=== PATIENT | female | born 1970 | race Caucasian/White ===

== ENCOUNTER 2022-05-21 16:52 | Outpatient (REF) | payer BC, SELFPAY ==
[2022-05-21 21:40] LABS: Abs Immature Grans 0.03 10^3/uL (0.0-0.06); Absolute Basophil Count 0.04 10^3/uL (0.0-0.2); Absolute Eosinophil Count 0.13 10^3/uL (0.0-0.7); Absolute Lymphocyte Count 1.88 10^3/uL (1.2-3.4); Absolute Monocyte Count 0.41 10^3/uL (0.1-0.8); Absolute Neutrophil Count 5.85 10^3/uL (1.2-6.7); Basophils % 0.5; Eosinophils % 1.6; HCT 38.3 % (36.0-46.0); HGB 12.6 g/dL (11.2-15.7); Immature Grans % 0.4; Lymphocytes % 22.5; MCH 27.5 pg (27.0-33.0); MCHC 32.9 % (32.0-36.0); MCV 83 fL (80-95); MPV 10.6 fL (8.0-11.0); Monocytes % 4.9; Neutrophils % 70.1; Platelet Count 376 10^3/uL (130-400); RBC 4.59 10^6/uL (3.93-5.22); RDW 14.2 % (11.7-14.6); WBC 8.34 10^3/uL (4.4-10.8)
[2022-05-21 21:53] LABS: Hemoglobin A1C 6.5 % (<5.7)
[2022-05-21 21:59] LABS: Iron 29 ug/dL (50-170); Total Iron Binding Capacity 379 ug/dL (250-450); Transferrin Sat 8 % (15-50)
[2022-05-21 22:06] LABS: ALT 25 U/L (14-59); AST 16 U/L (15-37); Albumin 3.6 g/dL (3.4-5.0); Alkaline Phosphatase 116 U/L (46-116); BUN 14 mg/dL (7-18); Bilirubin, Total 0.1 mg/dL (0.2-1.0); CREATININE 0.8 mg/dL (0.55-1.02); Calcium 9.3 mg/dL (8.5-10.1); Chloride 104 mmol/L (98-107); Estimated GFR 89.15 (mL/min/1.73m2); Ferritin 19 ng/mL (8-252); Glucose 116 mg/dL (74-106); Sodium 144 mmol/L (136-145); Total Protein 7.5 g/dL (6.4-8.2)
== END 2022-05-21 16:53 | disposition home or self-care (01) ==
LOC: NCHCN 16:52
PROVIDERS: PCP Family Medicine; Visit Provider Family Medicine
DX: R53.83 Other fatigue (principal); I10 Essential (primary) hypertension; F51.8 Other sleep disorders not due to a substance or known physiological condition; F32.89 Other specified depressive episodes; E66.9 Obesity, unspecified
CPT/HCPCS: 80053; 82728; 83036; 83540; 83550; 85025

== ENCOUNTER 2022-07-26 13:32 | Outpatient (REF) | payer BC, SELFPAY ==
[2022-07-26 16:14] LABS: COMMENT (LAB VIEW ONLY) 78.68 mg/dL; Microalb ug/mg Crea 8.1 ug/mg Cr
== END 2022-07-26 13:33 | disposition home or self-care (01) ==
LOC: NCHCN 13:32
PROVIDERS: PCP Family Medicine; Visit Provider Family Medicine
DX: E11.9 Type 2 diabetes mellitus without complications (principal)
CPT/HCPCS: 82043; 82570

== ENCOUNTER 2022-09-06 15:13 | Outpatient (REF) | payer BC, SELFPAY ==
[2022-09-06 14:48] LABS: Anion Gap 6.4 mmol/L (3-11); BUN 9 mg/dL (7-18); CO2 30.6 mmol/L (21.0-32.0); CREATININE 0.8 mg/dL (0.55-1.02); Calcium 9.5 mg/dL (8.5-10.1); Chloride 105 mmol/L (98-107); Estimated GFR 89.15 (mL/min/1.73m2); Glucose 95 mg/dL (74-106); Potassium 3.6 mmol/L (3.5-5.1); Sodium 142 mmol/L (136-145)
== END 2022-09-06 15:14 | disposition home or self-care (01) ==
LOC: NCHCN 15:13
PROVIDERS: PCP Family Medicine; Visit Provider Family Medicine
DX: I10 Essential (primary) hypertension (principal)
CPT/HCPCS: 80048

== ENCOUNTER 2023-05-30 13:13 | Outpatient (REF) | payer BC, SELFPAY ==
[2023-05-30 15:10] LABS: Anion Gap 8.4 mmol/L (3-11); BUN 15 mg/dL (7-18); CO2 28.6 mmol/L (21.0-32.0); CREATININE 0.8 mg/dL (0.55-1.02); Calcium 9.2 mg/dL (8.5-10.1); Chloride 105 mmol/L (98-107); Glucose 106 mg/dL (74-106); Potassium 4.3 mmol/L (3.5-5.1); Sodium 142 mmol/L (136-145)
== END 2023-05-30 13:14 | disposition home or self-care (01) ==
LOC: NCHCN 13:13
PROVIDERS: PCP Family Medicine; Visit Provider Family Medicine
DX: I10 Essential (primary) hypertension (principal)
CPT/HCPCS: 80048

== ENCOUNTER 2023-09-18 18:17 | Outpatient (REF) | payer BC, SELFPAY ==
--- OUTSIDE RECORDS SUMMARY | 2023-09-18 18:19 | XMS_ITS ---
Author Organization Unknown Address [address] [place] [phone] Phone Care Team Providers Care Heavy Equipment Technician Name Role Phone BETTIE Jimenez Attending Unavailable FLORINA ARCOS Primary Unavailable Social History Type Status Start Date End Date Code Code Syst em Smoking History Never smoker (Never Smoked) 592911856 SNOMED CT Sex Female Medications Medication Start Date End Date Route Frequency Dose Code Code System Medication Instructions Home Meds FLUCONAZOLE 01/08/2018 11/06/2021 ORAL DAILY 1 RxNo rm TAKE 1 ORAL DAILY Lisinopril 10MG Oral Tablet 01/08/2018 11/06/2021 ORAL DAILY 10 MILLIGR AMS 239161 RxNorm TAKE 10 MILLIGRAMS ORAL DAILY PAROXETINE 01/08/2018 11/06/2021 ROUTE NOT APPLICABLE DAILY 1 RxNorm 1 ROUTE NOT APPLICABLE DAILY Aspirin 81MG Oral Tablet, Chewable 01/12/2018 11/06/2021 ORAL DAILY 81 MILLIGR AMS [id number] RxNorm TAKE 81 MILLIGRAMS ORAL DAILY Atorvastatin Calcium 40MG Oral Tablet 01/12/2018 Unknown ORAL EVERY EVENING 40 MILLIGR AMS 252324 RxNorm TAKE 40 MILLIGRAMS ORAL EVERY EVENING LORAZEPAM 01/12/2018 11/06/2021 ORAL NEEDED, EVERY 6 HOURS 1 RxNorm TAKE 1 ORAL NEEDED, EVERY 6 HOURS Omeprazole 40MG Oral Capsule, Delayed Release 01/12/2018 Unknown ORAL DAILY 40 MILLIGR AMS [id number] RxNorm TAKE 40 MILLIGRAMS ORAL DAILY PAROXETINE 01/12/2018 11/06/2021 ORAL DAILY 20 RxNor m TAKE 20 ORAL DAILY ASPIRIN 81 MG TABLET 10/06/2018 Unknown ORAL DAILY 81 MILLIGR AMS RxNorm TAKE 81 MILLIGRAMS ORAL DAILY ELIQUIS TABLET 10/06/2018 11/06/2021 ORAL DAILY 1 TABLET RxNorm TAKE 1 TABLET ORAL DAILY Lisinopril 40MG Oral Tablet 10/06/2018 Unknown ORAL DAILY 40 MILLIGR AMS 492318 RxNorm TAKE 40 MILLIGRAMS ORAL DAILY Omeprazole 40MG Oral Capsule, Delayed Release 10/06/2018 11/06/2021 ORAL DAILY 40 MILLIGR AMS 702110 RxNorm TAKE 40 MILLIGRAMS ORAL DAILY PARoxetine HCl 20MG Oral Tablet 10/06/2018 11/06/2021 ORAL DAILY 20 MILLIGR AMS [id number] 5 RxNorm TAKE 20 MILLIGRAMS ORAL DAILY PAXIL 40MG ORAL TABLET 10/06/2018 11/06/2021 ORAL DAILY 40 MILLIGR AMS RxNorm TAKE 40 MILLIGRAMS ORAL DAILY PLAVIX 75MG ORAL TABLET 10/06/2018 11/06/2021 ORAL DAILY 75 MILLIGR AMS RxNorm TAKE 75 MILLIGRAMS ORAL DAILY Propranolol HCl 20MG Oral Tablet 10/06/2018 11/06/2021 ORAL TWICE A DAY 20 MILLIGR AMS [id number] RxNorm TAKE 20 MILLIGRAMS ORAL TWICE A DAY ROSUVASTATIN TAB 10/06/2018 11/06/2021 ORAL DAILY 1 TABLET RxNorm TAKE 1 TABLET ORAL DAILY Tolterodine Tartrate 4MG Oral Capsule, Extended Release 10/06/2018 11/06/2021 ORAL DAILY 4 MILLIGR AMS 813569 RxNorm TAKE 4 MILLIGRAMS ORAL DAILY Robaxin 500MG Oral Tablet 11/10/2021 Unknown ORAL THREE TIMES A DAY 2 TABLET RxNorm TAKE 2 TABLET ORAL THREE TIMES A DAY Assessment You had the following problems:HTNNEUROPATHYCVAENDOMETRIOSIS Hospital Discharge Instructions Should you have any questions prior to discharge, please contact a member of your healthcare team. If you have left the hospital and have any questions, please contact your primary care physician. Reason For Referral No Data Found Problems Problem Start Date Resolved Date Status Code Code System HTN active 97124896 SNOMED-CT NEUROPATHY active 579714341 SNOMED-CT CVA active 481765454 SNOMED-CT ENDOMETRIOSIS active 118349181 SNOMED -CT Allergies and Adverse Reactions Allergy Substance Reaction Severity Start Date Concern Status Co de Code System CODEINE Vomiting (SNOMED-CT: 356608521), NAUSEA (SNOMED-CT: 499250920), Nausea (SNOMED-CT: 907222678) Moderate Active 2670 RxNorm MORPHINE Moderate Active 1889 RxNorm Plan of Treatment Exposure 01/24/2020 MM SCREEN BILAT 11/15/2022 BONE DENSITY DEXA SPINE & HIP CT CHEST W/O CONTRAST 06/28/2022 MM DIAG RT UNILAT 04/12/2022 US BREAST UNI RT 04/12/2022 MM DIAG RT UNILAT 04/12/2022 US BREAST UNI RT 04/12/2022 MM DIAG RT UNILAT 10/10/2021 US BREAST UNI RT 10/10/2021 MM DIAG RT UNILAT 10/10/2021 US BREAST UNI RT 10/10/2021 LAB DRAW 15MIN 09/21/2021 MM SCREEN BILAT 09/21/2021 Encounters Encounter Diagnosis Start Date Code Code Sys tem Verruca plantaris 12/22/2020 04641715 SNOMED-CT Personal Care Team Section Performer Name Performer Role Active Date Inactive Da mare
--- OUTSIDE RECORDS SUMMARY | 2023-09-18 18:19 | XMS_ITS | Continuity of Care Document ---
Author Organization [facility] Address [address] [place] [address] Care Team Providers Care Wildland Fire Fighter Name Role Phone Radha Stewart Primary Care Physician [phone] Encounter NCTY_MS Date(s): 06/21/22 - 06/21/22 [facility] [address] [place] [address] Encounter Diagnosis Obstructive sleep apnea, adult(Discharge Diagnosis) - 06/19/22 Insomnia(Discharge Diagnosis) - 06/19/22 Restless leg syndrome(Discharge Diagnosis) - 06/19/22 Discharge Disposition: Home or Self Care Attending Physician: Ariana Lowery RESTAURANT GREETER Allergies, Adverse Reactions, Alerts Substance Reaction Severity Status codeine Moderate Active morphine Mild Active Ambien CR Moderate Active Assessment and Plan Future Appointments Functional Status 06/21/22 Other exposure to Infectious Disease Non e Medications atorvastatin 40 mg oral tablet 40 mg = 1 tab, Oral, Daily, # 30 tab, 0 Refill(s) Start Date: 03/05/22 Status: Ordered Portia Low Dose 81 mg oral delayed release tablet 162 mg = 2 tab, Oral, Daily, # 30 tab, 0 Refill(s) Start Date: 03/05/22 Status: Ordered hydroCHLOROthiazide 25 mg oral tablet 25 mg = 1 tab, Oral, Daily, 0 Refill(s) Start Date: 03/05/22 Status: Ordered lisinopril 40 mg oral tablet 40 mg = 1 tab, Oral, Daily, # 30 tab, 0 Refill(s) Start Date: 03/05/22 Status: Ordered omeprazole 40 mg oral delayed release capsule 40 mg = 1 cap, Oral, Daily, # 30 cap, 0 Refill(s) Start Date: 03/05/22 Status: Ordered Ozempic (1 mg dose) 4 mg/3 mL subcutaneous solution 0.5 mg =, Subcutaneous, every week, # 3 mL, 0 Refill(s) Start Date: 06/21/22 Status: Ordered PARoxetine 40 mg oral tablet 40 mg = 1 tab, Oral, Daily, # 30 tab, 0 Refill(s) Start Date: 03/05/22 Status: Ordered rOPINIRole 1 mg oral tablet See Instructions, take 1 PO 2 hours before bedtime, # 90 tab, 1 Refill(s), Pharmacy: [id number] Start Date: 03/15/22 Status: Ordered Problem List Condition Confirmation Course Effective Dates Status Health St atus Informant Acute low back pain Confirmed Active Acute inferior myocardial infarction Confirmed Active Anxiety Confirmed Active CVA (cerebrovascular accident) Confirmed Active CPAP (continuous positive airway pressure) dependence Confirmed Active Depression Confirmed Active Shortness of breath Confirmed Active Former smoker Confirmed Active Chronic fatigue Confirmed Active Heartburn Confirmed Active History of DVT in adulthood Confirmed Active Hypertension Confirmed Active Insomnia Confirmed Active Obstructive sleep apnea, adult 1 Confirmed Active Restless leg syndrome Confirmed Active Snoring Confirmed Active Transient neurological symptoms Confirmed Active 1CPAP 8-16 cm Vital Signs Most recent to oldest [Reference Range]: 1 Weight 110.22 kg (06/21/22 8:26 AM) Weight Measured (lbs) 242.993 lb (06/21/22 8:26 AM) Height 158 cm (06/21/22 8:26 AM) Height/Length Measured (inches) 62.2 inc h (06/21/22 8:26 AM) BSA Measured 2.2 m2 (06/21/22 8:26 AM) Body Mass Index 44.15 kg/m2 (06/21/22 8:26 AM) Social History Social History Type Response Tobacco Former tobacco user Tobacco Use:. Sex Female Physician Outpatient Note * Ariana Lowery RESTAURANT GREETER: PERFORM Event Display: Office Clinic Note Physician Authored Date: [id number] HAKANLARS BASHIR :1970 Age:51 years Sex:Female Visit Date:06/21/2022 Primary Care Physician: Radha Stewart MD History of Present Illness Lars Jimenez has a Zoom??visit for ALAINA follow-up. She has given consent to have a telehealth visit. Patient is at home, provider is in the office. ?? Lars was last seen by me on 03/15/2022. She has a medical history to include obesity, HTN, GERD, migraine, anxiety, insomnia and ALAINA. ?? PSG 09/24/2007 (BMI 38.8), AHI 20.6/hr, sp02 hunter 85%, PLMi 7/hr, PLMai 0.8/hr. ?? At her last visit she was using CPAP 8-16 cm with excellent compliance and reduction in AHI. I recommended a mask liner for guajardo/reaction, explained how to prevent condensation and prescribed ropinirole for suspected PLMS causing sleep maintenance insomnia. ?? Lars tells me she is using her CPAP every night. She is tolerating it well except some nights she is still having leaking because she gets an angry face in the morning. She is not aware of the leaking at night. She is now taking Ozempic because she was diagnosed with DM and she is down about 30 lbs. She feels she is sleeping significantly more soundly since her weight has come down and she started sleeping more soundly with ropinirole. She tales ropinirole around 7 pm and she gets to bed between 9-10 pm, she still has restless legs every night where they move constantly and feels like shehas spiders or something crawling on her legs and they feel uncomfortable. Her last caffeine is now around 1 pm. She tolerates the ropinirole well and feels the best she has in many years. She feels much alert and has better energy. She got the mask liner and this made a significant improvement in the guajardo on her face and the leaks are better. She no longer has any insomnia, she either sleeps straight through or wakes once to use the bathroom and is able to get right back to sleep. ?? ESS today 05/10 COMPLIANCE DATA: N/A Physical Exam Vitals & Measurements HT:??158??cm?? WT:??110.22??kg?? BMI:??44.15?? BSA:??2.2?? N/A Clinic Assessment/Plan 1.??Obstructive sleep apnea, adult??G47.33 ALAINA diagnosed in 2007 with an AHI of 20.6/hr. She has been using CPAP 8-16 cm, she??reports excellent compliance and??but there was no compliance data available for review today. At her last visit??the AHI was at goal. She got the mask liner and the leaks are better and she had elimination of the skin irritation with this. ??She has elimination of snoring and witnessed apneas with CPAP and continued use is recommended. She is advised to keep up with the routine maintenance of the machine and toclean/replace parts as needed. I will see her back in one year. She is asked to call our office forany sleep related questions or concerns. I provided greater than 30 minutes in the care of this patient, more than half the time was spent in [id number] counseling. 2.??Insomnia??G47.00 Last visit she reported some difficulty falling asleep and often getting back to sleep. Many nightsshe was up by 2:30-4 am because she couldn't fall back to sleep.?She tried Ambien in the past and diphenhydramine and they were ineffective (Ambien) or she had intolerable side effects. She tired another sleep Rx and it also worsened her sleep. Last visit I added ropinirole and her insomnia has completely resolved. 3.??Restless leg syndrome??G25.81 Last visit she reported classic symptoms most nights and this did interfere with falling asleep. She had??her last caffeine at 3pm (soda) and was advised to cut this out and not have caffeine after noon. She also takes paroxetine which may cause or worsen RLS (but may be weaning off this). Last visit??I prescribed??ropinirole 1 mg to take two hours before bedtime. She has been taking this 2-3 hours before bed and her sleep is significantly improved and she is feeling much better rested and has more energy now. Unfortunately she still experiences RLS symptoms QHS when in bed. She did cut her caffeine back to latest at 1 pm. At this time I am having her increase the ropinirole to 2 mg and if this helps she will call our office so I can send in a??new Rx for 2 mg tablets. She has tolerated it without any side effects.?? Problem List/Past Medical History Ongoing Acute inferior myocardial infarction Acute low back pain Anxiety Chronic fatigue CPAP (continuous positive airway pressure) dependence CVA (cerebrovascular accident) Depression Former smoker Heartburn History of DVT in adulthood Hypertension Insomnia Morbid obesity Obstructive sleep apnea, adult Restless leg syndrome Shortness of breath Snoring Transient neurological symptoms Historical No qualifying data Medications What How Much When Why Instructions Unchanged aspirin (Portia Low Dose 81 mg oral delayed release tablet) 2 tab Oral (given by mouth) Every day Unchanged atorvastatin (atorvastatin 40 mg oral tablet) 1 tab Oral (given by mouth) Every day Unchanged hydroCHLOROthiazide (hydroCHLOROthiazide 25 mg oral tablet) 1 tab Oral (given by mouth) Every day Unchanged lisinopril (lisinopril 40 mg oral tablet) 1 tab Oral (given by mouth) Every day Unchanged omeprazole (omeprazole 40 mg oral delayed release capsule) 1 Capsules Oral (given by mouth) Every day Unchanged PARoxetine (PARoxetine 40 mg oral tablet) 1 tab Oral (given by mouth) Every day Unchanged rOPINIRole (rOPINIRole 1 mg oral tablet) See instructions Obstructive sleep apnea, adult Insomnia Restless leg syndrome take 1 PO 2 hours before bedtime ?? Unchanged semaglutide (Ozempic (1 mg dose) 4 mg/ 3 mL subcutaneous solution) 0.5 Milligrams Subcutaneous (under the skin) Every week Allergies Ambien CR codeine morphine Social History Electronic Cigarette/Vaping Electronic Cigarette Use: Never. Tobacco Former tobacco user Tobacco Use:. Electronically Signed on 06/21/22 08:38 AM Ariana Lowery NP Patient Care team information Care Team Personnel Name: Radha Stewart MD Position: No Access Member Role: Primary Care Physician
--- OUTSIDE RECORDS SUMMARY | 2023-09-18 18:19 | XMS_ITS | Continuity of Care Document ---
Author Organization [facility] Address [address] [place] [address] Care Team Providers Care Communications Equipment Installer Name Role Phone Radha Stewart Primary Care Physician Encounter [facility] Date(s): 03/15/22 - 03/15/22 [facility] [address] [place] [address] Encounter Diagnosis Obstructive sleep apnea, adult(Discharge Diagnosis) - 03/13/22 Insomnia(Discharge Diagnosis) - 03/15/22 Restless leg syndrome(Discharge Diagnosis) - 03/15/22 Discharge Disposition: Home or Self Care Attending Physician: Ariana Lowery COMMUNICATIONS EQUIPMENT INSTALLER Allergies, Adverse Reactions, Alerts Substance Reaction Severity Status codeine Moderate Active morphine Mild Active Ambien CR Moderate Active Assessment and Plan Future Appointments Functional Status 03/15/22 Other exposure to Infectious Disease Non e [...] 0 Refill(s) Start Date: 03/05/22 Status: Ordered PARoxetine 40 mg oral tablet 40 mg = 1 tab, Oral, Daily, # 30 tab, 0 Refill(s) Start Date: 03/05/22 Status: Ordered rOPINIRole 1 mg oral tablet See Instructions, take 1 PO 2 hours before bedtime, # 90 tab, 1 Refill(s), Pharmacy: [facility] #[id number] Start Date: 03/15/22 Status: [...] Most recent to oldest [Reference Range]: 1 Peripheral Pulse Rate [60-100 bpm] 99 bp m (03/15/22 10:35 AM) Blood Pressure [90-140/60-90 mmHg] 141/8 5mmHg *HI* (03/15/22 10:35 AM) Weight 120.20 kg (03/15/22 10:35 AM) Weight Measured (lbs) 264.995 lb (03/15/22 10:35 AM) Height 154 cm (03/15/22 10:35 AM) Height/Length Measured (inches) 60.63 in ch (03/15/22 10:35 AM) BSA Measured 2.27 m2 (03/15/22 10:35 AM) Body Mass Index 50.68 kg/m2 (03/15/22 10:35 AM) Social History Social History Type Response Tobacco Never tobacco user T obacco Use:. Sex Female Polysomnography (sleep) study * Nathan Alicea: PERFORM Event Display: Sleep Study Authored Date: [id number] Progress note * Nathan Alicea: PERFORM Event Display: Progress Note - Physician Authored Date: [id number] Physician Outpatient Note * Ariana Lowery COMMUNICATIONS EQUIPMENT INSTALLER: PERFORM Event Display: Office Clinic Note Physician Authored Date: [id number] LARS JIMENEZ:1970 Age:51 years Sex:Female Visit Date:03/15/2022 Primary Care Physician: Radha Stewart MD History of Present Illness Lars Jimenez has a visit for ALAINA follow-up. ?? Lars was last seen in the sleep clinic by Isela Medina NP in 2016. She has a medical history to include obesity, HTN, GERD, migraine, anxiety, insomnia and ALAINA. ?? PSG 09/24/2007 (BMI 38.8), AHI 20.6/hr, sp02 hunter 85%, PLMi 7/hr, PLMai 0.8/hr. ?? At her last visit with Isela she was using BiPAP 18/8/4 cm and taking modafinil 100 mg BID. ?? Lars tells me she is using her CPAP every night. She has tried several different asks and the FFM leave imprints on her face and red guajardo. She has a nasal pillows now but is struggling with an air leak. This is waking her up at night. She has not tried a chin strap. She liked the Dreamwear but it left a red ring around her face. She has been paying out of pocket for her supplies because she has a high deductible. She is not snoring with CPAP on and she wakes feeling out of breath. She did try an oral appliance and hated it. ?? She??typically goes to bed at??9 pm and it takes??60 minutes to fall asleep.??She wakes up??a??3-4??times a night from unknown reason. It takes?? minutes to get back to sleep.??She gets up at??5:30 am to start the day. Sometimes she wakes early and can't get back to sleep at all (particularly this happens if she wakes anytime after 0230).??She does not take naps.??She sleeps with someone. She has no??disturbances to sleep. ?? Quality of sleep most nights is perceived as okay to poor. ?? Level of daytime alertness is low energy to sleepy. ?? NEUROCOGNITIVE??SYMPTOMS: Has noted poor or worsening memory. Does have short concentration. Does have irritability. Does have anxiety. Does have depression. ?? INSOMNIA SYMPTOMS: Does have an active mind when trying to sleep. Does have stressful or upsetting thoughts that keep them from falling asleep. Does watch the clock often during the night. Does not worry about getting a good night of sleep. ?? BREATHING SYMPTOMS: Does not snore. Does not stop breathing during sleep. Does not struggle to breathe/gasp while sleeping. Does not feel like they are choking or throat is closing during sleep. Does breathe through mouth in sleep. Does have nasal congestion during the night. ?? MOVEMENT SYMPTOMS: Does toss and turn at night. Does have messy sheets after sleep. Does not have leg or arm jerks in sleep or prior to sleep. Does not have aching, restless or crawling feelings in legs at night. Does have a hard time keeping legs still when trying to rest or sleep. Does get muscle cramps in legs at night. Does not have sleep walking or talking. ?? DREAM SYMPTOMS: Does not often have nightmares that interfere with sleep. Does not dream of drowning or suffocating. Does not start to dream shortly after falling asleep. Does not see dreams in the room even when awake. Does not see or hear things that aren't really there when falling asleep or waking up. Does not see things in the road when driving that aren't really there. Has not had someone see them act out dreams while sleeping. Has not accidentally injured self in sleep when dreaming. ?? WEAKNESS SYMPTOMS: Does not feel limp, lose strength or fall asleep when angry, surprised or laughing. Does not have leg, arm or face weakness when upset. Does not have episodes of being unable to move when waking up. ?? DRIVING SYMPTOMS: Has not nearly fallen asleep when driving. Has not had an accident related to drowsy driving or not paying attention. Does forget the last few minutes or miles driven. Does not drive out of mary and cross center line or go onto shoulder when driving. Has not had a passenger tell them they look sleepy when driving. ?? ESS today 05/10 COMPLIANCE DATA REVIEWED WITH PATIENT: Dates 02/13/22-03/14/22,??Days used??30/30??, average use??6 hours, 46 minutes,??median pressure 11.2??cm,??95 th percentile pressure??14.2 cm,??95 th percentileair leak 46.9??lpm, AHI 2/hr Review of Systems wakes with dry mouth, heartburn (wakes with this), nocturia 0-2/night, and claustrophobia. Physical Exam Vitals & Measurements HR:??99??(Peripheral)?? BP:??141/85?? SpO2:??99%?? HT:??154??cm?? WT:??120.20??kg?? BMI:??50.68?? BSA:??2.27?? GENERAL: answers questions appropriately, well groomed, obese. HEAD: normocephalic and atraumatic. EYES: non icteric LUNGS: CTA all guadalupe. Good air movement throughout. CARDIO: RRR without murmur, gallop or thrill. NEURO: alert and oriented, normal gait. PYSCH: normal mood and affect. CUTANEOUS: no overt lesions or rashes.?? Assessment/Plan 1.??Obstructive sleep apnea, adult??G47.33 ALAINA diagnosed in 2007 with an AHI of 20.6/hr. She has been using CPAP 8-16 cm, she has excellent compliance and reduction in AHI. She has elimination of snoring and witnessed apneas with CPAP and continued use is recommended.??She tolerates the pressures well but she has struggled to find a mask that is comfortable and does not leave guajardo on her face. Her favorite mask was the Dreamwear FFM but it caused her to have a reaction. Today I showed her the [facility] and recommended a mask liner. She tried nasal pillows but has an oral air leak with these. I recommended a chin strap if needed but she will likely go back to the FFM. She gets occasional condensation and does not have a heated hose so I explained how to prevent this (get a heated hose, insulate with CPAP sleeve, pull tubing under blankets). She is advised to keep up with the routine maintenance of the machine and to clean/replace parts as needed. I will see her back in three months. She is asked to call our office for anysleep related questions or concerns. I provided greater than??45 minutes in the care of this patient, more than half the time was spent in [id number] counseling. Ordered: RocioINIRole 1 mg oral tablet, See Instructions, take 1 PO 2 hours before bedtime, # 90 tab, 1 Refill(s), Pharmacy: [facility] #[id number] Follow-Up Appointment Request ILDA, *Est. 06/13/22 +/- 21 days, Future Order, In [facility] ?? 2.??Insomnia??G47.00 She has some difficulty falling asleep and often getting back to sleep. Many nights she is up by 2:30-4 am because she can't fall back to sleep. ?? She tried Ambien in the past and diphenhydramine and they were ineffective (Ambien) or she had intolerable side effects. She tired another sleep Rx andit also worsened her sleep. I wonder if she has PLMS as below so will treat her RLS and continue to monitor. She is no longer on bupropion (which can worsen insomnia).?? She is hoping to wean off paroxetine. I wondered about manager lighting waking being caused by depression? She feels the insomnia became a problem after her stroke a??few years ago and she feels like her mood is well controlled at this time. Ordered: rOPINIRole 1 mg oral tablet, See Instructions, take 1 PO 2 hours before bedtime, # 90 tab, 1 Refill(s), Pharmacy: [facility] #[id number] Follow-Up Appointment Request NCTY, *Est. 06/13/22 +/- 21 days, Future Order, In [facility] ?? 3.??Restless leg syndrome??G25.81 Classic symptoms most nights and this does interfere with falling asleep. She has last caffeine at 3pm (soda) and is advised to cut this out and not have caffeine after noon. She also takes paroxetine which may cause or worsen RLS (but may be weaning off this). She may have PLMS associated with this and contributing to poor sleep and residual sleepiness. I prescribed??ropinirole 1 mg to take two hours before bedtime. ADR's including risk of impulse control disorder were covered. Ordered: rOPINIRole 1 mg oral tablet, See Instructions, take 1 PO 2 hours before bedtime, # 90 tab, 1 Refill(s), Pharmacy: [facility] #[id number] Follow-Up Appointment Request MARILEEY, *Est. 06/13/22 +/- 21 days, Future Order, In [facility] ?? Problem List/Past Medical History Ongoing Acute inferior myocardial infarction Acute low back pain Anxiety Chronic fatigue CPAP (continuous positive airway pressure) dependence CVA (cerebrovascular accident) Depression Former smoker Heartburn History of DVT in adulthood Hypertension Insomnia Morbid obesity Obstructive sleep apnea, adult Restless leg syndrome Shortness of breath Snoring Transient neurological symptoms Historical No qualifying data Medications atorvastatin 40 mg oral tablet, 40 mg= 1 tab, Oral, Daily Portia Low Dose 81 mg oral delayed release tablet, 162 mg= 2 tab, Oral, Daily hydroCHLOROthiazide 25 mg oral tablet, 25 mg= 1 tab, Oral, Daily lisinopril 40 mg oral tablet, 40 mg= 1 tab, Oral, Daily omeprazole 40 mg oral delayed release capsule, 40 mg= 1 cap, Oral, Daily PARoxetine 40 mg oral tablet, 40 mg= 1 tab, Oral, Daily rOPINIRole 1 mg oral tablet, See Instructions, 1 refills Allergies Ambien CR codeine morphine Social History Electronic Cigarette/Vaping Electronic Cigarette Use: Never. Tobacco Never tobacco user Tobacco Use:. Electronically Signed on 03/15/22 11:18 AM Ariana Lowery NP * Nathan Alicea: PERFORM Event Display: Office Clinic Note Physician Authored Date: [id number] * Nathan Alicea: PERFORM Event Display: Office Clinic Note Physician Authored Date: [id number] Patient Care team information Personnel Name: Radha Stewart MD
--- OUTSIDE RECORDS SUMMARY | 2023-09-18 18:19 | XMS_ITS | Continuity of Care Document ---
Author Organization [facility] Address [address] [place] [address] Care Team Providers Care Breakfast And Room Attendant Name Role Phone Radha Stewart Primary Care Physician [phone] [facility] Date(s): 06/27/23 - 06/27/23 [facility] [address] [place] [address] Encounter Diagnosis Obstructive sleep apnea, adult(Discharge Diagnosis) - 06/19/23 Restless leg syndrome(Discharge Diagnosis) - 06/19/23 Discharge Disposition: Home or Self Care Attending Physician: Ariana Lowery NP Allergies, Adverse Reactions, Alerts Substance Reaction Severity Status codeine Moderate Active morphine Mild Active Ambien CR Moderate Active Assessment and Plan Extracted from: Title:Clinic - Office Visit Note Author:Americo Lowery NP Date:06/27/23 1.??Obstructive sleep apnea, adult??G47.33 ??ALAINA diagnosed in 2007 with an AHI of 20.6/hr. She has been using CPAP 8-16 cm, she has excellent compliance and reduction in AHI. She has lost a significant amount of weight and feels the pressure is too strong and she is having a lot of air leaking. I had her set the CPAP to 6-12 cm today and I asked for a one month compliance (she will need to mail her SD card as she [place] and we can't access her machine). Also she has not been changing her cushion regularly (only every several months) so she is advised to do this monthly and clean daily to get best fit. She already uses a mask liner. An order was sent to [facility] for supplies because she has been paying for them out of pocket.?? I will see her back in one year.?? I provided greater than 30 minutes in the care of this patient, more than half the time was spent in [id number] counseling. 2.??Restless leg syndrome??G25.81 ?She initially reported having classic symptoms most nights that did interfere with falling asleep. She now takes ropinirole 1 mg a couple of hours before bedtime and her symptoms are currently very well controlled. She tolerate sthis well and a new Rx was sent in. Future Appointments Medications atorvastatin 40 mg oral tablet 40 mg = 1 tab, Oral, Daily, # 30 tab, 0 Refill(s) Start Date: 03/05/22 Status: Ordered Portia Low Dose 81 mg oral delayed release tablet 162 mg = 2 tab, Oral, Daily, # 30 tab, 0 Refill(s) Start Date: 03/05/22 Status: Ordered Fosamax 70 mg oral tablet 70 mg = 1 tab, Oral, every week, # 4 tab, 0 Refill(s) Start Date: 06/27/23 Status: Ordered hydroCHLOROthiazide 12.5 mg oral capsule 12.5 mg = 1 cap, Oral, Daily, # 30 cap, 0 Refill(s) Start Date: 06/27/23 Status: Ordered lisinopril 40 mg oral tablet 40 mg = 1 tab, Oral, Daily, # 30 tab, 0 Refill(s) Start Date: 03/05/22 Status: Ordered omeprazole 40 mg oral delayed release capsule 40 mg = 1 cap, Oral, Daily, # 30 cap, 0 Refill(s) Start Date: 03/05/22 Status: Ordered oxybutynin 15 mg/24 hr oral tablet, extended release 15 mg = 1 tab, Oral, Daily, # 30 tab, 0 Refill(s) Start Date: 06/27/23 Status: Ordered PARoxetine 10 mg oral tablet 10 mg = 1 tab, Oral, Daily, # 30 tab, 0 Refill(s) Start Date: 06/27/23 Status: Ordered rOPINIRole 1 mg oral tablet See Instructions, take 1 PO 2 hours before bedtime, # 90 tab, 3 Refill(s), Pharmacy: [facility] #[id number], 158, cm, 06/27/23 10:56:00 EDT, Height, 99.79, kg, 06/27/23 11:01:00 EDT, Weight Dosing Start Date: 06/27/23 Status: Ordered Victoza 0 Refill(s) Start Date: 06/27/23 Status: Ordered Problem List Condition Confirmation Course [...] Range]: 1 Peripheral Pulse Rate [60-100 bpm] 71 bp m (06/27/23 10:56 AM) Blood Pressure [90-140/60-90 mmHg] 129/9 6mmHg (06/27/23 10:56 AM) Mean Arterial Pressure, Cuff [65-140 mmH g] 107 mmHg (06/27/23 10:56 AM) Weight 99.79 kg (06/27/23 10:56 AM) Weight Measured (lbs) 219.999 lb (06/27/23 10:56 AM) Weight Dosing 99.790 kg (06/27/23 10:56 AM) Height 158 cm (06/27/23 10:56 AM) Height/Length Measured (inches) 62.2 inc h (06/27/23 10:56 AM) BSA Measured 2.09 m2 (06/27/23 10:56 AM) Body Mass Index 39.97 kg/m2 (06/27/23 10:56 AM) Social History Social History Type Response Tobacco Former tobacco user Tobacco Use:. Sex Female Progress note * Nathan Alicea M: PERFORM Event Display: Progress Note - Physician Authored Date: [id number] Physician Outpatient Note * Ariana Lowery DIRECTOR OF EDUCATION: PERFORM Event Display: Office Clinic Note Physician Authored Date: [id number] LARS JIMENEZ :1970 Age:52 years Sex:Female Visit Date:06/27/2023 Primary Care Physician: Radha Stewart MD History of Present Illness Lars Jimenez has a telehealth visit for ALAINA and RLS follow-up. She has given consent to have a telehealth visit. Patient is at the office, provider is at home. ?? Lars was last seen by me on 06/21/2022. She has a medical history to include obesity, HTN, GERD, migraine, anxiety, insomnia and ALAINA. ?? PSG 09/24/2007 (BMI 38.8), AHI 20.6/hr, sp02 hunter 85%, PLMi 7/hr, PLMai 0.8/hr. ?? At her last visit she was using CPAP 8-16 cm with reported excellent compliance a (no date for review). She was taking ropinirole with significant improvement in RLS and sleep quality, but still someRLS many nights. She was to try 2 mg. ?? Lars tells me she is using her CPAP every night. She thinks that her mask ahs been leaking a lot and it is blowing off her face and she is having to keep her hand on the mask to hold it in place and she hasn't been sleeping well because of this. She got a mask iner and this has helped but it stll leaks a lot. She uses a 3D [employer]ear FFM size medium. She changes the cushion about every 3-4 months. She tried a classic FFM and nasal pillows in the past and this has worked the best. She changes the cushion only every several months and has been paying out of pocket from [employer]. The air pressure feels too strong at times like she can't catch her breath. She still feels she benefits from CPAP b ecause she feels much better the next day.? She is taking semaglutide and her weight is down 20 lbs since I saw her last year and 70 lbs total ?? She take ropinirole between 7-8 pm. Her legs have been well controlled with this and she tolerates this medication well.? ESS 08/10 COMPLIANCE DATA REVIEWED WITH PATIENT: Dates 05/28/23-06/26/23,??Days used?? 30, average use 8 hours, 32 minutes,??median pressure 9.8 cm,??95 th percentile pressure 12.2 cm,??95 th percentile air leak 45 lpm, AHI 0.5/hr Physical Exam Vitals & Measurements HR:??71??(Peripheral)?? BP:??129/96?? SpO2:??98%?? HT:??158??cm?? WT:??99.79??kg?? BMI:??39.97?? BSA:??2.09?? Clinic Assessment/Plan 1.??Obstructive sleep apnea, adult??G47.33 ??ALAINA diagnosed in 2007 with an AHI of 20.6/hr. She has been using CPAP 8-16 cm, she has excellent compliance and reduction in AHI. She has lost a significant amount of weight and feels the pressure is too strong and she is having a lot of air leaking. I had her set the CPAP to 6-12 cm today and I asked for a one month compliance (she will need to mail her SD card as she lives an hour away and we can't access her machine). Also she has not been changing her cushion regularly (only every severalmonths) so she is advised to do this monthly and clean daily to get best fit. She already uses a mask liner. An order was sent to [facility] for supplies because she has been paying for them out of pocket.?? I will see her back in one year.?? I provided greater than 30 minutes in the care of this patient, more than half the time was spent in [id number] counseling. 2.??Restless leg syndrome??G25.81 ?She initially reported having classic symptoms most nights that did interfere with falling asleep. She now takes ropinirole 1 mg a couple of hours before bedtime and her symptoms are currently very well controlled. She tolerate sthis well and a new Rx was sent in. Problem List/Past Medical History Ongoing Acute inferior [...] What How Much When Why Instructions Unchanged alendronate (Fosamax 70 mg oral tablet) 1 tab Oral (given by mouth) Every week Unchanged aspirin (Portia Low Dose 81 mg oral delayed release tablet) 2 tab Oral (given by mouth) Every day Unchanged atorvastatin (atorvastatin 40 mg oral tablet) 1 tab Oral (given by mouth) Every day Unchanged hydroCHLOROthiazide (hydroCHLOROthiazide 12.5 mg oral capsule) 1 Capsules Oral (given by mouth) Every day Unchanged liraglutide (Victoza) Unchanged lisinopril (lisinopril 40 mg oral tablet) 1 tab Oral (given by mouth) Every day Unchanged omeprazole (omeprazole 40 mg oral delayed release capsule) 1 Capsules Oral (given by mouth) Every day Unchanged oxybutynin (oxybutynin 15 mg/ 24 hr oral tablet, extended release) 1 tab Oral (given by mouth) Every day Unchanged PARoxetine (PARoxetine 10 mg oral tablet) 1 tab Oral (given by mouth) Every day Unchanged rOPINIRole (rOPINIRole 1 mg oral tablet) See instructions Obstructive sleep apnea, adult Insomnia Restless leg syndrome take 1 PO 2 hours before bedtime ?? Pickup at [facility][id number] Pharmacy Information [facility] #[id number]: [address] [place], [place] [id number] [phone] Allergies Ambien CR codeine morphine Social History Electronic Cigarette/Vaping Electronic Cigarette Use: Never. Tobacco Former tobacco user Tobacco Use:. Electronically Signed on 06/27/23 11:31 AM Ariana Lowery NP Patient Care team information Care Team Personnel Name: Radha Stewart MD Position: No Access Member Role: Primary Care Physician
--- OUTSIDE RECORDS SUMMARY | 2023-09-18 18:20 | XMS_ITS ---
Author Organization Unknown Address [address] [place] [address] [phone] Phone Care Team Providers Care Hand Tufter Name Role Phone BETTIE Jimenez Attending Unavailable FLORINA ARCOS Primary Unavailable Social History Type Status Start Date End Date Code Code Syst em Smoking History Never smoker (Never Smoked) 430815213 SNOMED CT Sex Female Medications Medication Start Date End Date Route Frequency Dose Code Code System Medication Instructions Home Meds FLUCONAZOLE 01/08/2018 11/06/2021 ORAL DAILY 1 RxNo rm TAKE 1 ORAL DAILY Lisinopril 10MG Oral Tablet 01/08/2018 11/06/2021 ORAL DAILY 10 MILLIGR AMS [id number] RxNorm TAKE 10 MILLIGRAMS ORAL DAILY PAROXETINE 01/08/2018 11/06/2021 ROUTE NOT APPLICABLE DAILY 1 RxNorm 1 ROUTE NOT APPLICABLE DAILY Aspirin 81MG Oral Tablet, Chewable 01/12/2018 11/06/2021 ORAL DAILY 81 MILLIGR AMS 009625 RxNorm TAKE 81 MILLIGRAMS ORAL DAILY Atorvastatin Calcium 40MG Oral Tablet 01/12/2018 Unknown ORAL EVERY EVENING 40 MILLIGR AMS 011591 RxNorm TAKE 40 MILLIGRAMS ORAL EVERY EVENING LORAZEPAM 01/12/2018 11/06/2021 ORAL NEEDED, EVERY 6 HOURS 1 RxNorm TAKE 1 ORAL NEEDED, EVERY 6 HOURS Omeprazole 40MG Oral Capsule, Delayed Release 01/12/2018 Unknown ORAL DAILY 40 MILLIGR AMS [id number] RxNorm TAKE 40 MILLIGRAMS ORAL DAILY PAROXETINE 01/12/2018 11/06/2021 ORAL DAILY 20 RxNor m TAKE 20 ORAL DAILY ASPIRIN 81 MG TABLET 10/06/2018 Unknown ORAL DAILY 81 MILLIGR AMS RxNorm TAKE 81 MILLIGRAMS ORAL DAILY ELIQUIS TABLET 10/06/2018 11/06/2021 ORAL DAILY 1 TABLET RxNorm TAKE 1 TABLET ORAL DAILY Lisinopril 40MG Oral Tablet 10/06/2018 Unknown ORAL DAILY 40 MILLIGR AMS [id number] RxNorm TAKE 40 MILLIGRAMS ORAL DAILY Omeprazole 40MG Oral Capsule, Delayed Release 10/06/2018 11/06/2021 ORAL DAILY 40 MILLIGR AMS 404926 RxNorm TAKE 40 MILLIGRAMS ORAL DAILY PARoxetine HCl 20MG Oral Tablet 10/06/2018 11/06/2021 ORAL DAILY 20 MILLIGR AMS 229339 5 RxNorm TAKE 20 MILLIGRAMS ORAL DAILY PAXIL 40MG ORAL TABLET 10/06/2018 11/06/2021 ORAL DAILY 40 MILLIGR AMS RxNorm TAKE 40 MILLIGRAMS ORAL DAILY PLAVIX 75MG ORAL TABLET 10/06/2018 11/06/2021 ORAL DAILY 75 MILLIGR AMS RxNorm TAKE 75 MILLIGRAMS ORAL DAILY Propranolol HCl 20MG Oral Tablet 10/06/2018 11/06/2021 ORAL TWICE A DAY 20 MILLIGR AMS [id number] RxNorm TAKE 20 MILLIGRAMS ORAL TWICE A DAY ROSUVASTATIN TAB 10/06/2018 11/06/2021 ORAL DAILY 1 TABLET RxNorm TAKE 1 TABLET ORAL DAILY Tolterodine Tartrate 4MG Oral Capsule, Extended Release 10/06/2018 11/06/2021 ORAL DAILY 4 MILLIGR AMS 620392 RxNorm TAKE 4 MILLIGRAMS ORAL DAILY Robaxin [...] Date Status Code Code System HTN active 43456631 SNOMED-CT NEUROPATHY active 641575329 SNOMED-CT CVA active 925711971 SNOMED-CT ENDOMETRIOSIS active 950000488 SNOMED -CT Allergies and Adverse Reactions Allergy Substance Reaction Severity Start Date Concern Status Co de Code System CODEINE Vomiting (SNOMED-CT: 419536904), NAUSEA (SNOMED-CT: 921687241), Nausea (SNOMED-CT: 577794920) Moderate Active 2670 RxNorm MORPHINE Moderate Active 0419 RxNorm Plan of Treatment Exposure 01/24/2020 MM [...] Date Code Code Sys tem Verruca plantaris 03/30/2021 84858124 SNOMED-CT Personal Care Team Section Performer Name Performer Role Active Date Inactive Da mare
--- OUTSIDE RECORDS SUMMARY | 2023-09-18 18:20 | XMS_ITS ---
Author Organization Unknown Address [address] [place] [address] [phone] Phone Care Team Providers Care Kraft Mill Operator Name Role Phone BETTIE Jimenez Attending Unavailable FLORINA ARCOS Primary Unavailable Social History Type Status Start Date End Date Code Code Syst em Smoking History Never smoker (Never Smoked) 228705158 SNOMED CT Sex Female Medications Medication Start Date End Date Route Frequency Dose Code Code System Medication Instructions Home Meds FLUCONAZOLE 01/08/2018 11/06/2021 ORAL DAILY 1 RxNo rm TAKE 1 ORAL DAILY Lisinopril 10MG Oral Tablet 01/08/2018 11/06/2021 ORAL DAILY 10 MILLIGR AMS [id number] RxNorm TAKE 10 MILLIGRAMS ORAL DAILY PAROXETINE 01/08/2018 11/06/2021 ROUTE NOT APPLICABLE DAILY 1 RxNorm 1 ROUTE NOT APPLICABLE DAILY Aspirin 81MG Oral Tablet, Chewable 01/12/2018 11/06/2021 ORAL DAILY 81 MILLIGR AMS 701042 RxNorm TAKE 81 MILLIGRAMS ORAL DAILY Atorvastatin Calcium 40MG Oral Tablet 01/12/2018 Unknown ORAL EVERY EVENING 40 MILLIGR AMS 540653 RxNorm TAKE 40 MILLIGRAMS ORAL EVERY EVENING LORAZEPAM 01/12/2018 11/06/2021 ORAL NEEDED, EVERY 6 HOURS 1 RxNorm TAKE 1 ORAL NEEDED, EVERY 6 HOURS Omeprazole 40MG Oral Capsule, Delayed Release 01/12/2018 Unknown ORAL DAILY 40 MILLIGR AMS 279593 RxNorm TAKE 40 MILLIGRAMS ORAL DAILY PAROXETINE 01/12/2018 11/06/2021 ORAL DAILY 20 RxNor m TAKE 20 ORAL DAILY ASPIRIN 81 MG TABLET 10/06/2018 Unknown ORAL DAILY 81 MILLIGR AMS RxNorm TAKE 81 MILLIGRAMS ORAL DAILY ELIQUIS TABLET 10/06/2018 11/06/2021 ORAL DAILY 1 TABLET RxNorm TAKE 1 TABLET ORAL DAILY Lisinopril 40MG Oral Tablet 10/06/2018 Unknown ORAL DAILY 40 MILLIGR AMS 581245 RxNorm TAKE 40 MILLIGRAMS ORAL DAILY Omeprazole 40MG Oral Capsule, Delayed Release 10/06/2018 11/06/2021 ORAL DAILY 40 MILLIGR AMS 775670 RxNorm TAKE 40 MILLIGRAMS ORAL DAILY PARoxetine HCl 20MG Oral Tablet 10/06/2018 11/06/2021 ORAL DAILY 20 MILLIGR AMS 609988 5 RxNorm TAKE 20 MILLIGRAMS ORAL DAILY PAXIL 40MG ORAL TABLET 10/06/2018 11/06/2021 ORAL DAILY 40 MILLIGR AMS RxNorm TAKE 40 MILLIGRAMS ORAL DAILY PLAVIX 75MG ORAL TABLET 10/06/2018 11/06/2021 ORAL DAILY 75 MILLIGR AMS RxNorm TAKE 75 MILLIGRAMS ORAL DAILY Propranolol HCl 20MG Oral Tablet 10/06/2018 11/06/2021 ORAL TWICE A DAY 20 MILLIGR AMS 237488 RxNorm TAKE 20 MILLIGRAMS ORAL TWICE A DAY ROSUVASTATIN TAB 10/06/2018 11/06/2021 ORAL DAILY 1 TABLET RxNorm TAKE 1 TABLET ORAL DAILY Tolterodine Tartrate 4MG Oral Capsule, Extended Release 10/06/2018 11/06/2021 ORAL DAILY 4 MILLIGR AMS 236802 RxNorm TAKE 4 MILLIGRAMS ORAL DAILY Robaxin [...] Date Status Code Code System HTN active 74757490 SNOMED-CT NEUROPATHY active 185379119 SNOMED-CT CVA active 155516979 SNOMED-CT ENDOMETRIOSIS active 552567919 SNOMED -CT Allergies and Adverse Reactions Allergy Substance Reaction Severity Start Date Concern Status Co de Code System CODEINE Vomiting (SNOMED-CT: 689607309), NAUSEA (SNOMED-CT: 910607380), Nausea (SNOMED-CT: 193507450) Moderate Active 2670 RxNorm MORPHINE Moderate Active 7500 RxNorm Plan of Treatment Exposure 01/24/2020 MM [...] Date Code Code Sys tem Verruca plantaris 01/26/2021 81138588 SNOMED-CT Personal Care Team Section Performer Name Performer Role Active Date Inactive Da mare
--- OUTSIDE RECORDS SUMMARY | 2023-09-18 18:20 | XMS_ITS ---
Author Organization Unknown Address [address] [place] [address] [phone] Phone Care Team Providers Care Developmental Mathematics Instructor Name Role Phone BETTIE Jimenez Attending Unavailable FLORINA ARCOS Primary Unavailable Social History Type Status Start Date End Date Code Code Syst em Smoking History Never smoker (Never Smoked) 056927507 SNOMED CT Sex Female Medications Medication Start Date End Date Route Frequency Dose Code Code System Medication Instructions Home Meds FLUCONAZOLE 01/08/2018 11/06/2021 ORAL DAILY 1 RxNo rm TAKE 1 ORAL DAILY Lisinopril 10MG Oral Tablet 01/08/2018 11/06/2021 ORAL DAILY 10 MILLIGR AMS 911469 RxNorm TAKE 10 MILLIGRAMS ORAL DAILY PAROXETINE 01/08/2018 11/06/2021 ROUTE NOT APPLICABLE DAILY 1 RxNorm 1 ROUTE NOT APPLICABLE DAILY Aspirin 81MG Oral Tablet, Chewable 01/12/2018 11/06/2021 ORAL DAILY 81 MILLIGR AMS 330566 RxNorm TAKE 81 MILLIGRAMS ORAL DAILY Atorvastatin Calcium 40MG Oral Tablet 01/12/2018 Unknown ORAL EVERY EVENING 40 MILLIGR AMS 515809 RxNorm TAKE 40 MILLIGRAMS ORAL EVERY EVENING LORAZEPAM 01/12/2018 11/06/2021 ORAL NEEDED, EVERY 6 HOURS 1 RxNorm TAKE 1 ORAL NEEDED, EVERY 6 HOURS Omeprazole 40MG Oral Capsule, Delayed Release 01/12/2018 Unknown ORAL DAILY 40 MILLIGR AMS 207420 RxNorm TAKE 40 MILLIGRAMS ORAL DAILY PAROXETINE 01/12/2018 11/06/2021 ORAL DAILY 20 RxNor m TAKE 20 ORAL DAILY ASPIRIN 81 MG TABLET 10/06/2018 Unknown ORAL DAILY 81 MILLIGR AMS RxNorm TAKE 81 MILLIGRAMS ORAL DAILY ELIQUIS TABLET 10/06/2018 11/06/2021 ORAL DAILY 1 TABLET RxNorm TAKE 1 TABLET ORAL DAILY Lisinopril 40MG Oral Tablet 10/06/2018 Unknown ORAL DAILY 40 MILLIGR AMS 333622 RxNorm TAKE 40 MILLIGRAMS ORAL DAILY Omeprazole 40MG Oral Capsule, Delayed Release 10/06/2018 11/06/2021 ORAL DAILY 40 MILLIGR AMS 445584 RxNorm TAKE 40 MILLIGRAMS ORAL DAILY PARoxetine HCl 20MG Oral Tablet 10/06/2018 11/06/2021 ORAL DAILY 20 MILLIGR AMS 885027 5 RxNorm TAKE 20 MILLIGRAMS ORAL DAILY PAXIL 40MG ORAL TABLET 10/06/2018 11/06/2021 ORAL DAILY 40 MILLIGR AMS RxNorm TAKE 40 MILLIGRAMS ORAL DAILY PLAVIX 75MG ORAL TABLET 10/06/2018 11/06/2021 ORAL DAILY 75 MILLIGR AMS RxNorm TAKE 75 MILLIGRAMS ORAL DAILY Propranolol HCl 20MG Oral Tablet 10/06/2018 11/06/2021 ORAL TWICE A DAY 20 MILLIGR AMS 324228 RxNorm TAKE 20 MILLIGRAMS ORAL TWICE A DAY ROSUVASTATIN TAB 10/06/2018 11/06/2021 ORAL DAILY 1 TABLET RxNorm TAKE 1 TABLET ORAL DAILY Tolterodine Tartrate 4MG Oral Capsule, Extended Release 10/06/2018 11/06/2021 ORAL DAILY 4 MILLIGR AMS 571671 RxNorm TAKE 4 MILLIGRAMS ORAL DAILY Robaxin [...] Date Status Code Code System HTN active 12615477 SNOMED-CT NEUROPATHY active 051136260 SNOMED-CT CVA active 907637306 SNOMED-CT ENDOMETRIOSIS active 198793239 SNOMED -CT Allergies and Adverse Reactions Allergy Substance Reaction Severity Start Date Concern Status Co de Code System CODEINE Vomiting (SNOMED-CT: 000211242), NAUSEA (SNOMED-CT: 556724866), Nausea (SNOMED-CT: 013737744) Moderate Active 2670 RxNorm MORPHINE Moderate Active 2760 RxNorm Plan of Treatment Exposure 01/24/2020 MM [...] Date Code Code Sys tem Verruca plantaris 05/25/2021 73721910 SNOMED-CT Personal Care Team Section Performer Name Performer Role Active Date Inactive Da mare
--- OUTSIDE RECORDS SUMMARY | 2023-09-18 18:20 | XMS_ITS ---
Author Organization Unknown Address [address] [place] [address] [phone] Phone Care Team Providers Care Summer Internship Name Role Phone BETTIE Jimenez Attending Unavailable FLORINA ARCOS Primary Unavailable Social History Type Status Start Date End Date Code Code Syst em Smoking History Never smoker (Never Smoked) 871756722 SNOMED CT Sex Female Medications Medication Start Date End Date Route Frequency Dose Code Code System Medication Instructions Home Meds FLUCONAZOLE 01/08/2018 11/06/2021 ORAL DAILY 1 RxNo rm TAKE 1 ORAL DAILY Lisinopril 10MG Oral Tablet 01/08/2018 11/06/2021 ORAL DAILY 10 MILLIGR AMS 316498 RxNorm TAKE 10 MILLIGRAMS ORAL DAILY PAROXETINE 01/08/2018 11/06/2021 ROUTE NOT APPLICABLE DAILY 1 RxNorm 1 ROUTE NOT APPLICABLE DAILY Aspirin 81MG Oral Tablet, Chewable 01/12/2018 11/06/2021 ORAL DAILY 81 MILLIGR AMS 868827 RxNorm TAKE 81 MILLIGRAMS ORAL DAILY Atorvastatin Calcium 40MG Oral Tablet 01/12/2018 Unknown ORAL EVERY EVENING 40 MILLIGR AMS 163782 RxNorm TAKE 40 MILLIGRAMS ORAL EVERY EVENING LORAZEPAM 01/12/2018 11/06/2021 ORAL NEEDED, EVERY 6 HOURS 1 RxNorm TAKE 1 ORAL NEEDED, EVERY 6 HOURS Omeprazole 40MG Oral Capsule, Delayed Release 01/12/2018 Unknown ORAL DAILY 40 MILLIGR AMS 910720 RxNorm TAKE 40 MILLIGRAMS ORAL DAILY PAROXETINE 01/12/2018 11/06/2021 ORAL DAILY 20 RxNor m TAKE 20 ORAL DAILY ASPIRIN 81 MG TABLET 10/06/2018 Unknown ORAL DAILY 81 MILLIGR AMS RxNorm TAKE 81 MILLIGRAMS ORAL DAILY ELIQUIS TABLET 10/06/2018 11/06/2021 ORAL DAILY 1 TABLET RxNorm TAKE 1 TABLET ORAL DAILY Lisinopril 40MG Oral Tablet 10/06/2018 Unknown ORAL DAILY 40 MILLIGR AMS 117483 RxNorm TAKE 40 MILLIGRAMS ORAL DAILY Omeprazole 40MG Oral Capsule, Delayed Release 10/06/2018 11/06/2021 ORAL DAILY 40 MILLIGR AMS 709057 RxNorm TAKE 40 MILLIGRAMS ORAL DAILY PARoxetine HCl 20MG Oral Tablet 10/06/2018 11/06/2021 ORAL DAILY 20 MILLIGR AMS 249180 5 RxNorm TAKE 20 MILLIGRAMS ORAL DAILY PAXIL 40MG ORAL TABLET 10/06/2018 11/06/2021 ORAL DAILY 40 MILLIGR AMS RxNorm TAKE 40 MILLIGRAMS ORAL DAILY PLAVIX 75MG ORAL TABLET 10/06/2018 11/06/2021 ORAL DAILY 75 MILLIGR AMS RxNorm TAKE 75 MILLIGRAMS ORAL DAILY Propranolol HCl 20MG Oral Tablet 10/06/2018 11/06/2021 ORAL TWICE A DAY 20 MILLIGR AMS 017537 RxNorm TAKE 20 MILLIGRAMS ORAL TWICE A DAY ROSUVASTATIN TAB 10/06/2018 11/06/2021 ORAL DAILY 1 TABLET RxNorm TAKE 1 TABLET ORAL DAILY Tolterodine Tartrate 4MG Oral Capsule, Extended Release 10/06/2018 11/06/2021 ORAL DAILY 4 MILLIGR AMS 244135 RxNorm TAKE 4 MILLIGRAMS ORAL DAILY Robaxin [...] Date Status Code Code System HTN active 75224062 SNOMED-CT NEUROPATHY active 648323951 SNOMED-CT CVA active 763971923 SNOMED-CT ENDOMETRIOSIS active 911262168 SNOMED -CT Allergies and Adverse Reactions Allergy Substance Reaction Severity Start Date Concern Status Co de Code System CODEINE Vomiting (SNOMED-CT: 323760266), NAUSEA (SNOMED-CT: 475312546), Nausea (SNOMED-CT: 118010489) Moderate Active 2670 RxNorm MORPHINE Moderate Active 7666 RxNorm Plan of Treatment Exposure 01/24/2020 MM [...] Date Code Code Sys tem Verruca plantaris 03/02/2021 27426607 SNOMED-CT Personal Care Team Section Performer Name Performer Role Active Date Inactive Da mare
--- OUTSIDE RECORDS SUMMARY | 2023-09-18 18:20 | XMS_ITS ---
Author Organization Unknown Address [address] [place] [address] [phone] Phone Care Team Providers Care Icu Nurse Name Role Phone BETTIE Jimenez Attending Unavailable FLORINA ARCOS Primary Unavailable Social History Type Status Start Date End Date Code Code Syst em Smoking History Never smoker (Never Smoked) 894791809 SNOMED CT Sex Female Medications Medication Start Date End Date Route Frequency Dose Code Code System Medication Instructions Home Meds FLUCONAZOLE 01/08/2018 11/06/2021 ORAL DAILY 1 RxNo rm TAKE 1 ORAL DAILY Lisinopril 10MG Oral Tablet 01/08/2018 11/06/2021 ORAL DAILY 10 MILLIGR AMS 287815 RxNorm TAKE 10 MILLIGRAMS ORAL DAILY PAROXETINE 01/08/2018 11/06/2021 ROUTE NOT APPLICABLE DAILY 1 RxNorm 1 ROUTE NOT APPLICABLE DAILY Aspirin 81MG Oral Tablet, Chewable 01/12/2018 11/06/2021 ORAL DAILY 81 MILLIGR AMS 830313 RxNorm TAKE 81 MILLIGRAMS ORAL DAILY Atorvastatin Calcium 40MG Oral Tablet 01/12/2018 Unknown ORAL EVERY EVENING 40 MILLIGR AMS 864558 RxNorm TAKE 40 MILLIGRAMS ORAL EVERY EVENING LORAZEPAM 01/12/2018 11/06/2021 ORAL NEEDED, EVERY 6 HOURS 1 RxNorm TAKE 1 ORAL NEEDED, EVERY 6 HOURS Omeprazole 40MG Oral Capsule, Delayed Release 01/12/2018 Unknown ORAL DAILY 40 MILLIGR AMS 485710 RxNorm TAKE 40 MILLIGRAMS ORAL DAILY PAROXETINE 01/12/2018 11/06/2021 ORAL DAILY 20 RxNor m TAKE 20 ORAL DAILY ASPIRIN 81 MG TABLET 10/06/2018 Unknown ORAL DAILY 81 MILLIGR AMS RxNorm TAKE 81 MILLIGRAMS ORAL DAILY ELIQUIS TABLET 10/06/2018 11/06/2021 ORAL DAILY 1 TABLET RxNorm TAKE 1 TABLET ORAL DAILY Lisinopril 40MG Oral Tablet 10/06/2018 Unknown ORAL DAILY 40 MILLIGR AMS 748221 RxNorm TAKE 40 MILLIGRAMS ORAL DAILY Omeprazole 40MG Oral Capsule, Delayed Release 10/06/2018 11/06/2021 ORAL DAILY 40 MILLIGR AMS 088583 RxNorm TAKE 40 MILLIGRAMS ORAL DAILY PARoxetine HCl 20MG Oral Tablet 10/06/2018 11/06/2021 ORAL DAILY 20 MILLIGR AMS 764411 5 RxNorm TAKE 20 MILLIGRAMS ORAL DAILY PAXIL 40MG ORAL TABLET 10/06/2018 11/06/2021 ORAL DAILY 40 MILLIGR AMS RxNorm TAKE 40 MILLIGRAMS ORAL DAILY PLAVIX 75MG ORAL TABLET 10/06/2018 11/06/2021 ORAL DAILY 75 MILLIGR AMS RxNorm TAKE 75 MILLIGRAMS ORAL DAILY Propranolol HCl 20MG Oral Tablet 10/06/2018 11/06/2021 ORAL TWICE A DAY 20 MILLIGR AMS 040162 RxNorm TAKE 20 MILLIGRAMS ORAL TWICE A DAY ROSUVASTATIN TAB 10/06/2018 11/06/2021 ORAL DAILY 1 TABLET RxNorm TAKE 1 TABLET ORAL DAILY Tolterodine Tartrate 4MG Oral Capsule, Extended Release 10/06/2018 11/06/2021 ORAL DAILY 4 MILLIGR AMS 639777 RxNorm TAKE 4 MILLIGRAMS ORAL DAILY Robaxin [...] Date Status Code Code System HTN active 97407535 SNOMED-CT NEUROPATHY active 287978886 SNOMED-CT CVA active 949089175 SNOMED-CT ENDOMETRIOSIS active 866947776 SNOMED -CT Allergies and Adverse Reactions Allergy Substance Reaction Severity Start Date Concern Status Co de Code System CODEINE Vomiting (SNOMED-CT: 840767197), NAUSEA (SNOMED-CT: 798741071), Nausea (SNOMED-CT: 187389958) Moderate Active 2670 RxNorm MORPHINE Moderate Active 2737 RxNorm Plan of Treatment Exposure 01/24/2020 MM [...] Date Code Code Sys tem Verruca plantaris 04/27/2021 19235913 SNOMED-CT Personal Care Team Section Performer Name Performer Role Active Date Inactive Da mare
--- OUTSIDE RECORDS SUMMARY | 2023-09-18 18:21 | XMS_ITS ---
Author Organization Unknown Address [address] [place] [address] [phone] Phone Care Team Providers Care Electronic Systems Security Assessment Name Role Phone FLORINA ISRRAEL Attending Unavailable Results [id number]* - Colle ct Date/Time: 09/21/2021 09:38 [facility] ID: [id number] [address] [place] [address], [phone] LOINC: 1825-9 Test Value Unit Reference Range Code Code System Flag Alpha 1 Antitrypsin 171 90-200 URIC ACID SERUM - Collect Da te/Time: 09/21/2021 09:38 [facility] ID: [id number] [address] [place] [address], 5661 LOINC: 3084-1 Test Value Unit Reference Range Code Code System Flag URIC ACID SERUM 5.5 mg/dL L=2.0 H=7.0 LIPID PANEL* - Collect Date/ Time: 09/21/2021 09:38 [facility] ID: [id number] [address] [place] [address], [phone] LOINC: Test Value Unit Reference Range Code Code System Flag FASTING STATUS: FASTING CHOLESTEROL 173 mg/dL L=0 H=200 2093-3 LOINC TRIGLYCERIDES 115 mg/dL L=53 H=223 2571-8 LOINC HDL 54 mg/dL L=37 H=91 2085-9 LOINC non-HDL-C 119 mg/dL L=0 H=160 80663-5 LOINC LDL (CALC) 96 mg/dL L=0 H=130 94434-8 LOINC % HDL 31.2 % Chol/HDL Ratio 3.2 L=0.0 H=4.4 9830-1 LOINC CHD Relative Risk 0.7 x Avg L=0.0 H=1.0 LDL/HDL Ratio 1.8 L=0.0 H=3.2 92598-3 LOINC CHD Relative Risk. 0.6 x Avg L=0.0 H=1.0 COMPREHENSIVE METABOLIC PANE L (CMP) - Collect Date/Time: 09/21/2021 09:38 [facility] ID: [id number] [address] [place], [place], [address] LOINC: 38593-3 Test Value Unit Reference Range Code Code System Flag GLUCOSE 109 mg/dL L=70 H=116 2345-7 LOINC BUN 13 mg/dL L=6 H=25 3094-0 LOINC CREATININE 0.73 mg/dL L=0.51 H=0.95 2160-0 LOINC SODIUM SERUM 141 mmol/L L=136 H=145 2951-2 LOINC POTASSIUM SERUM 3.5 mmol/L L=3.4 H=5.2 2823-3 LOINC CHLORIDE SERUM 103 mmol/L L=96 H=110 2075-0 LOINC CARBON DIOXIDE (CO2) 27 mmol/L L=22 H=34 2028-9 LOINC ANION GAP 11.0 mmol/L 94556-0 LOINC CALCIUM SERUM 8.9 mg/dL L=8.2 H=10.2 33923-8 LOINC BILIRUBIN TOTAL 0.3 mg/dL L=0.0 H=1.3 1975-2 LOINC ALK. PHOS. 117 U/L L=46 H=116 6768-6 LOINC H SGOT (AST) 14 U/L L=15 H=37 1920-8 LOINC L SGPT (ALT) 20 U/L L=12 H=78 1742-6 LOINC TOTAL PROTEIN 7.1 gm/dL L=6.0 H=8.0 2885-2 LOINC ALBUMIN 3.3 gm/dL L=3.4 H=5.0 1751-7 LOINC L AGE 50 years eGFR (non-Afr.Amer.) 84 mL/min 17586-0 LOINC eGFR (Afr-Kosovan) 102 mL/min 68372-0 LOINC CBC W/ DIFFERENTIAL* - Colle ct Date/Time: 09/21/2021 09:38 [facility] ID: [id number] [address] [place], [place], [address] LOINC: 30982-4 Test Value Unit Reference Range Code Code System Flag WBC 6.28 th/cmm L=5.00 H=10.00 6690-2 LOINC NEUT % 68.2 % L=40.0 H=80.0 LYMPH % 23.6 % L=10.0 H=50.0 MONO % 5.3 % L=2.0 H=12.0 11406-5 LOINC EOS % 1.9 % L=0.0 H=8.0 BASO % 0.8 % L=0.0 H=3.0 IG % 0.2 % L=0.0 H=1.1 2514-8 LOINC NRBC % 0.0 % L=0.0 H=0.0 10300-7 LOINC NEUT abs count 4.3 th/cmm L=1.6 H=8.4 751-8 LOINC LYMPH abs count 1.5 th/cmm L=1.5 H=4.0 731-0 LOINC MONO abs count 0.3 th/cmm L=0.2 H=1.0 742-7 LOINC EOS abs count 0.1 th/cmm L=0.0 H=0.5 711-2 LOINC BASO abs count 0.1 th/cmm L=0.0 H=0.2 704-7 LOINC IG abs count 0.0 th/cmm L=0.0 H=0.1 86535-6 LOINC NRBC abs count 0.0 mil/cmm L=0.0 H=0.0 33440-8 LOINC RBC 4.47 mil/cmm L=3.90 H=5.40 789-8 LOINC HEMOGLOBIN 12.5 gm/dL L=12.0 H=16.0 718-7 LOINC HEMATOCRIT 38 % L=37 H=47 4544-3 LOINC MCV 86 fL L=82 H=92 787-2 LOINC MCH 28.0 pg L=27.0 H=31.0 785-6 LOINC MCHC 32.6 % L=32.0 H=36.0 786-4 LOINC RDW-SD 42.8 fL L=39.0 H=49.0 788-0 LOINC PLATELET COUNT 313 th/cmm L=150 H=450 777-3 LOINC MM SCREENING BILAT MAMMO W T ROSEMARY W CAD - Completed: 09/21/2021 08:15 LOINC: Digital mammograms were inte rpreted according to the usual protocol including computer analysis with CADx system including tomosynthesis. The breasts are of moderate density with fairly symmetrical distribution of fibroglandular tissue. No dominant mass or clumped microcalcification is identified in either breast. The current examination is compared with previous examinations including September 2020. There is a question of interval development of a new focal area of nodularity detected in the upper outer quadrant of the right breast on CC and MLO views. Additional mammographic views of the right breast are requested to include CC and MLO spot compression views. Right breast ultrasound recommended as well. No other significant change identified in either breast. CONCLUSION: Additional mammographic views of the right breast ultrasound are requested as described above. BI-RADS Assessment: Category 0. Incomplete: Need additional imaging evaluation. BREAST DENSITY: b. There are scattered areas of fibroglandular density. TECHNOLOGIST: RT Mike (R) (M) Dictated by: HUMBERTO NEUMANN MD Transcribed by: [facility] 09/27/21/12:56 D Tuesday, September 21, 2021 8:48:00 AM [id number] Electronically Reviewed and Signed By: DARCI NEUMANN MD 09/27/21 13:10 Copy for: [facility] HEALTH INFORMATION MGMT Social History Type Status Start Date End Date Code Code Syst em Smoking History Never smoker (Never Smoked) 783505226 SNOMED CT Sex Female Medications Medication Start Date End Date Route Frequency Dose Code Code System Medication Instructions Home Meds FLUCONAZOLE 01/08/2018 11/06/2021 ORAL DAILY 1 RxNo rm TAKE 1 ORAL DAILY Lisinopril 10MG Oral Tablet 01/08/2018 11/06/2021 ORAL DAILY 10 MILLIGR AMS 463065 RxNorm TAKE 10 MILLIGRAMS ORAL DAILY PAROXETINE 01/08/2018 11/06/2021 ROUTE NOT APPLICABLE DAILY 1 RxNorm 1 ROUTE NOT APPLICABLE DAILY Aspirin 81MG Oral Tablet, Chewable 01/12/2018 11/06/2021 ORAL DAILY 81 MILLIGR AMS 877307 RxNorm TAKE 81 MILLIGRAMS ORAL DAILY Atorvastatin Calcium 40MG Oral Tablet 01/12/2018 Unknown ORAL EVERY EVENING 40 MILLIGR AMS 200827 RxNorm TAKE 40 MILLIGRAMS ORAL EVERY EVENING LORAZEPAM 01/12/2018 11/06/2021 ORAL NEEDED, EVERY 6 HOURS 1 RxNorm TAKE 1 ORAL NEEDED, EVERY 6 HOURS Omeprazole 40MG Oral Capsule, Delayed Release 01/12/2018 Unknown ORAL DAILY 40 MILLIGR AMS 561789 RxNorm TAKE 40 MILLIGRAMS ORAL DAILY PAROXETINE 01/12/2018 11/06/2021 ORAL DAILY 20 RxNor m TAKE 20 ORAL DAILY ASPIRIN 81 MG TABLET 10/06/2018 Unknown ORAL DAILY 81 MILLIGR AMS RxNorm TAKE 81 MILLIGRAMS ORAL DAILY ELIQUIS TABLET 10/06/2018 11/06/2021 ORAL DAILY 1 TABLET RxNorm TAKE 1 TABLET ORAL DAILY Lisinopril 40MG Oral Tablet 10/06/2018 Unknown ORAL DAILY 40 MILLIGR AMS 473136 RxNorm TAKE 40 MILLIGRAMS ORAL DAILY Omeprazole 40MG Oral Capsule, Delayed Release 10/06/2018 11/06/2021 ORAL DAILY 40 MILLIGR AMS 659246 RxNorm TAKE 40 MILLIGRAMS ORAL DAILY PARoxetine HCl 20MG Oral Tablet 10/06/2018 11/06/2021 ORAL DAILY 20 MILLIGR AMS 503872 5 RxNorm TAKE 20 MILLIGRAMS ORAL DAILY PAXIL 40MG ORAL TABLET 10/06/2018 11/06/2021 ORAL DAILY 40 MILLIGR AMS RxNorm TAKE 40 MILLIGRAMS ORAL DAILY PLAVIX 75MG ORAL TABLET 10/06/2018 11/06/2021 ORAL DAILY 75 MILLIGR AMS RxNorm TAKE 75 MILLIGRAMS ORAL DAILY Propranolol HCl 20MG Oral Tablet 10/06/2018 11/06/2021 ORAL TWICE A DAY 20 MILLIGR AMS 379717 RxNorm TAKE 20 MILLIGRAMS ORAL TWICE A DAY ROSUVASTATIN TAB 10/06/2018 11/06/2021 ORAL DAILY 1 TABLET RxNorm TAKE 1 TABLET ORAL DAILY Tolterodine Tartrate 4MG Oral Capsule, Extended Release 10/06/2018 11/06/2021 ORAL DAILY 4 MILLIGR AMS 975144 RxNorm TAKE 4 MILLIGRAMS ORAL DAILY Robaxin [...] Date Status Code Code System HTN active 20878912 SNOMED-CT NEUROPATHY active 736404716 SNOMED-CT CVA active 780610046 SNOMED-CT ENDOMETRIOSIS active 270826493 SNOMED -CT Allergies and Adverse Reactions Allergy Substance Reaction Severity Start Date Concern Status Co de Code System CODEINE Vomiting (SNOMED-CT: 618356352), NAUSEA (SNOMED-CT: 544285481), Nausea (SNOMED-CT: 880808237) Moderate Active 2670 RxNorm MORPHINE Moderate Active 4852 RxNorm Plan of Treatment Exposure 01/24/2020 MM [...] Diagnosis Start Date Code Code Sys tem Encounter for screening mamm ogram for malignant neoplasm of breast 09/21/2021 SNOMED-CT Personal Care Team Section Performer Name Performer Role Active Date Inactive Da te
--- OUTSIDE RECORDS SUMMARY | 2023-09-18 18:21 | XMS_ITS ---
Author Organization Unknown Address [address] [place] [address] [phone] Phone Care Team Providers Care [employer] Driver Name Role Phone BETTIE Jimenez Attending Unavailable FLORINA ARCOS Primary Unavailable Social History Type Status Start Date End Date Code Code Syst em Smoking History Never smoker (Never Smoked) 390241709 SNOMED CT Sex Female Medications Medication Start Date End Date Route Frequency Dose Code Code System Medication Instructions Home Meds FLUCONAZOLE 01/08/2018 11/06/2021 ORAL DAILY 1 RxNo rm TAKE 1 ORAL DAILY Lisinopril 10MG Oral Tablet 01/08/2018 11/06/2021 ORAL DAILY 10 MILLIGR AMS 762746 RxNorm TAKE 10 MILLIGRAMS ORAL DAILY PAROXETINE 01/08/2018 11/06/2021 ROUTE NOT APPLICABLE DAILY 1 RxNorm 1 ROUTE NOT APPLICABLE DAILY Aspirin 81MG Oral Tablet, Chewable 01/12/2018 11/06/2021 ORAL DAILY 81 MILLIGR AMS 899385 RxNorm TAKE 81 MILLIGRAMS ORAL DAILY Atorvastatin Calcium 40MG Oral Tablet 01/12/2018 Unknown ORAL EVERY EVENING 40 MILLIGR AMS 298903 RxNorm TAKE 40 MILLIGRAMS ORAL EVERY EVENING LORAZEPAM 01/12/2018 11/06/2021 ORAL NEEDED, EVERY 6 HOURS 1 RxNorm TAKE 1 ORAL NEEDED, EVERY 6 HOURS Omeprazole 40MG Oral Capsule, Delayed Release 01/12/2018 Unknown ORAL DAILY 40 MILLIGR AMS 009300 RxNorm TAKE 40 MILLIGRAMS ORAL DAILY PAROXETINE 01/12/2018 11/06/2021 ORAL DAILY 20 RxNor m TAKE 20 ORAL DAILY ASPIRIN 81 MG TABLET 10/06/2018 Unknown ORAL DAILY 81 MILLIGR AMS RxNorm TAKE 81 MILLIGRAMS ORAL DAILY ELIQUIS TABLET 10/06/2018 11/06/2021 ORAL DAILY 1 TABLET RxNorm TAKE 1 TABLET ORAL DAILY Lisinopril 40MG Oral Tablet 10/06/2018 Unknown ORAL DAILY 40 MILLIGR AMS 925360 RxNorm TAKE 40 MILLIGRAMS ORAL DAILY Omeprazole 40MG Oral Capsule, Delayed Release 10/06/2018 11/06/2021 ORAL DAILY 40 MILLIGR AMS 335686 RxNorm TAKE 40 MILLIGRAMS ORAL DAILY PARoxetine HCl 20MG Oral Tablet 10/06/2018 11/06/2021 ORAL DAILY 20 MILLIGR AMS 424840 5 RxNorm TAKE 20 MILLIGRAMS ORAL DAILY PAXIL 40MG ORAL TABLET 10/06/2018 11/06/2021 ORAL DAILY 40 MILLIGR AMS RxNorm TAKE 40 MILLIGRAMS ORAL DAILY PLAVIX 75MG ORAL TABLET 10/06/2018 11/06/2021 ORAL DAILY 75 MILLIGR AMS RxNorm TAKE 75 MILLIGRAMS ORAL DAILY Propranolol HCl 20MG Oral Tablet 10/06/2018 11/06/2021 ORAL TWICE A DAY 20 MILLIGR AMS 286689 RxNorm TAKE 20 MILLIGRAMS ORAL TWICE A DAY ROSUVASTATIN TAB 10/06/2018 11/06/2021 ORAL DAILY 1 TABLET RxNorm TAKE 1 TABLET ORAL DAILY Tolterodine Tartrate 4MG Oral Capsule, Extended Release 10/06/2018 11/06/2021 ORAL DAILY 4 MILLIGR AMS 942520 RxNorm TAKE 4 MILLIGRAMS ORAL DAILY Robaxin [...] Date Status Code Code System HTN active 22831062 SNOMED-CT NEUROPATHY active 705162526 SNOMED-CT CVA active 819302866 SNOMED-CT ENDOMETRIOSIS active 797605709 SNOMED -CT Allergies and Adverse Reactions Allergy Substance Reaction Severity Start Date Concern Status Co de Code System CODEINE Vomiting (SNOMED-CT: 038678894), NAUSEA (SNOMED-CT: 120162701), Nausea (SNOMED-CT: 744080187) Moderate Active 2670 RxNorm MORPHINE Moderate Active 5784 RxNorm Plan of Treatment Exposure 01/24/2020 MM [...] Date Code Code Sys tem Verruca plantaris 06/15/2021 22476126 SNOMED-CT Personal Care Team Section Performer Name Performer Role Active Date Inactive Da mare
--- OUTSIDE RECORDS SUMMARY | 2023-09-18 18:21 | XMS_ITS ---
Author Organization Unknown Address [address] [place] [address] [phone] Phone Care Team Providers Care Supervisor Stitching Department Name Role Phone GOMEZ LARSEN Attending Unavailable FLORINA ARCOS Primary Unavailable Social History Type Status Start Date End Date Code Code Syst em Smoking History Never smoker (Never Smoked) 538410860 SNOMED CT Sex Female Medications Medication Start Date End Date Route Frequency Dose Code Code System Medication Instructions Home Meds FLUCONAZOLE 01/08/2018 11/06/2021 ORAL DAILY 1 RxNo rm TAKE 1 ORAL DAILY Lisinopril 10MG Oral Tablet 01/08/2018 11/06/2021 ORAL DAILY 10 MILLIGR AMS 076249 RxNorm TAKE 10 MILLIGRAMS ORAL DAILY PAROXETINE 01/08/2018 11/06/2021 ROUTE NOT APPLICABLE DAILY 1 RxNorm 1 ROUTE NOT APPLICABLE DAILY Aspirin 81MG Oral Tablet, Chewable 01/12/2018 11/06/2021 ORAL DAILY 81 MILLIGR AMS 761114 RxNorm TAKE 81 MILLIGRAMS ORAL DAILY Atorvastatin Calcium 40MG Oral Tablet 01/12/2018 Unknown ORAL EVERY EVENING 40 MILLIGR AMS 734437 RxNorm TAKE 40 MILLIGRAMS ORAL EVERY EVENING LORAZEPAM 01/12/2018 11/06/2021 ORAL NEEDED, EVERY 6 HOURS 1 RxNorm TAKE 1 ORAL NEEDED, EVERY 6 HOURS Omeprazole 40MG Oral Capsule, Delayed Release 01/12/2018 Unknown ORAL DAILY 40 MILLIGR AMS 354393 RxNorm TAKE 40 MILLIGRAMS ORAL DAILY PAROXETINE 01/12/2018 11/06/2021 ORAL DAILY 20 RxNor m TAKE 20 ORAL DAILY ASPIRIN 81 MG TABLET 10/06/2018 Unknown ORAL DAILY 81 MILLIGR AMS RxNorm TAKE 81 MILLIGRAMS ORAL DAILY ELIQUIS TABLET 10/06/2018 11/06/2021 ORAL DAILY 1 TABLET RxNorm TAKE 1 TABLET ORAL DAILY Lisinopril 40MG Oral Tablet 10/06/2018 Unknown ORAL DAILY 40 MILLIGR AMS 084919 RxNorm TAKE 40 MILLIGRAMS ORAL DAILY Omeprazole 40MG Oral Capsule, Delayed Release 10/06/2018 11/06/2021 ORAL DAILY 40 MILLIGR AMS 095126 RxNorm TAKE 40 MILLIGRAMS ORAL DAILY PARoxetine HCl 20MG Oral Tablet 10/06/2018 11/06/2021 ORAL DAILY 20 MILLIGR AMS 623032 5 RxNorm TAKE 20 MILLIGRAMS ORAL DAILY PAXIL 40MG ORAL TABLET 10/06/2018 11/06/2021 ORAL DAILY 40 MILLIGR AMS RxNorm TAKE 40 MILLIGRAMS ORAL DAILY PLAVIX 75MG ORAL TABLET 10/06/2018 11/06/2021 ORAL DAILY 75 MILLIGR AMS RxNorm TAKE 75 MILLIGRAMS ORAL DAILY Propranolol HCl 20MG Oral Tablet 10/06/2018 11/06/2021 ORAL TWICE A DAY 20 MILLIGR AMS 582942 RxNorm TAKE 20 MILLIGRAMS ORAL TWICE A DAY ROSUVASTATIN TAB 10/06/2018 11/06/2021 ORAL DAILY 1 TABLET RxNorm TAKE 1 TABLET ORAL DAILY Tolterodine Tartrate 4MG Oral Capsule, Extended Release 10/06/2018 11/06/2021 ORAL DAILY 4 MILLIGR AMS 094655 RxNorm TAKE 4 MILLIGRAMS ORAL DAILY Robaxin [...] Date Status Code Code System HTN active 21759385 SNOMED-CT NEUROPATHY active 208070089 SNOMED-CT CVA active 027320703 SNOMED-CT ENDOMETRIOSIS active 420536767 SNOMED -CT Allergies and Adverse Reactions Allergy Substance Reaction Severity Start Date Concern Status Co de Code System CODEINE Vomiting (SNOMED-CT: 710902215), NAUSEA (SNOMED-CT: 319373528), Nausea (SNOMED-CT: 435333540) Moderate Active 2670 RxNorm MORPHINE Moderate Active 9760 RxNorm Plan of Treatment Exposure 01/24/2020 MM [...] Diagnosis Start Date Code Code Sys tem 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
--- OUTSIDE RECORDS SUMMARY | 2023-09-18 18:22 | XMS_ITS ---
Author Organization Unknown Address [address] [place] [address] [phone] Phone Care Team Providers Care Glass Grinder Name Role Phone FLORINA ARCOS Attending Unavailable Results MM DIAG NUBIA RT W CAD - Co mpleted: 10/10/2021 12:11 LOINC: Digital mammograms were inte rpreted according to the usual protocol including computer analysis with CADx system including tomosynthesis. ADDITIONAL MAMMOGRAPHIC VIEWS OF THE RIGHT BREAST AND RIGHT BREAST ULTRASOUND: Additional mammographic views of the right breast and right breast ultrasound are interpreted in conjunction. These examinations were obtained to evaluate questionable areas of nodularity projected in the upper outer quadrant of the right breast on recent mammogram. Additional mammographic views fail to show a discrete mass. Breast ultrasound shows no evidence of a mass or cyst. CONCLUSION:No specific evidence of malignancy at this time. Followup unilateral right breast mammogram recommended in 6 months. BI-RADS Assessment: Category 3 - Probably benign findings - Short interval follow-up suggested BREAST DENSITY: b. There are scattered areas of fibroglandular density. Dictated by: HUMBERTO NEUMANN MD Transcribed by: RAGHAVENDRA 10/11/2113:54 D Sunday, October 10, 2021 9:08:39 AM [id number] Electronically Reviewed and Signed By: DARCI NEUMANN MD 10/12/21 09:08 TECHNOLOGIST: RT Nohemi (R) (CT) (M) Copy for: [facility] [employer] INFORMATION [facility] BREAST LIMITED RT* - Comp leted: 10/10/2021 09:04 LOINC: Digital mammograms were inte rpreted according to the usual protocol including computer analysis with CADx system including tomosynthesis. ADDITIONAL MAMMOGRAPHIC VIEWS OF THE RIGHT BREAST AND RIGHT BREAST ULTRASOUND: Additional mammographic views of the right breast and right breast ultrasound are interpreted in conjunction. These examinations were obtained to evaluate questionable areas of nodularity projected in the upper outer quadrant of the right breast on recent mammogram. Additional mammographic views fail to show a discrete mass. Breast ultrasound shows no evidence of a mass or cyst. CONCLUSION:No specific evidence of malignancy at this time. Followup unilateral right breast mammogram recommended in 6 months. BI-RADS Assessment: Category 3 - Probably benign findings - Short interval follow-up suggested BREAST DENSITY: b. There are scattered areas of fibroglandular density. Dictated by: DARCI NEUMANN MD Transcribed by: RAGHAVENDRA 10/11/2113:54 D Sunday, October 10, 2021 9:08:39 AM [id number] Electronically Reviewed and Signed By: DACRI NEUMANN MD 10/12/21 09:08 TECHNOLOGIST: Cari Marshall RT (R) (CT) (M) Copy for: [address] [place] [address] INFORMATION MGMT Social History Type Status Start Date End Date Code Code Syst em Smoking History Never smoker (Never Smoked) 469163154 SNOMED CT Sex Female Medications Medication Start Date End Date Route Frequency Dose Code Code System Medication Instructions Home Meds FLUCONAZOLE 01/08/2018 11/06/2021 ORAL DAILY 1 RxNo rm TAKE 1 ORAL DAILY Lisinopril 10MG Oral Tablet 01/08/2018 11/06/2021 ORAL DAILY 10 MILLIGR AMS 414619 RxNorm TAKE 10 MILLIGRAMS ORAL DAILY PAROXETINE 01/08/2018 11/06/2021 ROUTE NOT APPLICABLE DAILY 1 RxNorm 1 ROUTE NOT APPLICABLE DAILY Aspirin 81MG Oral Tablet, Chewable 01/12/2018 11/06/2021 ORAL DAILY 81 MILLIGR AMS 914966 RxNorm TAKE 81 MILLIGRAMS ORAL DAILY Atorvastatin Calcium 40MG Oral Tablet 01/12/2018 Unknown ORAL EVERY EVENING 40 MILLIGR AMS 957597 RxNorm TAKE 40 MILLIGRAMS ORAL EVERY EVENING LORAZEPAM 01/12/2018 11/06/2021 ORAL NEEDED, EVERY 6 HOURS 1 RxNorm TAKE 1 ORAL NEEDED, EVERY 6 HOURS Omeprazole 40MG Oral Capsule, Delayed Release 01/12/2018 Unknown ORAL DAILY 40 MILLIGR AMS 833873 RxNorm TAKE 40 MILLIGRAMS ORAL DAILY PAROXETINE 01/12/2018 11/06/2021 ORAL DAILY 20 RxNor m TAKE 20 ORAL DAILY ASPIRIN 81 MG TABLET 10/06/2018 Unknown ORAL DAILY 81 MILLIGR AMS RxNorm TAKE 81 MILLIGRAMS ORAL DAILY ELIQUIS TABLET 10/06/2018 11/06/2021 ORAL DAILY 1 TABLET RxNorm TAKE 1 TABLET ORAL DAILY Lisinopril 40MG Oral Tablet 10/06/2018 Unknown ORAL DAILY 40 MILLIGR AMS 498330 RxNorm TAKE 40 MILLIGRAMS ORAL DAILY Omeprazole 40MG Oral Capsule, Delayed Release 10/06/2018 11/06/2021 ORAL DAILY 40 MILLIGR AMS 943713 RxNorm TAKE 40 MILLIGRAMS ORAL DAILY PARoxetine HCl 20MG Oral Tablet 10/06/2018 11/06/2021 ORAL DAILY 20 MILLIGR AMS 968366 5 RxNorm TAKE 20 MILLIGRAMS ORAL DAILY PAXIL 40MG ORAL TABLET 10/06/2018 11/06/2021 ORAL DAILY 40 MILLIGR AMS RxNorm TAKE 40 MILLIGRAMS ORAL DAILY PLAVIX 75MG ORAL TABLET 10/06/2018 11/06/2021 ORAL DAILY 75 MILLIGR AMS RxNorm TAKE 75 MILLIGRAMS ORAL DAILY Propranolol HCl 20MG Oral Tablet 10/06/2018 11/06/2021 ORAL TWICE A DAY 20 MILLIGR AMS 448812 RxNorm TAKE 20 MILLIGRAMS ORAL TWICE A DAY ROSUVASTATIN TAB 10/06/2018 11/06/2021 ORAL DAILY 1 TABLET RxNorm TAKE 1 TABLET ORAL DAILY Tolterodine Tartrate 4MG Oral Capsule, Extended Release 10/06/2018 11/06/2021 ORAL DAILY 4 MILLIGR AMS 761264 RxNorm TAKE 4 MILLIGRAMS ORAL DAILY Robaxin [...] Date Status Code Code System HTN active 41623980 SNOMED-CT NEUROPATHY active 984757184 SNOMED-CT CVA active 374173136 SNOMED-CT ENDOMETRIOSIS active 022483239 SNOMED -CT Allergies and Adverse Reactions Allergy Substance Reaction Severity Start Date Concern Status Co de Code System CODEINE Vomiting (SNOMED-CT: 310938767), NAUSEA (SNOMED-CT: 615036780), Nausea (SNOMED-CT: 064594468) Moderate Active 8670 RxNorm MORPHINE Moderate Active 3799 RxNorm Plan of Treatment Exposure 01/24/2020 MM [...] Diagnosis Start Date Code Code Sys tem Other abnormal and inconclus dmitri findings on diagnostic imaging of breast 10/10/2021 SNOMED-CT Personal Care Team Section Performer Name Performer Role Active Date Inactive Da te
--- OUTSIDE RECORDS SUMMARY | 2023-09-18 18:22 | XMS_ITS ---
Author Organization Unknown Address [address] [place] [address] [phone] Phone Care Team Providers Care Plant Physiologist Name Role Phone SIMRAN WOOD Registered Nurse Unavailable OLIVE Ruiz Attending Unavailable [facility] Unavailable FLORINA ARCOS Primary Unavailable UNLISTED PROVIDER - REQUESTED Xhandoff Un available Results TROPONIN HIGH SENSITIVITY* - Collect Date/Time: 11/10/2021 16:50 [facility] ID: [id number] [address] [place] [address], [address] LOINC: 32155-1 Test Value Unit Reference Range Code Code System Flag TROPONIN HS < 4.0 pg/mL L=0.0 H=60.[address] THORACIC SPINE RONA Glover - Completed: 11/10/2021 18:06 LOINC: [facility] RADIOLOGY [place], [place] [address] PACS [employer]ATION HELPER REPORT Patient Name: MADIHA BANUELOS MRN: Sex: : Age: [id number] F 1970 50 Account: Accession: Admit: StayType: [id number] 11/10/2021 E/R Ordered: Order ID: Submitted: Ordering Provider: 11/10/2021 17:52 [id number] CIRA BRITO Completed: Technologist: Resulted: 11/10/2021 18:06 11/29/2021 10:10 Study Description: CT THORACIC SPINE WO CONTRAST Reason For Study: Pain FINDINGS CT examination of the thoracic spine was performed lysing multislice acquisition and multiplanar reconstructions. Visualized lungs are grossly clear allowing for motion artifact. No gross abnormality of the visualized upper abdomen. No evidence of acute fracture. Mild degenerative changes and apparent demineralization of the spine noted. IMPRESSION o e dence of acute thoracic spine fracture.] [] Report Digitally Signed by Nigel Pandey on 11/11/2021 12:36 PM EDT Addendum ------ The text of the conclusion was corrupted and should read, no evidence of acute thoracic spine fracture. Addendum Digitally Signed by Nigel Pandey on 11/29/2021 10:10 AM EDT XR CHEST 2V PA AND LATERAL - Completed: 11/10/2021 17:36 LOINC: [facility] RADIOLOGY [place], [place] [address] PACS [employer] HEL[employer] REPORT Patient Name: MADIHA BANUELOS MRN: Sex: : Age: [id number] F 1970 50 Account: Accession: Admit: StayType: [id number] 11/10/2021 E/R Ordered: Order ID: Entered Order: Ordering Provider: 11/10/2021 17:10 [id number] CIRA BRITO Completed: Tech Completed: Resulted DTTM: 11/10/2021 17:36 11/11/2021 12:35 Study Description: XR CHEST 2V PA AND LATERAL Reason For Study: ChestPain PA and lateral views of the chest were obtained. In comparison with prior chest CT of November 06, there appear to be areas of increased radiodensity in the left midlung which are new since the prior study. These may represent areas of atelectasis or consolidation. Please correlate clinically. No pleural effusion seen. No additional consolidation. Apparent cardiac valvular prosthesis noted.. Impression: Probable interval development of areas of atelectasis and/or consolidation of the left midlung.. Report Digitally Signed by Nigel Pandey on 11/11/2021 12:35 PM EDT XR TSPINE 2V - Completed: 17:36 [facility]: [facility] RADIOLOGY [place], [place] [address] PACS [employer]ATION HELPER REPORT Patient Name: MADIHA BANUELOS MRN: Sex: : Age: [id number] F 1970 50 Account: Accession: Admit: StayType: [id number] 11/10/2021 E/R Ordered: Order ID: Entered Order: Ordering Provider: 11/10/2021 17:10 [id number] CIRA BRITO Completed: Tech Completed: Resulted DTTM: 11/10/2021 17:36 11/11/2021 12:36 Study Description: XR TSPINE 2V Reason for Study: Pain COMPARISON: Findings: 3 views were obtained. Of the spine appear demineralized as noted on CT. No gross acute fracture or dislocation seen. Impressions: Report Digitally Signed by Nigel Pandey on 11/11/2021 12:36 PM EDT Social History Type Status Start Date End Date Code Code Syst em Smoking History Never smoker (Never Smoked) 662127338 SNOMED CT Sex Female Vital Signs Vital Sign Value Unit Cayey Value Cayey Unit Date/Time Recent/Initial? Code Code System Body Mass Index 49.19 kg/m2 11/10/2021 16:27 Initial 83266 -5 LOINC Systolic Blood Pressure 143 mm[Hg] 11/10/2021 20:58 Most Recent 8480- 6 LOINC Diastolic Blood Pressure 74 mm[Hg] 11/10/2021 20:58 Most Recent 8462- 4 LOINC Systolic Blood Pressure 155 mm[Hg] 11/10/2021 16:27 Initial 8480- 6 LOINC Diastolic Blood Pressure 100 mm[Hg] 11/10/2021 16:27 Initial 8462- 4 LOINC Body Surface Area 2.31 m2 11/10/2021 16:27 Initial 3140- 1 LOINC Height 157.480 0 cm 62.00 in 11/10/2021 16:27 Initial 8302- 2 LOINC O2 Saturation 95 % 2021 20:58 Most Recent 60683 -5 LOINC O2 Saturation 99 % 2021 16:27 Initial 34727 -5 LOINC Inhaled Oxygen Flow Rate 96.00 L/min 11/10/2021 20:58 Initial 3151- 8 LOINC Pulse 82.0 /min 11/10/2021 20:58 Most Recent 8867- 4 LOINC Pulse 120.0 /min 11/10/2021 16:27 Initial 8867- 4 LOINC Respiration 16 /min 11/11/19 18:19 Most Recent 9279- 1 LOINC Respiration 18 /min 11/11/19 22 16:27 Initial 9279- 1 INC Temperature 36.6 Janie 97.9 F 11/11/19 22 20:58 Most Recent 8310- 5 LOINC Temperature 37.1 Janie 98.8 F 11/11/19 16:27 Initial 8310- 5 INC Weight 122.00 kg 268.96 lbs 11/10/2021 16:27 Initial 56991 -7 [facility] Medications Medication Start Date End Date Route Frequency Dose Code Code System Medication Instructions Home Meds Atorvastatin Calcium 40MG Oral Tablet 01/12/2018 Unknown ORAL EVERY EVENING 40 MILLIGRAMS 766496 RxNorm TAKE 40 MILLIGRAMS ORAL EVERY EVENING Omeprazole 40MG Oral Capsule, Delayed Release 01/12/2018 Unknown ORAL DAILY 40 MILLIGRAMS 936997 RxNorm TAKE 40 MILLIGRAMS ORAL DAILY ASPIRIN 81 MG TABLET 10/06/2018 Unknown ORAL DAILY 81 MILLIGRAMS RxNorm TAKE 81 MILLIGRAMS ORAL DAILY Lisinopril 40MG Oral Tablet 10/06/2018 Unknown ORAL DAILY 40 MILLIGRAMS 375854 RxNorm TAKE 40 MILLIGRAMS ORAL DAILY Robaxin 500MG Oral Tablet [...] Date Status Code Code System HTN active 22293065 SNOMED-CT NEUROPATHY active 107661543 SNOMED-CT CVA active 371499948 SNOMED-CT ENDOMETRIOSIS active 423108211 SNOMED -CT Allergies and Adverse Reactions Allergy Substance Reaction Severity Start Date Concern Status Co de Code System CODEINE Vomiting (SNOMED-CT: 196111450), NAUSEA (SNOMED-CT: 058263320), Nausea (SNOMED-CT: 333058306) Moderate Active 2670 RxNorm MORPHINE Moderate Active 9749 RxNorm Plan of Treatment Exposure 01/24/2020 MM [...] Diagnosis Start Date Code Code Sys tem Strain of muscle and tendon of back wall of thorax, initial encounter 11/10/2021 SNOMED-CT Personal Care Team Section Performer Name Performer Role Active Date Inactive Da te
--- OUTSIDE RECORDS SUMMARY | 2023-09-18 18:23 | XMS_ITS ---
Author Organization Unknown Address [address] [place] [phone] Phone Care Team Providers Care Sawmill Production Worker Name Role Phone GOMEZ LARSEN Attending Unavailable FLORINA ARCOS Primary Unavailable Social History Type Status Start Date End Date Code Code Syst em Smoking History Never smoker (Never Smoked) 033023024 SNOMED CT Sex Female Medications Medication Start Date End Date Route Frequency Dose Code Code System Medication Instructions Home Meds LORAZEPAM 01/08/2018 01/12/2018 ORAL DAILY 1 RxNorm TAKE 1 ORAL DAILY Omeprazole 40MG Oral Capsule, Delayed Release 01/08/2018 01/12/2018 ORAL TWICE A DAY 40 MILLIGR AMS 20020328 RxNorm TAKE 40 MILLIGRAMS ORAL TWICE A DAY Lisinopril 10MG Oral Tablet 01/08/2018 11/06/2021 ORAL DAILY 10 MILLIGR AMS 525628 RxNorm TAKE 10 MILLIGRAMS ORAL DAILY Estradiol 1MG Oral Tablet 01/08/2018 01/12/2018 ORAL 1 MILLIGR AMS 096659 RxNorm TAKE 1 MILLIGRAMS ORAL FLUCONAZOLE 01/08/2018 11/06/2021 ORAL DAILY 1 RxNo rm TAKE 1 ORAL DAILY PAROXETINE 01/08/2018 11/06/2021 ROUTE NOT APPLICABLE DAILY 1 RxNorm 1 ROUTE NOT APPLICABLE DAILY Propranolol HCl 10MG Oral Tablet 01/08/2018 01/12/2018 ORAL 10 MILLIGR AMS 869194 RxNorm TAKE 10 MILLIGRAMS ORAL Omeprazole 40MG Oral Capsule, Delayed Release 01/12/2018 Unknown ORAL DAILY 40 MILLIGR AMS 20020328 RxNorm TAKE 40 MILLIGRAMS ORAL DAILY Atorvastatin Calcium 40MG Oral Tablet 01/12/2018 Unknown ORAL EVERY EVENING 40 MILLIGR AMS 488598 RxNorm TAKE 40 MILLIGRAMS ORAL EVERY EVENING Aspirin 81MG Oral Tablet, Chewable 01/12/2018 11/06/2021 ORAL DAILY 81 MILLIGR AMS 206745 RxNorm TAKE 81 MILLIGRAMS ORAL DAILY PAROXETINE 01/12/2018 11/06/2021 ORAL DAILY 20 RxNor m TAKE 20 ORAL DAILY LORAZEPAM 01/12/2018 11/06/2021 ORAL NEEDED, EVERY 6 HOURS 1 RxNorm TAKE 1 ORAL NEEDED, EVERY 6 HOURS Lisinopril 40MG Oral Tablet 10/06/2018 Unknown ORAL DAILY 40 MILLIGR AMS 673455 RxNorm TAKE 40 MILLIGRAMS ORAL DAILY Tolterodine Tartrate 4MG Oral Capsule, Extended Release 10/06/2018 11/06/2021 ORAL DAILY 4 MILLIGR AMS 686181 RxNorm TAKE 4 MILLIGRAMS ORAL DAILY Propranolol HCl 20MG Oral Tablet 10/06/2018 11/06/2021 ORAL TWICE A DAY 20 MILLIGR AMS 263425 RxNorm TAKE 20 MILLIGRAMS ORAL TWICE A DAY PLAVIX 75MG ORAL TABLET 10/06/2018 11/06/2021 ORAL DAILY 75 MILLIGR AMS RxNorm TAKE 75 MILLIGRAMS ORAL DAILY PAXIL 40MG ORAL TABLET 10/06/2018 11/06/2021 ORAL DAILY 40 MILLIGR AMS RxNorm TAKE 40 MILLIGRAMS ORAL DAILY PARoxetine HCl 20MG Oral Tablet 10/06/2018 11/06/2021 ORAL DAILY 20 MILLIGR AMS 396741 5 RxNorm TAKE 20 MILLIGRAMS ORAL DAILY Omeprazole 40MG Oral Capsule, Delayed Release 10/06/2018 11/06/2021 ORAL DAILY 40 MILLIGR AMS 784633 RxNorm TAKE 40 MILLIGRAMS ORAL DAILY ASPIRIN 81 MG TABLET 10/06/2018 Unknown ORAL DAILY 81 MILLIGR AMS RxNorm TAKE 81 MILLIGRAMS ORAL DAILY ROSUVASTATIN TAB 10/06/2018 11/06/2021 ORAL DAILY 1 TABLET RxNorm TAKE 1 TABLET ORAL DAILY ELIQUIS TABLET 10/06/2018 11/06/2021 ORAL DAILY 1 TABLET RxNorm TAKE 1 TABLET ORAL DAILY Robaxin 500MG Oral Tablet 11/10/2021 [...] Date Status Code Code System HTN active 30372235 SNOMED-CT NEUROPATHY active 397579421 SNOMED-CT CVA active 483351686 SNOMED-CT ENDOMETRIOSIS active 638496890 SNOMED -CT Allergies and Adverse Reactions Allergy Substance Reaction Severity Start Date Concern Status Co de Code System CODEINE Vomiting (SNOMED-CT: 123529826), NAUSEA (SNOMED-CT: 685696881), Nausea (SNOMED-CT: 780230639) Moderate Active 0070 RxNorm MORPHINE Moderate Active 8011 RxNorm Plan of Treatment Exposure 01/24/2020 MM [...] DRAW 15MIN 09/21/2021 MM SCREEN BILAT 09/21/2021 Personal Care Team Section Performer Name Performer Role Active Date Inactive Da mare
--- OUTSIDE RECORDS SUMMARY | 2023-09-18 18:23 | XMS_ITS ---
Author Organization Unknown Address [address] [place] [phone] Phone Care Team Providers Care Software Sales Name Role Phone KALI ROGER [place] Attending Unavailable FLORINA ARCOS Primary Unavailable Results CBC W/ DIFFERENTIAL* - Colle ct Date/Time: 11/29/2021 11:59 [facility] ID: [id number] [address], [place], [address] LOINC: 58132-1 Test Value Unit Reference Range Code Code System Flag WBC 8.41 th/cmm L=5.00 H=10.00 6690-2 LOINC NEUT % 68.8 % L=40.0 H=80.0 LYMPH % 22.5 % L=10.0 H=50.0 MONO % 6.3 % L=2.0 H=12.0 77682-1 LOINC EOS % 1.5 % L=0.0 H=8.0 BASO % 0.7 % L=0.0 H=3.0 IG % 0.2 % L=0.0 H=1.1 2514-8 LOINC NRBC % 0.0 % L=0.0 H=0.0 79525-1 LOINC NEUT abs count 5.8 th/cmm L=1.6 H=8.4 751-8 LOINC LYMPH abs count 1.9 th/cmm L=1.5 H=4.0 731-0 LOINC MONO abs count 0.5 th/cmm L=0.2 H=1.0 742-7 LOINC EOS abs count 0.1 th/cmm L=0.0 H=0.5 711-2 LOINC BASO abs count 0.1 th/cmm L=0.0 H=0.2 704-7 LOINC IG abs count 0.0 th/cmm L=0.0 H=0.1 08970-6 LOINC NRBC abs count 0.0 mil/cmm L=0.0 H=0.0 01673-2 LOINC RBC 4.38 mil/cmm L=3.90 H=5.40 789-8 LOINC HEMOGLOBIN 12.4 gm/dL L=12.0 H=16.0 718-7 LOINC HEMATOCRIT 37 % L=37 H=47 4544-3 LOINC MCV 85 fL L=82 H=92 787-2 LOINC MCH 28.3 pg L=27.0 H=31.0 785-6 LOINC MCHC 33.2 % L=32.0 H=36.0 786-4 LOINC RDW-SD 42.5 fL L=39.0 H=49.0 788-0 LOINC PLATELET COUNT 368 th/cmm L=150 H=450 777-3 LOINC Social History Type Status Start Date End Date Code Code Syst em Smoking History Never smoker (Never Smoked) 024980520 SNOMED CT Sex Female Medications Medication Start Date End Date Route Frequency Dose Code Code System Medication Instructions Home Meds Atorvastatin Calcium 40MG Oral Tablet 01/12/2018 Unknown ORAL EVERY EVENING 40 MILLIGRAMS 320605 RxNorm TAKE 40 MILLIGRAMS ORAL EVERY EVENING Omeprazole 40MG Oral Capsule, Delayed Release 01/12/2018 Unknown ORAL DAILY 40 MILLIGRAMS 569722 RxNorm TAKE 40 MILLIGRAMS ORAL DAILY ASPIRIN 81 MG TABLET 10/06/2018 Unknown ORAL DAILY 81 MILLIGRAMS RxNorm TAKE 81 MILLIGRAMS ORAL DAILY Lisinopril 40MG Oral Tablet 10/06/2018 Unknown ORAL DAILY 40 MILLIGRAMS 454010 RxNorm TAKE 40 MILLIGRAMS ORAL DAILY Robaxin [...] Date Status Code Code System HTN active 44967294 SNOMED-CT NEUROPATHY active 544090649 SNOMED-CT CVA active 691860415 SNOMED-CT ENDOMETRIOSIS active 541309251 SNOMED -CT Allergies and Adverse Reactions Allergy Substance Reaction Severity Start Date Concern Status Co de Code System CODEINE Vomiting (SNOMED-CT: 772272954), NAUSEA (SNOMED-CT: 588850264), Nausea (SNOMED-CT: 171191450) Moderate Active 6040 RxNorm MORPHINE Moderate Active 4475 RxNorm Plan of Treatment Exposure 01/24/2020 MM [...] Diagnosis Start Date Code Code Sys tem Hemorrhage of rectum and anus 11/29/2021 656814949 SNOMED-CT Personal Care Team Section Performer Name Performer Role Active Date Inactive Da mare
--- OUTSIDE RECORDS SUMMARY | 2023-09-18 18:23 | XMS_ITS ---
Author Organization Unknown Address [address] [place] [address] [phone] Phone Care Team Providers Care Mannequin Mold Maker Name Role Phone KARLA OLVERA Registered Nurse Unavailable PREET Levin Attending Unavailable FLORINA ARCOS Primary Unavailable UNLISTED PROVIDER - REQUESTED Xhandoff Un available Results D-DIMER - Collect Date/Time: 11/06/2021 09:43 [facility] ID: [id number] [address] [place] [address], [address] LOINC: 21171-9 Test Value Unit Reference Range Code Code System Flag D-DIMER 1.88 mg/L L=0.19 H=0.50 55682-1 LOINC H TROPONIN HIGH SENSITIVITY* - Collect Date/Time: 11/06/2021 09:35 [facility] ID: [id number] [address] [place] [address], [address] LOINC: 22383-8 Test Value Unit Reference Range Code Code System Flag TROPONIN HS < 4.0 pg/mL L=0.0 H=60.4 Specimen seq. ADM. PTT PARTIAL THROMBOPLASTIN T INGE* - Collect Date/Time: 11/06/2021 09:35 [facility] ID: [id number] [address] [place] [address], [id number] LOINC: 14582-1 Test Value Unit Reference Range Code Code System Flag PTT 24.5 seconds L=24.5 H=32.8 25765-8 LOINC CBC W/ DIFFERENTIAL* - Colle ct Date/Time: 11/06/2021 09:35 [facility] ID: [id number] [address] [place] [address], [address] LOINC: 60934-6 Test Value Unit Reference Range Code Code System Flag WBC 7.57 th/cmm L=5.00 H=10.00 6690-2 LOINC NEUT % 78.1 % L=40.0 H=80.0 LYMPH % 14.5 % L=10.0 H=50.0 MONO % 5.8 % L=2.0 H=12.0 71179-9 LOINC EOS % 0.8 % L=0.0 H=8.0 BASO % 0.4 % L=0.0 H=3.0 IG % 0.4 % L=0.0 H=1.1 2514-8 LOINC NRBC % 0.0 % L=0.0 H=0.0 67199-1 LOINC NEUT abs count 5.9 th/cmm L=1.6 H=8.4 751-8 LOINC LYMPH abs count 1.1 th/cmm L=1.5 H=4.0 731-0 LOINC L MONO abs count 0.4 th/cmm L=0.2 H=1.0 742-7 LOINC EOS abs count 0.1 th/cmm L=0.0 H=0.5 711-2 LOINC BASO abs count 0.0 th/cmm L=0.0 H=0.2 704-7 LOINC IG abs count 0.0 th/cmm L=0.0 H=0.1 39349-6 LOINC NRBC abs count 0.0 mil/cmm L=0.0 H=0.0 17102-4 LOINC RBC 4.64 mil/cmm L=3.90 H=5.40 789-8 LOINC HEMOGLOBIN 12.9 gm/dL L=12.0 H=16.0 718-7 LOINC HEMATOCRIT 39 % L=37 H=47 4544-3 LOINC MCV 84 fL L=82 H=92 787-2 LOINC MCH 27.8 pg L=27.0 H=31.0 785-6 LOINC MCHC 33.0 % L=32.0 H=36.0 786-4 LOINC RDW-SD 42.7 fL L=39.0 H=49.0 788-0 LOINC PLATELET COUNT 324 th/cmm L=150 H=450 777-3 LOINC PT PROTHROMBIN TIME* - Colle ct Date/Time: 11/06/2021 09:35 [facility] ID: [id number] [address] [place], [place], [address] LOINC: 5902-2 Test Value Unit Reference Range Code Code System Flag PROTIME 10.4 seconds L=9.3 H=11.4 5902-2 LOINC INR 1.04 L=2.00 H=3.00 11232-5 LOINC L COMPREHENSIVE METABOLIC PANE L (CMP) - Collect Date/Time: 11/06/2021 09:35 [facility] ID: [id number] [address] [place], [place], [address] LOINC: 36887-7 Test Value Unit Reference Range Code Code System Flag GLUCOSE 117 mg/dL L=70 H=116 2345-7 LOINC H BUN 20 mg/dL L=6 H=25 3094-0 LOINC CREATININE 0.84 mg/dL L=0.51 H=0.95 2160-0 LOINC SODIUM SERUM 136 mmol/L L=136 H=145 2951-2 LOINC POTASSIUM SERUM 3.6 mmol/L L=3.4 H=5.2 2823-3 LOINC CHLORIDE SERUM 99 mmol/L L=96 H=110 2075-0 LOINC CARBON DIOXIDE (CO2) 28 mmol/L L=22 H=34 2028-9 LOINC ANION GAP 9.3 mmol/L 32776-5 LOINC CALCIUM SERUM 9.2 mg/dL L=8.2 H=10.2 46452-1 LOINC BILIRUBIN TOTAL 0.4 mg/dL L=0.0 H=1.3 1975-2 LOINC ALK. PHOS. 117 U/L L=46 H=116 6768-6 LOINC H SGOT (AST) 10 U/L L=15 H=37 1920-8 LOINC L SGPT (ALT) 23 U/L L=12 H=78 1742-6 LOINC TOTAL PROTEIN 7.6 gm/dL L=6.0 H=8.0 2885-2 LOINC ALBUMIN 3.7 gm/dL L=3.4 H=5.0 1751-7 LOINC AGE 50 years eGFR (non-Afr.Amer.) 72 mL/min 42099-6 LOINC eGFR (Afr-Welsh) 87 mL/min 56881-4 LOINC GLUCOSE FINGER/HEEL CAPILLAR Y - Collect Date/Time: 11/06/2021 09:26 [facility] ID: [id number] [address] [place], [place], [id number] LOINC: 76182-9 Test Value Unit Reference Range Code Code System Flag GLUCOSE CAP 117 mg/dL L=70 H=[address] ANGIOGRAPHY CHEST - Compl eted: 11/06/2021 13:42 LOINC: [facility] [place], [place] [address] PACS ELECT EQUIP MAINT ENG REPORT Patient Name: MADIHA BANUELOS MRN: Sex: : Age: [id number] F [id number] Account: StayType: Accession: Admit: [id number] E/R [id number] 11/06/2021 Ordered: Order ID: Ordering Provider: [id number] MICHEAL OVIEDO Completed: CompletedBy: Resulted: By: [id number] [facility] [id number] [place] Study Description: CT ANGIOGRAPHY CHEST Study Reason: syncope FINDINGS: The exam is limited by poor contrast bolus. Tracheobronchial tree: [Patent where visualized.] [] Pulmonary parenchyma: Mild patchy ground glass infiltrates in the inferior left upper lobe and superior segment of the left lower lobe. No consolidation or dominant measurable mass. No architectural distortion. Pulmonary Arteries: Suboptimal contrast opacification. [No gross evidence of filling defect to suggest pulmonary emboli.] Small emboli not entirely excluded. [] Mediastinum and Shyann: [No dominant adenopathy or fluid collection.] [] Visualized thyroid gland: [Unremarkable.] [] Pleura: [No effusion or pneumothorax.] [] Heart: [The heart is not dilated.] There is a metallic density seen between the atria. The patient has a history of repair for patent foramen ovale. [No coronary artery calcifications are seen.] [No pericardial effusion.] [] Aorta: [Thoracic aorta non-dilated.] [Mild calcification of the aortic arch.] Upper abdomen: [Unremarkable.] []t [martell. [Unremarka [Unremarkable.S [t tissue [Normal.][kable.] [] Bone [No evidence of pulmonary embolism, thoracic aortic dissection or aneurysm.o [ con ast bolus timing. [No evidence of pulmonary embolism, thoracic aortic dissection or aneurysm.] [Mild groundglass infiltrates in the left upper and lower lobes.] [] Report Digitally Signed by Sayra Burks on 11/06/2021 02:[address] HEAD AND CSPINE RONA URBINA* - Completed: 11/06/2021 10:32 LOINC: [facility] [place], [place] [address] PACS ELECT EQUIP MAINT ENG REPORT Patient Name: MADIHA BANUELOS MRN: Sex: : Age: [id number] F [id number] 50 Account: StayType: Accession: Admit: [id number] E/R [id number] 11/06/2021 Ordered: Order ID: Ordering Provider: [id number] MICHEAL OVIEDO Completed: CompletedBy: Resulted: By: [id number] [facility] [id number] [facility] Study Description: CT HEAD AND CSPINE WO CONTRAST* Study Reason: synopeandfall FINDINGS: Head CT: Ventricles and Extra axial spaces: Normal in size and morphology for the patient's age. Hemorrhage: None. Cerebral parenchyma: [Left MCA infarct. Mild atrophy. Midline shift: None. Brainstem/Cerebellum: Normal. Calvarium: Normal. Visualized Paranasal sinuses/Mastoids: Clear. Cervical Spine CT Exam is limited by patient motion. BONES: Vertebral body heights are maintained. Alignment is normal. There is no evidence of acute fracture. Degenerative disc changes and facet degenerative changes are seen. SOFT TISSUES: No paraspinal hematoma. The airway appears intact. No pneumothorax is seen at the lung apices. IMPRESSION: Head CT: Old left MCA infarct. No acute abnormality. C-spine CT: Degenerative changes, no acute abnormality. Report Digitally Signed by Sayra Burks on 11/06/2021 11:05 AM EDT XR CHEST 2V PA AND LATERAL - Completed: 11/06/2021 10:42 LOINC: [facility] [place], [place] [address] PACS ELECT EQUIP MAINT ENG REPORT Patient Name: MADIHA BANUELOS MRN: Sex: : Age: [id number] F [id number] 50 Account: StayType: Accession: Admit: [id number] Vel/R [id number] 11/06/2021 Ordered: Order ID: Ordering Provider: [id number] MICHEAL OVIEDO Completed: CompletedBy: Resulted: By: [id number] [facility] [id number] [facility] Study Description: XR CHEST 2V PA AND LATERAL Study Reason: ChestPain FINDINGS: LUNGS: Clear. PLEURA: No pleural abnormality seen. HEART: Mildly enlarged.. MEDIASTINUM: Normal. BONES: Unremarkable. SOFT TISSUES: Unremarkable. IMPRESSION: No acute findings. Report Digitally Signed by Sayra Burks on 11/06/2021 10:57 AM EDT XR PELVIS AND HIP LAT LT - C ompleted: 11/06/2021 10:42 LOINC: [facility] [place], [place] [address] PACS ELECT EQUIP MAINT ENG REPORT Patient Name: MADIHA BANUELOS MRN: Sex: : Age: [id number] F [id number] 50 Account: StayType: Accession: Admit: [id number] E/R [id number] 11/06/2021 Ordered: Order ID: Ordering Provider: [id number] MICHEAL OVIEDO Completed: CompletedBy: Resulted: By: [id number] [facility] [id number] [facility] Study Description: XR PELVIS AND HIP LAT LT Study Reason: Trauma FINDINGS: There is no evidence of fracture or dislocation. The joint spaces are maintained. IMPRESSION: No acute abnormality. Report Digitally Signed by Sayra Burks on 11/06/2021 10:58 AM EDT Social History Type Status Start Date End Date Code Code Syst em Smoking History Never smoker (Never Smoked) 600536512 SNOMED CT Sex Female Vital Signs Vital Sign Value Unit [place] Value [place] Unit Date/Time Recent/Initial? Code Code System Systolic Blood Pressure 114 mm[Hg] 11/06/2021 14:23 Most Recent 8480-6 LOINC Diastolic Blood Pressure 60 mm[Hg] 11/06/2021 14:23 Most Recent 8462-4 LOINC Systolic Blood Pressure 146 mm[Hg] 11/06/2021 09:42 Initial 8480-6 LOINC Diastolic Blood Pressure 88 mm[Hg] 11/06/2021 09:42 Initial 8462-4 LOINC O2 Saturation 99 % 2021 14:23 Most Recent 46656- 5 LOINC O2 Saturation 99 % 2021 09:42 Initial 90946- 5 LOINC Pulse 75.0 /min 11/06/2021 14:23 Most Recent 8867-4 LOINC Pulse 92.0 /min 11/06/2021 09:42 Initial 8867-4 LOINC Respiration 16 /min 11/07/19 14:23 Most Recent 9279-1 LOINC Respiration 18 /min 11/07/19 09:42 Initial 9279-1 LOINC Temperature 37.3 Janie 99.1 F 11/07/19 10:10 Initial 8310-5 LOINC Medications Medication Start Date End Date Route Frequency Dose Code Code System Medication Instructions Home Meds FLUCONAZOLE 01/08/2018 11/06/2021 ORAL DAILY 1 RxNo rm TAKE 1 ORAL DAILY Lisinopril 10MG Oral Tablet 01/08/2018 11/06/2021 ORAL DAILY 10 MILLIGR AMS 844112 RxNorm TAKE 10 MILLIGRAMS ORAL DAILY PAROXETINE 01/08/2018 11/06/2021 ROUTE NOT APPLICABLE DAILY 1 RxNorm 1 ROUTE NOT APPLICABLE DAILY Aspirin 81MG Oral Tablet, Chewable 01/12/2018 11/06/2021 ORAL DAILY 81 MILLIGR AMS 084139 RxNorm TAKE 81 MILLIGRAMS ORAL DAILY Atorvastatin Calcium 40MG Oral Tablet 01/12/2018 Unknown ORAL EVERY EVENING 40 MILLIGR AMS 486861 RxNorm TAKE 40 MILLIGRAMS ORAL EVERY EVENING LORAZEPAM 01/12/2018 11/06/2021 ORAL NEEDED, EVERY 6 HOURS 1 RxNorm TAKE 1 ORAL NEEDED, EVERY 6 HOURS Omeprazole 40MG Oral Capsule, Delayed Release 01/12/2018 Unknown ORAL DAILY 40 MILLIGR AMS 286828 RxNorm TAKE 40 MILLIGRAMS ORAL DAILY PAROXETINE 01/12/2018 11/06/2021 ORAL DAILY 20 RxNor m TAKE 20 ORAL DAILY ASPIRIN 81 MG TABLET 10/06/2018 Unknown ORAL DAILY 81 MILLIGR AMS RxNorm TAKE 81 MILLIGRAMS ORAL DAILY ELIQUIS TABLET 10/06/2018 11/06/2021 ORAL DAILY 1 TABLET RxNorm TAKE 1 TABLET ORAL DAILY Lisinopril 40MG Oral Tablet 10/06/2018 Unknown ORAL DAILY 40 MILLIGR AMS 900416 RxNorm TAKE 40 MILLIGRAMS ORAL DAILY Omeprazole 40MG Oral Capsule, Delayed Release 10/06/2018 11/06/2021 ORAL DAILY 40 MILLIGR AMS 903083 RxNorm TAKE 40 MILLIGRAMS ORAL DAILY PARoxetine HCl 20MG Oral Tablet 10/06/2018 11/06/2021 ORAL DAILY 20 MILLIGR AMS 208732 5 RxNorm TAKE 20 MILLIGRAMS ORAL DAILY PAXIL 40MG ORAL TABLET 10/06/2018 11/06/2021 ORAL DAILY 40 MILLIGR AMS RxNorm TAKE 40 MILLIGRAMS ORAL DAILY PLAVIX 75MG ORAL TABLET 10/06/2018 11/06/2021 ORAL DAILY 75 MILLIGR AMS RxNorm TAKE 75 MILLIGRAMS ORAL DAILY Propranolol HCl 20MG Oral Tablet 10/06/2018 11/06/2021 ORAL TWICE A DAY 20 MILLIGR AMS 188165 RxNorm TAKE 20 MILLIGRAMS ORAL TWICE A DAY ROSUVASTATIN TAB 10/06/2018 11/06/2021 ORAL DAILY 1 TABLET RxNorm TAKE 1 TABLET ORAL DAILY Tolterodine Tartrate 4MG Oral Capsule, Extended Release 10/06/2018 11/06/2021 ORAL DAILY 4 MILLIGR AMS 223570 RxNorm TAKE 4 MILLIGRAMS ORAL DAILY Robaxin [...] physician. Reason For Referral No Data Found Procedures Procedure Name Date Status Code Code Shannan levin Thrombectomy completed 19707583 SNOMEDCT Cholecystectomy completed 30112968 SNOMEDCT Complete hysterectomy with bilateral TO complet ed 12163074 SNOMEDCT PFO repair completed 747686535 SNOMEDCT Problems Problem Start Date Resolved Date Status Code Code System HTN active 41273816 SNOMED-CT NEUROPATHY active 884577772 SNOMED-CT CVA active 929747553 SNOMED-CT ENDOMETRIOSIS active 663527891 SNOMED -CT Allergies and Adverse Reactions Allergy Substance Reaction Severity Start Date Concern Status Co de Code System CODEINE Vomiting (SNOMED-CT: 418683956), NAUSEA (SNOMED-CT: 704585784), Nausea (SNOMED-CT: 203852004) Moderate Active 5920 RxNorm MORPHINE Moderate Active 6315 RxNorm Plan of Treatment Exposure 01/24/2020 MM SCREEN BILAT 11/15/2022 BONE DENSITY DEXA SPINE & HIP 3 CT CHEST W/O CONTRAST 06/28/2022 MM DIAG RT UNILAT 04/12/2022 US BREAST UNI RT 04/12/2022 MM DIAG RT UNILAT 04/12/2022 US BREAST UNI RT 04/12/2022 MM DIAG RT UNILAT 10/10/2021 US BREAST UNI RT 10/10/2021 MM DIAG RT UNILAT 10/10/2021 US BREAST UNI RT 10/10/2021 LAB DRAW 15MIN 09/21/2021 MM SCREEN BILAT 09/21/2021 Encounters Encounter Diagnosis Start Date Code Code Sys tem Syncope and collapse 11/06/2021 SNOMED- CT Personal Care Team Section Performer Name Performer Role Active Date Inactive Da te
--- OUTSIDE RECORDS SUMMARY | 2023-09-18 18:23 | XMS_ITS ---
Author Organization Unknown Address [address] [place] [phone] Phone Care Team Providers Care Interventional Pain Physician Name Role Phone FLORINA ARCOS Attending Unavailable ANTONY GASTELUM Primary Unavailable Results PAUL Green CAD - Co mpleted: 04/12/2022 08:47 LOINC: [facility] [place], [place] [address] PACS DOOR WORKER REPORT Patient Name: MADIHA BANUELOS MRN: Sex: : Age: [id number] F 1970 51 Account: Accession: Admit: StayType: [id number] 04/12/2022 O/P Ordered: Order ID: Submitted: Ordering Provider: 04/12/2022 08:27 [id number] ORIANA ESPINOSA Completed: Technologist: Resulted: 04/12/2022 08:47 SLG 04/12/2022 08:54 Study Description: PAUL Green CAD Study Reason: 6 MO FU COMPARISON: Comparison is made with prior examinations. FINDINGS: Mammography/Tomosynthesis: Masses/Architectural Distortion: None seen. There is been no significant change in appearance of the mammogram compared to the prior examination. Microcalcifictions: No suspicious pleomorphic-type are seen. Skin Thickening/Nipple Retraction: None. IMPRESSION: 1. No evidence of malignancy is noted. 2. Unless there is more urgent need, follow-up screening mammography is recommended, as per [place] [employer] guidelines. 3. The findings were discussed with the patient on the date of the examination. BI-RADS Category 1: Negative BI-RADS Density Category A: Almost entirely Fatty Breast density Category C or D implies that the patient has dense breast tissue. Dense breast tissue can make it harder to find cancer on a mammogram. Dense breast tissue is also associated with an increased risk of breast cancer. This information about the result of the mammogram report was provided to the patient to raise their awareness. Use this report when you speak with the patient about their risks for breast cancer, which includes their family history. At that time, you may recommend additional screening tests (Ultrasound or MRI) as these tests may add significant information. A negative radiographic report should not delay biopsy if a dominant or clinically suspicious mass is present. Up to ten percent of cancers are not identified on mammography. A negative report may reinforce clinical impression. Adenosis and dense breasts may obscure an underlying neoplasm. False positive reports average 6 to 10%. Patient will receive a letter notifying them of these results. Report Digitally Signed by Leno Sommer on 04/12/2022 08:54 AM EST Social History Type Status Start Date End Date Code Code Syst em Smoking History Never smoker (Never Smoked) 464921468 SNOMED CT Sex Female Medications Medication Start Date End Date Route Frequency Dose Code Code System Medication Instructions Home Meds Atorvastatin Calcium 40MG Oral Tablet 01/12/2018 Unknown ORAL EVERY EVENING 40 MILLIGRAMS 428099 RxNorm TAKE 40 MILLIGRAMS ORAL EVERY EVENING Omeprazole 40MG Oral Capsule, Delayed Release 01/12/2018 Unknown ORAL DAILY 40 MILLIGRAMS 20020328 RxNorm TAKE 40 MILLIGRAMS ORAL DAILY ASPIRIN 81 MG TABLET 10/06/2018 Unknown ORAL DAILY 81 MILLIGRAMS RxNorm TAKE 81 MILLIGRAMS ORAL DAILY Lisinopril 40MG Oral Tablet 10/06/2018 Unknown ORAL DAILY 40 MILLIGRAMS 19770920 RxNorm TAKE 40 MILLIGRAMS ORAL DAILY Robaxin [...] Date Status Code Code System HTN active 76300162 SNOMED-CT NEUROPATHY active 148354103 SNOMED-CT CVA active 362590641 SNOMED-CT ENDOMETRIOSIS active 376760334 SNOMED -CT Allergies and Adverse Reactions Allergy Substance Reaction Severity Start Date Concern Status Co de Code System CODEINE Vomiting (SNOMED-CT: 826200853), NAUSEA (SNOMED-CT: 917451945), Nausea (SNOMED-CT: 644260810) Moderate Active 9960 RxNorm MORPHINE Moderate Active 0113 RxNorm Plan of Treatment Exposure 01/24/2020 MM [...] Diagnosis Start Date Code Code Sys tem Inconclusive mammography finding 04/12/2022 60180469 1265306 SNOMED-CT Personal Care Team Section Performer Name Performer Role Active Date Inactive Pravin garvey
--- OUTSIDE RECORDS SUMMARY | 2023-09-18 18:24 | XMS_ITS ---
Author Organization Unknown Address [address] [place] [phone] Phone Care Team Providers Care Human Resource Analyst Name Role Phone ANTONY GASTELUM Attending Unavailable Results MM SCREENING BILAT MAMMO W T ROSEMARY Peter CAD - Completed: 11/15/2022 09:23 LOINC: [place], [place] [address] PACS OCEAN EXPORT AGENT REPORT Patient Name: MADIHA BANUELOS MRN: Sex: : Age: [id number] F 1970 51 Account: Accession: Admit: StayType: [id number] 11/15/2022 O/P Ordered: Order ID: Submitted: Ordering Provider: 11/15/2022 08:58 [id number] [facility] ORIANA HARDY Completed: Technologist: Resulted: 11/15/2022 09:24 SLG 11/15/2022 14:21 Study Description: MM SCREENING BILAT MAMMO W KARIE W CAD Study Reason: SCREENING TECHNIQUE: Bilateral full field digital CC and MLO mammographic images were obtained with 3D tomosynthesis and utilizing computer aided detection (CAD). COMPARISON: Prior mammograms were reviewed. FINDINGS: There has been no significant change in the appearance and distribution of the fibroglandular tissue. Small benign-appearing nodules in both breasts are unchanged from prior mammograms. There are no spiculated masses nor malignant appearing microcalcification groups. There is no significant architectural distortion nor skin thickening-retraction. IMPRESSION: 1. Stable benign-appearing findings. No radiographic evidence of malignancy. BiRads Category: 2-benign findings BI_RADS Density Category B: Scattered areas of fibroglandular density Breast density Category C or D implies [...] of these results. Report Digitally Signed by Ranjith Escudero on 11/15/2022 02:21 PM EDT Social History Type Status Start Date End Date Code Code Syst em Smoking History Never smoker (Never Smoked) 878598523 SNOMED CT Sex Female Medications Medication Start Date End Date Route Frequency Dose Code Code System Medication Instructions Home Meds Atorvastatin Calcium 40MG Oral Tablet 01/12/2018 Unknown ORAL EVERY EVENING 40 MILLIGRAMS 491860 RxNorm TAKE 40 MILLIGRAMS ORAL EVERY EVENING Omeprazole 40MG Oral Capsule, Delayed Release 01/12/2018 Unknown ORAL DAILY 40 MILLIGRAMS 20020328 RxNorm TAKE 40 MILLIGRAMS ORAL DAILY ASPIRIN 81 MG TABLET 10/06/2018 Unknown ORAL DAILY 81 MILLIGRAMS RxNorm TAKE 81 MILLIGRAMS ORAL DAILY Lisinopril 40MG Oral Tablet 10/06/2018 Unknown ORAL DAILY 40 MILLIGRAMS 465259 RxNorm TAKE 40 MILLIGRAMS ORAL DAILY Robaxin [...] Date Status Code Code System HTN active 97829910 SNOMED-CT NEUROPATHY active 765907980 SNOMED-CT CVA active 289069974 SNOMED-CT ENDOMETRIOSIS active 334470135 SNOMED -CT Allergies and Adverse Reactions Allergy Substance Reaction Severity Start Date Concern Status Co de Code System CODEINE Vomiting (SNOMED-CT: 428922124), NAUSEA (SNOMED-CT: 134680362), Nausea (SNOMED-CT: 589272215) Moderate Active 3240 RxNorm MORPHINE Moderate Active 6493 RxNorm Plan of Treatment Exposure 01/24/2020 MM [...] Diagnosis Start Date Code Code Sys tem Screening mammography 11/15/2022 13104227 SNOMED -CT Personal Care Team Section Performer Name Performer Role Active Date Inactive Pravin garvey
--- OUTSIDE RECORDS SUMMARY | 2023-09-18 18:24 | XMS_ITS ---
Author Organization Unknown Address [address] [place] [phone] Phone Care Team Providers Care Craniologist Name Role Phone ANTONY GASTELUM Attending Unavailable Results CT LDCT FOR LUNG CA SCREEN - Completed: 06/28/2022 09:12 [facility] [place], [place] [address] PACS APPLICATION TESTER REPORT Patient Name: MADIHA BANUELOS MRN: Sex: : Age: [id number] F 1970 51 Account: Accession: Admit: StayType: [id number] 06/28/2022 O/P Ordered: Order ID: Submitted: Ordering Provider: 06/28/2022 08:56 [id number] [facility] ORIANA HARDY Completed: Technologist: Resulted: 06/28/2022 09:12 BSK 07/01/2022 08:13 Study Description: CT LDCT FOR LUNG CA SCREEN Study Reason: FORMER SMOKER TECHNIQUE: Imaging Protocol: Low Dose Technique CONTRAST MATERIAL None COMPARISON: Chest CT scan 11/06/2021 chest x-ray 11/10/2021. FINDINGS: LUNGS: 2 tiny benign-appearing nodules in the right upper lobe subapical region again noted. Scattered groundglass infiltrates noted bilaterally which are relatively unchanged from 11/06/2021. In the peripheral aspect of the left upper lobe increased markings previously present have slightly decreased. There are no new nodular densities in the lung guadalupe. No pleural effusions. No new findings in the trachea and mainstem bronchi. MEDIASTINUM: There is no obvious hilar nor mediastinal adenopathy. CARDIAC: Heart size is normal. There is no pericardial effusion. Density consistent with repair of patent foramen ovale again noted. OTHER: OSSEOUS: There is an incompletely healed fracture in the body of the sternum which was not evident 11/06/2021. . IMPRESSION: 1. Stable bilateral groundglass infiltrates. No new infiltrates nor ominous pulmonary nodules and there are no pleural effusions. 2. There is an incompletely healed fracture in the upper body of the sternum. This was not evident on the prior chest CT scan of 11/06/2021 correlation with interval trauma recommended. Report Digitally Signed by Ranjith Escudero on 06/28/2022 06:55 PM EDT Addendum ------ Addendum dictated 07/01/2022 8:10 AM Lung RADS category: 2S-benign appearing lung findings as described no new ominous pulmonary nodules. However, please note that there is an incompletely healed fracture of the sternum which was not evident on the prior chest CT scan of 11/06/2021. Addendum Digitally Signed by Ranjith Escudero on 07/01/2022 08:13 AM EDT Social History Type Status Start Date End Date Code Code Syst em Smoking History Never smoker (Never Smoked) 689636009 SNOMED CT Sex Female Medications Medication Start Date End Date Route Frequency Dose Code Code System Medication Instructions Home Meds Atorvastatin Calcium 40MG Oral Tablet 01/12/2018 Unknown ORAL EVERY EVENING 40 MILLIGRAMS 950590 RxNorm TAKE 40 MILLIGRAMS ORAL EVERY EVENING [...] Date Status Code Code System HTN active 35668523 SNOMED-CT NEUROPATHY active 775181187 SNOMED-CT CVA active 620980812 SNOMED-CT ENDOMETRIOSIS active 319074701 SNOMED -CT Allergies and Adverse Reactions Allergy Substance Reaction Severity Start Date Concern Status Co de Code System CODEINE Vomiting (SNOMED-CT: 305490854), NAUSEA (SNOMED-CT: 957652002), Nausea (SNOMED-CT: 351566063) Moderate Active 2670 RxNorm MORPHINE Moderate Active 3229 RxNorm Plan of Treatment Exposure 01/24/2020 MM [...] Start Date Code Code Sys tem Other nonspecific abnormal finding of lung field 06/28 SNOMED-CT Personal Care Team Section Performer Name Performer Role Active Date Inactive Da te
--- OUTSIDE RECORDS SUMMARY | 2023-09-18 18:24 | XMS_ITS ---
Author Organization Unknown Address [address] [place] [address] [phone] Phone Care Team Providers Care Events Manager Name Role Phone ANTONY GASTELUM Attending Unavailable Results BD DXA BONE DENSITY HIP AND SPINE - Completed: 06/26/2022 13:47 LOINC: [facility] [place], [place] [address] PACS SUPERVISOR COUNSELING AND GUIDANCE REPORT Patient Name: MADIHA BANUELOS MRN: Sex: : Age: [id number] F 1970 51 Account: Accession: Admit: StayType: [id number] 06/26/2022 O/P Ordered: Order ID: Submitted: Ordering Provider: 06/26/2022 13:24 [id number] KT ORIANA HARDY Completed: Technologist: Resulted: 06/26/2022 13:47 DA 06/26/2022 18:27 Study Description: BD DXA BONE DENSITY HIP AND SPINE Study Reason: OSTEOPENIA TECHNIQUE: Performed on a Hologic unit. COMPARISON: No exams were available for comparison FINDINGS: Lumbar Spine total T-score: -3.3 Hip total T-score: -0.7 Independent reading at the femoral neck yields a T score of -2.0 IMPRESSION: Bone mineral density measures in the osteoporosis range. Fracture risk is high. Note: Any spine fracture indicates 5x risk for subsequent spine fracture and 2x risk for subsequent hip fracture. World Health Organization criteria for BMD interpretation classify patients: Normal...... T- Score at or above -1.0 Osteopenic... T- Score between -1.0 and -2.5 Osteoporosis... T-Score at or below -2.5 No exams were available for comparison Report Digitally Signed by Ranjith Escudero on 06/26/2022 06:27 PM EDT Social History Type Status Start Date End Date Code Code Syst em Smoking History Never smoker (Never Smoked) 936116886 SNOMED CT Sex Female Medications Medication Start Date End Date Route Frequency Dose Code Code System Medication Instructions Home Meds Atorvastatin Calcium 40MG Oral Tablet 01/12/2018 Unknown ORAL EVERY EVENING 40 MILLIGRAMS 809791 RxNorm TAKE 40 MILLIGRAMS ORAL EVERY EVENING Omeprazole 40MG Oral Capsule, Delayed Release 01/12/2018 Unknown ORAL DAILY 40 MILLIGRAMS 955310 RxNorm TAKE 40 MILLIGRAMS ORAL DAILY ASPIRIN 81 MG TABLET 10/06/2018 Unknown ORAL DAILY 81 MILLIGRAMS RxNorm TAKE 81 MILLIGRAMS ORAL DAILY Lisinopril 40MG Oral Tablet 10/06/2018 Unknown ORAL DAILY 40 MILLIGRAMS 282863 RxNorm TAKE 40 MILLIGRAMS ORAL DAILY Robaxin [...] Date Status Code Code System HTN active 88821424 SNOMED-CT NEUROPATHY active 814968332 SNOMED-CT CVA active 489484351 SNOMED-CT ENDOMETRIOSIS active 478794822 SNOMED -CT Allergies and Adverse Reactions Allergy Substance Reaction Severity Start Date Concern Status Co de Code System CODEINE Vomiting (SNOMED-CT: 401695327), NAUSEA (SNOMED-CT: 060606250), Nausea (SNOMED-CT: 224678444) Moderate Active 5260 RxNorm MORPHINE Moderate Active 0701 RxNorm Plan of Treatment Exposure 01/24/2020 MM [...] Diagnosis Start Date Code Code Sys tem Age-related osteoporosis wit hout current pathological fracture 06/26/2022 SNOMED-CT Personal Care Team Section Performer Name Performer Role Active Date Inactive Da mare
--- OUTSIDE RECORDS SUMMARY | 2023-09-18 18:24 | XMS_ITS ---
Author Organization Unknown Address [address] [place] [address] [phone] Phone Care Team Providers Care Internet Site Designer Name Role Phone YASMIN Crowder Attending Unavailable ANTONY GASTELUM Primary Unavailable Social History Type Status Start Date End Date Code Code Syst em Smoking History Never smoker (Never Smoked) 850633837 SNOMED CT Sex Female Medications Medication Start Date End Date Route Frequency Dose Code Code System Medication Instructions Home Meds Atorvastatin Calcium 40MG Oral Tablet 01/12/2018 Unknown ORAL EVERY EVENING 40 MILLIGRAMS 785713 RxNorm TAKE 40 MILLIGRAMS ORAL EVERY EVENING Omeprazole 40MG Oral Capsule, Delayed Release 01/12/2018 Unknown ORAL DAILY 40 MILLIGRAMS 356692 RxNorm TAKE 40 MILLIGRAMS ORAL DAILY ASPIRIN 81 MG TABLET 10/06/2018 Unknown ORAL DAILY 81 MILLIGRAMS RxNorm TAKE 81 MILLIGRAMS ORAL DAILY Lisinopril 40MG Oral Tablet 10/06/2018 Unknown ORAL DAILY 40 MILLIGRAMS 589351 RxNorm TAKE 40 MILLIGRAMS ORAL DAILY Robaxin [...] Date Status Code Code System HTN active 34087100 SNOMED-CT NEUROPATHY active 614275485 SNOMED-CT CVA active 575614181 SNOMED-CT ENDOMETRIOSIS active 512110496 SNOMED -CT Allergies and Adverse Reactions Allergy Substance Reaction Severity Start Date Concern Status Co de Code System CODEINE Vomiting (SNOMED-CT: 788660185), NAUSEA (SNOMED-CT: 401747132), Nausea (SNOMED-CT: 369581624) Moderate Active 2530 RxNorm MORPHINE Moderate Active 1125 RxNorm Plan of Treatment Exposure 01/24/2020 MM [...] Start Date Code Code Sys tem Other specified counseling 05/13/2022 S NOMED-CT Personal Care Team Section Performer Name Performer Role Active Date Inactive Da te
--- OUTSIDE RECORDS SUMMARY | 2023-09-18 18:25 | XMS_ITS | Referral Summary ---
Author Organization [facility] Address [address] [place] [address] Care Team Providers Care Hatch Boss Name Role Phone Jimena Jones MD Primary Care Provider Allergies Active Allergy Reactions Criticality Noted Date Comments Morphine Shortness Of Breath 04/14/2015 Medications Medication Sig Dispensed Refills Start Date End Date Status polyethylene glycol (GOLYTELY) 236-22.74-6.74 -5.86 gram suspensionIndication s:Family history of colon cancer Follow instructions on 'colonoscopy preparation instructions' sheet. 1 Bottle 0 02/21/2015 Active omeprazole (PRILOSEC) 20 mg capsuleIndications:g astroesophageal reflux disease Take 40 mg by mouth 2 times daily. Active paroxetine (PAXIL) 20 mg tabletIndications:an xiety with depression Take 40 mg by mouth daily. Active lisinopril (PRINIVIL, ZESTRIL) 10 mg tabletIndications:hy pertension Take 30 mg by mouth daily. Active hydrochlorothiazide (HYDRODIURIL) 25 mg tabletIndications:ed henrique,hypertension Take 25 mg by mouth daily. Active estrogens, conjugated, (PREMARIN) 0.3 mg tabletIndications:po st-menopausal osteoporosis prevention Take 0.3 mg by mouth daily. Active LORazepam (ATIVAN) 1 mg tablet Take 1 mg by mouth every 4 hours as needed for Anxiety. Active traMADol (ULTRAM) 50 mg tabletIndications:pa in Take 50 mg by mouth every 6 hours as needed for Pain. Active Social History Tobacco Use Types Packs/Day Years Used Date Smoking Tobacco: Former Smokeless Tobacco: Never Alcohol Use Standard Drinks/Week Comments Yes 0 (1 standard drink = 0.6 oz pur e alcohol) rare Interpersonal Safety Answer Date Record ed Physically Hurt Never 09/19/2019 Verbally Threaten Not on file 09/19/2019 Sex and Gender Information Value Date Recorded Sex Assigned at Not on file Gender Identity Not on file Sexual Orientation Not on file Last Filed Vital Signs Vital Sign Reading Time Taken Comments Blood Pressure 107/72 04/14/2015 1445 EST Pulse - - Temperature 36.8 ??C (98.2 ??F) 04/14/2015 1300 EST Respiratory Rate 16 04/14/2015 1445 EST Oxygen Saturation 93% 04/14/2015 1445 EST Inhaled Oxygen Concentration - - Weight 111.1 kg (245 lb) 04/14/2015 1257 EST Height 157.5 cm (5' 2) 04/14/2015 1257 EST Body Mass Index 44.81 04/14/2015 1257 EST Plan of Treatment Not on file Procedures Procedure Name Priority Date/Time Associated Diagnosis Comments COLONOSCOPY PROCEDURE Routine 04/14/2015 from Last 3 Months or Most Recently Relevant to Health Maintenance Results * COLONOSCOPY (04/14/2015) Colonoscopy [facility] Comment:f/u colo in 3 yrs Colonoscopy, External [facility] Anatomical Region Laterality Modality Endoscopy 04/14/2015 Historical Provider GI PROCEDURE CHAPIS ARZOLA from Last 3 Months or Most Recently Relevant to Health Maintenance Care Teams Hatch Boss Relationship Specialty Start Date End Date Jimena [place] [address] PCP - General 04/25/09
--- OUTSIDE RECORDS SUMMARY | 2023-09-18 18:25 | XMS_ITS | Encounter Summary ---
Author Organization [facility] Address [address] [place] [address] Care Team Providers Care Technical Sales Representative Name Role Phone Unavailable Primary Care Provider Unavailabl e Encounter Details Date Type Department Care Team (Latest Contact Info) Description 10/30/1999 10:02 EDT - 10/30/1999 11:59 EDT Hospital Encounter [facility] [address] [place] [address] Minna Juan, MADDY [address] [place] [address] Discharge Disposition: Auto Discharge Social History Tobacco Use Types Packs/Day Years Used Date Smoking Tobacco: Never Assessed Sex and Gender Information Value Date Recorded Sex Assigned at Not on file Gender Identity Not on file Sexual Orientation Not on file documented as of this encounter Discharge Disposition Disposition Code Departure Means Destination Auto Discharge documented in this encounter Plan of Treatment Not on file documented as of this encounter Procedures Procedure Name Priority Date/Time Associated Diagnosis Comments CT SINUS/FACE WO/CONTRAST Routine 10/30/1999 10:31 EDT documented in this encounter Results * CT SINUS/FACE WO/CONTRAST (10/30/1999 10:31 EDT) Anatomical Region Laterality Modality Other 10/30/1999 10:3 1 EDT Narrative 2008 17:57 EST RECURRENT SINUSITIS-4 EPISODES IN 3 MONTHS R/O CHRONIC SINUSITIS CT SCAN OF THE SINUSES 10/30/99 09:40 HISTORY: Recurrent sinusitis. Rule out chronic sinusitis. TECHNIQUE: Coronal CT scans of the sinuses were performed with 3mm collimation. Images were photographed in bone algorithm for interpretation. FINDINGS: The sinuses are clear. The osteomeatal complexes bilaterally are patent. The attending radiologist has reviewed the images, and concurs with the findings described above. /shiloh Procedure Note Noble Wilson MD / Armando Zapata MD - 2008 RECURRENT SINUSITIS-4 EPISODES IN 3 MONTHS R/O CHRONIC SINUSITIS CT SCAN OF THE SINUSES 10/30/99 09:40 HISTORY: Recurrent sinusitis. Rule out chronic sinusitis. TECHNIQUE: Coronal CT scans of the sinuses were performed with 3mm collimation. Images were photographed in bone algorithm for interpretation. FINDINGS: The sinuses are clear. The osteomeatal complexes bilaterally are patent. The attending radiologist has reviewed the images, and concurs with the findings described above. /shiloh Minna Espinoza-Rising FICTION WRITER IMG CT ORDERABL ES documented in this encounter Visit Diagnoses Not on filedocumented in this encounter
--- OUTSIDE RECORDS SUMMARY | 2023-09-18 18:25 | XMS_ITS | Clinical Summary ---
Author Organization [facility] Address [facility] [place] [address] Care Team Providers Care Saw Boss Name Role Phone Jimena Jones MD Primary Care Provider + [phone] Allergies Active Allergy Reactions Criticality Noted Date Comments Codeine Nausea And Vomiting, Other (See Comments) 01/08/2018 stomach pain Morphine Shortness Of Breath High 01/08/2018 Medications Medication Sig Dispensed Refills Start Date End Date Status omeprazole (PRILOSEC) 40 mg Capsule, Delayed Release(E.C.) Take 40 mg by mouth daily. Active PARoxetine (PAXIL) 20 mg Tablet Take 40 mg by mouth every morning. Active aspirin 81 mg Tablet, Chewable Take 81 mg by mouth daily. 30 tablet 3 01/12/2018 Active atorvastatin (LIPITOR) 40 mg Tablet Take 1 tablet by mouth every evening. 90 tablet 3 01/11/2018 Active buPROPion (WELLBUTRIN XL) 150 mg Tablet Extended Release 24 hr Take 150 mg by mouth every morning. Active lisinopril (PRINIVIL;ZESTRIL) 40 mg Tablet Take 40 mg by mouth daily. Active tolterodine (DETROL LA) 4 mg Capsule, Sust. Release 24 hr Take 4 mg by mouth daily. 08/11/2018 Active hydroCHLOROthiazide (HYDRODIURIL) 25 mg Tablet Take 25 mg by mouth daily. 01/23/2019 Active carvedilol (COREG) 6.25 mg Tablet Take 6.25 mg by mouth 2 times daily (with meals). 01/23/2019 Active Active Problems Problem Noted Date Diagnosed Date Chronic deep vein thrombosis (DVT) of proximal vein of lower extremity 06/01/2019 PFO (patent foramen ovale) 03/09/2018 Overview (06/05/2018): CRIS 02/16/2018: A patent foramen ovale is visualized. There is a patent foramen ovale with predominant mpyje-ze-zyxe shunting. The patent foramen ovale is demonstrated by color Doppler. Status post closure 05/05/18: 25mm Centerpoint Cardioform device Episode of transient neurologic symptoms 018 Arterial ischemic stroke, MCA, left, acute 01/12 Acute CVA (cerebrovascular accident) 01/08/2018 Social History Tobacco Use Types Packs/Day Years Used Date Smoking Tobacco: Former Cigarettes Q uit: 01/08/2018 Smokeless Tobacco: Never Tobacco Cessation:Ready to Q uit: No; Counseling Given: No Alcohol Use Standard Drinks/Week Comments No 0 (1 standard drink = 0.6 oz pur e alcohol) Sex and Gender Information Value Date Recorded Sex Assigned at Not on file Gender Identity Not on file Sexual Orientation Not on file Last Filed Vital Signs Vital Sign Reading Time Taken Comments Blood Pressure 120/70 06/01/2019 8:38 AM EDT Pulse 81 02/22/2019 9:49 AM EST Temperature 36.6 ??C (97.9 ??F) 08/29/2018 12:31 PM E DT Respiratory Rate 17 08/29/2018 3:45 PM EDT Oxygen Saturation 100% 02/22/2019 9:49 AM EST Inhaled Oxygen Concentration - - Weight 111.1 kg (245 lb) 02/22/2019 9:49 AM EST Height 157.5 cm (5' 2) 02/22/2019 9:49 AM EST Body Mass Index 44.81 02/22/2019 9:49 AM EST Plan of Treatment Health Maintenance Due Date Last Done Comments CT Colonography 1970 Colonoscopy 1970 Colorectal Cancer Screening 1970 FIT DNA 1970 FIT 1970 Sigmoidoscopy (10 year) with FIT yearly 1970 Sigmoidoscopy 1970 HIV screen 1988 Hepatitis C Screening 1988 Hepatitis B vaccine (0-59 yr s) (1) 1989 Tdap adult 1989 Tetanus vaccine 1989 HPV test 2000 PAP Smear 2000 Breast Cancer Share Decision Needed 2010 Breast Cancer screening 2010 Zoster vaccine (1 of 2) 2020 Covid-19 Vaccine (1 - 2022-2 4 season) 2022 Influenza (Flu) vaccine (1 o f 1 - Influenza standard series) 10/19/2023 Diabetes Screening (HgbA1C o r Glucose) Discontinued 05/05/2018, 01/13/2018, 01/11/2018, Additional history exists Procedures Procedure Name Priority Date/Time Associated Diagnosis Comments BASIC METABOLIC PANEL (NON-FASTING) Routine 05/05/2018 9:46 AM EDT PFO (patent foramen ovale) Cryptogenic stroke from Last 3 Months or Most Recently Relevant to Health Maintenance Results * Basic Metabolic Panel (non-fasting) (05/05/2018 9:46 AM EDT) Glucose Lvl 96 65 - 199 mg/dL [facility] Comment:Diabetes: >=200 mg/d L plus symptoms BUN 10 8 - 18 mg/dL [facility] Creatinine 0.71 0.70 - 1.20 mg/dL [facility] Sodium 142 135 - 145 mmol/L [facility] Potassium 4.6 3.5 - 5.0 mmol/L [facility] Comment: Please note: ??Patients with WBC >100,000 may have falsely elevated Potassium levels. ??For accurate Potassium quantification in these patients send serum separator tube (gold top) for subsequent determinations. ??Contact the Clinical Chemistry Laboratory if there are any questions. Chloride 105 98 - 107 mmol/L [facility] CO2 27 22 - 31 mmol/L [facility] Anion Gap 10 5 - 15 mmol/L [facility] Calcium 9.3 8.5 - 10.5 mg/dL [facility] Estimated GFR 101 >=60 mL/min/1. 73 m?? [facility] Comment: The eGFR was calculated using the CKD-EPI equation. As with all creatinine based estimates of kidney function, eGFR values calculated with the CKD-EPI equation are not accurate in patients with acute kidney failure, extremes of body mass or the acutely ill. http://[employer]/DHMCnkf eGFR 118 >=60 mL/min/1. 73 m?? [facility] Comment: The eGFR was calculated using the CKD-EPI equation. As with all creatinine based estimates of kidney function, eGFR values calculated with the CKD-EPI equation are not accurate in patients with acute kidney failure, extremes of body mass or the acutely ill. http://[employer]/DHMCnkf Blood specimen (specimen) 05/05/2018 9:46 AM EDT 05/05/2018 10:04 AM EDT Narrative Resulting Agency Comment Spec In Lab Mary Malone MD CHEMISTRY ORDERABLES [facility] [place] [id number] from Last 3 Months or Most Recently Relevant to Health Maintenance Advance Directives * Full Code (Latest Code Status on File) Date Activated Date Inactivated Comments 05/05/2018 10:07 AM 05/06/2018 1:26 PM Question Answer Comments Does patient have capacity to make decision: Yes * Full Code Date Activated Date Inactivated Comments 02/16/2018 9:48 AM 02/16/2018 2:02 PM Question Answer Comments Does patient have capacity to make decision: Yes * Full Code Date Activated Date Inactivated Comments 01/13/2018 12:22 AM 01/14/2018 3:54 PM Question Answer Comments Does patient have capacity to make decision: Yes * Full Code Date Activated Date Inactivated Comments 01/13/2018 12:22 AM 01/13/2018 12:22 AM Question Answer Comments Does patient have capacity to make decision: Yes * Full Code Date Activated Date Inactivated Comments 01/08/2018 3:10 PM 01/11/2018 4:46 PM Question Answer Comments Does patient have capacity to make decision: Yes Care Teams Saw Boss Relationship Specialty Start Date End Date Jimena Jones MD PCP - General Family Medicine 01/08/18
--- OUTSIDE RECORDS SUMMARY | 2023-09-18 18:25 | XMS_ITS | Encounter Summary ---
Author Organization [facility] Address [facility] [place] [address] Care Team Providers Care Crayon Sorting Machine Feeder Name Role Phone Jimena Jones MD Primary Care Provider [phone] Encounter Details Date Type Department Care Team (Late st Contact Info) Description 01/15/2019 Orders Only Cardiology at [address] [phone] Horace Garrett MD [facility] [place] [address] PFO (patent foramen ovale) (Primary Dx) Social History Tobacco Use Types Packs/Day Years Used Date Smoking Tobacco: Former Cigarettes Q uit: 01/08/2018 Smokeless Tobacco: Never Alcohol Use Standard Drinks/Week Comments No 0 (1 standard drink = 0.6 oz pur e alcohol) Sex and Gender Information Value Date Recorded Sex Assigned at Not on file Gender Identity Not on file Sexual Orientation Not on file documented as of this encounter Plan of Treatment Not on file documented as of this encounter Results * EKG 12 Lead (02/01/2019 10:02 AM EST) Ventricular rate 81 BPM MUSE SYSTEM Atrial Rate 81 BPM MUSE SYSTEM P-R Interval 152 ms MUSE SYSTEM QRS Duration 84 ms MUSE SYSTEM Q-T Interval 390 ms MUSE SYSTEM QTC Calculated (Bezet) 453 ms MUSE SYSTEM Calculated P Custer 27 degrees MUSE SYSTEM Calculated R Custer 14 degrees MUSE SYSTEM Calculated T Custer 30 degrees MUSE SYSTEM INTERPRETATION Normal sinus rhythm Normal ECG When compared with ECG of 19-JUN-2018 10:18, No significant change was found Confirmed by MD ABI, BECKY ([id number]) on 02/01/2019 12:33:51 PM MUSE SYSTEM 02/01/2019 10:0 2 AM EST 02/01/2019 12:33 PM EST Horace Garrett MD ECG ORDERABLES MUSE SYSTEM documented in this encounter Visit Diagnoses Diagnosis PFO (patent foramen ovale)- Primary Ostium secundum type atrial septal defect documented in this encounter Care Teams Crayon Sorting Machine Feeder Relationship Specialty Start Date End Date Jimena Jones MD PCP - General Family Medicine 01/08/18 documented as of this encounter
--- OUTSIDE RECORDS SUMMARY | 2023-09-18 18:25 | XMS_ITS | Encounter Summary ---
Author Organization [facility] Address [address] [place] [address] Care Team Providers Care Ancillary Services Manager Therapy Name Role Phone Jimena Jones MD Primary Care Provider Encounter Details Date Type Department Care Team (Late st Contact Info) Description 01/02/2006 Results Only [facility] [address] [place] [address] Unknown, Provider, Social History Tobacco Use Types Packs/Day Years Used Date Smoking Tobacco: Never Assessed Sex and Gender Information Value Date Recorded Sex Assigned at Not on file Gender Identity Not on file Sexual Orientation Not on file documented as of this encounter Plan of Treatment Not on file documented as of this encounter Procedures Procedure Name Priority Date/Time Associated Diagnosis Comments N. GONORRHOEAE AMPLIFIED PROBE Routine 01/02/2006 16:03 EST HSV (ONLY) CULTURE Routine 01/02/2006 16 :03 EST ZZCHLAMYDIA TRACHOMATIS AMPLIFIED PROBE Routine 01/02/2006 16:03 EST HIV 1/2 ANTIGEN AND ANTIBODY, 4TH GENERATION Routine 01/02/2006 16:03 EST documented in this encounter Results * HSV (ONLY) CULTURE (01/02/2006 16:03 EST) Specimen Description Vagina [facility] Result No herpes simplex recovered [facility] Report Status Final [id number] [facility] 01/02/2006 16:0 3 EST 01/02/2006 21:04 EST Provider Unknown MICROBIOLOGY - GENER AL ORDERABLES Performing Organization Address [facility] Co de Phone Number [facility] [address] [place] [address] * HIV ANTIBODY (DEANNE) (01/02/2006 16:03 EST) HIV 1/2 Antibody NONREACT. NR [facility] 01/02/2006 16:0 3 EST 01/02/2006 21:03 EST Provider Unknown IMMUNOLOGY AND SEROL OGY ORDERABLES Performing Organization Address [facility] Co de Phone Number [facility] [address] [place] [address] * N. GONORRHOEAE AMPLIFIED PROBE (01/02/2006 16:03 EST) Result No Neisseria gonorrhoeae DNA detected by shank sorter mediated amplification. [facility] Report Status Final [id number] [facility] Specimen Description Vagina [facility] 01/02/2006 16:0 3 EST 01/02/2006 21:17 EST Provider Unknown MICROBIOLOGY - GENER AL ORDERABLES Performing Organization Address [facility] Co de Phone Number [facility] [address] [place] [address] * CHLAMYDIA TRACHOMATIS AMPLIFIED PROBE (01/02/2006 16:03 EST) Specimen Description Vagina [facility] Result No Chlamydia trachomatis DNA detected by shank sorter mediated amplification. [facility] Report Status Final [id number] [facility] 01/02/2006 16:0 3 EST 01/02/2006 21:17 EST Provider Unknown MICROBIOLOGY - GENER AL ORDERABLES Performing Organization Address [facility] Co de Phone Number [facility] [address] [place] [address] documented in this encounter Visit Diagnoses Not on filedocumented in this encounter Care Teams Ancillary Services Manager Therapy Relationship Specialty Start Date End Date Jimena Jones MD [facility] [place] [address] PCP - General 04/25/09 documented as of this encounter
--- OUTSIDE RECORDS SUMMARY | 2023-09-18 18:25 | XMS_ITS | Encounter Summary ---
Author Organization [facility] Address [address] [place] [address] Care Team Providers Care Bi Specialist Name Role Phone Isrrael Jones MD Primary Care Provider Encounter Details Date Type Department Care Team (Late st Contact Info) Description 04/14/2015 12:23 EST - 04/14/2015 14:55 EST Hospital Encounter [facility] Endoscopy Outpatient [address], [place] [id number] Luis Manuel Gunter MD [address] [facility], [address] [place] [address] Discharge Disposition: Home or Self Care Social History Tobacco Use Types Packs/Day Years Used Date Smoking Tobacco: Former Smokeless Tobacco: Never Alcohol Use Standard Drinks/Week Comments Yes 0 (1 standard drink = 0.6 oz pur e alcohol) rare Sex and Gender Information Value Date Recorded Sex Assigned at Not on file Gender Identity Not on file Sexual Orientation Not on file documented as of this encounter Last Filed Vital Signs Vital Sign Reading [...] Body Mass Index 44.81 04/14/2015 1257 EST documented in this encounter Medications at Time of Discharge Medication Sig Dispensed Refills Start Date End Date estrogens, conjugated, (PREMARIN) 0.3 mg tabletIndications:post- menopausal osteoporosis prevention Take 0.3 mg by mouth daily. hydrochlorothiazide (HYDRODIURIL) 25 mg tabletIndications:edema ,hypertension Take 25 mg by mouth daily. lisinopril (PRINIVIL, ZESTRIL) 10 mg tabletIndications:hyper tension Take 30 mg by mouth daily. LORazepam (ATIVAN) 1 mg tablet Take 1 mg by mouth every 4 hours as needed for Anxiety. omeprazole (PRILOSEC) 20 mg capsuleIndications:doe roesophageal reflux disease Take 40 mg by mouth 2 times daily. paroxetine (PAXIL) 20 mg tabletIndications:anxie ty with depression Take 40 mg by mouth daily. polyethylene glycol (GOLYTELY) 236-22.74-6.74 -5.86 gram suspensionIndications:F amily history of colon cancer Follow instructions on 'colonoscopy preparation instructions' sheet. 1 Bottle 0 02/21/2015 traMADol (ULTRAM) 50 mg tabletIndications:pain Take 50 mg by mouth every 6 hours as needed for Pain. documented as of this encounter Discharge Disposition Disposition Code Departure Means Destination Home or Self Care documented in this encounter H&P Notes * Luis Manuel Gunter MD - 04/14/2015 1333 EST Endoscopy Sedation for Procedure History & Physical Date: 04/14/2015 Time: 13:33 Location: 4 Endo Planned Procedure: Colonoscopy Chief Complaint/Indications for Procedure: rectal bleeding/ ho polyps History Previous Complication with Sedation and/or Anesthesia? No Allergies: Allergies Allergen Reactions ??? Morphine Shortness Of Breath Current Medications: Current Outpatient Prescriptions Medication Sig Dispense Refill ??? estrogens, conjugated, (PREMARIN) 0.3 mg tablet Take 0.3 mg by mouth daily. ??? hydrochlorothiazide (HYDRODIURIL) 25 mg tablet Take 25 mg by mouth daily. ??? lisinopril (PRINIVIL, ZESTRIL) 10 mg tablet Take 30 mg by mouth daily. ??? LORazepam (ATIVAN) 1 mg tablet Take 1 mg by mouth every 4 hours as needed for Anxiety. ??? omeprazole (PRILOSEC) 20 mg capsule Take 40 mg by mouth 2 times daily. ??? paroxetine (PAXIL) 20 mg tablet Take 40 mg by mouth daily. ??? polyethylene glycol (GOLYTELY) 236-22.74-6.74 -5.86 gram suspension Follow instructions on 'colonoscopy preparation instructions' sheet. 1 Bottle 0 ??? traMADol (ULTRAM) 50 mg tablet Take 50 mg by mouth every 6 hours as needed for Pain. Current Facility-Administered Medications Medication Route Frequency ??? lactated ringers (LR) infusion intravenous CONTINUOUS ??? meperidine (PF) (DEMEROL) 100 mg/mL injection 25-200 mg intravenous Once PRN ??? midazolam (PF) (VERSED) 1 mg/mL injection 1-10 mg intravenous Once PRN ??? sodium chloride 0.9 % (NS) infusion intravenous CONTINUOUS Past Medical History: Past Medical History Diagnosis Date ??? GERD (gastroesophageal reflux disease) ??? Hypertension ??? Mental disorder anxiety/depression ??? Colon polyp Social History: Past Surgical History Procedure Laterality Date ??? Cholecystectomy ??? Hysterectomy History Substance Use Topics ??? Smoking status: Former Smoker ??? Smokeless tobacco: Never Used ??? Alcohol Use: Yes Comment: rare Family History: Family History Problem Relation Age of Onset ??? Breast Cancer Mother ??? Diabetes Father ??? Colon Cancer Father 40 ??? Stroke Father ??? Hypertension Father Review of Systems as pertinent: Physical Exam Vital Signs: BP 161/102 mmHg Temp(Src) 36.8 ??C (98.2 ??F) (Tympanic) Resp 22 Ht 157.5 cm (62) Wt 111.131 kg (245 lb) BMI 44.80 kg/m2 SpO2 99% Heart Examination: Cardiac Regularity: Regular Respiratory Examination: Respiratory Pattern: Regular Breath Sounds Right: Clear Breath Sounds Left: Clear Abdominal Examination: Soft, non-tender, bowel sounds normal, no masses, no organomegaly Additional physical exam related to the proposed procedure, patient activity, disease state and treatment as pertinent: Assessment Previous complications with sedation or anesthesia?: No Airway Concerns: None Anesthesia Classification: ASA 2 Plan: Proceed with sedation for procedure Fasting Time: Time of last liquid intake: 1030 Date of Last Liquid Intake: 04/14/15 Date of last solid intake: 04/12/15 Patient Appropriate Candidate for Planned Sedation?: Yes Luis Manuel Gunter MD 04/14/2015 13:33 documented in this encounter Plan of Treatment Not on file documented as of this encounter Procedures Procedure Name Priority Date/Time Associated Diagnosis Comments PROCEDURE REPORTS - SCANNED 04/15/2015 0:35 EST SURGICAL PATHOLOGY Routine 04/14/2015 18 :32 EST documented in this encounter Results * PROCEDURE REPORTS - SCANNED (04/15/2015 0:35 EST) 04/15/2015 0:35 EST Scan 2 Circuit Walker PROCEDURE/MINOR MARIBELL GICAL ORDERABLES * SURGICAL PATHOLOGY (04/14/2015 18:32 EST) Pathology Report: SURGICAL PATHOLOGY REPORT Reports generated via electronic interface contain original data; however they are lacking the format of the original report. Caution should be taken when reading/interpret ing unformatted reports. Name: ? LARS JIMENEZ ? Accession #: ? [id number] ? : ? 1970 (Age: 44) ??F ? Collect Date: ? 04/14/2015 ? Location: ? ENDOP ? Receive Date: ? 04/14/2015 ? Provider: LUIS MANUEL GUNTER MD Copy to: ISRRAEL JONES MD ? Final Pathologic Diagnosis: A. COLON, HEPATIC FLEXURE, POLYP, BIOPSY: - ??Fragments of tubular adenoma. B. COLON, SPLENIC FLEXURE, POLYP, BIOPSY: - ??Fragments of sessile serrated adenoma. Document reviewed and electronically signed by: MIMI MCKEON MD Report ??Date: 04/17/2015 13:08 By the signature above, the attending physician certifies that he/she has personally conducted a gross and/or microscopic examination of the described specimens and rendered or confirmed the above diagnosis. Specimen(s) Received: A. ??Hepatic flexure polyp B. ??Splenic flexure polyp Clinical History: FHx colon CA Gross Description: A. ?Received in formalin labelled with proper patient identification (initials A, J) and hepatic flexure polyp are two pink-saleh tissues (0.3 x 0.2 x 0.2 cm and 0.2 x 0.2 x 0.2 cm). Entirely submitted in A1. B. ?Received in formalin labelled with proper patient identification (initials A, J) and splenic flexure polyp are three pink-saleh tissues (0.5 x 0.2 x 0.1 cm, 0.3 x 0.2 x 0.2 cm, and 0.1 x 0.1 x 0.1 cm). Entirely submitted in B1. Dr. Hartman 04/15/2015 11:01 AM End of Report [facility] 04/14/2015 18:3 2 EST 04/14/2015 18:32 EST Luis Manuel Gunter MD PATHOLOGY ORDERABL ES [facility] [address] [place] [address] documented in this encounter Visit Diagnoses Not on filedocumented in this encounter Administered Medications Inactive Administered Medications - up to 3 most recent administrations Medication Order MAR Action Action Date Dose Rate Site lactated ringers (LR) infusion 30 mL/hr, intravenous, CONTINUOUS, Starting on Fri04/14/15 at 1300, Until Fri04/14/15 at 1656, Routine, Preprocedure New Bag 04/14/2015 13:15 EST 30 mL/hr 30 mL/hr meperidine (PF) (DEMEROL) 100 mg/mL injection 25-200 mg 25-200 mg, intravenous, ONCE PRN, 1 dose, Starting on Fri04/14/15 at 1242, Until Fri04/14/15 at 1347, Other, sedation, Routine, Intraprocedure Given 04/14/2015 13:47 EST 125 mg midazolam (PF) (VERSED) 1 mg/mL injection 1-10 mg 1-10 mg, intravenous, ONCE PRN, 1 dose, Starting on Fri04/14/15 at 1242, Until Fri04/14/15 at 1347, Sedation, Routine, Intraprocedure Given 04/14/2015 13:47 EST 6 mg documented in this encounter Historical Medications * This list may reflect changes made after this encounter. Medication Sig Dispensed Refills Start Date End Date traMADol (ULTRAM) 50 mg tabletIndications:pain Take 50 mg by mouth every 6 hours as needed for Pain. LORazepam (ATIVAN) 1 mg tablet Take 1 mg by mouth every 4 hours as needed for Anxiety. estrogens, conjugated, (PREMARIN) 0.3 mg tabletIndications:post-kin pausal osteoporosis prevention Take 0.3 mg by mouth daily. hydrochlorothiazide (HYDRODIURIL) 25 mg tabletIndications:edema,hyp ertension Take 25 mg by mouth daily. lisinopril (PRINIVIL, ZESTRIL) 10 mg tabletIndications:hypertens ion Take 30 mg by mouth daily. paroxetine (PAXIL) 20 mg tabletIndications:anxiety with depression Take 40 mg by mouth daily. omeprazole (PRILOSEC) 20 mg capsuleIndications:gastroes ophageal reflux disease Take 40 mg by mouth 2 times daily. added in this encounter Orders Medications Ordered That Francois ht Not Have Been Administered Count Last Ordered Date First Ordered Date sodium chloride 0.9 % (NS) infusion 1 04/14 Transfer Count Last Ordered Date First Orde red Date NOTIFY PPS OF DISCHARGE COMPLETE 1 04/14/19 16 Discharge Count Last Ordered Date First Orde red Date DISCHARGE PATIENT 1 04/14/2015 documented in this encounter Care Teams Bi Specialist Relationship Specialty Start Date End Date Isrrael Jones MD [facility] [place], [place] [address] PCP - General 04/25/09 documented as of this encounter
--- OUTSIDE RECORDS SUMMARY | 2023-09-18 18:25 | XMS_ITS | Clinical Summary ---
Author Organization [facility] Address [address] [place] [address] Care Team Providers Care Bankruptcy Judge Name Role Phone Jimena Jones MD Primary [...] 6 hours as needed for Pain. Active Surgical History Surgery Date Site/Laterality Comments CHOLECYSTECTOMY HYSTERECTOMY Medical History Medical History Date Comments GERD (gastroesophageal reflux disease) Hypertension Mental disorder anxiety/depression Colon polyp Complication of anesthesia diffi cult to sedate Family history of colon cancer f ather age 40 Family History Medical History Relation Comments Colon Cancer Father Diabetes Father Hypertension Father Stroke Father Breast Cancer Mother Relation Status Comments Father Alive Mother Alive Social History Tobacco Use Types Packs/Day Years [...] on file Sexual Orientation Not on file Obstetrics History Last Filed Vital Signs Vital Sign Reading [...] 44.81 04/14/2015 1257 EST Plan of Treatment Health Maintenance Due Date Last Done Comments Hepatitis C Screen 1970 Hepatitis B Vaccine (1 of 3 - 19+ 3-dose series) 12/27 Colonoscopy (Colon Cancer Screening) 04/14/201803/21 COVID-19 Vaccine (2022- season) 2022 Procedures Procedure Name Priority Date/Time Associated Diagnosis Comments COLONOSCOPY PROCEDURE Routine 04/14/2015 from Last 3 Months or Most Recently Relevant to Health Maintenance Results * COLONOSCOPY (04/14/2015) Colonoscopy [facility] [place] [facility] Comment:f/u colo in 3 yrs Colonoscopy, External [facility] Anatomical Region Laterality Modality Endoscopy 04/14/2015 Historical Provider GI PROCEDURE CHAPIS ARZOLA from Last 3 Months or Most Recently Relevant to Health Maintenance Care Teams Bankruptcy Judge Relationship Specialty Start Date End Date Jim[place] [address] PCP - General 04/25/09
--- OUTSIDE RECORDS SUMMARY | 2023-09-18 18:25 | XMS_ITS | Encounter Summary ---
Author Organization [facility] Address [address] [place] [address] Care Team Providers Care Washer And Crusher Tender Name Role Phone Jimena Jones MD Primary Care Provider Encounter Details Date Type Department Care Team (Late st Contact Info) Description 01/08/2018 Results Only Imaging [facility] [phone] Unknown, Provider, Social History Tobacco Use Types [...] as of this encounter Plan of Treatment Pending Results Name Type Priority Associated Diagnoses Date /Time OUTSIDE IMAGES - CT NEURO Imaging 01/08/2018 7:46 EST OUTSIDE IMAGES - CT NEURO Imaging 01/08/2018 7:46 EST documented as of this encounter Visit Diagnoses Not on filedocumented in this encounter Care Teams Washer And Crusher Tender Relationship Specialty Start Date End Date Jimena Jones MD [address] [place], [place] [id number] PCP - General 04/25/09 documented as of this encounter
--- OUTSIDE RECORDS SUMMARY | 2023-09-18 18:25 | XMS_ITS | Encounter Summary ---
Author Organization [facility] [place] [address] Care Team Providers Care Sports Broadcaster Name Role Phone Jimena Jones MD Primary Care Provider [phone] Encounter Details Date Type Department Care Team (Latest Contact Info) Description 06/01/2019 9:20 AM EDT TH Visit (TeleHealth) Cardiology at [address] [address] Manuel Jules MD [facility] [place] [address] Acute CVA (cerebrovascular accident); Arterial ischemic stroke, MCA, left, acute; Episode of transient neurologic symptoms; PFO (patent foramen ovale) Social History Tobacco Use Types Packs/Day Years [...] Pressure 120/70 06/01/2019 8:38 AM EDT Pulse - - Temperature - - Respiratory Rate - - Oxygen Saturation - - Inhaled Oxygen Concentration - - Weight - - Height - - Body Mass Index - - documented in this encounter Progress Notes * Manuel Jules MD - 06/01/2019 9:20 AM EDT CARDIOLOGY TELE VISIT NOTE Lars Jimenez 06/01/19 The patient consented to this being a virtual visit. Problem List: 1: ??Acute cryptogenic left hemispheric infarction with hemorrhagic conversion: ?-4 cm acute left posterior frontal, superior temporal, insular infarction??s/p thrombectomy ?-admitted from 01/08-01/11/18 2: Arterial HTN 3: PFO s/p closure with 25 mm Cardioform (05/05/18) 4. LE DVT (completed therapy with rivaroxaban) HPI: Lars Jimenez is a 48 y.o. year old female with a history of CVA, PFO s/p closure 05/05/18 (25 mm Cardioform), and DVT, who presents for cardiovascular follow-up. She is transitioning care to my practice, as Dr. Malone has left [facility]. She has no angina, heart failure, or other complaints. No palpitations. She did suffer a DVT following her closure last year with notable LE swelling that has since resolved with a combination of DAPT as well as DOAC. She is now only on ASA 81 mg qday without issues. ROS otherwise negative. From Dr. Garrett's prior clinic summary/outline: In August 2018, 4 months after PFO closure, she had sudden onset swelling of her right calf, which she describes as twice the size of her left lower extremity. ??She presented to emergency department here and bedside duplex did not show calf veins were not visualized. ??Proximal or popliteal DVT, however she was treated empirically with Lovenox, which she took for 5 days and then discontinued. ??After stopping Lovenox, her swelling returned and she presented to [facility], where she reportsa DVT duplex was done and showed no DVT, although she reports that they did not do infrapopliteal veins on the duplex. I received report of DVT duplex, which describes no evidence of DVT, although does not describe which veins were visualized. ??She called Dr. Malone, and due to concern of DVT, she was started on rivaroxaban. ??She additionally restarted Plavix.?With anticoagulation and dual antiplatelet therapy, her swelling resolved. Labs at the time of her stroke revealed normal DRVVT and cardiolipin antibodies. She was on hormone replacement at the time of her stroke, which has been discontinued.??Beta-2 glycoprotein antibodies were not obtained. ??She has no history of miscarriage. ??Her daughter has had 2 miscarriages, although not in the first trimester. ??Her grandmother had postoperative VTE at age of 57, and grandfather VTE in his 70s. ??She continues on rivaroxaban 20 mg daily. ??She has stopped Plavix. ?? I met her in January 2019, at which time we obtained DVT duplex, which was negative. Given her preference to discontinue anticoagulation if possible, we obtained d-dimer while on Xarelto, which was normal. After further discussion, given my concern that she did have calf vein DVT given that her symptoms resolved with AC, but her desire to discontinue AC, the plan was to obtain D- dimer today as this would help with risk stratification with HERDOO and DASH scores. Repeat D-dimer today is normal. Brief ROS: Activity level: Good No new orthopnea, PND, LE edema. No lightheadedness, dizziness, syncope/pre- syncope. No new CP. Medications: Current Outpatient Medications Medication Sig Dispense Refill ??? hydroCHLOROthiazide (HYDRODIURIL) 25 mg Tablet Take 25 mg by mouth daily. ??? carvedilol (COREG) 6.25 mg Tablet Take 6.25 mg by mouth 2 times daily (with meals). ??? tolterodine (DETROL LA) 4 mg Capsule, Sust. Release 24 hr Take 4 mg by mouth daily. ??? lisinopril (PRINIVIL;ZESTRIL) 40 mg Tablet Take 40 mg by mouth daily. ??? buPROPion (WELLBUTRIN XL) 150 mg Tablet Extended Release 24 hr Take 150 mg by mouth every morning. ??? aspirin 81 mg Tablet, Chewable Take 81 mg by mouth daily. 30 tablet 3 ??? atorvastatin (LIPITOR) 40 mg Tablet Take 1 tablet by mouth every evening. 90 tablet 3 ??? omeprazole (PRILOSEC) 40 mg Capsule, Delayed Release(E.C.) Take 40 mg by mouth daily. ??? PARoxetine (PAXIL) 20 mg Tablet Take 40 mg by mouth every morning. Medications were reviewed with patient. Objective Data: VS at home: 120/60-70s Labs: Lab Results Component Value Date WBC 6.7 05/05/2018 HGB 13.3 05/05/2018 HCT 41.9 05/05/2018 MCV 86.0 05/05/2018 PLATELET 316 05/05/2018 No results for input(s): NA, K, CL, CO2, BUN, CREATININE, GLUCOSE in the last 168 hours. Lab Results Component Value Date INR 1.2 01/13/2018 Lab Results Component Value Date CHLPL 185 01/09/2018 HDL 45 01/09/2018 CHOLHDL 4.1 01/09/2018 TRIG 110 01/09/2018 LDLDIRECT 123 01/09/2018 TTE 06/2018 1. The left ventricular chamber size is normal. Basal septal hypertrophy is observed. There is normal global left ventricular systolic function. Ejection fraction is estimated to be 60%. There are no left ventricular segmental wall motion abnormalities. 2. The right ventricle is normal in size. Right ventricular global systolic function is normal. 3. ASD closure device is visualized and is well seated. Color Doppler does not demonstrate a residual inter-atrial shunt. Assessment: Lars Jimenez is a 48 y.o. year old female with a history of CVA, PFO s/p closure 05/05/18 (25 mm Cardioform), and DVT, who presents for cardiovascular follow-up. CV issues are currently stable. Plan She is due for a surveillance TTE with bubble study. Given the current COVID-19 pandemic, these elective imaging tests are on hold for now. I am comfortable with how she has been doing clinically andwill plan to follow-up with her in 6 months with a TTE at that time. Manuel Jules MD Time spent: [id number] 0-5min [id number] 6-10min [id number] 11-15min X [id number] 16-20min [id number] 21-30min [id number] 31-40min [id number] 40+ min documented in this encounter Plan of Treatment Not on file documented as of this encounter Visit Diagnoses Diagnosis Acute CVA (cerebrovascular accident) Arterial ischemic stroke, MCA, left, acute Unspecified cerebral artery occlusion with cerebral infarction Episode of transient neurologic symptoms Other symptoms involving nervous and musculoskeletal systems PFO (patent foramen ovale) Ostium secundum type atrial septal defect documented in this encounter Care Teams Sports Broadcaster Relationship Specialty Start Date End Date Jimena Jones MD PCP - General Family Medicine 01/08/18 documented as of this encounter
--- OUTSIDE RECORDS SUMMARY | 2023-09-18 18:25 | XMS_ITS | Encounter Summary ---
Author Organization [facility] Address [address] [place] [address] Care Team Providers Care Soil Surveyor Name Role Phone Jimena Jones MD Primary Care Provider Encounter Details Date Type Department Care Team (Late st Contact Info) Description 09/21/2021 Lab Requisition [facility] Pathology & Laboratory Medicine - [address] [id number] Outr Resulting Lab, Provider Social History Tobacco Use Types Packs/Day Years [...] Procedure Name Priority Date/Time Associated Diagnosis Comments ALPHA 1 ANTITRYPSIN Routine 09/21/2021 9 :38 EDT documented in this encounter Results * ALPHA 1 ANTITRYPSIN (09/21/2021 9:38 EDT) Alpha 1 Antitrypsin 171 90 - 200 mg/dL 09/24/2021 9:50 EDT [facility] Blood VENOUS BLOOD / Unknown 09/21/2021 9:38 EDT 09/21/2021 17:12 EDT Provider Outr Resulting Lab CHEMISTRY & BLOOD GAS ORDERABLES [facility] [address] [place] [address] documented in this encounter Visit Diagnoses Not on filedocumented in this encounter Care Teams Soil Surveyor Relationship Specialty Start Date End Date Jimena Jones MD [address] [place] [id number] PCP - General 04/25/09 documented as of this encounter
--- OUTSIDE RECORDS SUMMARY | 2023-09-18 18:25 | XMS_ITS | Encounter Summary ---
Author Organization [facility] Address [address] [place] [address] Care Team Providers Care Rf Technician Name Role Phone Jimena Jones MD Primary Care Provider Encounter Details Date Type Department Care Team (Late st Contact Info) Description 04/25/2015 Orders Only [facility] General Surgery - [facility] [address] [place], [place] [id number] Dereje Walker MD [address] [facility], [address] [place] [address] Social History Tobacco Use Types Packs/Day Years [...] Associated Diagnosis Comments COLONOSCOPY PROCEDURE Routine 04/14/2015 documented in this encounter Results * COLONOSCOPY (04/14/2015) Colonoscopy [facility] Comment:f/u colo in 3 yrs Colonoscopy, External [facility] Anatomical Region Laterality Modality Endoscopy 04/14/2015 Historical Provider GI PROCEDURE CHAPIS ARZOLA documented in this encounter Visit Diagnoses Not on filedocumented in this encounter Care Teams Rf Technician Relationship Specialty Start Date End Date Jimena Jones MD [facility] [place] [address] PCP - General 04/25/09 documented as of this encounter
--- OUTSIDE RECORDS SUMMARY | 2023-09-18 18:25 | XMS_ITS | Encounter Summary ---
Author Organization [facility] Address [address] [place] [address] Care Team Providers Care Cda Teacher Name Role Phone Jimena Jones MD Primary Care Provider Encounter Details Date Type Department Care Team (Late st Contact Info) Description 01/21/2006 Results Only [facility] - Maple conversion [address] [place] [address] Unknown, Provider, Social History Tobacco Use Types [...] Diagnosis Comments N. GONORRHOEAE AMPLIFIED PROBE Routine 01/21/2006 20:59 EST ZZCHLAMYDIA TRACHOMATIS AMPLIFIED PROBE Routine 01/21/2006 20:58 EST documented in this encounter Results * N. GONORRHOEAE AMPLIFIED PROBE (01/21/2006 20:59 EST) Result No Neisseria gonorrhoeae DNA detected by frame table operator helper mediated amplification. [facility] Report Status Final [id number] [facility] Specimen Description Urine [facility] 01/21/2006 20:5 9 EST 01/22/2006 21:57 EST Provider Unknown MICROBIOLOGY - GENER AL ORDERABLES Performing Organization Address [facility] Co de Phone Number [facility] [address] [place] [address] * CHLAMYDIA TRACHOMATIS AMPLIFIED PROBE (01/21/2006 20:58 EST) Specimen Description Urine [facility] Result No Chlamydia trachomatis DNA detected by frame table operator helper mediated amplification. [facility] Report Status Final [id number] [facility] 01/21/2006 20:5 8 EST 01/22/2006 21:57 EST Provider Unknown MICROBIOLOGY - GENER AL ORDERABLES Performing Organization Address [facility] de Phone Number [facility] [address] [place] [address] documented in this encounter Visit Diagnoses Not on filedocumented in this encounter Care Teams Cda Teacher Relationship Specialty Start Date End Date Jimena Jones MD [facility] [place], [place] [id number] PCP - General 04/25/09 documented as of this encounter
--- OUTSIDE RECORDS SUMMARY | 2023-09-18 18:25 | XMS_ITS | Encounter Summary ---
Author Organization [facility] Address [address] [place] [address] Care Team Providers Care Cake Wrapper Name Role Phone Jimena Jones MD Primary Care Provider Reason for Visit * Test (Routine) - Closed Specialty Diagnoses / Procedures Referred By Contact Referred To Contact Gastroenterology and Hepatology Diagnoses Family history of malignant neoplasm of digestive organs Procedures COLONOSCOPY Dereje Walker MD [address] [place] [phone] Referral ID Status Reason Start Date Expiration Date Visits Re quested Visits Authorized [id number] Closed 01/09/2015 1 1 Encounter Details Date Type Department Care Team (Late st Contact Info) Description 04/14/2015 13:00 EST - 04/14/2015 23:59 [facility] Hospital Encounter [facility] Endoscopy - [address] [phone] Dereje Walker MD [address] [place] [phone] Discharge Disposition: Home or Self Care [...] on file documented as of this encounter Medications at Time of Discharge [...] Code Departure Means Destination Home or Self Shelter documented in this encounter Plan of Treatment Not on file documented as of this encounter Visit Diagnoses Not on filedocumented in this encounter Care Teams Cake Wrapper Relationship Specialty Start Date End Date Jimena Jones MD [facility] [place] [address] PCP - General 04/25/09 documented as of this encounter
--- OUTSIDE RECORDS SUMMARY | 2023-09-18 18:25 | XMS_ITS ---
Author Organization Unknown Address [address] [place] [phone] Phone Care Team Providers Care Pluck Separator Name Role Phone FLORINA ARCOS Attending Unavailable Results MM DIGITAL SCR W KARIE MARIN RAL - Completed: 09/19/2020 17:43 LOINC: Digital mammograms were inte rpreted according to the usual protocol including computer analysis with [employer] system including tomosynthesis. Both CC and MLO views of both breasts were performed and compared to prior mammograms dating back to 2011, the most recent being August 2017. No new spiculated masses nor malignant appearing microcalcification groups. No new architectural distortion nor skin thickening-retraction. IMPRESSION: No radiographic evidence of malignancy. BI-RADS Assessment: Category 1 - Negative. BREAST DENSITY: b. There are scattered areas of fibroglandular density. TECHNOLOGIST: RT Anthony (R) (M) Dictated by: CONSUELO NUR M.D. RADIOLOGIST Transcribed by: [facility] 09/20/20/12:15 D 09/19/2020 17:12:54 [id number] Electronically Reviewed and Signed By: CHENTE NUR M.D. RADIOLOGIST 09/20/20 20:10 Social History Type Status Start Date End Date Code Code Syst em Smoking History Never smoker (Never Smoked) 727667511 SNOMED CT Sex Female Medications Medication Start Date End Date Route Frequency Dose Code Code System Medication Instructions Home Meds FLUCONAZOLE 01/08/2018 11/06/2021 ORAL DAILY 1 RxNo rm TAKE 1 ORAL DAILY Lisinopril 10MG Oral Tablet 01/08/2018 11/06/2021 ORAL DAILY 10 MILLIGR AMS 729177 RxNorm TAKE 10 MILLIGRAMS ORAL DAILY PAROXETINE 01/08/2018 11/06/2021 ROUTE NOT APPLICABLE DAILY 1 RxNorm 1 ROUTE NOT APPLICABLE DAILY Aspirin 81MG Oral Tablet, Chewable 01/12/2018 11/06/2021 ORAL DAILY 81 MILLIGR AMS 240407 RxNorm TAKE 81 MILLIGRAMS ORAL DAILY Atorvastatin Calcium 40MG Oral Tablet 01/12/2018 Unknown ORAL EVERY EVENING 40 MILLIGR AMS 118890 RxNorm TAKE 40 MILLIGRAMS ORAL EVERY EVENING LORAZEPAM 01/12/2018 11/06/2021 ORAL NEEDED, EVERY 6 HOURS 1 RxNorm TAKE 1 ORAL NEEDED, EVERY 6 HOURS Omeprazole 40MG Oral Capsule, Delayed Release 01/12/2018 Unknown ORAL DAILY 40 MILLIGR AMS [id number] RxNorm TAKE 40 MILLIGRAMS ORAL DAILY PAROXETINE 01/12/2018 11/06/2021 ORAL DAILY 20 RxNor m TAKE 20 ORAL DAILY ASPIRIN 81 MG TABLET 10/06/2018 Unknown ORAL DAILY 81 MILLIGR AMS RxNorm TAKE 81 MILLIGRAMS ORAL DAILY ELIQUIS TABLET 10/06/2018 11/06/2021 ORAL DAILY 1 TABLET RxNorm TAKE 1 TABLET ORAL DAILY Lisinopril 40MG Oral Tablet 10/06/2018 Unknown ORAL DAILY 40 MILLIGR AMS [id number] RxNorm TAKE 40 MILLIGRAMS ORAL DAILY Omeprazole 40MG Oral Capsule, Delayed Release 10/06/2018 11/06/2021 ORAL DAILY 40 MILLIGR AMS [id number] RxNorm TAKE 40 MILLIGRAMS ORAL DAILY PARoxetine HCl 20MG Oral Tablet 10/06/2018 11/06/2021 ORAL DAILY 20 MILLIGR AMS [id number] 5 RxNorm TAKE 20 MILLIGRAMS ORAL DAILY PAXIL 40MG ORAL TABLET 10/06/2018 11/06/2021 ORAL DAILY 40 MILLIGR AMS RxNorm TAKE 40 MILLIGRAMS ORAL DAILY PLAVIX 75MG ORAL TABLET 10/06/2018 11/06/2021 ORAL DAILY 75 MILLIGR AMS RxNorm TAKE 75 MILLIGRAMS ORAL DAILY Propranolol HCl 20MG Oral Tablet 10/06/2018 11/06/2021 ORAL TWICE A DAY 20 MILLIGR AMS 462418 RxNorm TAKE 20 MILLIGRAMS ORAL TWICE A DAY ROSUVASTATIN TAB 10/06/2018 11/06/2021 ORAL DAILY 1 TABLET RxNorm TAKE 1 TABLET ORAL DAILY Tolterodine Tartrate 4MG Oral Capsule, Extended Release 10/06/2018 11/06/2021 ORAL DAILY 4 MILLIGR AMS 411225 RxNorm TAKE 4 MILLIGRAMS ORAL DAILY Robaxin [...] Date Status Code Code System HTN active 99194060 SNOMED-CT NEUROPATHY active 414933797 SNOMED-CT CVA active 242711299 SNOMED-CT ENDOMETRIOSIS active 230187700 SNOMED -CT Allergies and Adverse Reactions Allergy Substance Reaction Severity Start Date Concern Status Co de Code System CODEINE Vomiting (SNOMED-CT: 485937935), NAUSEA (SNOMED-CT: 701137194), Nausea (SNOMED-CT: 673981025) Moderate Active 5080 RxNorm MORPHINE Moderate Active 7815 RxNorm Plan of Treatment Exposure 01/24/2020 MM [...] mamm ogram for malignant neoplasm of breast 09/19/2020 SNOMED-CT Personal Care Team Section Performer Name Performer Role Active Date Inactive Pravin garvey
--- OUTSIDE RECORDS SUMMARY | 2023-09-18 18:25 | XMS_ITS | Encounter Summary ---
Author Organization [facility] Address [address] [place] [address] Care Team Providers Care Rejected Items Clerk Name Role Phone Jimena Jones MD Primary Care Provider Encounter Details Date Type Department Care Team (Late st Contact Info) Description 05/25/2009 10:05 EDT - 05/25/2009 23:59 EDT Hospital Encounter [facility] [address] [place] [address] Dereje Walker MD [address] [facility], [address] [place] [phone] Discharge Disposition: Home or Self Care Social History Tobacco Use Types Packs/Day Years Used Date Smoking Tobacco: Never Assessed Sex and Gender Information Value Date Recorded Sex Assigned at Not on file Gender Identity Not on file Sexual Orientation Not on file documented as of this encounter Discharge Disposition Disposition Code Departure Means Destination Home or Self Correction documented in this encounter Plan of Treatment Not on file documented as of this encounter Procedures Procedure Name Priority Date/Time Associated Diagnosis Comments LIPASE Routine 05/25/2009 10:23 EDT HEPATIC FUNCTION PANEL (ALB,ALK PHOS,ALT,AST,DBIL,T OT NARCISA,TOT PROT) Routine 05/25/2009 10:23 EDT documented in this encounter Results * LIVER FUNCTION TESTS (05/25/2009 10:23 EDT) Albumin 4.1 3.4 - 4.9 g/dl [facility] Total Protein 6.7 6.5 - 8.3 g/dl [facility] Total Alkaline Phosphatase 74 38 - 126 U/L [facility] ALT 19 9 - 52 U/L [facility] AST 15 15 - 46 U/L [facility] Unconjugated Bilirubin 0.1 0.1 - 1.1 mg/dl [facility] Conjugated Bilirubin 0.0 0.0 - 0.3 mg/dl [facility] Bilirubin, Total <0.5 0.2 - 1.3 mg/dl [facility] Blood specimen (specimen) 05/25/2009 10:23 EDT 05/25/2009 10:24 EDT Dereje Walker MD CHEMISTRY & BLOOD GAS ORDERABLES Performing Organization Address [facility] Co de Phone Number [facility] [address] [place] [address] * LIPASE (05/25/2009 10:23 EDT) Lipase 34 0 - 250 U/L [facility] Blood specimen (specimen) 05/25/2009 10:23 EDT 05/25/2009 10:24 EDT Dereje Walker MD CHEMISTRY & BLOOD GAS ORDERABLES Performing Organization Address [facility] Co de Phone Number [facility] [address] [place] [address] documented in this encounter Visit Diagnoses Not on filedocumented in this encounter Care Teams Rejected Items Clerk Relationship Specialty Start Date End Date Jimena Jones MD [address] [place] [address] PCP - General 04/25/09 documented as of this encounter
--- OUTSIDE RECORDS SUMMARY | 2023-09-18 18:25 | XMS_ITS | Encounter Summary ---
Author Organization [facility] Address [address] [place] [address] Care Team Providers Care Director Life Sales Name Role Phone Unavailable Primary Care Provider Unavailabl e Encounter Details Date Type Department Care Team (Late st Contact Info) Description 12/08/2007 Before PRISM Converted Visit (Maple) [facility] - Maple conversion [address] [place] [address] Marva Gifford, [place] [address] [facility] [address] [phone] Social History Tobacco Use Types Packs/Day Years Used Date Smoking Tobacco: Never Assessed Sex and Gender Information Value Date Recorded Sex Assigned at Not on file Gender Identity Not on file Sexual Orientation Not on file documented as of this encounter Plan of Treatment Not on file documented as of this encounter Visit Diagnoses * Evaluation - Marva Barton MD - 09/10/2008 0721 EDT DIVISION [facility]OLOG[facility]-- [facility] PATIENT EVALUATION - 12/08/2007 SUBJECTIVE This 36-year-old white female presents to the clinic today in initial visit for evaluation of cholesterol spots that developed a couple of years ago above and below her left eye. They have not really increased in size. They have been there 2-1/2 years ago and she does have a history of higher endcholesterol but nothing that she is being treated for. She otherwise is well. She states that this does not really run in the family. She would like to know what her treatment options are. She has noother questions or concerns in reference to her skin. For complete past medical history, current medications, medication allergies, review of systems, family history and social history, please see the Dermatology Intake Sheet in the chart. OBJECTIVE On exam, this is an otherwise very pleasant, skin type III female in no apparent distress with appropriate affect and demeanor. Examination of her face: She does have darker and more wrinkled eyelidsbilaterally, upper and lower, and she has 2 about 3.5 mm and about 4.5 to 5 mm papules that are well circumscribed and yellowish-orange incolor. ASSESSMENT Xanthelasma. PLAN Patient education and reassurance. At this time, the patient understands that this is something that would be considered cosmetic. They can be excised, again, this would be cosmetic, and she may expect more of these to develop over time. She also understands that even if her cholesterol is well within normal limits, it does not mean that she will not make any more of these and they will not go away with decreased cholesterol levels. She will follow up on an as needed basis. I have no problem signing her up for a cosmetic consult up in [place] for further evaluation and treatment options. Supervising Physician Signed by Grecia Shah MD 01/06/2008 17:13 Reviewed by Marva Barton PA-C 12/18/2007 11:47 Marva Barton PA-C Grecia Shah MD - Marva Barton PA-C - VERONIQUE Job ID: [id number] Doc ID: [id number] cc: MD Arlen Ramirez, RICHARDSON Barton PA-C - VERONIQUE Job ID: [id number] Doc ID: [id number] cc: MD Arlen Ramirez, RICHARDSON Malissa [facility] documented in this encounter
--- OUTSIDE RECORDS SUMMARY | 2023-09-18 18:25 | XMS_ITS | Encounter Summary ---
Author Organization [facility] [place] [address] Care Team Providers Care Obstetrics Nurse Practitioner Name Role Phone Jimena Jones MD Primary Care Provider [phone] Reason for Visit * Reason Comments Edema Encounter Details Date Type Department Care Team (Late st Contact Info) Description 02/01/2019 10:00 AM EST Office Visit Cardiology at [address] [phone] Horace Garrett MD [facility] [place] [address] PFO (patent foramen ovale); Swelling of right lower extremity; Essential hypertension; Cryptogenic stroke Social History Tobacco Use Types Packs/Day Years [...] Sign Reading Time Taken Comments Blood Pressure 130/85 02/01/2019 9:52 AM EST Pulse 87 02/01/2019 9:52 AM EST Temperature - - Respiratory Rate - - Oxygen Saturation 99% 02/01/2019 9:52 AM EST Inhaled Oxygen Concentration - - Weight 108.6 kg (239 lb 6.4 oz) 02/01/2019 9:52 AM EST Height 157.5 cm (5' 2) 02/01/2019 9:52 AM EST Body Mass Index 43.79 02/01/2019 9:52 AM EST documented in this encounter Progress Notes * Horace Garrett MD - 02/01/2019 10:00 AM EST Images from the original note were not included. [facility] [place] [id number] CARDIOVASCULAR MEDICINE OUTPATIENT CONSULTATION Lars Jimenez [id number] 02/01/2019 REFERRING PROVIDER: Jimena Jones CHIEF COMPLAINT: Chief Complaint Patient presents with ??? Edema PROBLEM LIST Patient Active Problem List Diagnosis ??? PFO (patent foramen ovale) CRIS 02/16/2018: A patent foramen ovale is visualized. There is a patent foramen ovale with predominant [id number]-ru-sijs shunting. The patent foramen ovale is demonstrated by color Doppler. Status post closure 05/05/18: 25mm [place]by Cardioform device ??? Episode of transient neurologic symptoms ??? Arterial ischemic stroke, MCA, left, acute ??? 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 She reports that in August 2018, about 4 months after PFO closure, she had sudden onset swelling of her right calf, which she describes as twice the size of her left lower extremity. She presented to emergency department here and bedside duplex did not show calf veins were not visualized. Proximal or popliteal DVT, however she was treated empirically with Lovenox, which she took for 5 days and then discontinued. After stopping Lovenox, her swelling returned and she presented to , where she reports a DVT duplex was done and showed no DVT, although she reports that it did not do infrapopliteal veins on the duplex. She called Dr. Malone, and due to concern of DVT, she was started on rivaroxaban. She additionally restarted Plavix. With anticoagulation and dual antiplatelet therapy, her swelling resolved, although she feels that her right lower calf still little bit larger than left lower extremity. She denies any ulcerations. She had no palpable cords at the time of her symptoms. She had no trauma or immobility, or other provoking factors. She has no known history of prior VTE, although a DVT duplex was not obtained at the time of her stroke. Labs at the time of her stroke revealed normal DRVVT andcardiolipin antibodies. She was on hormone replacement at the time of her stroke, which has been discontinued. Beta-2 glycoprotein antibodies were not obtained. She has no history of miscarriage. 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 Her grandmother had postoperative VTE at age of 57, and grandfather VTE in his 70s. She continues on rivaroxaban 20 mg daily. Shehas stopped Plavix. She otherwise denies any chest pain or shortness of breath, PND, orthopnea, presyncope or syncope. No symptoms of recurrent stroke. REVIEW OF SYSTEMS: All others negative except as stated in the HPI. PAST MEDICAL HISTORY: Past Medical History: Diagnosis Date ??? CVA (cerebral vascular accident) SOCIAL HISTORY: Social History Tobacco Use ??? Smoking status: Former Smoker Packs/day: 1.00 Types: Cigarettes Last attempt to quit: 01/08/2018 Years since quittin.0 ??? Smokeless tobacco: Never Used Substance Use Topics ??? Alcohol use: No Frequency: Never MEDICATIONS: Current Outpatient Medications Medication Sig Dispense Refill ??? hydroCHLOROthiazide (HYDRODIURIL) 25 mg Tablet daily. ??? carvedilol (COREG) 6.25 mg Tablet daily. ??? rivaroxaban (XARELTO) 20 mg Tablet Take 1 tablet by mouth daily. 30 tablet 11 ??? tolterodine (DETROL LA) 4 mg Capsule, Sust. Release 24 hr ??? lisinopril (PRINIVIL;ZESTRIL) 40 mg Tablet Take [...] Take 40 mg by mouth every morning. No current facility-administered medications for this visit. ALLERGIES: Morphine and Codeine PHYSICAL EXAMINATION: Vital Signs: BP 130/85 Pulse 87 Ht 157.5 cm (5' 2) Wt 108.6 kg (239 lb 6.4 oz) SpO2 99% BMI 43.79 kg/m?? Exam Details: General: Pleasant 48 y.o. female in no acute distress Eyes: No scleral icterus ENT: Moist mucous membranes Lymph: No cervical or supraclavicular lymphadenopathy Heart: Regular rate and rhythm, normal S1/S2, no murmurs/rubs/gallops appreciated, PMI non-displaced Lungs: Clear to ascultation bilaterally Abdomen: Soft, non-tender, non-distended, normoactive bowel sounds noted. No hepatosplenomegaly Extremities: No peripheral edema noted. No ulcerations noted. Extremity circumference: R ankle: 9 in; L ankle 8.75 in R BK: 15.25 in; L BK 15.5 in R AK: 19 in; L AK: 18.5 in Vessels: No carotid bruits appreciated. Arterial exam (R/L): Femoral 2/2, popliteal 2/2, DP 2/2, PT2/2, radial 2/2. Neuro: No gross abnormalities noted Psych: Alert and oriented 3 x, normal affect DATA PERSONALLY REVIEWED: Last 3 wbc, hgb, hct plt Recent Labs 05/05/18 0946 WBC 6.7 HGB 13.3 HCT 41.9 PLATELET 316 Last 3 Lytes Recent Labs 05/05/18 0946 NA 142 K 4.6 CL 105 CO2 27 BUN 10 CREATININE 0.71 EKG 02/01/19: NSR 81 bpm, no significant ST-T wave changes RLE DVT duplex 02/01/19: Interpretation: No evidence of RIGHT lower extremity deep venous thrombosis. TTE 06/19/18: 1. The left ventricular chamber size is [...] does not demonstrate a residual inter-atrial shunt. ASSESSMENT AND PLAN: #1 RLE swelling, concern for calf DVT #2 History of cryptogenic stroke s/p PFO closure #3 Hypertension Lars is a very pleasant 40-year-old woman who presents for follow-up of right lower extremity swelling several months after her PFO closure. Her symptoms to me do sound like calf DVT, especially given that she reports that calf veins were not visualized during ultrasound studies and since her symptoms resolved with anticoagulation. We discussed that this is unprovoked VTE, if it in fact was calf DVT, although she does have risk factor of obesity. I do wonder whether she could have had prior VTEwith cryptogenic stroke, that was in the setting also of estrogen use. We discussed about long-termuse of anticoagulation, and she would like to avoid it if possible. I think it is reasonable to risk stratify her with d-dimer on therapy, as well as off. D-dimer today obtained in the after clinic was normal. We will therefore discontinue rivaroxaban and repeat d-dimer in several weeks to see if it remains normal. If it does remain within normal limits, based on HERDOO and DASH scores for recurrent VT, she would be at low risk for recurrence. If her d-dimer does become elevated, I would think it would be reasonable to use low-dose rivaroxaban 10 mg daily for secondary prevention. I will obtain report from for prior DVT duplex. Plan: 1. Discontinue rivaroxaban. 2. Repeat d-dimer in 2 weeks. 3. Return visit with me in 2 weeks. 4. Continue aspirin 81 mg daily. 5. Continue current antihypertensive management. Thank you for allowing me to participate in the care of your patient. Please do not hesitate to contact me with any questions or concerns. Horace Garrett MD, MPH, [facility] Cardiovascular Scouring Train OperatorLithograph Press [place] [address] documented in this encounter Plan of Treatment Not on file documented as of this encounter Procedures Procedure Name Priority Date/Time Associated Diagnosis Comments HC D-DIMER, QUANTITATIVE Routine 02/01/2019 11:09 AM EST PFO (patent foramen ovale) Swelling of right lower extremity EKG 12-LEAD Routine 02/01/2019 10:02 AM EST PFO (patent foramen ovale) documented in this encounter Results * D-Dimer, Quantitative (02/22/2019 9:34 AM EST) D-Dimer, Quant 320 0 - 500 FEU ng/ml [facility] Comment: The D-Dimer assay is used to aid in the diagnosis of deep vein thrombosis and pulmonary embolism. A normal D-Dimer result (less than 500 FEU ng/ml) has a negative predictive value of approximately 95% for the exclusion of acute PE and DVT when there is low to moderate pretest probability. To use age adjusted cutoff: Age x 10 ng/ml. Blood specimen (specimen) 02/22/2019 9:34 AM EST 02/22/2019 9:44 AM EST Narrative Resulting Agency Comment Spec In Lab Horace Garrett MD HEMATOLOGY ORDERABLE S [facility] [place] [address] * Duplex for DVT, Leg, Unilat (02/01/2019 12:31 PM EST) Pathologist [facility] VB Text Report Department: Vascular Surgery Lab Patient: [id number] (LARS JIMENEZ) CPT: 51711 ICD10: R22.41;M79.89 Referring Physician: HORACE GARRETT ?? Phone: Indications: hx CVA w/PFO, right LE edema, possible hx of right LE DVT OSH, ? DVT ICD10 Diagnosis Code: R22.41, M79.89 Findings: RIGHT: Patent common femoral vein and popliteal vein with spontaneous, respirophasic Doppler waveforms that respond normally to augmentation maneuvers. The common femoral vein, saphenofemoral junction, femoral vein through the thigh and popliteal vein are fully compressible. Patent posterior tibial and peroneal veins with no evidence of thrombus. Interpretation: No evidence of RIGHT lower extremity deep venous thrombosis. Comparison: ??No previous study in our vascular lab database for comparison. Electronically Signed by: VERNON DYKES on 2019-02-02 04:03:10 PM [facility] VB Text Report End of Report [facility] 02/01/2019 12:3 1 PM EST Horace Garrett MD VASCULAR ORDERABLES Performing Organization Address City/[facility] Co de Phone Number [facility] * D-Dimer, Quantitative (02/01/2019 11:09 AM EST) D-Dimer, Quant 262 0 - 500 FEU ng/ml [facility] Comment: The D-Dimer assay is used to aid in the diagnosis of deep vein thrombosis and pulmonary embolism. A normal D-Dimer result (less than 500 FEU ng/ml) has a negative predictive value of approximately 95% for the exclusion of acute PE and DVT when there is low to moderate pretest probability. To use age adjusted cutoff: Age x 10 ng/ml. Blood specimen (specimen) 02/01/2019 11:09 AM EST 02/01/2019 11:22 AM EST Narrative Resulting Agency Comment Spec In Lab Horace Garrett MD HEMATOLOGY ORDERABLE S Performing Organization Address [facility] Co de Phone Number [facility] [place] [phone] * EKG 12 Lead (02/01/2019 10:02 AM EST) Ventricular rate 81 BPM MUSE SYSTEM Atrial Rate 81 BPM MUSE SYSTEM P-R Interval 152 ms MUSE SYSTEM QRS Duration 84 ms MUSE SYSTEM Q-T Interval 390 ms MUSE SYSTEM QTC Calculated (Bezet) 453 ms MUSE SYSTEM Calculated P Salmon 27 degrees MUSE SYSTEM Calculated R Salmon 14 degrees MUSE SYSTEM Calculated T Salmon 30 degrees MUSE SYSTEM INTERPRETATION Normal sinus rhythm Normal ECG When compared with ECG of 19-JUN-2018 10:18, No significant change was found Confirmed by MD ABI, BECKY ([id number]) on 02/01/2019 12:33:51 PM MUSE SYSTEM 02/01/2019 10:0 2 AM EST 02/01/2019 12:33 PM EST Horace Garrett MD ECG ORDERABLES [employer] SYSTEM documented in this encounter Visit Diagnoses Diagnosis PFO (patent foramen ovale) Ostium secundum type atrial septal defect Swelling of right lower extremity Swelling of limb Essential hypertension Unspecified essential hypertension Cryptogenic stroke Unspecified cerebral artery occlusion with cerebral infarction documented in this encounter Care Teams Obstetrics Nurse Practitioner Relationship Specialty Start Date End Date Jimena Jones MD PCP - General Family Medicine 01/08/18 documented as of this encounter
--- OUTSIDE RECORDS SUMMARY | 2023-09-18 18:25 | XMS_ITS | Encounter Summary ---
Author Organization [facility] Address [address] [place] [address] Care Team Providers Care Tongue Binder Name Role Phone Unavailable Primary Care Provider Unavailabl e Encounter Details Date Type Department Care Team (Late st Contact Info) Description 07/05/1999 9:26 EDT Hospital Encounter [facility] - Other [address] [place] [address] Asmita Kelly, MADDY [address] [place], [place] [address] Unknown, Provider, Social History Tobacco Use Types [...] Procedure Name Priority Date/Time Associated Diagnosis Comments CYTOPATHOLOGY Routine 07/05/1999 0:00 EDT documented in this encounter Results * CYTOPATHOLOGY (07/05/1999 0:00 EDT) Pathology Report: CYTOPATHOLOGY REPORT Reports generated via electronic interface contain original data; however they are lacking the format of the original report. Caution should be taken when reading/interpreti ng unformatted reports. Name: ? LARS JIMENEZ ? Accession #: ? [id number] : ? 1970 (Age: 28) ??F ?Collect Date: ? 07/05/1999 Location: ? [facility] ? Receive Date: ? 07/10/1999 Provider: ?ASMITA KELLY CUSTOMER LEADER Copy to: ? Specimen/Source: ?ThinPrep Pap Test, Endocervix Last Menstrual Period: ? 06/28/99 Previous Gynecologic Pathology: ? Yes ? SPECIMEN ADEQUACY ? Satisfactory for evaluation. GENERAL CATEGORIZATION ? Within Normal Limits ? Document reviewed and electronically signed by: ? ANTOLIN Cox(ASCP) ? Report Date: ??07/12/1999 07:44 End of Report [facility] 07/05/1999 07/10/1999 Asmita Kelly CUSTOMER LEADER PATHOLOGY ORDER CAROLYNN [facility] [address] [place] [address] documented in this encounter Visit Diagnoses Not on filedocumented in this encounter
--- OUTSIDE RECORDS SUMMARY | 2023-09-18 18:25 | XMS_ITS | Encounter Summary ---
Author Organization [facility] Address [address] [place] [address] Care Team Providers Care Mud Logger Name Role Phone Unavailable Primary Care Provider Unavailabl e Encounter Details Date Type Department Care Team (Late st Contact Info) Description 07/26/2003 13:25 EDT Hospital Encounter [facility] - Other [address] [place] [address] Asmita Juan NP [address] [place], [place] [id number] Social History Tobacco Use Types Packs/Day Years [...] Priority Date/Time Associated Diagnosis Comments CYTOPATHOLOGY Routine 07/26/2003 0:00 EDT documented in this encounter Results * CYTOPATHOLOGY (07/26/2003 0:00 EDT) Pathology Report: CYTOPATHOLOGY REPORT Reports generated via electronic interface contain original data; however they are lacking the format of the original report. Caution should be taken when reading/interpreti ng unformatted reports. Name: ? LARS JIMENEZ ? Accession #: ? [id number] : ? 1970 (Age: 32) ??F ?Collect Date: ? 07/26/2003 Location: ? [facility] ? Receive Date: ? 07/28/2003 Provider: ?ASMITA LETICIA [employer] Copy to: ? Specimen/Source: ?ThinPrep Pap Test, Vagina Last Menstrual Period: ? 04/17 Treatment History: ? CAROLE/BSO: for endometriosis ? SPECIMEN ADEQUACY ? Satisfactory for Evaluation - assessment of transformation zone component not applicable ( e.g. atrophy, vaginal sample, hysterectomy) GENERAL CATEGORIZATION ? Negative for Intraepithelial Lesion or Malignancy ? Document reviewed and electronically signed by: ? Roxanne Burns, ANTOLIN(ASCP)(IAC) ? Report Date: ??08/02/2003 11:47 End of Report [facility] 07/26/2003 07/28/2003 Asmita EspinozaMeryl [employer] PATHOLOGY ORDER CAROLYNN [facility] [address] [place] [address] documented in this encounter Visit Diagnoses Not on filedocumented in this encounter
--- OUTSIDE RECORDS SUMMARY | 2023-09-18 18:25 | XMS_ITS | Encounter Summary ---
Author Organization [facility] Address [address] [place] [address] Care Team Providers Care Spring Fitter Helper Name Role Phone Isrrael Jones MD Primary Care Provider Encounter Details Date Type Department Care Team (Late st Contact Info) Description 06/02/2009 13:22 EDT - 06/02/2009 23:59 EDT Hospital Encounter [facility] [address] [place] [address] Luis Manuel Gunter MD [address] [facility], [address] [place] [address] Discharge Disposition: Home or Self Care Social History Tobacco Use Types Packs/Day Years Used Date Smoking Tobacco: Never Assessed Sex and Gender Information Value Date Recorded Sex Assigned at Not on file Gender Identity Not on file Sexual Orientation Not on file documented as of this encounter Discharge Disposition Disposition Code Departure Means Destination Home or Self Alf documented in this encounter Procedure Notes * Inpatient, Physician - 06/04/2009 0902 EDTAssociated Order(s): ORDERS - SCANNED * Inpatient, Physician - 06/04/2009 0902 EDT * Inpatient, Physician - 06/03/2009 1159 EDTAssociated Order(s): PATHOLOGY - SCANNED documented in this encounter Miscellaneous Notes * Scanned Note-Null - Inpatient, Physician - 06/04/2009 0902 EDT * Brief Op Note - Inpatient, Physician - 06/04/2009 0902 EDT * Scanned Note-Null - Inpatient, Physician - 06/03/2009 1159 EDT documented in this encounter Plan of Treatment Not on file documented as of this encounter Procedures Procedure Name Priority Date/Time Associated Diagnosis Comments ORDERS - SCANNED 06/04/2009 9:02 EDT PATHOLOGY - SCANNED 06/03/2009 1 1:59 EDT SURGICAL PATHOLOGY Routine 06/02/2009 0:00 EDT documented in this encounter Results * ORDERS - SCANNED (06/04/2009 9:02 EDT) 06/04/2009 9:02 EDT Narrative 06/04/2009 9:14 EDT Ordered by an unspecified provider. Transcriptions [facility], Physician - 06/04/2009 9:02 EDT Physician Inpatient MD ADMISSION ORDERAB LES * PATHOLOGY - SCANNED (06/03/2009 11:59 EDT) 06/03/2009 11:5 9 EDT Narrative 06/04/2009 9:14 EDT Ordered by an unspecified provider. Transcriptions Inpatient, Physician - 06/03/2009 11:59 EDT Physician Inpatient MD LAB INFO SERVICE AND SUPPORT & PHONE RESULT * SURGICAL PATHOLOGY (06/02/2009 0:00 EDT) Pathology Report: SURGICAL PATHOLOGY REPORT ? Reports generated via electronic interface contain original data; ? however they are lacking the format of the original report. ? Caution should be taken when reading/interpreti ng unformatted reports. ? Name: ? BARBARA, LARS Jimenez ? Accession #: ? [id number] ? : ? 1970 (Age: 38) ??F ? Collect Date: ? 06/02/2009 ? Location: ? [facility] ? Receive Date: ? 06/02/2009 ? Provider: LUIS MANUEL GUNTER MD ? Copy to: ISRRAEL JONES MD ? Final Pathologic Diagnosis: ? A. ?Esophagus, proximal, biopsies: ? 1. ?Squamous mucosa with mild reactive changes. ??See comment. ? B. ?Esophagus, distal, biopsies: ? 1. ?Squamous mucosa with mild reactive changes. ? Comment: ? Specimens (A) and (B) both show an increase in intraepithelial lymphocytes, but no intraepithelial eosinophils. ??Both biopsies show reactive epithelial ? changes, including lengthening of the vascular papillae and hyperplasia of the ?? basal cell layer. The findings may represent reflux esophagitis. Clinical ? endoscopic correlation is required. ??(Dr. David)/guerrero ? Document reviewed and electronically signed by: ? Ramón Sanchez MD ? Report ??Date: 06/06/2009 14:53 ? By the signature above, the attending physician certifies that he/she has ? personally conducted a gross and/or microscopic examination of the described ? specimens and rendered or confirmed the above diagnosis. ? Specimen(s) Received: ? A. ?Prox esophagus ? B. ? Distal esophagus ? Clinical History: ? Dysphagia/abd pain ? Gross Description: ? Received in Agilianceande's fixative labelled Lars Jimenez and proximal ? esophagus are two saleh-pink soft tissues averaging 0.4 x 0.2 x 0.2 cm. ??The ? specimen is entirely submitted as (A). ? Received in Dmailere's fixative labelled Lars Jimenez and distal esophagus ?? are two saleh-pink soft tissues measuring 0.2 x 0.2 x 0.2 cm and 0.3 x 0.2 x 0.2 ?? cm. ??The specimen is entirely submitted as (B). (Randolph Chua)/mpl ? End of Report ? [facility] 06/02/2009 06/02/2009 6:5 9 EDT Luis Manuel Gunter MD PATHOLOGY ORDERABL ES [facility] [address] [place] [address] documented in this encounter Visit Diagnoses Not on filedocumented in this encounter Care Teams Spring Fitter Helper Relationship Specialty Start Date End Date Isrrael Jones MD [address] [place] [address] PCP - General 04/25/09 documented as of this encounter
--- OUTSIDE RECORDS SUMMARY | 2023-09-18 18:25 | XMS_ITS ---
Author Organization Unknown Address [address] [place] [phone] Phone Care Team Providers Care Associate Dentist Name Role Phone GAVIN JAMAAL Attending Unavailable ANTONY GASTELUM Primary Unavailable Social History Type Status Start Date End Date Code Code Syst em Smoking History Never smoker (Never Smoked) 628203686 SNOMED CT Sex Female Medications Medication Start Date End Date Route Frequency Dose Code Code System Medication Instructions Home Meds Atorvastatin Calcium 40MG Oral Tablet 01/12/2018 Unknown ORAL EVERY EVENING 40 MILLIGRAMS 541803 RxNorm TAKE 40 MILLIGRAMS ORAL EVERY EVENING Omeprazole 40MG Oral Capsule, Delayed Release 01/12/2018 Unknown ORAL DAILY 40 MILLIGRAMS 306614 RxNorm TAKE 40 MILLIGRAMS ORAL DAILY ASPIRIN 81 MG TABLET 10/06/2018 Unknown ORAL DAILY 81 MILLIGRAMS RxNorm TAKE 81 MILLIGRAMS ORAL DAILY Lisinopril 40MG Oral Tablet 10/06/2018 Unknown ORAL DAILY 40 MILLIGRAMS 313391 RxNorm TAKE 40 MILLIGRAMS ORAL DAILY Robaxin [...] Date Status Code Code System HTN active 48664011 SNOMED-CT NEUROPATHY active 699694518 SNOMED-CT CVA active 339793406 SNOMED-CT ENDOMETRIOSIS active 503124777 SNOMED -CT Allergies and Adverse Reactions Allergy Substance Reaction Severity Start Date Concern Status Co de Code System CODEINE Vomiting (SNOMED-CT: 934678931), NAUSEA (SNOMED-CT: 713367153), Nausea (SNOMED-CT: 427738060) Moderate Active 7490 RxNorm MORPHINE Moderate Active 2285 RxNorm Plan of Treatment Exposure 01/24/2020 MM [...] Diagnosis Start Date Code Code Sys tem 07/25/2023 [id number] SNOMED-CT Personal Care Team Section Performer Name Performer Role Active Date Inactive Da mare
--- OUTSIDE RECORDS SUMMARY | 2023-09-18 18:25 | XMS_ITS | Encounter Summary ---
[place] [address] Care Team Providers Care Die Hardener Name Role Phone Jimena Jones MD Primary Care Provider [phone] Encounter Details Date Type Department Care Team (Late st Contact Info) Description 02/01/2019 12:30 PM EST Tech Visit [place] [id number] Mine Sun, RVT Swelling of right lower extremity Social History Tobacco Use Types Packs/Day Years [...] Procedure Name Priority Date/Time Associated Diagnosis Comments DUPLEX FOR DVT, LEG, UNILAT Routine 02/01/2019 12:31 PM EST Swelling of right lower extremity documented in this encounter Results * Duplex for DVT, Leg, Unilat (02/01/2019 12:31 PM EST) VB Text Report Department: Vascular Surgery Lab Patient: [id number] (BARBARAERENAN) CPT: 36383 ICD10: R22.41;M79.89 Referring Physician: HORACE GARRETT ?? [...] PM EST Horace Garrett MD VASCULAR ORDERABLES [facility] documented in this encounter Visit Diagnoses Diagnosis Swelling of right lower extremity Swelling of limb documented in this encounter Care Teams Die Hardener Relationship Specialty Start Date End Date Jimena Jones MD PCP - General Family Medicine 01/08/18 documented as of this encounter
--- OUTSIDE RECORDS SUMMARY | 2023-09-18 18:25 | XMS_ITS | Encounter Summary ---
Author Organization [facility] Address [address] [place] [address] Care Team Providers Care Seam Rubber Name Role Phone Jimena Jones MD Primary Care Provider Encounter Details Date Type Department Care Team (Late st Contact Info) Description 02/18/2006 Results Only [facility] - Maple conversion [address] [place] [address] Asmita Juan NP [address] [place], [place] [id number] Social History Tobacco Use Types Packs/Day Years Used Date Smoking Tobacco: Never Assessed Sex and Gender Information Value Date Recorded Sex Assigned at Not on file Gender Identity Not on file Sexual Orientation Not on file documented as of this encounter Plan of Treatment Not on file documented as of this encounter Procedures Procedure Name Priority Date/Time Associated Diagnosis Comments HPV DETECTION, HIGH RISK TYPES Routine 02/18/2006 20:49 EST CYTOPATHOLOGY Routine 02/18/2006 0:00 EST documented in this encounter Results * HUMAN PAPILLOMA VIRUS DNA TEST (02/18/2006 20:49 EST) Specimen Description Cervix, ThinPrep vial [facility] Result Negative for HPV types 16, 18, 31, 33, 35, 39, 45, 51, 52, 56, 58, 59, and 68. [facility] Report Status Final [id number] [facility] 02/18/2006 20:4 9 EST 02/21/2006 12:20 EST Asmita EspinozaMeryl CASTAÑEDA MICROBIOLOGY - GENERAL ORDERABLES [facility] [address] [place] [address] * CYTOPATHOLOGY (02/18/2006 0:00 EST) Pathology Report: CYTOPATHOLOGY REPORT Reports generated via electronic interface contain original data; however they are lacking the format of the original report. Caution should be taken when reading/interpreti ng unformatted reports. Name: ? LARS JIMENEZ ? Accession #: ? [id number] : ? 1970 (Age: 35) ??F ?Collect Date: ? 02/18/2006 Location: ? [facility] ? Receive Date: ? 02/20/2006 Provider: ?ASMITA LETICIA CONSTRUCTION FIELD ENGINEER Copy to: ? Specimen/Source: ?ThinPrep Pap Test, Vagina, processed on Vigix ThinPrep Imaging System, with manual evaluation Last Menstrual Period: ? Years Treatment History: ? CAROLE/BSO: S/P Other: ? Additional clinical information: Endometriosis now S/P high risk exposure HPVDX - HPV testing requested regardless of diagnosis on current ThinPrep Pap test. ? SPECIMEN ADEQUACY ? Satisfactory for Evaluation - assessment of transformation zone component not applicable ( e.g. atrophy, vaginal sample, hysterectomy) GENERAL CATEGORIZATION ? Negative for Intraepithelial Lesion or Malignancy ? Document reviewed and electronically signed by: ? ANTOLIN Young(ASCP) ? Report Date: ??02/21/2006 11:23 End of Report [facility] 02/18/2006 02/20/2006 Asmita Espinoza-Tboy CONSTRUCTION FIELD ENGINEER PATHOLOGY ORDER CAROLYNN [facility] [address] [place] [address] documented in this encounter Visit Diagnoses Not on filedocumented in this encounter Care Teams Seam Rubber Relationship Specialty Start Date End Date Jimena Jones MD [address] [place], [place] [address] PCP - General 04/25/09 documented as of this encounter
--- OUTSIDE RECORDS SUMMARY | 2023-09-18 18:25 | XMS_ITS | Encounter Summary ---
[place] [address] Care Team Providers Care Masonry Installer Name Role Phone Jimena Jones MD Primary Care Provider [phone] Encounter Details Date Type Department Care Team (Latest Contact Info) Description 02/22/2019 9:25 AM EST Laboratory Appointment Lab [address] [place] [id number] PFO (patent foramen ovale); Swelling of right lower extremity Social History [...] Name Priority Date/Time Associated Diagnosis Comments HC VENIPUNCTURE Routine 02/22/2019 9:34 AM EST PFO (patent foramen ovale) Swelling of right lower extremity documented in this encounter Results * D-Dimer, Quantitative (02/22/2019 9:34 AM EST) D-Dimer, Quant 320 0 - 500 FEU ng/ml [facility] Comment: The D-Dimer assay is used [...] MD HEMATOLOGY ORDERABLE S Performing Organization Address City/State/[facility] Co de Phone Number [facility] [place] [address] documented in this encounter Visit Diagnoses Diagnosis PFO (patent foramen ovale) Ostium secundum type atrial septal defect Swelling of right lower extremity Swelling of limb documented in this encounter Care Teams Masonry Installer Relationship Specialty Start Date End Date Jimena Jones MD PCP - General Family Medicine 01/08/18 documented as of this encounter
--- OUTSIDE RECORDS SUMMARY | 2023-09-18 18:25 | XMS_ITS | Encounter Summary ---
Author Organization [facility] Address [address] [place] [address] Care Team Providers Care Ski Patrol Director Name Role Phone Jimena Jones MD Primary Care Provider Encounter Details Date Type Department Care Team (Late st Contact Info) Description 09/24/2004 Results Only [facility] - Maple conversion [address] [place] [address] Unknown, Provider, Social History Tobacco Use Types Packs/Day Years Used Date Smoking Tobacco: Never Assessed Sex and Gender Information Value Date Recorded Sex Assigned at Not on file Gender Identity Not on file Sexual Orientation Not on file documented as of this encounter Plan of Treatment Not on file documented as of this encounter Procedures Procedure Name Priority Date/Time Associated Diagnosis Comments T4 FREE Routine 09/24/2004 13:45 EDT documented in this encounter Results * T4 FREE (09/24/2004 13:45 EDT) Free T4 1.1 0.8 - 1.8 ng/dl [facility] 09/24/2004 13:4 5 EDT 09/25/2004 21:40 EDT Provider Unknown CHEMISTRY & BLOOD GA S ORDERABLES [facility] [address] [place] [address] documented in this encounter Visit Diagnoses Not on filedocumented in this encounter Care Teams Ski Patrol Director Relationship Specialty Start Date End Date Jimena Jones MD [address] [place] [address] PCP - General 04/25/09 documented as of this encounter
--- OUTSIDE RECORDS SUMMARY | 2023-09-18 18:25 | XMS_ITS | Encounter Summary ---
Author Organization [facility] Address [address] [place] [address] Care Team Providers Care Pullman Clerk Name Role Phone Jimena Jones MD Primary Care Provider Reason for Referral * Referral (Routine/Next Available) - Closed Specialty Diagnoses / Procedures Referred By [facility] t Referred To Contact Diagnoses Special screening for malignant neoplasms, colon Personal history of colonic polyps Procedures COLONOSCOPY Radha Stewart MD [address] [place] [address] [facility] [address] [place] [address] Referral ID Status Reason Start Date Expiration Date Visits Re quested Visits Authorized [id number] Closed 05/16/2022 1 1 Encounter Details Date Type Department Care Team (Latest Contact Info) Description 05/16/2022 Transcribe Orders [facility] Gastroenterology - Main [place] [address] [place], [place] [address] Radha Stewart MD [address] [place] [address] Special screening for malignant neoplasms, colon (Primary Dx); Personal history of colonic polyps Social History Tobacco Use Types Packs/Day Years [...] as of this encounter Plan of Treatment Scheduled Orders Name Type Priority Associated Diagnoses Orde r Schedule COLONOSCOPY GI Routine Special screening for malignant neoplasms, colon Personal history of colonic polyps Expected: 05/16/2022 (Approximate), Expires: 11/17/2023 documented as of this encounter Visit Diagnoses Diagnosis Special screening for malignant neoplasms, colon- Primary Personal history of colonic polyps documented in this encounter Care Teams Pullman Clerk Relationship Specialty Start Date End Date Jimena Jones MD [facility] [place] [address] PCP - General 04/25/09 documented as of this encounter
--- OUTSIDE RECORDS SUMMARY | 2023-09-18 18:25 | XMS_ITS | Encounter Summary ---
Author Organization [facility] [place] [address] Care Team Providers Care Batch Plant Operator Name Role Phone Jimena Jones MD Primary Care Provider [phone] Reason for Visit * Reason Comments Edema Encounter Details Date Type Department Care Team (Late st Contact Info) Description 02/22/2019 10:00 AM EST Office Visit Cardiology at [address] [phone] Horace Garrett MD [facility] [address] PFO (patent foramen ovale); Localized swelling of lower extremity; Essential hypertension Social History Tobacco Use Types Packs/Day Years [...] Sign Reading Time Taken Comments Blood Pressure 139/90 02/22/2019 9:49 AM EST Pulse 81 02/22/2019 9:49 AM EST Temperature - - Respiratory Rate - - Oxygen Saturation 100% 02/22/2019 9:49 AM EST Inhaled Oxygen Concentration - - Weight 111.1 kg (245 lb) 02/22/2019 9:49 AM EST Height 157.5 cm (5' 2) 02/22/2019 9:49 AM EST Body Mass Index 44.81 02/22/2019 9:49 AM EST documented in this encounter Progress Notes * Horace Garrett MD - 02/22/2019 10:00 AM EST Images from the original note were not included. [facility] [address] [place] [phone] CARDIOVASCULAR MEDICINE OUTPATIENT CONSULTATION Lars Jimenez [id number] 02/22/2019 REFERRING PROVIDER: Jimena Jones CHIEF COMPLAINT: Chief Complaint Patient presents with ??? Edema PROBLEM LIST Patient Active Problem List Diagnosis ??? PFO (patent foramen ovale) CRIS 02/16/2018: A patent foramen ovale is visualized. There is a patent foramen ovale with predominant [id number] shunting. The patent foramen ovale is demonstrated by color Doppler. Status post closure 05/05/18: 25mm [place] Cardioform device ??? Episode of transient neurologic symptoms ??? Arterial ischemic stroke, MCA, left, acute ??? 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 In August 2018, 4 months after PFO closure, she had sudden onset swelling of her right calf, which she describes as twice the size ofher left lower extremity. She presented to emergency department here and bedside duplex did not show calf veins were not visualized. Proximal or popliteal DVT, however she was treated empirically with Lovenox, which she took for 5 days and then discontinued. After stopping Lovenox, her swelling returned and she presented to [facility], where she reports a DVT duplex was done and showed no DVT, although she reports that they did not do infrapopliteal veins on the duplex. I received report of DVT duplex, which describes no evidence of DVT, although does not describe which veins were visualized. She called Dr. Malone, and due to concern of DVT, she was started on rivaroxaban. She additionally restarted Plavix. With anticoagulation and dual antiplatelet therapy, her swelling resolved. Labs at the time of her stroke revealed normal DRVVT and cardiolipin antibodies. She was on hormone replacement at the time of her stroke, which has been discontinued. Beta-2 glycoprotein antibodies werenot obtained. She has no history of miscarriage. Her daughter has had 2 miscarriages, although not in the first trimester. Her grandmother had postoperative VTE at age of 57, and grandfather VTE in his 70s. She continues on rivaroxaban 20 mg daily. She has stopped Plavix. I met her in January 2019, at [...] and DASH scores. Repeat D-dimer today is normal.She denies any more lower extremity edema. She does report that at times, she feels lightheaded anddizzy since being started on carvedilol and HCTZ; she was previously on propranolol for palpitations. She reports rare palpitations that are not bothersome. She denies chest pain or shortness of breath, PND, orthopnea, syncope. REVIEW OF SYSTEMS: All others negative except as stated in the HPI. CardioVascular Pre Appointment Symptom Review 02/22/2019 Angina (chest discomfort) Frequency: None Shortness of breath: Almost never Palpitations (skipped beats): Yes Leg swelling: No Dizziness/light headedness: Yes Loss of consciousness: No Difficulty lying flat (because of breathing): No Chills: No Fatigue: Yes Fever: No Unintended weight change: No Nosebleeds: No Difficulty swallowing: No Visual disturbances: No Frequent cough: No Wheezing: No Snoring: No Abdominal pain: No Diarrhea: No Blood in bowel movement: No Black, tarry bowel movement: No Nausea/vomiting: No Heat/cold intolerance: No Problems urinating: No Joint pains: No Muscle pain: No Rash: No Weakness/numbness: Yes Speech problems: Yes Easy bruising/bleeding: Yes Depression: Yes Anxiety: Yes Poor sleep: No PAST MEDICAL HISTORY: Past Medical History: Diagnosis Date ??? CVA (cerebral vascular accident) SOCIAL HISTORY: Social History Tobacco Use ??? Smoking status: Former Smoker Packs/day: 1.00 Types: Cigarettes Last attempt to quit: 01/08/2018 Years since quittin.1 ??? Smokeless tobacco: Never Used Substance Use [...] and Codeine PHYSICAL EXAMINATION: Vital Signs: BP 139/90 Pulse 81 Ht 157.5 cm (5' 2) Wt 111.1 kg (245 lb) SpO2 100% BMI 44.81 kg/m?? Exam Details: Exam Details: General: Pleasant 48 y.o. female in no acute distress Eyes: No scleral icterus ENT: Moist mucous membranes Lymph: No cervical or supraclavicular lymphadenopathy Heart: Regular rate and rhythm, normal S1/S2, no murmurs/rubs/gallops appreciated, PMI non-displaced Lungs: Clear to ascultation bilaterally Abdomen: Soft, non-tender, non-distended, normoactive bowel sounds noted. No hepatosplenomegaly Extremities: No peripheral edema noted. No ulcerations noted. Vessels: No carotid bruits appreciated. Neuro: No gross abnormalities noted Psych: Alert and oriented 3 x, normal affect DATA PERSONALLY REVIEWED: Last 3 wbc, hgb, hct plt Recent Labs 05/05/18 0946 WBC 6.7 HGB 13.3 HCT 41.9 PLATELET 316 Last 3 Lytes Recent Labs 05/05/18 0946 NA 142 K 4.6 CL 105 CO2 27 BUN 10 CREATININE 0.71 EKG 02/01/19: NSR 81 bpm, no significant ST-T wave changes ?? RLE DVT duplex 02/01/19: Interpretation: No evidence of RIGHT lower extremity deep venous thrombosis. ?? TTE 06/19/18: 1. The left ventricular chamber size is normal. ??Basal septal hypertrophy is observed. ??There is normal global left ventricular systolic function. ??Ejection fraction is estimated to be 60%. ??There are no left ventricular segmental wall motion abnormalities. 2. The right ventricle is normal in size. ??Right ventricular global systolic function is normal. 3. ASD closure device is visualized and is well seated. ?Color Doppler does not demonstrate a residual inter-atrial shunt. ASSESSMENT AND PLAN: #1 RLE swelling, concern for calf DVT #2 History of cryptogenic stroke s/p PFO closure #3 Hypertension Ms. Jimenez is a very pleasant 40 year old woman who presents for follow-up of RLE swelling several months after PFO closure, with negative local DVT duplex (although she reports no calf veins were evaluated). Her DVT duplex here in January 2019 was negative for DVT. D-dimer on Xarelto is also normal. At this point, even if she did have symptomatic calf DVT, she has completed 3 months of anticoagulation and her risk of future DVT appears low based on HERDOO and DASH scores. Thus, she can remain off rivaroxaban. In terms of PFO closure follow-up, she needs repeat TTE with bubble study in April 2019 (1 year post closure) and follow-up visit with Dr. Jules. Her BP is still mildly elevated although I believe she's having side effects from beta-angeles. I have asked her to discuss this with her local employee relations manager, Dr. Melgar. Plan: 1. Remain off rivaroxaban. Continue aspirin 81 mg daily. 2. Let me know right away if she develops recurrent LE swelling - should obtain DVT duplex here. 3. TTE and visit with Dr. Jules in ~April 2019 for PFO closure follow-up. 4. Follow up with me PRN. Thank you for allowing me to participate in the care of your patient. Please do not hesitate to contact me with any questions or concerns. Horace Garrett MD, MPH, [facility] Cardiovascular Flame Hardening Machine SetterEducation Associatecombat [place] [address] documented in this encounter Plan of Treatment Not on file documented as of this encounter Visit Diagnoses Diagnosis PFO (patent foramen ovale) Ostium secundum type atrial septal defect Localized swelling of lower extremity Essential hypertension Unspecified essential hypertension documented in this encounter Care Teams Batch Plant Operator Relationship Specialty Start Date End Date Jimena Jones MD PCP - General Family Medicine 01/08/18 documented as of this encounter
--- OUTSIDE RECORDS SUMMARY | 2023-09-18 18:25 | XMS_ITS | Encounter Summary ---
Author Organization [facility] Address [address] [place] [address] Care Team Providers Care Stitch Bonding Machine Tender Name Role Phone Jimena Jones MD Primary Care Provider Encounter Details Date Type Department Care Team (Late st Contact Info) Description 08/04/2007 Results Only [facility] - Maple conversion [address] [place] [address] Unknown, Provider, Social History Tobacco Use Types Packs/Day Years Used Date Smoking Tobacco: Never Assessed Sex and Gender Information Value Date Recorded Sex Assigned at Not on file Gender Identity Not on file Sexual Orientation Not on file documented as of this encounter Plan of Treatment Not on file documented as of this encounter Procedures Procedure Name Priority Date/Time Associated Diagnosis Comments CHLAMYDIA/GC AMPLIFIED PROBE Routine 08/04/2007 17:02 EDT HSV (ONLY) CULTURE Routine 08/04/2007 17 :02 EDT documented in this encounter Results * HSV (ONLY) CULTURE (08/04/2007 17:02 EDT) Specimen Description Vagina [facility] Result No herpes simplex recovered [facility] Report Status Final [id number] [facility] 08/04/2007 17:0 2 EDT 08/04/2007 22:03 EDT Provider Unknown MICROBIOLOGY - GENER AL ORDERABLES Performing Organization Address [facility] Co de Phone Number [facility] [address] [place] [address] * CHLAMYDIA/GC AMPLIFIED PROBE (08/04/2007 17:02 EDT) Specimen Description Cervix [facility] Result No Chlamydia trachomatis or Neisseria gonorrhoeae DNA detected by sld inclusion teacher mediated amplification. [facility] Report Status Final [id number] [facility] 08/04/2007 17:0 2 EDT 08/04/2007 22:09 EDT Provider Unknown MICROBIOLOGY - GENER AL ORDERABLES Performing Organization Address [facility] de Phone Number [facility] [address] [place] [address] documented in this encounter Visit Diagnoses Not on filedocumented in this encounter Care Teams Stitch Bonding Machine Tender Relationship Specialty Start Date End Date Jimena Jones MD [facility] [employer] [place], [place] [address] PCP - General 04/25/09 documented as of this encounter
--- OUTSIDE RECORDS SUMMARY | 2023-09-18 18:25 | XMS_ITS | Encounter Summary ---
Author Organization [facility] Address [address] [place] [address] Care Team Providers Care Social Sciences Department Chair Name Role Phone Jimena Jones MD Primary Care Provider Encounter Details Date Type Department Care Team (Late st Contact Info) Description 02/21/[address] [facility] Gastroenterology - [address] [address] Dereje Walker MD [address] [facility], [address] [place] [address] Family history of colon cancer (Primary Dx) Social History Tobacco Use Types Packs/Day Years Used Date Smoking Tobacco: Never Assessed Sex and Gender Information Value Date Recorded Sex Assigned at Not on file Gender Identity Not on file Sexual Orientation Not on file documented as of this encounter Ordered Prescriptions Prescription Sig Dispensed Refills Start Date End Da te polyethylene glycol (GOLYTELY) 236-22.74-6.74 -5.86 gram suspensionIndications:F amily history of colon cancer Follow instructions on 'colonoscopy preparation instructions' sheet. 1 Bottle 0 02/21/2015 documented in this encounter Plan of Treatment Not on file documented as of this encounter Visit Diagnoses Diagnosis Family history of colon cancer- Primary Family history of malignant neoplasm of gastrointestinal tract documented in this encounter Care Teams Social Sciences Department Chair Relationship Specialty Start Date End Date Jimena Jones MD [address] [place] [address] PCP - General 04/25/09 documented as of this encounter
--- OUTSIDE RECORDS SUMMARY | 2023-09-18 18:25 | XMS_ITS | Encounter Summary ---
Author Organization [facility] Address [address] [place] [address] Care Team Providers Care Cash Shortage Investigator Name Role Phone Jimena Jones MD Primary Care Provider Encounter Details Date Type Department Care Team (Late st Contact Info) Description 08/05/2006 Results Only [facility] - Maple conversion [address] [place] [address] Unknown, Provider, Social History Tobacco Use Types Packs/Day Years Used Date Smoking Tobacco: Never Assessed Sex and Gender Information Value Date Recorded Sex Assigned at Not on file Gender Identity Not on file Sexual Orientation Not on file documented as of this encounter Plan of Treatment Not on file documented as of this encounter Procedures Procedure Name Priority Date/Time Associated Diagnosis Comments HIV 1/2 ANTIGEN AND ANTIBODY, 4TH GENERATION Routine 08/05/2006 15:05 EDT documented in this encounter Results * HIV ANTIBODY (DEANNE) (08/05/2006 15:05 EDT) HIV 1/2 Antibody NONREACT. NR [facility] 08/05/2006 15:0 5 EDT 08/05/2006 21:45 EDT Provider Unknown IMMUNOLOGY AND SEROL OGY ORDERABLES [facility] [address] [place] [address] documented in this encounter Visit Diagnoses Not on filedocumented in this encounter Care Teams Cash Shortage Investigator Relationship Specialty Start Date End Date Jimena Jones MD [address] [place] [address] PCP - General 04/25/09 documented as of this encounter
--- OUTSIDE RECORDS SUMMARY | 2023-09-18 18:26 | XMS_ITS | Encounter Summary ---
[place] [address] Care Team Providers Care Poke In Name Role Phone Jimena Jones MD Primary Care Provider [phone] Reason for Visit * Auth/Cert Specialty Diagnoses / Procedures Referred By Contac t Referred To Contact Diagnoses acute CVA Procedures PRG MANAS REAL TIME IMG 2D W PRB IMG ACQUIS I&R TRANSESOPHAGEAL ECHOCARDIOGRAM (WRVU 2.55) Referral ID Status Reason Start Date Expiration Date Visits Re quested Visits Authorized [id number] 1 1 Encounter Details Date Type Department Care Team (Late st Contact Info) Description 02/16/2018 10:00 AM EST - 02/16/2018 11:00 AM EST Surgery [place] [address] Familia Correa MD [facility] [place] [address] TRANSESOPHAGEAL ECHOCARDIOGRAM (WRVU 2.3) Social History Tobacco Use Types Packs/Day Years Used Date Smoking Tobacco: Former Cigarettes Smokeless Tobacco: Never Alcohol Use Standard Drinks/Week Comments No 0 (1 standard drink = 0.6 oz pur e alcohol) Sex and Gender Information Value Date Recorded Sex Assigned at Not on file Gender Identity Not on file Sexual Orientation Not on file documented as of this encounter Last Filed Vital Signs Vital Sign Reading Time Taken Comments Blood Pressure 137/83 02/16/2018 11:00 AM EST Pulse 60 02/16/2018 8:45 AM EST Temperature 36.5 ??C (97.7 ??F) 02/16/2018 10:[address] Respiratory Rate 18 02/16/2018 8:45 AM EST Oxygen Saturation 97% 02/16/2018 11:00 AM EST Inhaled Oxygen Concentration - - Weight 109.3 kg (241 lb) 02/16/2018 8:45 AM EST Height 157.5 cm (5' 2) 02/16/2018 8:45 AM EST Body Mass Index 44.08 02/16/2018 8:45 AM EST documented in this encounter Discharge Instructions * Discharge Instructions* Gabi Barron RN - 02/16/2018 11:03 AM EST SAME DAY PROGRAM POST-OPERATIVE INSTRUCTIONS POST TRANSESOPHAGEL ECHOCARDIOGRAPHY 1. A sore throat is normal after the procedure. It usually lasts several hours. Cold liquids and soothing lozenges will help ease the discomfort. 2. You may resume your normal diet in two hours. 3. No driving for twenty-four hours. No heavy lifting, no climbing or activities that require balance for twenty-four hours. 4. Please call you doctor if you develop: a. Difficulty swallowing or breathing b. Severe chest or abdominal pain c. Vomiting of blood 5. If you are having problems or have additional concerns or questions please call: Cardiology Clinic 8am - 5pm Same Day Program 6am- 6:30pm Emergency Room after 6:30pm documented in this encounter Medications at Time of Discharge Medication Sig Dispensed Refills Start Date End Date buPROPion (WELLBUTRIN XL) 150 mg Tablet Extended Release 24 hr Take 150 mg by mouth every morning. aspirin 81 mg Tablet, Chewable Take 81 mg by mouth daily. 30 tablet 3 01/12/2018 atorvastatin (LIPITOR) 40 mg Tablet Take 1 tablet by mouth every evening. 90 tablet 3 01/11/2018 omeprazole (PRILOSEC) 40 mg Capsule, Delayed Release(E.C.) Take 40 mg by mouth daily. PARoxetine (PAXIL) 20 mg Tablet Take 40 mg by mouth every morning. lisinopril (PRINIVIL;ZESTRIL) 20 mg Tablet Take 20 mg by mouth daily. 03/10/2018 tolterodine (DETROL LA) 4 mg Capsule, Sust. Release 24 hr Take 4 mg by mouth daily. 06/19/2018 propranolol (INDERAL) 20 mg Tablet Take 1 tablet by mouth 2 times daily. 12/16/2017 02/01/2019 LORazepam (ATIVAN) 1 mg Tablet Take 1 mg by mouth every 6 hours as needed for Anxiety. 02/01/2019 documented as of this encounter Progress Notes * Gabi Barron RN - 02/16/2018 11:40 AM EST Patient discharge to home. IV removed, site benign. My assessment remains unchanged from my previous assessment. RN Discussed pain management with patient, pain tolerable. Patient had +gag reflex at time of discharge and was tolerating PO fluids without difficulty. Patient seen by MD prior to discharge.. Patient has all belongings. Patient received After Visit Summary. This was reviewed with patient and family, patient verbalizes understanding of AVS. All questions answered. Patient encouraged to call with questions or concerns. Patient discharged to home with family. * Gabi Barron RN - 02/16/2018 11:27 AM EST Patient has + gag reflex. Diet advanced to clear liquids at this time. documented in this encounter H&P Notes * Horace Garrett - 02/16/2018 9:31 AM EST Pre-Transesophageal echocardiography 24 hr Update H&P Note Please see Dr. Arreguin note dated 01/26/18 for full details regarding reason for referral for the transesophageal echocardiography. HPI: Mrs. 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 TTE on 01/09/18 unremarkable with normal LV function, no valvular disease, negative bubble study. Ziopatch unremarkable. Since their recent visit there have been no changes in clinical condition MANAS ROS: HEENT- No known loose teeth Resp- No known history of prior difficulty with anesthesia/sedation. No known ALAINA GI-No recent esophageal or upper GI surgery. No history of esophageal stricture , mass or perforation. No recent or active upper GI bleeding. No dysphagia or known hiatal hernia. CV- No current hemodynamic instability or concern for arrhythmia The patient last ate at 6:30 PM The patient last took medications early AM today No current facility-administered medications on file prior to encounter. Current Outpatient Medications on File Prior to Encounter Medication Sig Dispense Refill ??? lisinopril (PRINIVIL;ZESTRIL) 20 mg Tablet Take 20 mg by mouth daily. ??? buPROPion (WELLBUTRIN XL) 150 mg Tablet Extended Release 24 hr Take 150 mg by mouth every morning. ??? tolterodine (DETROL LA) 4 mg Capsule, Sust. Release 24 hr Take 4 mg by mouth daily. ??? propranolol (INDERAL) 20 mg Tablet Take 1 tablet by mouth 2 times daily. ??? aspirin 81 mg Tablet, Chewable Take 81 mg by mouth daily. 30 tablet 3 ??? atorvastatin (LIPITOR) 40 mg Tablet Take 1 tablet by mouth every evening. 90 tablet 3 ??? omeprazole (PRILOSEC) 40 mg Capsule, Delayed Release(E.C.) Take 40 mg by mouth daily. ??? PARoxetine (PAXIL) 20 mg Tablet Take 20 mg by mouth every morning. ??? LORazepam (ATIVAN) 1 mg Tablet Take 1 mg by mouth every 6 hours as needed for Anxiety. Medications were reviewed with the patient. Allergies Allergen Reactions ??? Morphine Anaphylaxis Breathing difficulty ??? Codeine Nausea And Vomiting And stomach pain Physical Exam Most Recent Vitals: 02/16/18 0845 BP: (!) 153/94 Pulse: 60 Resp: 18 Temp: 36.7 ??C (98.1 ??F) SpO2: 100% AAOx3, NAD The anatomy of the oral cavity is visualized. Soft palate, uvula, fauces, pillars visible Mallampati score Grade : 2. ASA 2. Pulm- CTAB, no wheezes/crackles/rales, speaking in full sentences CV- RRR, +S1/S2, no m/r/g, warm, well perfused, radial pulses 2+ Abd- soft, NT, ND, no r/b, BS present LE: no LE edema Labs reviewed @CHEMISTRYTABLE@ Lab Results Component Value Date WBC 6.6 01/13/2018 RBC 4.24 01/13/2018 HGB 11.4 (L) 01/13/2018 HCT 35.1 (L) 01/13/2018 MCV 82.8 01/13/2018 MCH 26.9 (L) 01/13/2018 MCHC 32.5 01/13/2018 PLATELET 278 01/13/2018 RDWCV 13.5 01/13/2018 No results for input(s): PT, PTT, INR in the last 168 hours. TTE 01/09/18: 1. The left ventricular chamber size is normal. Left ventricular wall thickness is normal. There is normal global left ventricular systolic function. The quantitative left ventricular ejection fraction by biplane Olson's method is 62%. 2. The right ventricle is normal in size. Right ventricular global systolic function is normal. 3. There is no evidence of a patent foramen ovale with agitated saline contrast. Assessment and Plan: - Proceed with MANAS for evaluation of EMI, interatrial septum. The indications, expected benefits and potential risks that might occur during the procedure and recuperation, likelihood of achieving goals, and possible alternatives, and the right to refuse treatment and the consequences thereof, have been explained to the patient. The following are potential risks, among others, associated with transesophageal echocardiography :damage to the esophagus, including perforation; aspiration; rarely ; infection; allergic reaction to medications including nausea, vomiting, or rash; bleeding; changes in heart rate or rhythm requiring treatment; changes in breathing requiring treatment, including spasm of the vocal cords or airway passages; decreased level of oxygen in the blood or congestive heart failure; angina pectoris;sore throat; damage to teeth, were discussed with the patient. The patient had an opportunity to ask questions and had them answered to their satisfaction. After a discussion about the above risks and benefits, the patient was provided with a consent which was reviewed, signed and placed in the patient's chart. documented in this encounter Plan of Treatment Not on file documented as of this encounter Procedures Procedure Name Priority Date/Time Associated Diagnosis Comments TRANSESOPHAGEAL ECHOCARDIOGRAM (MANAS) Routine 02/16/2018 10:49 AM EST Ischemic stroke TRANSESOPHAGEAL ECHOCARDIOGRAM (WRVU 2.3) 02/16/2018 10:01 AM EST Cerebrovascular accident (CVA), unspecified mechanism documented in this encounter Results * MANAS IN MINOR (02/16/2018 10:49 AM EST) Anatomical Region Laterality Modality Other 02/16/2018 Narrative 02/16/2018 11:20 AM EST Procedure: ?Transesophageal Echocardiogram Patient: ?VIN Jimenez ?(Age): 1970(47y) Med Rec#: ? [id number] ?Sex: ?F ? [place] Loc[place] ? [facility] [place] ?Ht / Wt: ??(cm)/ (kg) ? Pt. Loc: ?PACU ? Study Date: ?? 02/16/2018 ?Pt. Type: Tape: ? Referring: VÍCTOR Reading: Familia Correa ([id number]) Computer Networking Instructor: Familia Correa ([id number]) Computer Networking Instructor: Horace Garrett ??([id number]) Computer Networking Instructor 2: Terence Santos RD Interpreting Fellow: Horace Garrett ??([id number]) Diagnosis: *Cerebral infarction, unspecified (I63.9) SUMMARY: 1. Technically limited study due to difficult imaging windows and poor tolerance of conscious sedation. 2. There is a patent foramen ovale with bi-directional flow present as demonstarted by color Doppler. Bubble study was inadequate. 3. The left ventricular function is probably normal with visually estimated ejection fraction of 65%. The septum is lipotomous. 4. There is no hemodynamically significant valvular disease present. 5. Please see the body of report for additional details. Findings ? : Study Quality: ? Technically limited Left Ventricle: ? There is mild septal hypertrophy of the left ventricle. Lipotomous septum ?There is normal global left ventricular systolic function. ??Ejection fraction is estimated to be 65%. Left Atrium: ? No clot is noted in the left atrial appendage. ?A patent foramen ovale is visualized. ?There is a patent foramen ovale with predominant [id number] shunting. ?The patent foramen ovale is demonstrated by color Doppler. Right Ventricle: ? Right ventricular chamber size, wall thickness, and systolic function are within normal limits. Right Atrium: ? The right atrium is not well visualized. Aortic Valve: ? The aortic valve is tricuspid. ?There is no evidence of aortic regurgitation. Mitral Valve: ? The mitral valve leaflets appear normal. ?There is no evidence of mitral stenosis. ?There is trace mitral regurgitation present. Tricuspid Valve: ? The tricuspid valve leaflets are morphologically normal. ?There is mild (1+/4+) tricuspid regurgitation present. Pulmonic Valve: ? The pulmonic valve appears normal. ?There is no pulmonic stenosis present. ?There is no evidence of pulmonic regurgitation. Aorta: ? The aorta is not well visualized. Manas Procedures: ? The procedure and risk were explained to the patient who consented to the study. ?After conscious sedation was administered per hospital protocol, the MANAS probe was passed by Dr. Garrett, supervised by Dr. Correa. ?There were no complications during the procedure. This report has been electronically signed by: Familia Correa MD ? 02/16/2018 11:19:59 Images reviewed and interpretation verified [facility] Cardiac Ultrasound Laboratory Procedure Note Familia Correa MD - 02/16/2018 Procedure: Transesophageal Echocardiogram Patient: VIN AREVALO(Age): 1970(47y) Med Rec#: [id number] Sex: F [place] [facility] [place] Ht / Wt: (cm)/ (kg) Pt. Loc: PACU Study Date: 02/16/2018 Pt. Type: Tape: Referring: VÍCTOR Reading: Familia Correa ([id number]) Computer Networking Instructor: Familia Correa ([id number]) Computer Networking Instructor: Horace Garrett ([id number]) Computer Networking Instructor 2: Terence Santos [facility] Interpreting Fellow: Horace Garrett ([id number]) Diagnosis: *Cerebral infarction, unspecified (I63.9) SUMMARY: 1. Technically limited study due to difficult imaging windows and poor tolerance of conscious sedation. 2. There is a patent foramen ovale with bi-directional flow present as demonstarted by color Doppler. Bubble study was inadequate. 3. The left ventricular function is probably normal with visually estimated ejection fraction of 65%. The septum is lipotomous. 4. There is no hemodynamically significant valvular disease present. 5. Please see the body of report for additional details. Findings : Study Quality: Technically limited Left Ventricle: There is mild septal hypertrophy of the left ventricle. Lipotomous septum There is normal global left ventricular systolic function. Ejection fraction is estimated to be 65%. Left Atrium: No clot is noted in the left atrial appendage. A patent foramen ovale is visualized. There is a patent foramen ovale with predominant cwtzm-[id number] shunting. The patent foramen ovale is demonstrated by color Doppler. Right Ventricle: Right ventricular chamber size, wall thickness, and systolic function are within normal limits. Right Atrium: The right atrium is not well visualized. Aortic Valve: The aortic valve is tricuspid. There is no evidence of aortic regurgitation. Mitral Valve: The mitral valve leaflets appear normal. There is no evidence of mitral stenosis. There is trace mitral regurgitation present. Tricuspid Valve: The tricuspid valve leaflets are morphologically normal. There is mild (1+/4+) tricuspid regurgitation present. Pulmonic Valve: The pulmonic valve appears normal. There is no pulmonic stenosis present. There is no evidence of pulmonic regurgitation. Aorta: The aorta is not well visualized. Manas Procedures: The procedure and risk were explained to the patient who consented to the study. After conscious sedation was administered per hospital protocol, the MANAS probe was passed by Dr. Garrett, supervised by Dr. Correa. There were no complications during the procedure. This report has been electronically signed by: Familia Correa MD 02/16/2018 11:19:59 Images reviewed and interpretation verified [facility] Cardiac Ultrasound Laboratory Emre Arreguin MD ECHO ORDERABLES documented in this encounter Visit Diagnoses Diagnosis Ischemic stroke Cerebrovascular accident (CVA), unspecified mechanism documented in this encounter Administered Medications Inactive Administered Medications - up to 3 most recent administrations Medication Order MAR Action Action Date Dose Rate Site lactated Ringers infusion 1,000 mL 1,000 mL, at 100 mL/hr, Intravenous, CONTINUOUS, Starting on Fri02/16/18 at 0915, Until Fri02/16/18 at 1202, Day of Surgery (Day of Procedure) New Bag 02/16/2018 9:15 AM EST 1,000 mLs 100 mL/hr lidocaine (XYLOCAINE) 5 % ointment ONCE PRN, Starting on Fri02/16/18 at 1002, Until Fri02/16/18 at 1402, Intra-Operative (Intra-Procedure) Given 02/16/2018 10:02 AM EST 1.5 inches 20-Other (document in comment section) documented in this encounter Active and Recently Administered Medications Times are shown in EST. Continuous Medication Order 02/14/2018 02/15/2018 02/16/2018 lactated Ringers infusion 1,000 mL (CANCELED) 1,000 mL, at 100 mL/hr, Intravenous, CONTINUOUS, Starting on Fri02/16/18 at 0915, Until Fri02/16/18 at 1202, Day of Surgery (Day of Procedure) 0915 (New Bag - Prov ider: Claudia Gonzalez RN) PRN Medication Order 02/14/2018 02/15/2018 02/16/2018 lidocaine (XYLOCAINE) 5 % ointment (CANCELED) ONCE PRN, Starting on Fri02/16/18 at 1002, Until Fri02/16/18 at 1402, Intra-Operative (Intra-Procedure) 1002 (Given - Provid er: Horace Garrett - Comment: back of throat) documented in this encounter Care Teams Poke In Relationship Specialty Start Date End Date Jimena Jones MD PCP - General Family Medicine 01/08/18 documented as of this encounter
--- OUTSIDE RECORDS SUMMARY | 2023-09-18 18:26 | XMS_ITS | Encounter Summary ---
Author Organization [facility] Address [facility] [place] [address] Care Team Providers Care Creative Consultant Name Role Phone Jimena Jones MD Primary Care Provider [phone] Encounter Details Date Type Department Care Team (Late st Contact Info) Description 09/10/2018 Orders Only Cardiology at [address] [address] Mary Malone MD [facility] [place] [address] Social History Tobacco Use Types Packs/Day Years Used Date Smoking Tobacco: Former Cigarettes Q uit: 01/08/2018 Smokeless Tobacco: Never Alcohol Use Standard Drinks/Week Comments No 0 (1 standard drink = 0.6 oz pur e alcohol) Sex and Gender Information Value Date Recorded Sex Assigned at Not on file Gender Identity Not on file Sexual Orientation Not on file documented as of this encounter Progress Notes * Mary Malone MD - 09/10/2018 3:34 PM EDT I spoke with Lars and she had recurrent swelling of the same LE with pain. She was re-started on lovenox and reports that she had improvement in her symptoms. She did undergo a repeat LE duplex and tells me that there was no evidence of a LE DVT. At this point I am not sure what to make of her symptoms. She did have increased lupus anticoagulant activity (partial-nonspecific). At this point, I aminclined to start her on anticoagulation for three months. I sent RX for Rivaroxaban to her pharmacy. She will be in touch if this is covered. I also left a VM with her PCP. I will let Dr. Wetzel know. She did have small hemorrhagic conversion after her CVA in Dec 2017 but should be safe to start anticoagulation at this time. And lastly, I would like her to see Dr. Garrett (vascular medicine) regarding fpc anticoagulation treatment. documented in this encounter Plan of Treatment Not on file documented as of this encounter Visit Diagnoses Not on filedocumented in this encounter Care Teams Creative Consultant Relationship Specialty Start Date End Date Jimena Jones MD PCP - General Family Medicine 01/08/18 documented as of this encounter
--- OUTSIDE RECORDS SUMMARY | 2023-09-18 18:26 | XMS_ITS | Encounter Summary ---
[place] [address] Care Team Providers Care Sales Consultant Name Role Phone Jimena Jones MD Primary Care Provider [phone] Reason for Referral * Diagnostic Test (Routine) - Closed Specialty Diagnoses / Procedures Referred By Willa mann Referred To Contact Cardiology Diagnoses Ischemic stroke Procedures Transesophageal Echocardiogram (MANAS) Emre Arreguin MD [facility] [place] [address] [facility] [place] [address] Referral ID Status Reason Start Date Expiration Date V isits Requested Visits Authorized [id number] Closed Specialty Service Requested 01/26/2018 01/26/2019 1 1 Reason for Visit * Auth/Cert Specialty Diagnoses / Procedures Referred By Willa mann Referred To Contact Diagnoses acute CVA Procedures PRG MANAS REAL TIME IMG 2D W PRB IMG ACQUIS I&R TRANSESOPHAGEAL ECHOCARDIOGRAM (WRVU 2.55) Referral ID Status Reason Start Date Expiration Date Visits Re quested Visits Authorized [id number] 1 1 Encounter Details Date Type Department Care Team (Latest Contact Info) Description 02/16/2018 8:07 AM EST - 02/16/2018 11:40 AM EST Hospital Encounter [place] [address] Familia Correa MD [facility] [address] Ischemic stroke Discharge Disposition: Home Social History Tobacco Use Types Packs/Day Years [...] Sign Reading Time Taken Comments Blood Pressure 144/85 02/16/2018 11:20 AM EST Pulse 60 02/16/2018 8:45 AM EST Temperature 36.5 ??C (97.7 ??F) 02/16/2018 10:[address] Respiratory Rate 18 02/16/2018 8:45 AM EST Oxygen Saturation 97% 02/16/2018 11:27 AM EST Inhaled Oxygen Concentration - - [...] ?VIN Jimenez ?(Age): 1970(47y) Med Rec#: ? [id number] ?Sex: ?F ? Site Loc: ? [facility] [place] ?Ht / Wt: ??(cm)/ (kg) ? Pt. Loc: ?PACU ? Study Date: ?? 02/16/2018 ?Pt. Type: Tape: ? Referring: VÍCTOR Mabry: Familia Correa ([id number]) Medical Corps Officer: Familia Correa ([id number]) Medical [employer] Officer: Horace Garrett ??([id number]) Medical Corps Officer 2: Terence Santos [facility] Interpreting Fellow: Horace Garrtet ??([id number]) Diagnosis: *Cerebral infarction, unspecified (I63.9) SUMMARY: 1. [...] is a patent foramen ovale with predominant shaiu-wu-hekk shunting. ?The patent foramen ovale is demonstrated [...] 02/16/2018 11:19:59 Images reviewed and interpretation verified [facility] Cardiac Ultrasound Laboratory Procedure Note Familia Correa MD - 02/16/2018 Procedure: Transesophageal Echocardiogram Patient: VIN AREVALO(Age): 1970(47y) Med Rec#: [id number] Sex: F Site Loc: [facility] [place] Ht / Wt: (cm)/ (kg) Pt. Loc: PACU Study Date: 02/16/2018 Pt. Type: Tape: Referring: VÍCTOR Reading: Familia Correa ([id number]) Medical Corps Officer: Familia Correa ([id number]) [employer] Officer: Horace Garrett ([id number]) Medical Corps Officer 2: Terence Santos [facility] Interpreting Fellow: Horace Garrett ([id number]) Diagnosis: *Cerebral infarction, unspecified (I63.9) SUMMARY: 1. [...] is a patent foramen ovale with predominant [id number] shunting. The patent foramen ovale is demonstrated [...] 02/16/2018 11:19:59 Images reviewed and interpretation verified [facility] Cardiac Ultrasound Laboratory Emre Arreguin MD ECHO ORDERABLES documented in this encounter Visit Diagnoses Diagnosis Ischemic stroke documented in this encounter Administered Medications Inactive Administered Medications - up to 3 most recent administrations Medication Order MAR Action Action Date Dose Rate Site lactated Ringers infusion 1,000 mL 1,000 mL, at 100 mL/hr, Intravenous, CONTINUOUS, Starting on Fri02/16/18 at 0915, Until Fri02/16/18 at 1202, Day of Surgery (Day of Procedure) New Bag 02/16/2018 9:15 AM EST 1,000 mLs 100 mL/hr documented in this encounter Active and Recently [...] throat) documented in this encounter Care Teams Sales Consultant Relationship Specialty Start Date End Date Jimena Jones MD PCP - General Family Medicine 01/08/18 documented as of this encounter
--- OUTSIDE RECORDS SUMMARY | 2023-09-18 18:26 | XMS_ITS | Encounter Summary ---
Author Organization [facility] [place] [address] Care Team Providers Care Retail Director Name Role Phone Jimena Joens MD Primary Care Provider [phone] Encounter Details Date Type Department Care Team (Late st Contact Info) Description 05/25/2018 11:30 AM EDT [place] [address] Emre Arreguin MD [facility] [place] [address] Cryptogenic stroke Social History Tobacco Use Types [...] Sign Reading Time Taken Comments Blood Pressure 126/79 05/25/2018 11:40 AM EDT Pulse 106 05/25/2018 11:40 AM EDT Temperature - - Respiratory Rate - - Oxygen Saturation - - Inhaled Oxygen Concentration - - Weight 109.8 kg (242 lb) 05/25/2018 11:40 AM EDT Reported Height 157.5 cm (5' 2) 05/25/2018 11:40 AM EDT Reported Body Mass Index 44.26 05/25/2018 11:40 AM EDT documented in this encounter Progress Notes * Emre Arreguin MD - 05/25/2018 11:30 AM EDT Cerebrovascular Disease and Stroke Program [place] [address] t: [phone] / f: [phone] Date of Appointment: 05/25/2018 Patient: Lars Jimenez This 47 y.o. 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 On May 05, she had a successful deployment of a 25 mm [place] Cardioform PFO occluder by ICE and fluoroscopy. In the interim since her last clinic visit, she has been well. There is no report of symptoms suggestive of recurrent TIA/Stroke. Medications are being taken as prescribed and without adverse symptoms. 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 Modified Yani Scale Score=1. Patient Active Problem List Diagnosis Code ??? Acute CVA (cerebrovascular accident) I63.9 ??? Arterial ischemic stroke, MCA, left, acute I63.512 ??? Episode of transient neurologic symptoms R29.90 ??? PFO (patent foramen ovale) Q21.1 Allergies Allergen Reactions ??? Morphine Anaphylaxis Breathing difficulty ??? Codeine Nausea And Vomiting and Other (See Comments) stomach pain Outpatient Medications Marked as Taking for the 05/25/18 encounter (Office Visit) with Emer Arreguin MD Medication Sig Dispense Refill ??? clopidogrel (PLAVIX) 75 mg Tablet Take 1 tablet by mouth daily. 90 tablet 3 ??? lisinopril (PRINIVIL;ZESTRIL) 40 mg Tablet Take [...] mouth every evening. 90 tablet 3 ??? LORazepam (ATIVAN) 1 mg Tablet Take 1 mg by mouth every 6 hours as needed for Anxiety. ??? omeprazole (PRILOSEC) 40 mg Capsule, Delayed Release(E.C.) Take 40 mg by mouth daily. ??? PARoxetine (PAXIL) 20 mg Tablet Take 40 mg by mouth every morning. Exam: Vitals: 05/25/18 1140 BP: 126/79 BP Location ([facility]): Left arm Patient Position: Sitting BP Cuff Sizes: Large Adult (32-43 cm) Pulse: (!) 106 Weight: 109.8 kg (242 lb) Height: 157.5 cm (5' 2) Well appearing patient, nontoxic. Heart regular. No edema lower extremities. No wheezing or dyspneanoted. No rash, thyromegaly. Mood euthymic. Alert, oriented; attentive. No facial weakness. No pronator drift or tremor. Gait normal. NIH Stroke Scale score=2 for sensation and some difficulty expressing herself. Names and reads withsome effort. No sensory extinction. Data reviewed: The TTE report from 05/06 was reviewed and was unremarkable. Clinical impression and recommendations: She is doing well and is now s/p PFO closure. She will have Cardiology follow-up June 19 and likelydiscontinue the clopidogrel. Follow-up here as needed. I made no medication changes today. I ordered no additional tests. documented in this encounter Plan of Treatment Not on file documented as of this encounter Visit Diagnoses Diagnosis Cryptogenic stroke Unspecified cerebral artery occlusion with cerebral infarction documented in this encounter Care Teams Retail Director Relationship Specialty Start Date End Date Jimena Jones MD PCP - General Family Medicine 01/08/18 documented as of this encounter
--- OUTSIDE RECORDS SUMMARY | 2023-09-18 18:26 | XMS_ITS | Encounter Summary ---
[place] [address] Care Team Providers Care Consulting It Architect Name Role Phone Jimena Jones MD Primary Care Provider [phone] Reason for Referral * Diagnostic Test (Routine) - Closed Specialty Diagnoses / Procedures Referred By Contac t Referred To Contact Cardiology Diagnoses Acute CVA (cerebrovascular accident) Arterial ischemic stroke, MCA, left, acute PFO (patent foramen ovale) Episode of transient neurologic symptoms Procedures Echocardiogram Transthoracic(Leb) [facility] [address] [place] [phone] [facility] [place] [address] Referral ID Status Reason Start Date Expiration Date V isits Requested Visits Authorized [id number] Closed Specialty Service Requested 06/09/2018 06/09/2019 1 1 Reason for Visit * Diagnostic Test (Routine) - Closed Specialty Diagnoses / Procedures Referred By Contac t Referred To Contact Cardiology Diagnoses Acute CVA (cerebrovascular accident) Arterial ischemic stroke, MCA, left, acute PFO (patent foramen ovale) Episode of transient neurologic symptoms Procedures Echocardiogram Transthoracic(Leb) [facility] [address] [place] [phone] [facility] [place] [address] Referral ID Status Reason Start Date Expiration Date V isits Requested Visits Authorized [id number] Closed Specialty Service Requested 06/09/2018 06/09/2019 1 1 Encounter Details Date Type Department Care Team (Latest Contact Info) Description 06/19/2018 10:13 AM EDT - 06/19/2018 11:59 PM EDT Hospital Encounter Non-Invasive Cardiology Lab [facility] [place] [phone] Mary Malone MD [facility] [place] [address] Acute CVA (cerebrovascular accident); Arterial ischemic stroke, MCA, left, acute; PFO (patent foramen ovale); Episode of transient neurologic symptoms Discharge Disposition: Home Social History Tobacco Use [...] Sig Dispensed Refills Start Date End Date lisinopril (PRINIVIL;ZESTRIL) 40 mg Tablet Take 40 mg by mouth daily. buPROPion (WELLBUTRIN XL) 150 mg Tablet Extended [...] Take 40 mg by mouth every morning. propranolol (INDERAL) 20 mg Tablet Take 1 tablet by mouth 2 times daily. 12/16/2017 02/01/2019 LORazepam (ATIVAN) 1 mg Tablet Take 1 mg by mouth every 6 hours as needed for Anxiety. 02/01/2019 documented as of this encounter Plan of Treatment Not on file documented as of this encounter Procedures Procedure Name Priority Date/Time Associated Diagnosis Comments ECHO LMTD W/O CONTRAST W LMTD SPEC DOPP COLOR DOPP Routine 06/19/2018 11:31 AM EDT Acute CVA (cerebrovascular accident) Arterial ischemic stroke, MCA, left, acute PFO (patent foramen ovale) Episode of transient neurologic symptoms documented in this encounter Results * ECHO LMTD W/O CONTRAST W LMTD SPEC DOPP COLOR DOPP (06/19/2018 11:31 AM EDT) EF 60 HEARTAupix SYSTEM Anatomical Region Laterality Modality Other 06/19/2018 Narrative 06/19/2018 11:59 AM EDT Procedure: ?Transthoracic Echocardiogram Patient: ?VIN Jimenez ?(Age): 1970(47y) Med Rec#: ? [id number] ?Sex: ?F ? Site Loc: ? [facility] ?Ht / Wt: ??157(cm)/109(kg) Pt. Loc: ?Echo Lab ?BSA: ?2.06 Study Date: ?? 06/19/2018 ?Pt. Type: Outpatient Tape: ? Referring: DEAN Reading: Dereje Santos ([id number]) Picker / Packer: Blessing Kendrick Diagnosis: *Cerebral infarction, unspecified (I63.9) *Cerebral infarction due to unspecified occlusion or stenosis of left middle cerebral artery (I63.512) *Atrial septal defect (Q21.1) *Unspecified symptoms and signs involving the nervous system (R29.90) BP: ? 144/90 SUMMARY: 1. The left ventricular chamber size is normal. ??Basal septal hypertrophy is observed. ??There is normal global left ventricular systolic function. ??Ejection fraction is estimated to be 60%. ??There are no left ventricular segmental wall motion abnormalities. 2. The right ventricle is normal in size. ??Right ventricular global systolic function is normal. 3. ASD closure device is visualized and is well seated. ?? Color Doppler does not demonstrate a residual inter-atrial shunt. Findings ? : Study Quality: ? Adequate Left Ventricle: ? The left ventricular chamber size is normal. ?Basal septal hypertrophy is observed. ?There is normal global left ventricular systolic function. ??Ejection fraction is estimated to be 60%. ?There are no left ventricular segmental wall motion abnormalities. ?Left ventricular diastolic function is normal. ?The left ventricular diastolic filling pattern is consistent with impaired LV relaxation. Left Atrium: ? The left atrium is normal in size. ?ASD closure device is visualized and is well seated. ?Color Doppler does not demonstrate a residual inter-atrial shunt. Right Ventricle: ? The right ventricle is normal in size. ?Right ventricular global systolic function is normal. ?The estimated pulmonary artery systolic pressure is 23 mmHg.plus RAP Right Atrium: ? The right atrium is normal in size. Aortic Valve: ? The aortic valve is tricuspid. ?Systolic excursion of the aortic valve is normal. ?There is no evidence of aortic valve stenosis. ?There is a trace of aortic regurgitation present. Mitral Valve: ? The mitral valve leaflets appear normal. ?There is mild (1+/4+) mitral regurgitation present. ?The PISA radius is 0.49 cm. ?The PISA aliasing scale is 31 cm/sec. ?The effective regurgitant orifice area is 0.08. Tricuspid Valve: ? The tricuspid valve leaflets are morphologically normal. ?There is mild (1+/4+) tricuspid regurgitation present. Pericardium: ? There is no pericardial effusion. Venous: ? The flow pattern of the pulmonary veins appear normal. Misc: ? Two-dimensional echo, limited spectral Doppler and color Doppler performed. Chambers 2D ?Value ?Units (Range) ? IVSd (2D) ? 1.1 ?cm ? LVPWd (2D) ?0.7 ?cm ? IVS:LVPW ratio (2D) 1.5 ?ratio ? RWT (2D) ?0.4 ?ratio ? RWT PW (2D) ? 0.5 ?ratio ? LVIDd (2D) ?4.6 ?cm ? LVIDs (2D) ?3.1 ?cm ? LVIDd (2D) index ?2.2 ?cm/m2 ? LVIDs (2D) index ?1.5 ?cm/m2 ? LV FS (2D) ?33 ? % ? EF Teichholz (2D) ?? 61 ? % ? Volumes/Mass ?Value ?Units (Range) ? LA Area 4 CH ?19 ? cm2 (<21) ? LA ESV BP (A/L) inde24.4 ? ml/m2 ? RA AREA 4CH ? 15 ? cm2 ? LV mass (2D) ?162.1 ?g ? LV mass (2D) index ??78.7 ? g/m2 ? Diastolic/Systolic Function ?Value ?Units (Range) ? MV E-wave Vmax ?0.7 ?m/sec ? MV deceleration [id number] ?msec ? MV A-wave Vmax ?0.9 ?m/sec ? MV E:A ratio ?0.8 ?ratio ? P. vein S-wave Vmax 0.7 ?m/sec ? P. vein D-wave Vmax 0.6 ?m/sec ? P. vein S:D Vmax rat1.2 ?ratio ? P. vein A-wave [id number] ?msec ? LV septal e' Vmax ?? 0.1 ?m/sec ? LV lateral e' Vmax ??0.1 ?m/sec ? LV average e' Vmax ??0.1 ?m/sec ? LV E:e' septal ratio12.3 ? ratio ? LV E:e' lateral rati8.2 ?ratio ? LV average E:e' rati9.2 ?ratio ? Mitral Valve ?Value ?Units (Range) ? MR volume (PISA) ?17.3 ? ml ? MR flow (PISA) ?46 ? ml/sec ? MR ERO ?0.1 ?cm2 ? MR PISA radius ?0.5 ?cm ? MR alias Vmax ? 31 ? cm/sec ? Tricuspid Valve ?Value ?Units (Range) ? TR Vmax ? 2.4 ?m/sec ? TR peak gradient ?23 ? mmHg ? RVSP ?23 ? mmHg ? Wall Motion: Segment Name ?Rest ? Base-Anteroseptal ?? Normal ? Base-Anterior ? Normal ? Base-Anterolateral ??Normal ? Base-Posterolateral Normal ? Base-Inferior ? Normal ? Base-Inferoseptal ?? Normal ? Mid-Anteroseptal ?Normal ? Mid-Anterior ?Normal ? Mid-Anterolateral ?? Normal ? Mid-Posterolateral ??Normal ? Mid-Inferior ?Normal ? Mid-Inferoseptal ?Normal ? [place]-Septal ? Normal ? [place]-Anterior ? Normal ? [place]-Lateral ?Normal ? [place]-Inferior ? Normal ? [place]-Tip ?Normal ? This report has been electronically signed by: Dereje Santos M.D. ? 06/19/2018 11:59:00 Images reviewed and interpretation verified [facility] Procedure Note Dereje Santos MD - 06/19/2018 Procedure: Transthoracic Echocardiogram Patient: VIN Jimenez (Age): 1970(47y) Med Rec#: [id number] Sex: F Site Loc: [facility] Ht / Wt: 157(cm)/109(kg) Pt. Loc: Echo Lab BSA: 2.06 Study Date: 06/19/2018 Pt. Type: Outpatient Tape: Referring: DEAN Reading: Dereje Santos ([id number]) Picker / Packer: Blessing Kendrick Diagnosis: *Cerebral infarction, unspecified (I63.9) *Cerebral infarction due to unspecified occlusion or stenosis of left middle cerebral artery (I63.512) *Atrial septal defect (Q21.1) *Unspecified symptoms and signs involving the nervous system (R29.90) BP: 144/90 SUMMARY: 1. The left ventricular chamber size is [...] does not demonstrate a residual inter-atrial shunt. Findings : Study Quality: Adequate Left Ventricle: The left ventricular chamber size is normal. Basal septal hypertrophy is observed. There is normal global left ventricular systolic function. Ejection fraction is estimated to be 60%. There are no left ventricular segmental wall motion abnormalities. Left ventricular diastolic function is normal. The left ventricular diastolic filling pattern is consistent with impaired LV relaxation. Left Atrium: The left atrium is normal in size. ASD closure device is visualized and is well seated. Color Doppler does not demonstrate a residual inter-atrial shunt. Right Ventricle: The right ventricle is normal in size. Right ventricular global systolic function is normal. The estimated pulmonary artery systolic pressure is 23 mmHg.plus RAP Right Atrium: The right atrium is normal in size. Aortic Valve: The aortic valve is tricuspid. Systolic excursion of the aortic valve is normal. There is no evidence of aortic valve stenosis. There is a trace of aortic regurgitation present. Mitral Valve: The mitral valve leaflets appear normal. There is mild (1+/4+) mitral regurgitation present. The PISA radius is 0.49 cm. The PISA aliasing scale is 31 cm/sec. The effective regurgitant orifice area is 0.08. Tricuspid Valve: The tricuspid valve leaflets are morphologically normal. There is mild (1+/4+) tricuspid regurgitation present. Pericardium: There is no pericardial effusion. Venous: The flow pattern of the pulmonary veins appear normal. Misc: Two-dimensional echo, limited spectral Doppler and color Doppler performed. Chambers 2D Value Units (Range) IVSd (2D) 1.1 cm LVPWd (2D) 0.7 cm IVS:LVPW ratio (2D) 1.5 ratio RWT (2D) 0.4 ratio RWT PW (2D) 0.5 ratio LVIDd (2D) 4.6 cm LVIDs (2D) 3.1 cm LVIDd (2D) index 2.2 cm/m2 LVIDs (2D) index 1.5 cm/m2 LV FS (2D) 33 % EF Teichholz (2D) 61 % Volumes/Mass Value Units (Range) LA Area 4 CH 19 cm2 (<21) LA ESV BP (A/L) inde24.4 ml/m2 RA AREA 4CH 15 cm2 LV mass (2D) 162.1 g LV mass (2D) index 78.7 g/m2 Diastolic/Systolic Function Value Units (Range) MV E-wave Vmax 0.7 m/sec MV deceleration [id number] msec MV A-wave Vmax 0.9 m/sec MV E:A ratio 0.8 ratio P. vein S-wave Vmax 0.7 m/sec P. vein D-wave Vmax 0.6 m/sec P. vein S:D Vmax rat1.2 ratio P. vein A-wave [id number] msec LV septal e' Vmax 0.1 m/sec LV lateral e' Vmax 0.1 m/sec LV average e' Vmax 0.1 m/sec LV E:e' septal ratio12.3 ratio LV E:e' lateral rati8.2 ratio LV average E:e' rati9.2 ratio Mitral Valve Value Units (Range) MR volume (PISA) 17.3 ml MR flow (PISA) 46 ml/sec MR ERO 0.1 cm2 MR PISA radius 0.5 cm MR alias Vmax 31 cm/sec Tricuspid Valve Value Units (Range) TR Vmax 2.4 m/sec TR peak gradient 23 mmHg RVSP 23 mmHg Wall Motion: Segment Name Rest Base-Anteroseptal Normal Base-Anterior Normal Base-Anterolateral Normal Base-Posterolateral Normal Base-Inferior Normal Base-Inferoseptal Normal Mid-Anteroseptal Normal Mid-Anterior Normal Mid-Anterolateral Normal Mid-Posterolateral Normal Mid-Inferior Normal Mid-Inferoseptal Normal [place]-Septal Normal [place]-Anterior Normal [place]-Lateral Normal [place]-Inferior Normal [place]-Tip Normal This report has been electronically signed by: Dereje Santos M.D. 06/19/2018 11:59:00 Images reviewed and interpretation verified [facility] Mary Malone MD ECHO ORDERABLES documented in this encounter Visit Diagnoses Diagnosis Acute CVA (cerebrovascular accident) Arterial ischemic stroke, MCA, left, acute Unspecified cerebral artery occlusion with cerebral infarction PFO (patent foramen ovale) Ostium secundum type atrial septal defect Episode of transient neurologic symptoms Other symptoms involving nervous and musculoskeletal systems documented in this encounter Care Teams Consulting It Architect Relationship Specialty Start Date End Date Jimena Jones MD PCP - General Family Medicine 01/08/18 documented as of this encounter
--- OUTSIDE RECORDS SUMMARY | 2023-09-18 18:26 | XMS_ITS | Encounter Summary ---
Author Organization [facility] [place] [address] Care Team Providers Care Carrier Driver Name Role Phone Jimena Jones MD Primary Care Provider [phone] Encounter Details Date Type Department Care Team (Late st Contact Info) Description 06/19/2018 10:00 AM EDT Office Visit Cardiology at [address] [place] [address] Mary Malone MD [facility] [place] [address] PFO (patent foramen ovale); Acute CVA (cerebrovascular accident); Arterial ischemic stroke, MCA, left, acute; Episode of transient neurologic symptoms Social History Tobacco Use Types Packs/Day Years [...] Sign Reading Time Taken Comments Blood Pressure 146/103 06/19/2018 10:00 AM EDT Pulse 75 06/19/2018 10:00 AM EDT Temperature - - Respiratory Rate - - Oxygen Saturation 100% 06/19/2018 10:00 AM EDT Inhaled Oxygen Concentration - - Weight 109.8 kg (242 lb) 06/19/2018 10:00 AM EDT Height 157.5 cm (5' 2) 06/19/2018 10:00 AM EDT Body Mass Index 44.26 06/19/2018 10:00 AM EDT documented in this encounter Progress Notes * Mary Malone MD - 06/19/2018 10:00 AM EDT Images from the original note were not included. Reason for Visit: S/P PFO Closure Primary provider: Jimena Jones MD [address] [place] [phone] ?? 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 female who presents for F/U after recent PFO closure. She has done well and denies any complaints. Does not report any palpitations or other symptoms. She remains on DAPT without issue. She did not get scheduled for an echo prior to my visit with her today. ALLERGIES: Allergies Allergen Reactions ??? Morphine Anaphylaxis Breathing difficulty ??? Codeine Nausea And Vomiting and Other (See Comments) stomach pain ?? MEDICATIONS: ?? Current Outpatient Medications: ??? clopidogrel (PLAVIX) 75 mg Tablet, Take 1 tablet by mouth daily., Disp: 90 tablet, Rfl: 3 ??? lisinopril (PRINIVIL;ZESTRIL) 40 mg Tablet, Take 40 mg by mouth daily., Disp: , Rfl: ??? buPROPion (WELLBUTRIN XL) 150 mg Tablet Extended Release 24 hr, Take 150 mg by mouth every morning., Disp: , Rfl: ??? propranolol (INDERAL) 20 mg Tablet, Take 1 tablet by mouth 2 times daily., Disp: , Rfl: ??? aspirin 81 mg Tablet, Chewable, Take 81 mg by mouth daily., Disp: 30 tablet, Rfl: 3 ??? atorvastatin (LIPITOR) 40 mg Tablet, Take 1 tablet by mouth every evening., Disp: 90 tablet, Rfl: 3 ??? LORazepam (ATIVAN) 1 mg Tablet, Take 1 mg by mouth every 6 hours as needed for Anxiety., Disp: , Rfl: ??? omeprazole (PRILOSEC) 40 mg Capsule, Delayed Release(E.C.), Take 40 mg by mouth daily. , Disp: , Rfl: ??? PARoxetine (PAXIL) 20 mg Tablet, Take 40 mg by mouth every morning., Disp: , Rfl: ?? ROS: CONSTITUTIONAL: No weight loss, fever, chills, weakness or fatigue. ?? HEENT: Eyes: No visual loss, blurred vision, double vision or scleral iscterus. No sinus tendernessor palpable thyromegaly. SKIN: No rashes. ?? CARDIOVASCULAR: No chest pain, chest pressure or chest discomfort. No palpitations No edema. No orthopnea or PND. No syncope RESPIRATORY: No shortness of breath, cough or sputum. No hemoptysis GASTROINTESTINAL: No anorexia, nausea, vomiting or diarrhea. No abdominal pain. No BRBPR or melena ?? GENITOURINARY: No hematuria or dysuria NEUROLOGICAL: No headache, dizziness, syncope, paralysis, ataxia, numbness or tingling in the extremities. No change in bowel or bladder control. ?? MUSCULOSKELETAL: No muscle, back pain, joint pain or stiffness. ?? HEMATOLOGIC: No anemia, bleeding or bruising. ?? LYMPHATICS: No enlarged nodes. No history of splenectomy. ?? PSYCHIATRIC: No history of depression or anxiety. ?? ENDOCRINOLOGIC: No reports of sweating, cold or heat intolerance. No polyuria or polydipsia. ?? ALLERGIES: No history of asthma, hives, eczema or rhinitis. . PHYSICAL EXAM: Vitals Office Visit from 06/19/2018 in Cardiology at [place] Weight 109.8 kg (242 lb) Height 157.5 cm (5' 2) BSA (Calculated - sq m) 2.19 sq meters BMI (Calculated) 44.26 Heart Rate 75 BP 146/103 (Abnormal) SpO2 100 % Full exam deferred ?? DIAGNOSTIC TESTS: 1: Echo (05/06/18) Rhythm: Sinus BP: 131/84 ?? SUMMARY: ?? 1. Limited study post PFO closure. 2. The PFO closure device appears well seated on the intra-atrial septum. It does not obstruct atrial inflow or outflow. There is no pericardial effusion. 3. The left ventricular chamber size is normal. Basal septal hypertrophy is observed. There is no evidence of LVOT obstruction. There are no left ventricular segmental wall motion abnormalities. There is normal global left ventricular systolic function. Ejection fraction is estimated to be 65%. 4. The right ventricle is normal in size. Right ventricular global systolic function is normal. 5. See remainder of report for additional findings. 2: ECG (today); Sinus rhythm with NL axis; NL intervals. No ST changes 3: Echo (today): BP: ? 144/90 SUMMARY: 1. The left [...] does not demonstrate a residual inter-atrial shunt. A/P: Lars Jimenez is a 47 y.o. female who presents for F/U after recent PFO closure for cryptogenicstroke ??1; PFO Closure: Doing well. I was able to get her an echo later today. We will continue with DAPTtill August 2018 and then she should remain on low dose ASA. No other testing at this time. I will bein touch with her if there is any concerning finding on echo. ?? Recommendations: 1: Echo today 2: F/U in Nov 2018 Mary Malone MD [facility] Interventional Cardiology Pager [phone] documented in this encounter Plan of Treatment Not on file documented as of this encounter Procedures Procedure Name Priority Date/Time Associated Diagnosis Comments EKG 12-LEAD Routine 06/19/2018 10:18 AM EDT PFO (patent foramen ovale) documented in this encounter Results * EKG 12 Lead (06/19/2018 10:18 AM EDT) Ventricular rate 63 BPM MUSE SYSTEM Atrial Rate 63 BPM MUSE SYSTEM P-R Interval 160 ms MUSE SYSTEM QRS Duration 84 ms MUSE SYSTEM Q-T Interval 414 ms MUSE SYSTEM QTC Calculated (Bezet) 423 ms MUSE SYSTEM Calculated P [place] 28 degrees MUSE SYSTEM Calculated R [place] 12 degrees MUSE SYSTEM Calculated T [place] 26 degrees MUSE SYSTEM INTERPRETATION Normal sinus rhythm Cannot rule out Anterior infarct , age undetermined Abnormal ECG When compared with ECG of 05-MAY-2018 13:28, No significant change was found Confirmed by MD Rosemarie, Halie ([id number]) on 06/19/2018 4:24:38 PM MUSE SYSTEM 06/19/2018 10:1 8 AM EDT 06/19/2018 4:24 PM EDT Mary Malone MD ECG ORDERABLES MUSE SYSTEM documented in this encounter Visit Diagnoses Diagnosis PFO (patent foramen ovale) Ostium secundum type atrial septal defect Acute CVA (cerebrovascular accident) Arterial ischemic stroke, MCA, left, acute Unspecified cerebral artery occlusion with cerebral infarction Episode of transient neurologic symptoms Other symptoms involving nervous and musculoskeletal systems documented in this encounter Care Teams Carrier Driver Relationship Specialty Start Date End Date Jimena Jones MD PCP - General Family Medicine 01/08/18 documented as of this encounter
--- OUTSIDE RECORDS SUMMARY | 2023-09-18 18:26 | XMS_ITS | Encounter Summary ---
Author Organization [place] [address] Care Team Providers Care Near Eastern Archaeology Lecturer Name Role Phone Jimena Jones MD Primary Care Provider [phone] Reason for Visit * Consultation (Routine) - Specialty Diagnoses / Procedures Referred By Contac t Referred To Contact Cardiology Diagnoses Cryptogenic stroke PFO (patent foramen ovale) Emre Arreguin MD [facility] [place] [address] [facility] Cardiology [address] [place] [phone] Referral ID Status Reason Start Date Expiration Date V isits Requested Visits Authorized [id number] Consult, Test & Treat 02/18/2018 02/18/2019 1 1 Encounter Details Date Type Department Care Team (Late st Contact Info) Description 03/10/2018 3:40 PM EST Office Visit Cardiology at [address] [phone] Mary Malone MD [facility] [place] [address] Arterial ischemic stroke, MCA, left, acute; Acute CVA (cerebrovascular accident); Episode of transient neurologic symptoms; PFO (patent [...] Sign Reading Time Taken Comments Blood Pressure 135/84 03/10/2018 3:22 PM EST Pulse 94 03/10/2018 3:22 PM EST Temperature - - Respiratory Rate - - Oxygen Saturation 99% 03/10/2018 3:22 PM EST Inhaled Oxygen Concentration - - Weight 109.3 kg (241 lb) 03/10/2018 3:22 PM EST Height 157.5 cm (5' 2) 03/10/2018 3:22 PM EST Body Mass Index 44.08 03/10/2018 3:22 PM EST documented in this encounter Progress Notes * Mary Malone MD - 03/10/2018 3:40 PM EST Images from the original note were not included. Reason for Consultation: Cryptogenic stroke and PFO Referring Provider: Emre Arreguin MD [facility] [place] [address] ?? HPI: Lars Jimenez is a 47 y.o. female who presents for consultation after recent stroke and the finding of patent foramen ovale on transesophageal echocardiogram. Lars is a 47-year-old female who wasadmitted to the hospital and December with acute onset of strokelike symptoms including a aphasia and right upper upper extremity weakness. She was not a candidate for systemic lytics however did undergo successful thrombectomy. She was discharged from the hospital in 72 hours. She later presented to an outside hospital with elevated blood pressures and repeat CT scan did demonstrate hemorrhagic conversion with 2 mm midline shift. She was monitored closely and discharged. Since her discharge she reports that she has made excellent progress. She continues to have some limitation with word finding and aphasia however overall is much improved. She is back to driving and back to work. A 2D echo was done during her initial hospitalization which did not comment on the presence of a patent foramen ovale however a CRIS done in January does show evidence of flow across thePFO on color Doppler. Of note the bubble study was nondiagnostic. Given the absence of other risk factors to explain her presentation with stroke, she is being referred for consideration for PFO closure for cryptogenic stroke. Her main CVD risk factors include HTN and morbid obesity. She is not known to be a diabetic or havehigh cholesterol. She does report that her dad has had multiple strokes starting in his 50s. He does have multiple cardiac comorbidities ?? 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 IR NEURO MECHANICAL THROMBECTOMY 01/08/2018 IR Neuro Mechanical Thrombectomy 01/08/2018 Ritchie Strauss MD [facility] INTERVENT[facility] RAD ? ? PRG CRIS REAL TIME IMG 2D W PRB IMG ACQUIS I&R N/A 02/16/2018 TRANSESOPHAGEAL ECHOCARDIOGRAM (WRVU 2.55) performed by Familia Correa MD at [facility] MAIN OR ??? PRO THROMBOLYSIS VENOUS INFUSION W IMAGING INITIAL TX N/A 01/08/2018 IR VENOUS INFUSION FOR THROMBOLYSIS,VENA CAVA (WRVU 7.06) performed by Ritchie Strauss MD at 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 She is well supported at home. Deniesalcohol or tobacco. Family History: Dad has had multiple strokes starting in his 50s ALLERGIES: Allergies Allergen Reactions ??? Morphine Anaphylaxis Breathing difficulty ??? Codeine Nausea And Vomiting And stomach pain ?? MEDICATIONS: ?? Current Outpatient Medications: ??? lisinopril (PRINIVIL;ZESTRIL) 20 mg Tablet, Take 20 mg by mouth daily., Disp: , Rfl: ??? buPROPion (WELLBUTRIN XL) 150 mg Tablet Extended Release 24 hr, Take 150 mg by mouth every morning., Disp: , Rfl: ??? tolterodine (DETROL LA) 4 mg Capsule, Sust. Release 24 hr, Take 4 mg by mouth daily., Disp: , Rfl: ??? propranolol (INDERAL) 20 [...] ??? PARoxetine (PAXIL) 20 mg Tablet, Take 20 mg by mouth every morning., Disp: , [...] breath, cough or sputum. No hemoptysis GASTROINTESTINAL: ++ anorexia, no nausea, vomiting or diarrhea. No abdominal pain. No BRBPR or melena ?? GENITOURINARY: No hematuria or dysuria NEUROLOGICAL: No headache, dizziness, syncope, paralysis, ataxia, numbness or tingling in the extremities. No change in bowel or bladder control. ??++aphasia; MUSCULOSKELETAL: No muscle, back pain, joint pain [...] . PHYSICAL EXAM: Vitals Office Visit from 03/10/2018 in Cardiology at [place] Weight 109.3 kg (241 lb) Height 157.5 cm (5' 2) BSA (Calculated - sq m) 2.19 sq meters BMI (Calculated) 44.07 Heart Rate 94 BP 135/84 SpO2 99 % Constitutional: In general, alert and oriented X 3 Eyes: No scleral icterus or pale conjunctiva; no corneal arcus Ears, Nose, mouth, throat: No sinus tenderness; moist oral mucosa; no epistaxis; no visible thyromegaly Respiratory: Clear to auscultation bilaterally with good air entry bilaterally GI: No abdominal pain; + bowel sounds; no rigidity or guarding Cardiovascular: The heart rate is regular. S1 and S2 are normal and unobscured. There are no audible murmurs. Carotid upstroke is normal with no audible carotid bruits MSK: No joint deformity; No evidence of tendon xanthomas Skin: No visible rashes or bruises Neuro: Non-focal. Moves all extremities without limitation. CN nerves not examined. Psych: Mood appropriate Extremity: RLE:No LE edema LLE: No LE edema RUE: 2+ radial pulse LUE: 2+ radial pulse ?? DIAGNOSTIC TESTS: ?? 1: CRIS (02/03): SUMMARY: ?? 1. Technically limited study due to difficult [...] the body of report for additional details. 2: 2D echo (01/04): BP: 145/90 ?? SUMMARY: ?? 1. The left ventricular chamber size is normal. Left ventricular wall thickness is normal. There is normal global left ventricular systolic function. The quantitative left ventricular ejection fraction by biplane Olson's method is 62%. 2. The right ventricle is normal in size. Right ventricular global systolic function is normal. 3. There is no evidence of a patent foramen ovale with agitated saline contrast. ?? 3: Ziopatch (02/03): Conclusion: ?? This monitor study was remarkable for sinus rhythm. One run of nonsustained supraventricular tachycardia (without atrial flutter/fibrillation) and a low overall burden of ectopy were detected A/P: Lars Jimenez is a 47 y.o. female who presents for discussion regarding merits of PFO closure in the setting of recent cryptogenic stroke. 1: Cryptogenic stroke and PFO. I had a detailed discussion with Lars and her family in clinic today. She was there with her daughter, her and her granddaughter. She has made a remarkable recovery. She recently met with Dr. Wetzel who proceeded with performing a transesophageal echo to look for a PFO. I reviewed the transesophageal echo and though there is no obvious evidence on agitatedsaline injection, there is evidence of some bidirectional flow on color Doppler. Given her presentation and no other explanation for her stroke I think will be reasonable to consider her for PFO closure to lower her risk of recurrent stroke. Her RoPE score is high making her risk of recurrence high. I discussed the PFO closure procedure in detail with her. I would like to schedule this with one my partners and be available as needed. She will research our discussion and get back to me with respect to how she would like to proceed. In the meanwhile she should remain on a low-dose aspirin. Her blood pressure today looks optimized. She is on propranolol which she has been on for reported histor y of SVT. I will not make any changes today. ?? Recommendations: 1: PFO closure if patient agreeable Mary Malone MD [facility] Interventional Cardiology Pager [phone] documented in this encounter Plan of Treatment Not on file documented as of this encounter Visit Diagnoses Diagnosis Arterial ischemic stroke, MCA, left, acute Unspecified cerebral artery occlusion with cerebral infarction Acute CVA (cerebrovascular accident) Episode of transient neurologic symptoms Other symptoms involving nervous and musculoskeletal systems PFO (patent foramen ovale) Ostium secundum type atrial septal defect documented in this encounter Care Teams Near Eastern Archaeology Lecturer Relationship Specialty Start Date End Date Jimena Jones MD PCP - General Family Medicine 01/08/18 documented as of this encounter
--- OUTSIDE RECORDS SUMMARY | 2023-09-18 18:26 | XMS_ITS | Encounter Summary ---
Author Organization [facility] [place] [address] Care Team Providers Care Location Manager Name Role Phone Jimena Jones MD Primary Care Provider [phone] Encounter Details Date Type Department Care Team (Late st Contact Info) Description 03/11/2018 Orders Only Cardiology at [address] [place] [id number] Mary Malone MD [facility] [place] [address] PFO (patent foramen ovale); Cryptogenic stroke Social History Tobacco Use Types [...] Procedure Name Priority Date/Time Associated Diagnosis Comments CARDIAC CATHETERIZATION Routine 05/06/19 19 12:40 PM EDT PFO (patent foramen ovale) Cryptogenic stroke documented in this encounter Results * CARDIAC CATHETERIZATION (05/05/2018 12:40 PM EDT) Anatomical Region Laterality Modality Other Narrative 05/06/2018 5:24 PM EDT ?[facility] ? Cardiac Catheterization/Intervention Report ? Patient Name: VIN, LARS Jimenez. ? Procedure Date: 05/05/2018 ? A #: [id number] ? Primary Physician: Manuel Jules ? Case #: [id number] ? File Name: [id number] ? Catheterization Order Number: [id number] ? [facility] [employer] ? Final Report [place], [place] ? Patient Name: ? LARS Dickson AUDET ?ID#: ?[id number] ? : ?1970 ? Procedure Date: ? May 05, 2018 ? Case #: ? [id number] ? Room: ? 6 ? Case Physicians: ?Manuel Jules M.D. ?Start: ?11:33 ?Mary Malone M.D. ? Admission: ??05/05/2018 ? Referring Physician: ??Jimena Jones M.D. ? Procedures: ?* Left Heart Catheterization ?* Intracardiac Echocardiography ?* Patent Foramen Ovale Closure ? History ?LARS JIMENEZ is a 47 year old woman. The patient's smoking status is ?Current with Current - Every Day frequency, using cigarettes. Cigarette ?use is Light (<10/day). The patient has a recent cerebral vascular ?accident. She also has a history of a congenital PFO. Prior to the ?initiation of this procedure, the patient was designated as ASA Class ?III. The [facility] clinical frailty scale is 3: Managing Well. ? Diagnostic Tests: ?Prior Coronary Angiography: ? LV ejection fraction within 6 months is 62%. ?Electrocardiography: ? EKG was assessed by EKG. EKG was Normal. ?Medications Prior to Procedure: ? ASA, Beta Peter and Statin. ? Indications for Diagnostic Cath: ?The priority of the diagnostic procedure was Urgent. The indication for ?the radiographer cardiac catheterization visit is other indication. Chest pain symptom assessment ?was: Asymptomatic. ? Technique: ?An 11Fr sheath was inserted in the right femoral vein utilizing the ?Seldinger technique. An 8Fr sheath was inserted in the left femoral vein ?utilizing the Seldinger technique. Left atrial pressure was performed ?with a 5Fr MULTIPURPOSE A-2 catheter. 8,000 units of heparin were ?administered. Radiation: Fluoro time was 11.5 minutes, dose area product ?was 53,000 mGYcm2 and air kerma was 352 mGY. See the case log for ?additional details. ?The patient received the following medications prior to and during the ?procedure: ? Unfractionated Heparin. ? Hemodynamics: ?Left Heart Pressures ? Resting: ? Syst Diast ? EDP ?a ?v ? m ?LA ? 8 ?9 ? 5 ?Comments: ??NIBP 132/92 (105). ? Vascular Access: ?Vascular Access Management: ? Manual Compression of the left femoral vein access site was ? performed. ? Manual Compression of the right femoral vein access site was ? performed. ? Complications/Events: ?The patient had no complications during these procedures. ? Comments: ?Under Lidocaine 2% local anesthesia and ultrasound guidance, a 5F ?introducer was placed in the right femoral vein, subsequently upsized to ?an 11F short sheath. Under Lidocaine 2% local anesthesia and ultrasound ?guidance, a 5F introducer was placed in the left femoral vein. ?A 5F Multipurpose catheter was advanced into the IVC via the LFV over a ?guidewire. The guidewire was exchanged for an Amplatz extra stiff wire. ?The LFV sheath was upsized to a 8F long introducer over the Amplatz extra ?stiff wire. An 8F intracardiac echocardiography probe was advanced via ?the LFV sheath into the right atrium and images of the PFO were obtained. ?The PFO was crossed with a 5F multipurpose catheter via the RFV sheath. ?The multipurpose catheter was advanced into the left upper pulmonary vein ?over a J wire. Left atrial pressure was obtained. The multipurpose ?catheter was exchanged for a 0.035 inch Amplatz extra stiff wire of 260cm ?length. ?A 25mm Pratts Cardioform device was prepared and advanced via the RFV ?sheath over the Amplatz extra stiff guidewire into the left atrium and ?deployed across the PFO per protocol. ?Satisfactory position and seating of the 25mm Pratts Cardioform device was ?confirmed by intracardiac echo and fluoroscopy. Following the procedure, ?the ICE probe was removed, and the LFV 8F long sheath was exchanged for a ?short sheath. ??The venous sheaths were sutured in place for later removal ?with manual compression. ?Pratts Cardioform Septal Occluder 25 ?REF#[id number] ?SN#[id number]. ?The attending physician was present for the entire procedure. ?Dr. Manuel Jules M.D. was present during the moderate sedation ?intraservice time as documented by the sedation nurse. ??Case time = 00:57. ?Dr. Manuel Jules M.D. performed the left heart catheterization, ?closure-PFO and ICEcho. Dr. Mary Malone M.D. performed the left heart ?catheterization, closure-PFO and ICEcho. ? Manuel Jules M.D. ? Electronically Signed by: Manuel Jules M.D. ? Report Finalized: 05/06/2018 ??17:18 ? Report Last Ammended: 06/04/2018 ??16:42 ? Procedure Note Manuel Jules MD - 06/04/2018 [facility] Cardiac Catheterization/Intervention Report Patient Name: LARS JIMENEZAshu Procedure Date: 05/05/2018 A #: [id number] Primary Physician: Manuel Jules Case #: [id number] File Name: [id number] Catheterization Order Number: [id number] [facility] FinalReport [place], [place] Patient Name: LARS JIMENEZ ID#:[id number] :1970 Procedure Date: May 05, 2018 Case #: [id number] Room: 6 Case Physicians: Manuel Jules M.D. Start: 11:33 Mary Malone M.D. Admission:05/05/2018 Referring Physician: Jimena Jones M.D. Procedures: * Left Heart Catheterization * Intracardiac Echocardiography * Patent Foramen Ovale Closure History LARS JIMENEZ is a 47 year old woman. The patient's smoking statusis Current with Current - Every Day frequency, using cigarettes.Cigarette use is Light (<10/day). The patient has a recent cerebral vascular accident. She also has a history of a congenital PFO. Prior to the initiation of this procedure, the patient was designated as ASAClass III. The [facility] clinical frailty scale is 3: Managing Well. Diagnostic Tests: Prior Coronary Angiography: LV ejection fraction within 6 months is 62%. Electrocardiography: EKG was assessed by EKG. EKG was Normal. Medications Prior to Procedure: ASA, Beta Peter and Statin. Indications for Diagnostic Cath: The priority of the diagnostic procedure was Urgent. The indicationfor the radiographer cardiac catheterization visit is other indication. Chest pain symptomassessment was: Asymptomatic. Technique: An 11Fr sheath was inserted in the right femoral vein utilizing the Seldinger technique. An 8Fr sheath was inserted in the left femoralvein utilizing the Seldinger technique. Left atrial pressure wasperformed with a 5Fr MULTIPURPOSE A-2 catheter. 8,000 units of heparin were administered. Radiation: Fluoro time was 11.5 minutes, dose areaproduct was 53,000 mGYcm2 and air kerma was 352 mGY. See the case log for additional details. The patient received the following medications prior to and duringthe procedure: Unfractionated Heparin. Hemodynamics: Left Heart Pressures Resting: Syst Diast EDP a v m LA 8 9 5 Comments: NIBP 132/92 (105). Vascular Access: Vascular Access Management: Manual Compression of the left femoral vein access site was performed. Manual Compression of the right femoral vein access site was performed. Complications/Events: The patient had no complications during these procedures. Comments: Under Lidocaine 2% local anesthesia and ultrasound guidance, a 5F introducer was placed in the right femoral vein, subsequentlyupsized to an 11F short sheath. Under Lidocaine 2% local anesthesia andultrasound guidance, a 5F introducer was placed in the left femoral vein. A 5F Multipurpose catheter was advanced into the IVC via the LFVover a guidewire. The guidewire was exchanged for an Amplatz extra stiffwire. The LFV sheath was upsized to a 8F long introducer over the Amplatzextra stiff wire. An 8F intracardiac echocardiography probe was advancedvia the LFV sheath into the right atrium and images of the PFO wereobtained. The PFO was crossed with a 5F multipurpose catheter via the RFVsheath. The multipurpose catheter was advanced into the left upper pulmonaryvein over a J wire. Left atrial pressure was obtained. The multipurpose catheter was exchanged for a 0.035 inch Amplatz extra stiff wire py324ll length. A 25mm Pratts Cardioform device was prepared and advanced via the RFV sheath over the Amplatz extra stiff guidewire into the left atriumand deployed across the PFO per protocol. Satisfactory position and seating of the 25mm Pratts Cardioform devicewas confirmed by intracardiac echo and fluoroscopy. Following theprocedure, the ICE probe was removed, and the LFV 8F long sheath was exchangedfor a short sheath. The venous sheaths were sutured in place for laterremoval with manual compression. Pratts Cardioform Septal Occluder 25 REF#[id number] SN#[id number]. The attending physician was present for the entire procedure. Dr. Manuel Jules M.D. was present during the moderate sedation intraservice time as documented by the sedation nurse. Case time =00:57. Dr. Manuel Jules M.D. performed the left heart catheterization, closure-PFO and ICEcho. Dr. Mary Malone M.D. performed the left heart catheterization, closure-PFO and ICEcho. Manuel Jules M.D. Electronically Signed by: Manuel Jules M.D. Report Finalized: 05/06/2018 17:18 Report Last Ammended: 06/04/2018 16:42 Mary Malone MD CARDIAC CATH ORDERAB LES * Basic Metabolic Panel (non-fasting) (05/05/2018 9:46 AM EDT) Glucose Lvl 96 65 - 199 mg/dL [facility] Comment:Diabetes: >=200 mg/d L plus symptoms BUN 10 8 - 18 mg/dL [facility] Creatinine 0.71 0.70 - 1.20 mg/dL [facility] Sodium 142 135 - 145 mmol/L [facility] Potassium 4.6 3.5 - 5.0 mmol/L [facility] Comment: Please note: ??Patients with WBC >100,000 may have falsely elevated Potassium levels. ??For accurate Potassium quantification in these patients send serum separator tube (gold top) for subsequent determinations. ??Contact the Clinical Chemistry Laboratory if there are any questions. Chloride 105 98 - 107 mmol/L [facility] CO2 27 22 - 31 mmol/L [facility] Anion Gap 10 5 - 15 mmol/L [facility] Calcium 9.3 8.5 - 10.5 mg/dL [facility] Estimated GFR 101 >=60 mL/min/1. 73 m?? [facility] Comment: The eGFR was calculated using the CKD-EPI equation. As with all creatinine based estimates of kidney function, eGFR values calculated with the CKD-EPI equation are not accurate in patients with acute kidney failure, extremes of body mass or the acutely ill. [email or web address]/[facility] TULSAnkf eGFR 118 >=60 mL/min/1. 73 m?? [facility] Comment: The eGFR was calculated using the CKD-EPI equation. As with all creatinine based estimates of kidney function, eGFR values calculated with the CKD-EPI equation are not accurate in patients with acute kidney failure, extremes of body mass or the acutely ill. [email or web address]/[facility]nkf Blood specimen (specimen) 05/05/2018 9:46 AM EDT 05/05/2018 10:04 AM EDT Narrative Resulting Agency Comment Spec In Lab Mary Malone MD CHEMISTRY ORDERABLES [facility] [place] [phone] documented in this encounter Visit Diagnoses Diagnosis PFO (patent foramen ovale) Ostium secundum type atrial septal defect Cryptogenic stroke Unspecified cerebral artery occlusion with cerebral infarction PFO (patent foramen ovale) Ostium secundum type atrial septal defect Cryptogenic stroke Unspecified cerebral artery occlusion with cerebral infarction documented in this encounter Care Teams Location Manager Relationship Specialty Start Date End Date Jimena Jones MD PCP - General Family Medicine 01/08/18 documented as of this encounter
--- OUTSIDE RECORDS SUMMARY | 2023-09-18 18:26 | XMS_ITS | Encounter Summary ---
[place] [address] Care Team Providers Care Interpreter Translator Name Role Phone Jimena Jones MD Primary Care Provider [phone] Encounter Details Date Type Department Care Team (Late st Contact Info) Description 08/28/2018 Telephone [place] [phone] Carissa Alcantara MD [facility] [place] [address] Social History Tobacco Use Types Packs/Day Years Used Date Smoking Tobacco: Former Cigarettes Q uit: 01/08/2018 Smokeless Tobacco: Never Alcohol Use Standard Drinks/Week Comments No 0 (1 standard drink = 0.6 oz pur e alcohol) Sex and Gender Information Value Date Recorded Sex Assigned at Not on file Gender Identity Not on file Sexual Orientation Not on file documented as of this encounter Miscellaneous Notes * Telephone Encounter - Carissa Alcantara - 08/28/2018 7:27 PM EDT Patient calling. Reports that she had a stroke on January 08. She had a PFO closure a few monthsago and reports that she is no longer on anticoagulation after being advised by Dr. Malone to come off of it. She notes that R leg is swollen twice the size compared to the left and she is concerned she may have another blood clot. We do not have DVT duplex studies in our database from recent years to confirm she had a DVT, however I did agree this is of concern with the acute change. Advised that she seek evaluation in the nearest ED to assess for this possibility. 7:34 PM documented in this encounter Plan of Treatment Not on file documented as of this encounter Visit Diagnoses Not on filedocumented in this encounter Care Teams Interpreter Translator Relationship Specialty Start Date End Date Jimena Jones MD PCP - General Family Medicine 01/08/18 documented as of this encounter
--- OUTSIDE RECORDS SUMMARY | 2023-09-18 18:26 | XMS_ITS | Encounter Summary ---
[facility] Organization [facility] [address] Care Team Providers Care Banquet Chef Name Role Phone Jimena Jones MD Primary Care Provider [phone] Reason for Visit * Auth/Cert Specialty Diagnoses / Procedures Referred By Contac t Referred To Contact Diagnoses Arterial ischemic stroke, MCA, left, acute STROKE SYMPTOMS Procedures EMERGENCY IPI Referral ID Status Reason Start Date Expiration Date Visits Re quested Visits Authorized [id number] 1 1 Encounter Details Date Type Department Care Team (Latest Contact Info) Description 01/12/2018 5:10 PM EST - 01/12/2018 10:36 PM EST Hospital Encounter [place] [address] Emre Arreguin MD [facility] [place] [address] Discharge Disposition: Home Social History Tobacco Use Types Packs/Day Years Used Date Smoking Tobacco: Every Day Cigarettes Smokeless Tobacco: Never Alcohol Use Standard Drinks/Week Comments No 0 (1 standard drink = 0.6 oz pur e alcohol) Sex and Gender Information Value Date Recorded Sex Assigned at Not on file Gender Identity Not on file Sexual Orientation Not on file documented as of this encounter Medications at Time of Discharge Medication Sig Dispensed Refills Start Date End Date aspirin 81 mg Tablet, Chewable Take 81 mg by mouth daily. 30 tablet 3 01/12/2018 atorvastatin (LIPITOR) 40 mg Tablet Take 1 tablet by mouth every evening. 90 tablet 3 01/11/2018 omeprazole (PRILOSEC) 40 mg Capsule, Delayed Release(E.C.) Take 40 mg by mouth daily. PARoxetine (PAXIL) 20 mg Tablet Take 40 mg by mouth every morning. lisinopril (PRINIVIL;ZESTRIL) 40 mg Tablet Take 1 tablet by mouth daily. 11/16/2017 01/14/2018 propranolol (INDERAL) 20 mg Tablet Take 1 tablet by mouth 2 times daily. 12/16/2017 02/01/2019 nicotine (NICODERM CQ) 14 mg/[address] 1 patch onto the skin daily as needed (tobacco cravings). 28 patch 01/11/2018 01/16/2018 LORazepam (ATIVAN) 1 mg Tablet Take 1 mg by mouth every 6 hours as needed for Anxiety. 02/01/2019 fluconazole (DIFLUCAN) 200 mg Tablet Take 200 mg by mouth daily. 01/16/2018 documented as of this encounter Plan of Treatment Not on file documented as of this encounter Procedures Procedure Name Priority Date/Time Associated Diagnosis Comments FILM LIBRARY STORAGE ONLY CT HEAD Routine 01/12/2018 5:10 PM EST documented in this encounter Results * Film Library- Storage Only CT Head (01/12/2018 5:10 PM EST) Narrative [facility] - 01/12/2018 5:10 PM EST This exam is for storage only and is auto-finalizing. Emre Arreguin MD IMG FILM LIBRARY O RDERABLES Performing Organization Address City/State/[facility] Co de Phone Number [place], [place] documented in this encounter Visit Diagnoses Not on filedocumented in this encounter Care Teams Banquet Chef Relationship Specialty Start Date End Date Jimena Jones MD PCP - General Family Medicine 01/08/18 documented as of this encounter
--- OUTSIDE RECORDS SUMMARY | 2023-09-18 18:26 | XMS_ITS | Encounter Summary ---
Author Organization [facility]ly [facility] [place] [address] Care Team Providers Care Armament Installer Name Role Phone Jimena Jones MD Primary Care Provider [phone] Encounter Details Date Type Department Care Team (Late st Contact Info) Description 09/03/2018 Telephone Cardiology at [address] [phone] Mary Malone MD [facility] [place] [address] Social History Tobacco Use Types Packs/Day Years [...] encounter Miscellaneous Notes * Telephone Encounter - Mary Malone MD - 09/03/2018 2:14 PM EDT Images from the original note were not included. I spoke with Lars and it sounds like she had acute swelling of the RLE with pain and increase in size. She was seen in our ED and a bedside LE US was performed which did not show a DVT. She was discharged on Lovenox with plans for a definitive study as an outpatient. She reports that she did undergo a LE duplex and was told there was no evidence of a DVT. She has since stopped the lovenox and is back to being on plavix. Her leg has returned to normal. I do have concerns about a DVT and though the PFO is closed, she still remains at risk for an acute PE if not anticoagulated. I told her to keep an eye on her symptoms and if she has a recurrent episode. I will plan on seeing her in Nov. , Mary Malone MD [facility] Interventional Cardiology Pager [phone] * Telephone Encounter - Mary Malone MD - 09/03/2018 2:14 PM EDT Regarding: FW: Non-Urgent Medical Question Contact: ----- Message ----- From: Lars Jimenez Sent: 08/31/2018 2:47 PM To: Karen Cardiology Nurse Subject: Non-Urgent Medical Question ----- Message from Hollie Barlow D - sent at 08/31/2018 2:47 PM EDT ----- Hi Dr. Malone, I was seen in your ER August 29 for a swollen, painful right leg. They put me on lovenox shots. I was discussing my primary care doctor and she wanted me to let you know (and Dr. Carrasco) that I had a headache for almost 2 weeks and within a short time after my lovenox shot in ER my headache went away. I was instructed by my pcp to restart the plavix - which I stopped on August 06 per y our instruction. I just wanted to give you a heads up. Any concerns? My care was excellent in the ER. I love all of you. Lars Jimenez documented in this encounter Plan of Treatment Not on file documented as of this encounter Visit Diagnoses Not on filedocumented in this encounter Care Teams Armament Installer Relationship Specialty Start Date End Date Jimena Jones MD PCP - General Family Medicine 01/08/18 documented as of this encounter
--- OUTSIDE RECORDS SUMMARY | 2023-09-18 18:26 | XMS_ITS | Encounter Summary ---
[place] [address] Care Team Providers Care Icing And Glaze Maker Name Role Phone Jimena Jones MD Primary Care Provider [phone] Encounter Details Date Type Department Care Team (Late st Contact Info) Description 01/12/2018 Telephone [place] [phone] Shola Hernandez MD [facility] [place] [address] Social History Tobacco Use Types Packs/Day Years [...] encounter Miscellaneous Notes * Telephone Encounter - Shola Hernandez - 01/12/2018 5:16 PM EST Telephone Encounter Note - 01/12/2018 5:16 PM Caller: [facility]: [facility] 47 yo F PMH recent L MCA infarct at M2 s/p thrombectomy on 01/08/18. Has residual expressive aphasia and RUE weakness. VNA at home noted high blood pressure, 200s/100s. Upon arrival to [facility] ED, was 187/107 mmHg. RUE is better, per PT. As BP was down to 140 mmHg, she did have transient numbness and weakness of the RUE. Head CT did demonstrate hemorrhagic conversion of L MCA infarct, 2mm midline shift Advised: - Return to [facility] status for intensive BP management - SBP goal <160 mmHg, including en route via ambulance Shola Hernandez MD Neurology, PGY4 Personal Pager #[phone] 01/12/2018 documented in this encounter Plan of Treatment Not on file documented as of this encounter Visit Diagnoses Not on filedocumented in this encounter Care Teams Icing And Glaze Maker Relationship Specialty Start Date End Date Jimena Jones MD PCP - General Family Medicine 01/08/18 documented as of this encounter
--- OUTSIDE RECORDS SUMMARY | 2023-09-18 18:26 | XMS_ITS | Encounter Summary ---
[place] [address] Care Team Providers Care School Health Aide Name Role Phone Jimena Jones MD Primary Care Provider [phone] Reason for Visit * Reason Comments Leg Swelling right Encounter Details Date Type Department Care Team (Late st Contact Info) Description 08/29/2018 12:59 PM EDT - 08/29/2018 4:03 PM EDT [place] [address] Kaitlynn Ram MD [facility] [address] [place] [address] Leg swelling Discharge Disposition: Home Social History Tobacco Use [...] Sign Reading Time Taken Comments Blood Pressure 134/87 08/29/2018 3:45 PM EDT Pulse 61 08/29/2018 3:45 PM EDT Temperature 36.6 ??C (97.9 ??F) 08/29/2018 12:31 PM E DT Respiratory Rate 17 08/29/2018 3:45 PM EDT Oxygen Saturation 98% 08/29/2018 3:45 PM EDT Inhaled Oxygen Concentration - - Weight 110.2 kg (243 lb) 08/29/2018 3:03 PM EDT Height 157.5 cm (5' 2) 08/29/2018 3:07 PM EDT Body Mass Index 44.45 08/29/2018 3:03 PM EDT documented in this encounter Discharge Instructions * Discharge Instructions* Kaitlynn Ram MD - 08/29/2018 3:31 PM EDT You were seen at the [facility] Emergency Department for mild right leg swelling and pain concerning for possible deep vein thrombosis. We did not identify a blood clot in your leg, however given your history we will treat you for one until the comprehensive ultrasound is performed. Follow-up with your PCP to schedule a Duplex Ultrasound for Friday (08/31/18) for further ultrasound evaluation of your right leg. We will discharge you with Lovenox, a medication meant to help thin your blood and prevent clots. You have been given one dose today and educated on its use. Please use as instructed. Return to the ED if you: -Develop fevers, shakes, chills -Develop difficulty breathing, shortness of breath -Develop new weakness on either side of your face or body -Develop increasing pain, swelling, redness, or blue discoloration in your legs -Or if your condition worsens in any way documented in this encounter Medications at Time of Discharge Medication Sig Dispensed Refills Start Date End Date tolterodine (DETROL LA) 4 mg Capsule, Sust. Release 24 hr Take 4 mg by mouth daily. 08/11/2018 lisinopril (PRINIVIL;ZESTRIL) 40 mg Tablet Take 40 [...] Take 40 mg by mouth every morning. enoxaparin (LOVENOX) 100 mg/mL Syringe Inject 1.65 mLs subcutaneously daily for 3 days. 4.95 mL 08/29/2018 09/01/2018 propranolol (INDERAL) 20 mg Tablet Take 1 tablet by mouth 2 times daily. 12/16/2017 02/01/2019 LORazepam (ATIVAN) 1 mg Tablet Take 1 mg by mouth every 6 hours as needed for Anxiety. 02/01/2019 documented as of this encounter ED Notes * [facility] - 08/29/2018 2:18 PM EDT at bedside for U/S * Kaitlynn Ram MD - 08/29/2018 1:51 PM EDT Chief Complaint Patient presents with ??? Leg Swelling right HPI 47 yr female with PMH significant for left MCA CVA with hemorrhagic conversion in 12/2017, PFO closure 04/2018 stopped Plavix 08/06/2018, presents with RLE swelling x 2 days. Some pain, constant, not improved with elevation or ibuprofen. No color change. Saw PCP today at OSH and was referred herefor an ultrasound. No CP, SOB, F/C, change in bowel or bladder function. Is on baby ASA. No change in baseline RUE weakness. No trauma or travel or immobilization. Tolerated Lovenox in the past. Allergies Allergen Reactions ??? Morphine Anaphylaxis Breathing difficulty ??? Codeine Nausea And Vomiting and Other (See Comments) stomach pain Review of Systems Constitutional: Negative. Respiratory: Negative for chest tightness and shortness of breath. Cardiovascular: Negative for chest pain. Gastrointestinal: Negative. Negative for abdominal pain, nausea and vomiting. Genitourinary: Negative. Musculoskeletal: Right calf swelling and tenderness. Skin: Negative for color change and wound. Neurological: Negative. Psychiatric/Behavioral: Negative. All other systems reviewed and are negative. Physical Exam Constitutional: She is oriented to person, place, and time. She appears well- developed and well-nourished. Eyes: Pupils are equal, round, and reactive to light. EOM are normal. Neck: Normal range of motion. Cardiovascular: Normal rate and intact distal pulses. Pulmonary/Chest: Effort normal. Musculoskeletal: Normal range of motion. Mild tenderness of right calf no focal edema. Slightly larger circumference compared to left. No palpable cord. No color change. Neurological: She is alert and oriented to person, place, and time. Skin: Skin is warm and dry. Capillary refill takes less than 2 seconds. Psychiatric: She has a normal mood and affect. Her behavior is normal. Judgment and thought contentnormal. Nursing note and vitals reviewed. Procedures MDM ED Course: 47-year-old female with calf swelling and tenderness in the context of prior CVA and PFO. PFO has been closed. Patient does not entirely know why she had the stroke in the first place. She does not know if she is had a DVT in the past. Plan will be [id number] ultrasound and likely empiric management with Lovenox until definitive study can be obtained in 2 days time. She will obtain the study at her local hospital. She will call her primary care physician to schedule the study. I do not suspect PE. Bedside Ultrasound During ED Visit: Point of care emergency department limited ultrasound of the lower extremity: Indication: Lower extremity right. Procedure in Detail: Using the Transducers: Linear transducer, the right common femoral vein was examined at the level of the inguinal ligament and 10 centimeters distally. At 1 cm increments, the vein demonstrated Vein Collapse: Complete Collapse with compression. Next, the right popliteal vein was compressed at 1 cm increments along its length in the popliteal fossa and demonstrated Vein Collapse: Complete Collapse with compression. Other findings or limitations: None Conclusion: Point of care limited ultrasound without evidence of a deep vein thrombosis. This study was supervised by an ultrasound credentialed emergency physician. These images were archived digitally and I independently interpreted the images at the bedside and agree with the documented results. Kaitlynn Ram MD 08/29/18 1446 documented in this encounter Miscellaneous Notes * ED Procedure Note - Kaitlynn Ram MD - 08/29/2018 2:45 PM EDT Bedside Ultrasound During ED Visit: Point of care emergency department limited ultrasound of the lower extremity: Indication: Lower extremity Right. Procedure in Detail: Using the Transducers: Linear transducer, the right common femoral vein was examined at the level of the inguinal ligament and 10 centimeters distally. At 1 cm increments, the vein demonstrated Vein Collapse: Complete Collapse with compression. Next, the right popliteal vein was compressed at 1 cm increments along its length in the popliteal fossa and demonstrated Vein Collapse: Complete Collapse with compression. Other findings or limitations: None Conclusion: Point of care limited ultrasound without evidence of a deep vein thrombosis. This study was supervised by an ultrasound credentialed emergency physician. These images were archived digitally and I independently interpreted the images at the bedside and agree with the documented results. ED ATTENDING ATTESTATION NOTE I have reviewed the ultrasound images with the resident and agree with the interpretation. * Med Student Progress Note - Kaitlynn Ram MD - 08/29/2018 1:48 PM EDT ED Medical Student Note Lars Jimenez is an 47 y.o. female who presents to the ED with: Chief Complaint Patient presents with ??? Leg Swelling right I saw this patient 08/29/2018 at approximately 1300 HPI Lars Jimenez is a 47 y.o. female with pmhx L M2 MCA infarct w/hemorrhagic conversion (01/04), s/p PFO closure 05/05, as well as HTN, HLD, GERD who presents to the Emergency Department with R leg swelling/tenderness. Reports that 2d ago, noticed increased R leg swelling and 2/10 pain from below the knee to the the foot that is constant. No relief with elevation or ibuprofen. Denies redness/blue coloration of R leg. Went to PCP earlier today and was told to come to [facility] for ultrasound evaluation 03/21 [facility] not having an sound engineering technician on the weekends. Of note, patient's RUE weakness present since her stroke in is unchanged. 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 Denies fevers, chills, shakes, n/v/c/d, CP, SOB, palpitations, urinary sx. Review of Systems: Review of Systems 10-point ROS performed and is otherwise negative except as noted in HPI. Physical Exam: Patient Vitals for the past 24 hrs: BP Temp Temp src Pulse Resp SpO2 Height Weight 08/29/18 1507 -- -- -- -- -- -- 157.5 cm (5' 2) -- 08/29/18 1503 -- -- -- -- -- -- -- 110.2 kg (243 lb) 08/29/18 1502 -- -- -- -- -- -- 157.5 cm (5' 2) -- 08/29/18 1500 (!) 125/103 -- -- 74 18 98 % -- -- 08/29/18 1450 -- -- -- -- -- -- -- 111.6 kg (246 lb) 08/29/18 1445 140/73 -- -- 70 16 98 % -- -- 08/29/18 1415 135/79 -- -- 61 20 98 % -- -- 08/29/18 1400 146/70 -- -- 76 27 97 % -- -- 08/29/18 1330 (!) 154/107 -- -- 64 15 99 % -- -- 08/29/18 1315 (!) 167/96 -- -- 69 21 99 % -- -- 08/29/18 1309 -- -- -- -- -- 99 % -- -- 08/29/18 1308 (!) 156/103 -- -- -- -- -- -- -- 08/29/18 1231 (!) 154/96 36.6 ??C (97.9 ??F) Oral 72 18 100 % -- -- Vital signs significant for elevated BP (154-167/96-103). Physical Exam Constitutional: She is oriented to person, place, and time. She appears well- developed and well-nourished. No distress. HENT: Head: Normocephalic and atraumatic. Eyes: Pupils are equal, round, and reactive to light. Conjunctivae and EOM are normal. Right eye exhibits no discharge. Left eye exhibits no discharge. No scleral icterus. Cardiovascular: Normal rate, regular rhythm, normal heart sounds and intact distal pulses. Exam reveals no gallop and no friction rub. No murmur heard. Pulmonary/Chest: Effort normal and breath sounds normal. No stridor. No respiratory distress. She has no wheezes. She has no rales. She exhibits no tenderness. Abdominal: Soft. Bowel sounds are normal. She exhibits no distension and no mass. There is no tenderness. There is no rebound and no guarding. No hernia. Musculoskeletal: R>L leg swelling. No erythema, no blue discoloration of R leg. Neurological: She is alert and oriented to person, place, and time. No cranial nerve deficit or sensory deficit. She exhibits normal muscle tone. Coordination normal. Skin: Skin is warm and dry. No rash noted. She is not diaphoretic. No erythema. No pallor. ED Course: - Patient seen under the supervision of Dr. Ram - Medications, allergies and past medical history reviewed - EKG not obtained Medications given Medications enoxaparin (LOVENOX) injection 165 mg (not administered) Significant lab results No results found for this or any previous visit (from the past 24 hour(s)). Imaging - POCUS 08/29/18: No DVT seen proximal femoral vein, veins compressible. No DVT seen mid-femoral vein, veins compressible. No DVT seen popliteal vein, veins compressible. Consults - None Assessment and Plan: Assessment: 47 y.o. female with pmhx L M2 MCA infarct w/hemorrhagic conversion (01/04), s/p PFO closure 05/05, as well as HTN, HLD, GERD who presents to the Emergency Department with R leg swelling/tenderness. DVT v PE on the ddx, as well as stroke 2/2 patient's pmhx. However Mana Scale (Nor, 2015; 93% sensitivity, 83% specificity) score is 0, making stroke unlikely. Well's Score for DVT was 2 (points for calf pain and surgery w/in 12 wks), and considering clinical s/s for DVT, Well's Score for PE is 3 indicating potential necessity for D-dimer. However, 2/2 high clinical suspicion for DVT and lack of tachypnea or elevated RR objectively, patient likely has DVT over PE until r/o otherwise a nd does not require D-dimer as this is frequently used to rule-in CTA for PE eval. 2/2 ultrasound techs not being available over the weekend, patient cannot obtain the study for which she came to [facility] for, however POCUS was conducted at the bedside and showed no DVT in the proximalfemoral vein through to the popliteal vein on the R leg, and vein was compressible throughout. Unable to assess distal deep veins of R leg, however it is reassuring that the patient's sx (pain 2/10 and minimal swelling) are mild. Discussed with patient option for waiting till Friday for [facility] ultrasound, however she stated that she would prefer to be seen at [facility]. Treatment options include LMWH vs LMWH + Warfarin vs Dabigatran/Rivaroxaban. Best evidence is for LMWH, and patient has strong f/u w/PCP so decisions btwn NOAC and continuing w/warfarin therapy can be accomplished with outpatient provider. Plan: - Discharge to home - Rx Lovenox 3 doses, 1 dose today - Follow up with PCP, call them to schedule Duplex Ultrasound for Friday08/31/18 - Return precautions discussed with patient Return precautions were verbally discussed with the patient and written in discharge instructions. The patient expressed understanding that she could come back to the ED at any time and agreed to thefollow-up plan. Gerardo Wilson, MS4 I supervised this medical student in the care of this patient. Medical decision making his my own. I reviewed all diagnostic studies and performed my own history and physical. Please see my own full documentation detailing the care of this patient, medical decision-making and disposition. documented in this encounter Plan of Treatment Not on file documented as of this encounter Visit Diagnoses Diagnosis Leg swelling Swelling of limb documented in this encounter Administered Medications Inactive Administered Medications - up to 3 most recent administrations Medication Order MAR Action Action Date Dose Rate Site enoxaparin (LOVENOX) injection 165 mg 165 mg (rounded from 165.3 mg = 1.5 mg/kg/dose ? 110.2 kg), Subcutaneous, ONCE, 1 dose, On 08/29/18 at 1514, STAT Given 08/29/2018 3:39 PM EDT 165 mg documented in this encounter Active and Recently Administered Medications Times are shown in EDT. Scheduled Medication Order 08/27/2018 08/28/2018 08/29/2018 enoxaparin (LOVENOX) injection 165 mg (COMPLETED) 165 mg (rounded from 165.3 mg = 1.5 mg/kg/dose ? 110.2 kg), Subcutaneous, ONCE, 1 dose, On 08/29/18 at 1514, STAT 1539 (Given - Provid er: [facility]) documented in this encounter Care Teams School Health Aide Relationship Specialty Start Date End Date Jimena Jnoes MD PCP - General Family Medicine 01/08/18 documented as of this encounter
--- OUTSIDE RECORDS SUMMARY | 2023-09-18 18:26 | XMS_ITS | Encounter Summary ---
Author Organization [facility] [place] [address] Care Team Providers Care Mortgage Originator Name Role Phone Jimena Jones MD Primary Care Provider + [phone] Reason for Visit * Auth/Cert Specialty Diagnoses / Procedures Referred By Contac t Referred To Contact Diagnoses PFO (patent foramen ovale) [Q21.1]Cryptogenic stroke [I63.9] Procedures PRO PERC CLOS, JEOVANNY INTERATRIAL COMMUN W/IMPL PRG INTRACARD ECHO, THER/DX INTERVENT CARDIAC CATHETERIZATION ASD CLOSURE INTRACARDIAC ECHOCARDIOGRAPHY DURING INTERVENTION Referral ID Status Reason Start Date Expiration Date Visits Re quested Visits Authorized [id number] 1 1 Encounter Details Date Type Department Care Team (Late st Contact Info) Description 05/05/2018 10:30 AM EDT - 05/05/2018 11:30 AM EDT Surgery [place] [phone] [facility] [address] CARDIAC CATHETERIZATION Social History Tobacco Use Types Packs/Day Years [...] Sign Reading Time Taken Comments Blood Pressure 148/89 05/05/2018 10:00 AM EDT Pulse 76 05/05/2018 10:00 AM EDT Temperature 37.1 ??C (98.8 ??F) 05/05/2018 10:00 AM E DT Respiratory Rate 16 05/05/2018 10:00 AM EDT Oxygen Saturation 100% 05/05/2018 10:00 AM EDT Inhaled Oxygen Concentration - - Weight - - Height - - Body Mass Index - - documented in this encounter Medications at Time [...] Take 40 mg by mouth every morning. gabapentin (NEURONTIN) 100 mg Capsule Take 100 mg by mouth nightly. 05/25/2018 tolterodine (DETROL LA) 4 mg Capsule, Sust. Release 24 hr Take 4 mg by mouth daily. 06/19/2018 propranolol (INDERAL) 20 mg Tablet Take 1 tablet by mouth 2 times daily. 12/16/2017 02/01/2019 LORazepam (ATIVAN) 1 mg Tablet Take 1 mg by mouth every 6 hours as needed for Anxiety. 02/01/2019 documented as of this encounter Progress Notes * Lisa Conner - 05/06/2018 11:24 AM EDT Order received to discharge pt to home. AVS printed, given to pt, and all questions answered. IVs removed per policy. Home with family. * Ilene Loomis RN - 05/06/2018 8:08 AM EDT Activity Summary: By discharge, patient will be able to perform self care, walk 5-7 minutes and go up and down stairs without signs or symptoms of ischemia. Date /Initials Baseline Response Symoms/Comments AC RN Activity HR 84 106 pt. Tolerated her cardiac walk with NO chest pain, NO dizziness, and denied SOB.Her resp's increased to 24/min. during the walk 5 min cardiac walk done with stairs BP 137/88 156/106 left arm,rechecked as 131/83, left arm Pt.'s highest heart rate was 123 beats a min., sinus tacch. When she finished the stairs. O2 Sat 98% r/a resp,16 98% r/a, resp. 24 ECG sinus rhythm sinus tacch Pt. Had no ectopy with her walk, she remained in sinus rhythm * Ilene Loomis RN - 05/06/2018 12:16 AM EDT Pt. Denies pain, bilat groin dressings are dry and intact,site soft. + DP pulses palpated to feet bilat. Pt. Denies SOB,denies chest pain,denies dizziness. Her tele is NSR-this assessed at the time of 14 * Ilene Loomis RN - 05/05/2018 8:51 PM EDT Pt. Has clear lungs bilat. She tolerated OOB to BR with no SOB,no dizziness,no CP. Heart rate 82 beats a min regular rhythm over a minute, tele. Shows NSR * Ilene Loomis RN - 05/05/2018 7:18 PM EDT Pt.'s groin sites bilat are CDI,sites soft, + palpable DP pulses felt. Pt. 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 Patient states pain tolerable. Educated and discussed pain management with patient. Patient verbalizes understanding of pain control. Patient denies chest pain, SOB, or nausea. See assessment on flowsheet. Oriented patient to room, callbell is within reach. IV fluids running to gravity; will discontinue per MD order. Will continue tomonitor. Report received from GLENDA Harmon. documented in this encounter H&P Notes * Mary Malone MD - 05/05/2018 10:04 AM EDT Images from the original note were not included. Please refer to my note from // for full details. In summary, Lars presents for elective PFO closure for cryptogenic stroke. Procedure was discussed in detail and informed consent was obtained. Therehas been no interval change to her history or physical exam. She is a ASA 2 and MP 2. Mary Malone MD [facility] Interventional Cardiology Pager [phone] documented in this encounter Miscellaneous Notes * Brief Op Note - Manuel Jules MD - 05/05/2018 1:00 PM EDT Brief Operative Note Patient Name: Lars Jimenez : [id number] MR#: [id number] Case Date: 05/05/2018 Surgeon: * Mary Malone MD * Manuel Jules MD Preoperative diagnosis: PFO (patent foramen ovale) [Q21.1]Cryptogenic stroke [I63.9] Postoperative diagnosis: PFO (patent foramen ovale) [Q21.1]Cryptogenic stroke [I63.9] Procedures: Bifemoral venous access, ultrasound-guided Intracardiac echocardiography Transseptal left heart catheterization Findings: Short tunneled PFO identified by ICE with moderate interatrial septal aneurysm Successful deployment of a 25 mm Cofield Cardioform PFO occluder by ICE and fluoroscopy. Complications: None documented in this encounter Plan of Treatment Not on file documented as of this encounter Procedures Procedure Name Priority Date/Time Associated Diagnosis Comments ECHO LMTD W/O CONTRAST W LMTD SPEC DOPP COLOR DOPP Routine 05/06/2018 10:35 AM EDT PFO (patent foramen ovale) DIRECTOR OF STUDENT AID SCAN 05/06/2018 12:00 AM EDT EKG 12-LEAD Routine 05/05/2018 1:28 PM EDT PFO (patent foramen ovale) HEMOGRAM Routine 05/05/2018 9:46 AM EDT PFO (patent foramen ovale) Cryptogenic stroke DIFFERENTIAL, AUTOMATED Routine 05/05/2018 9:46 AM EDT PFO (patent foramen ovale) Cryptogenic stroke CBC (WITH DIFF) Routine 05/05/2018 9:46 AM EDT PFO (patent foramen ovale) Cryptogenic stroke BASIC METABOLIC PANEL (NON-FASTING) Routine 05/05/2018 9:46 AM EDT PFO (patent foramen ovale) Cryptogenic stroke documented in this encounter Results * ECHO LMTD W/O CONTRAST W LMTD SPEC DOPP COLOR DOPP (05/06/2018 10:35 AM EDT) EF 65 HEARTLAB SYSTEM Anatomical Region Laterality Modality Other 05/06/2018 Narrative 05/06/2018 10:55 AM EDT Procedure: ?Transthoracic Echocardiogram Patient: ?VIN Jimenez ?(Age): 1970(47y) Med Rec#: ? [id number] ?Sex: ?F ? [place] [facility] [place]t / Wt: ??157(cm)/109(kg) Pt. Loc: ?Adult Floor ? BSA: ?2.06 Study Date: ?? 05/06/2018 ?Pt. Type: Inpatient Tape: ? Referring: Mary Malone MD Reading: Gerardo Bray ([id number]) Clay Structure Builder And Servicer: Jay Whitney Diagnosis: *Atrial septal defect (Q21.1) Rhythm: ? Sinus BP: ? 131/84 SUMMARY: 1. Limited study post PFO closure. 2. [...] ??Ejection fraction is estimated to be 65%. 4. The right ventricle is normal in size. Right ventricular global systolic function is normal. 5. See remainder of report for additional findings. Findings ? : Study Quality: ? Adequate Left Ventricle: ? The left ventricular chamber size is normal. ?Basal septal hypertrophy is observed. ?There is no evidence of LVOT obstruction. ?There is normal global left ventricular systolic function. ??Ejection fraction is estimated to be 65%. ?There are no left ventricular segmental wall motion abnormalities. ?Left ventricular diastolic function is normal. Left Atrium: ? The left atrium is normal in size.(29ml/m2). ?ASD closure device is visualized and is well seated. ?Color Doppler does not demonstrate a residual inter-atrial shunt. Right Ventricle: ? The right ventricle is normal in size. ?Right ventricular global systolic function is normal. ?Pulmonary artery hypertension could not be assessed due to inadequate tricuspid regurgitation jet. Right Atrium: ? The right atrium is normal in size. Aortic Valve: ? The aortic valve is tricuspid. ?Systolic excursion of the aortic valve is normal. ?There is no evidence of aortic valve stenosis. ?There is no evidence of aortic regurgitation. Mitral Valve: ? The mitral valve leaflets appear normal. ?There is trace mitral regurgitation present. Tricuspid Valve: ? The tricuspid valve leaflets are morphologically normal. ?There is no evidence of tricuspid valve regurgitation present. Pericardium: ? There is no pericardial effusion. Venous: ? The flow pattern of the pulmonary veins appear normal. Misc: ? Two-dimensional echo, limited spectral Doppler and color Doppler performed. Volumes/Mass ?Value ?Units (Range) ? LA Area 4 CH ?19 ? cm2 (<21) ? RA AREA 4CH ? 17 ? cm2 ? LA ESV BP (MOD) inde28.6 ? ml/m2 ? Diastolic/Systolic Function ?Value ?Units (Range) ? MV E-wave Vmax ?0.7 ?m/sec ? MV deceleration [id number] ?msec ? MV A-wave Vmax ?0.6 ?m/sec ? MV E:A ratio ?1.1 ?ratio ? P. vein S-wave Vmax 0.7 ?m/sec ? P. vein D-wave Vmax 0.5 ?m/sec ? P. vein S:D Vmax rat1.4 ?ratio ? LV septal e' Vmax ?? 0.1 ?m/sec ? LV lateral e' Vmax ??0.1 ?m/sec ? LV average e' Vmax ??0.1 ?m/sec ? LV E:e' septal ratio11.6 ? ratio ? LV E:e' lateral rati6.9 ?ratio ? LV average E:e' rati8.6 ?ratio ? Wall Motion: Segment Name ?Rest ? Base-Anteroseptal ?? Normal ? Base-Anterior ? Normal ? Base-Anterolateral ??Normal ? Base-Posterolateral Normal ? Base-Inferior ? Normal ? Base-Inferoseptal ?? Normal ? Mid-Anteroseptal ?Normal ? Mid-Anterior ?Normal ? Mid-Anterolateral ?? Normal ? Mid-Posterolateral ??Normal ? Mid-Inferior ?Normal ? Mid-Inferoseptal ?Normal ? [place]-Septal ? Normal ? [place]-Anterior ? Normal ? [place]-Lateral ?Normal ? [place]-Inferior ? Normal ? [place]-Tip ?Normal ? This report has been electronically signed by: Gerardo Bray MD ? 05/06/2018 10:54:59 Images reviewed and interpretation verified [facility] Cardiac Ultrasound [facility] Procedure Note Gerardo Bray MD - 05/06/2018 Procedure: Transthoracic Echocardiogram Patient: VIN AREVALO(Age): 1970(47y) Med Rec#: [id number] Sex: F [place] [facility] [place]t / Wt: 157(cm)/109(kg) Pt. Loc: Adult Floor BSA: 2.06 Study Date: 05/06/2018 Pt. Type: Inpatient Tape: Referring: Mary Malone MD Reading: Gerardo Bray ([id number]) Clay Structure Builder And Servicer: Jay Whitney Diagnosis: *Atrial septal defect (Q21.1) Rhythm: Sinus BP: 131/84 SUMMARY: 1. Limited study post PFO closure. 2. [...] See remainder of report for additional findings. Findings : Study Quality: Adequate Left Ventricle: The left ventricular chamber size is normal. Basal septal hypertrophy is observed. There is no evidence of LVOT obstruction. There is normal global left ventricular systolic function. Ejection fraction is estimated to be 65%. There are no left ventricular segmental wall motion abnormalities. Left ventricular diastolic function is normal. Left Atrium: The left atrium is normal in size.(29ml/m2). ASD closure device is visualized and is well seated. Color Doppler does not demonstrate a residual inter-atrial shunt. Right Ventricle: The right ventricle is normal in size. Right ventricular global systolic function is normal. Pulmonary artery hypertension could not be assessed due to inadequate tricuspid regurgitation jet. Right Atrium: The right atrium is normal in size. Aortic Valve: The aortic valve is tricuspid. Systolic excursion of the aortic valve is normal. There is no evidence of aortic valve stenosis. There is no evidence of aortic regurgitation. Mitral Valve: The mitral valve leaflets appear normal. There is trace mitral regurgitation present. Tricuspid Valve: The tricuspid valve leaflets are morphologically normal. There is no evidence of tricuspid valve regurgitation present. Pericardium: There is no pericardial effusion. Venous: The flow pattern of the pulmonary veins appear normal. Misc: Two-dimensional echo, limited spectral Doppler and color Doppler performed. Volumes/Mass Value Units (Range) LA Area 4 CH 19 cm2 (<21) RA AREA 4CH 17 cm2 LA ESV BP (MOD) inde28.6 ml/m2 Diastolic/Systolic Function Value Units (Range) MV E-wave Vmax 0.7 m/sec MV deceleration [id number] msec MV A-wave Vmax 0.6 m/sec MV E:A ratio 1.1 ratio P. vein S-wave Vmax 0.7 m/sec P. vein D-wave Vmax 0.5 m/sec P. vein S:D Vmax rat1.4 ratio LV septal e' Vmax 0.1 m/sec LV lateral e' Vmax 0.1 m/sec LV average e' Vmax 0.1 m/sec LV E:e' septal ratio11.6 ratio LV E:e' lateral rati6.9 ratio LV average E:e' rati8.6 ratio Wall Motion: Segment Name Rest Base-Anteroseptal Normal Base-Anterior Normal Base-Anterolateral Normal Base-Posterolateral Normal Base-Inferior Normal Base-Inferoseptal Normal Mid-Anteroseptal Normal Mid-Anterior Normal Mid-Anterolateral Normal Mid-Posterolateral Normal Mid-Inferior Normal Mid-Inferoseptal Normal [place]-Septal Normal [place]-Anterior Normal [place]-Lateral Normal [place]-Inferior Normal [place]-Tip Normal This report has been electronically signed by: Gerardo Bray MD 05/06/2018 10:54:59 Images reviewed and interpretation verified [facility] Mary Malone MD ECHO ORDERABLES * SCAN DOC: DIRECTOR OF STUDENT AID (05/06/2018 12:00 AM EDT) Anatomical Region Laterality Modality Other Narrative 05/06/2018 12:00 AM EDT Ordered by an unspecified provider. Scanning Provider MEDIA MGR SCAN EXT O RDR/RSLT * EKG 12 Lead (05/05/2018 1:28 PM EDT) Ventricular rate 60 BPM MUSE SYSTEM Atrial Rate 60 BPM MUSE SYSTEM P-R Interval 164 ms MUSE SYSTEM QRS Duration 94 ms MUSE SYSTEM Q-T Interval 454 ms MUSE SYSTEM QTC Calculated (Bezet) 454 ms MUSE SYSTEM Calculated P Whitney 50 degrees MUSE SYSTEM Calculated R Whitney 27 degrees MUSE SYSTEM Calculated T Whitney 29 degrees MUSE SYSTEM INTERPRETATION Normal sinus rhythm Normal ECG No previous ECGs available Confirmed by MD Wynn Timothy ([id number]) on 05/05/2018 5:32:29 PM MUSE SYSTEM 05/05/2018 1:28 PM EDT 05/05/2018 5:32 PM EDT Mary Malone MD ECG ORDERABLES MUSE SYSTEM * Differential, Automated (05/05/2018 9:46 AM EDT) Neutrophils % 64.9 % [facility] Neutr Abs (ANC) 4.33 1.70 - 6.10 x10(3)/[facility] Lymphocytes % 26.3 % [facility] Lymphocytes Abs 1.8 0.9 - 3.2 x10(3)/[facility] Monocytes % 5.7 % [facility] Monocyte Abs 0.4 0.3 - 0.9 x10(3)/[facility] Eosinophils % 2.3 % [facility] Eosinophils Abs 0.2 0.0 - 0.4 x10(3)/[facility] Basophils % 0.5 % [facility] Basophils Abs 0.0 0.0 - 0.1 x10(3)/[facility] Immature Gran % 0.30 % [facility] Comment: Immature granulocytes(IG's)percentage and absolute count will include metamyelocytes, myelocytes, and promyelocytes. Blood smears from CBCs yielding IG's will be scanned manually for concordance. If this scan disagrees with the automated IG or if promyelocytes are noted, a manual differential will be performed. Tia Gran Abs 0.02 0.00 - 0.04 x10(3)/[facility] Blood specimen (specimen) 05/05/2018 9:46 AM EDT 05/05/2018 10:04 AM EDT Narrative Resulting Agency Comment Spec In Lab Mary Malone MD HEMATOLOGY ORDERABLE S [facility] [place] [address] * (ABNORMAL) Hemogram (05/05/2018 9:46 AM EDT) WBC 6.7 4.0 - 9.5 x10(3)/[facility] RBC 4.87 4.00 - 5.21 x10(6)/[facility] Hemoglobin 13.3 11.7 - 15.5 gm/dL [facility] Hematocrit 41.9 35.7 - 45.8 % [facility] MCV 86.0 82.6 - 94.4 fL [facility] MCH 27.3 27.1 - 32.0 pg [facility] MCHC 31.7 31.7 - 35.0 gm/dL [facility] Platelets 316 145 - 357 x10(3)/[facility] RDWSD 45.0 37.0 - 46.0 [facility] RDWCV 14.3(H) 11.5 - 14.1 % [facility] MPV 9.6 7.6 - 12.9 [facility] nRBC % Auto 0.0 % [facility] nRBC Abs Auto 0.000 0.000 - 0.000 x10(3)/[facility] Blood specimen (specimen) 05/05/2018 9:46 AM EDT 05/05/2018 10:04 AM EDT Narrative Resulting Agency Comment Spec In Lab Mary Malone MD HEMATOLOGY ORDERABLE S [facility] [place] [address] * Basic Metabolic Panel (non-fasting) (05/05/2018 9:46 AM EDT) Glucose Lvl 96 65 - 199 mg/dL [facility] Comment:Diabetes: >=200 mg/d L plus symptoms BUN 10 8 - 18 mg/dL [facility] Creatinine 0.71 0.70 - 1.20 mg/dL [facility] Sodium 142 135 - 145 mmol/L [facility] Potassium 4.6 3.5 - 5.0 mmol/L [facility] Comment: Please note: ??Patients with WBC >100,000 may have falsely elevated Potassium levels. ??For accurate Potassium quantification in these patients send serum separator tube (gold top) for subsequent determinations. ??Contact the Clinical Chemistry Laboratory if there are any questions. Chloride 105 98 - 107 mmol/L [facility] CO2 27 22 - 31 mmol/L [facility] Anion Gap 10 5 - 15 mmol/L [facility] Calcium 9.3 8.5 - 10.5 mg/dL [facility] Estimated GFR 101 >=60 mL/min/1. 73 m?? [facility] Comment: The eGFR was calculated using the CKD-EPI equation. As with all creatinine based estimates of kidney function, eGFR values calculated with the CKD-EPI equation are not accurate in patients with acute kidney failure, extremes of body mass or the acutely ill. [email or web address]/[email or web address] eGFR 118 >=60 mL/min/1. 73 m?? [facility] Comment: The eGFR was calculated using the CKD-EPI equation. As with all creatinine based estimates of kidney function, eGFR values calculated with the CKD-EPI equation are not accurate in patients with acute kidney failure, extremes of body mass or the acutely ill. [email or web address] Blood specimen (specimen) 05/05/2018 9:46 AM EDT 05/05/2018 10:04 AM EDT Narrative Resulting Agency Comment Spec In Lab Mary Malone MD CHEMISTRY ORDERABLES [facility] [place] [address] documented in this encounter Visit Diagnoses Diagnosis PFO (patent foramen ovale) Ostium secundum type atrial septal defect Cryptogenic stroke Unspecified cerebral artery occlusion with cerebral infarction PFO (patent foramen ovale) Ostium secundum type atrial septal defect Cryptogenic stroke Unspecified cerebral artery occlusion with cerebral infarction documented in this encounter Administered Medications Inactive Administered Medications - up to 3 most recent administrations Medication Order MAR Action Action Date Dose Rate Site aspirin chewable tablet 81 mg 81 mg, Oral, DAILY, First dose on Fri05/06/18 at 0900, Until Discontinued, Routine Given 05/06/2018 8:47 AM EDT 81 mg atorvastatin (LIPITOR) tablet 40 mg 40 mg, Oral, EVERY EVENING, First dose on Fri05/05/18 at 1700, Until Discontinued, Routine Given 05/05/2018 4:20 PM EDT 40 mg buPROPion (WELLBUTRIN XL) XL tablet 150 mg 150 mg, Oral, EVERY MORNING, First dose on Fri05/06/18 at 0900, Until Discontinued, DO NOT CRUSH OR OPEN, Routine Given 05/06/2018 8:47 AM EDT 150 mg ceFAZolin (ANCEF) injection ONCE PRN, Starting on Fri05/05/18 at 1122, Until Fri05/05/18 at 1234, Cath (Intra-Procedure), Routine Given 05/05/2018 11:22 AM EDT 1 g clopidogrel (PLAVIX) tablet 300 mg 300 mg, Oral, ONCE, 1 dose, On Fri05/06/18 at 0915, Routine Given 05/06/2018 10:59 AM EDT 300 mg clopidogrel (PLAVIX) tablet 75 mg 75 mg, Oral, DAILY, First dose on Fri05/07/18 at 0900, Until Discontinued, Routine fentaNYL 50 mcg/mL multi-dose injection ONCE PRN, Starting on Fri05/05/18 at 1121, Until Fri05/05/18 at 1234, Intra-Operative (Intra-Procedure), Routine Given 05/05/2018 11:37 AM EDT 25 mcg Given 05/05/2018 11:30 AM EDT 25 mcg Given 05/05/2018 11:21 AM EDT 25 mcg gabapentin (NEURONTIN) capsule 100 mg 100 mg, Oral, NIGHTLY, First dose on Fri05/05/18 at 2100, Until Discontinued, Routine Given 05/05/2018 9:53 PM EDT 100 mg heparin (porcine) injection ONCE PRN, Starting on Fri05/05/18 at 1140, Until Fri05/05/18 at 1234, Cath (Intra-Procedure), Routine Given 05/05/2018 11:40 AM EDT 8,000 Units lisinopril (PRINIVIL;ZESTRIL) tablet 30 mg 30 mg, Oral, DAILY, First dose on Fri05/05/18 at 1700, Until Discontinued, Routine Given 05/06/2018 8:47 AM EDT 30 mg Given 05/05/2018 4:20 PM EDT 30 mg midazolam (PF) (VERSED) multi-dose injection ONCE PRN, Starting on Fri05/05/18 at 1121, Until Fri05/05/18 at 1234, Cath (Intra-Procedure), Routine Given 05/05/2018 11:37 AM EDT 1 mg Given 05/05/2018 11:30 AM EDT 1 mg Given 05/05/2018 11:21 AM EDT 1 mg PARoxetine (PAXIL) tablet 40 mg 40 mg, Oral, EVERY MORNING, First dose on Fri05/06/18 at 0900, Until Discontinued, Routine Given 05/06/2018 8:48 AM EDT 40 mg propranolol (INDERAL) tablet 20 mg 20 mg, Oral, 2 TIMES DAILY, First dose on Fri05/05/18 at 2100, Until Discontinued, Routine Given 05/06/2018 8:48 AM EDT 20 mg Given 05/05/2018 9:53 PM EDT 20 mg documented in this encounter Active and Recently Administered Medications Times are shown in EDT. Scheduled Medication Order 05/04/2018 05/05/2018 05/06/2018 aspirin chewable tablet 81 mg 81 mg, Oral, DAILY, First dose on Fri05/06/18 at 0900, Until Discontinued, Routine 0847 (Given - Provid er: Lisa Conner) atorvastatin (LIPITOR) tablet 40 mg 40 mg, Oral, EVERY EVENING, First dose on Fri05/05/18 at 1700, Until Discontinued, Routine 1620 (Given - Provider: Kierra Sommer RN) buPROPion (WELLBUTRIN XL) XL tablet 150 mg 150 mg, Oral, EVERY MORNING, First dose on Fri05/06/18 at 0900, Until Discontinued, DO NOT CRUSH OR OPEN, Routine 0847 (Given - Provid er: Lisa Conner) clopidogrel (PLAVIX) tablet 300 mg (COMPLETED) 300 mg, Oral, ONCE, 1 dose, On Fri05/06/18 at 0915, Routine 1059 (Given - Provid er: Lisa Conner) clopidogrel (PLAVIX) tablet 75 mg 75 mg, Oral, DAILY, First dose on Fri05/07/18 at 0900, Until Discontinued, Routine gabapentin (NEURONTIN) capsule 100 mg 100 mg, Oral, NIGHTLY, First dose on Fri05/05/18 at 2100, Until Discontinued, Routine 2153 (Given - Provider: Ilene Loomis RN) lisinopril (PRINIVIL;ZESTRIL) tablet 30 mg 30 mg, Oral, DAILY, First dose on Fri05/05/18 at 1700, Until Discontinued, Routine 1620 (Given - Provider: Kierra Sommer RN - Comment: BP 119/96HR 74) 0847 (Given - Provider: Lisa Conner) PARoxetine (PAXIL) tablet 40 mg 40 mg, Oral, EVERY MORNING, First dose on Fri05/06/18 at 0900, Until Discontinued, Routine 0848 (Given - Provid er: Lisa Conner) propranolol (INDERAL) tablet 20 mg 20 mg, Oral, 2 TIMES DAILY, First dose on Fri05/05/18 at 2100, Until Discontinued, Routine 215 (Given - Provider: Ilene Loomis RN) 0848 (Given - Provider: Lisa Conner) PRN Medication Order 05/04/2018 05/05/2018 05/06/2018 ceFAZolin (ANCEF) injection (CANCELED) ONCE PRN, Starting on Fri05/05/18 at 1122, Until Fri05/05/18 at 1234, Cath (Intra-Procedure), Routine 1122 (Given - Provider: Kavitha Jansen RN) fentaNYL 50 mcg/mL multi-dose injection (CANCELED) ONCE PRN, Starting on Fri05/05/18 at 1121, Until Fri05/05/18 at 1234, Intra-Operative (Intra-Procedure), Routine 1121 (Given - Provider: Kavitha Jansen RN)1130 (Given - Provider: Kavitha Jansen RN)1137 (Given - Provider: Tiera Donahue RN)1138 (Canceled Entry - Provider: Kavitha Jansen RN) heparin (porcine) injection (CANCELED) ONCE PRN, Starting on Fri05/05/18 at 1140, Until Fri05/05/18 at 1234, Cath (Intra-Procedure), Routine 1140 (Given - Provider: Kavitha Jansen RN) midazolam (PF) (VERSED) multi-dose injection (CANCELED) ONCE PRN, Starting on Fri05/05/18 at 1121, Until Fri05/05/18 at 1234, Cath (Intra-Procedure), Routine 1121 (Given - Provider: Kavitha Jansen RN)1130 (Given - Provider: Kavitha Jansen RN)1137 (Given - Provider: Tiera Donahue RN)1138 (Canceled Entry - Provider: Kavitha Jansen RN) documented in this encounter Care Teams Mortgage Originator Relationship Specialty Start Date End Date Jimena Jones MD PCP - General Family Medicine 01/08/18 documented as of this encounter
--- OUTSIDE RECORDS SUMMARY | 2023-09-18 18:26 | XMS_ITS | Encounter Summary ---
[place] [address] Care Team Providers Care Wire Annealer Name Role Phone Jimena Jones MD Primary Care Provider [phone] Encounter Details Date Type Department Care Team (Late st Contact Info) Description 01/16/2018 [place] [id number] Jimena Vega RN Social History Tobacco Use Types Packs/Day Years [...] encounter Miscellaneous Notes * Telephone Encounter - Jimena Vega RN - 01/16/2018 1:06 PM EST Call placed to pt's home, message left requesting call back. Daughter returned call, pt had a small migraine yesterday. Pt took 1000mg of Tylenol and had a nap and headache was relieved. Pt was able to speak a few words this morning and one word last night. Daughter says pt has no problems with balance, doing very well but frustrated with communication difficulties. Daughter asking about leaving pt alone. Daughter instructed that they can make the determination if pt is making surethat pt has the ability to call for help if she is alone. Suggested [facility] as an option. The family feels good about her hospitalization and the care she received. Mara came off yesterday, they are going to send it in and see what kind of information was collected. Pt has not needed the Nicotine patch, she hasn't had a cigarette since Wed before the stroke. Daughter mentions that pt is complaining about skin pain. Her skin is more sensitive and sensation is all over almost feels like pins and needles. Daughter will monitor and discuss at upcoming appt if symptoms continue. They are wondering if this could be post stroke pain. Neurology Discharge 1-2 Day Post Discharge Follow UP PATIENT INFORMATION *items needed for fl3urCap 1) Person providing information: Pt daughter Admit date: 01/12/2018 Discharge date and time: 181:02 PM *Diagnosis: Episode of transient neurologic symptoms Arterial ischemic stroke, MCA, left, acute 2) *Discharge Service: Neurology HEALTH UPDATE 1) *Have you had any new neurological symptoms since or had any unscheduled visits or calls with your PCP, an ER, urgent care, or other healthcare provider for neurological symptoms? Pins and needlessensation all over skin a) If yes, what was the concern and the plan? b) Any changes to your medications or treatment plan? 2) *Any falls since discharge? Daughter denies falls or balance problems a) If yes, were there any injuries? b) Are you using a walker, cane, ski poles, or other tools to help you move around inside and outside your home? i) If yes, is this new? MEDICATION 1) New Medication started: From previous discharge aspirin 81 mg Chew Take 81 mg by mouth daily. ?? atorvastatin 40 mg Tab Commonly known as: LIPITOR Take 1 tablet by mouth every evening. ?? nicotine 14 mg/24 hr Pt24 Pt refusing has not needed Commonly known as: NICODERM CQ Place 1 patch onto the skin daily as needed (tobacco cravings). 2) Discontinued Medication: estradiol 1 mg Tab from previous discharge Commonly known as: ESTRACE ?? lisinopril 10 mg Tab Commonly known as: PRINIVIL;ZESTRIL ?? 3) *Has there been any problem getting or taking medications (especially Plavix, Coumadin, Lovenox,or other anticoagulants)? no problems with medications 4) Has there been any new symptoms or side effects since starting the new medications? a) Any new bleeding, bruising, constipation? 5) *Were you provided with clear instructions on how and when to take your scheduled medications atdischarge? Daughter very clear on how pt should be taking medications, med list reviewed APPOINTMENTS Assure that patient understands reason for follow up appointments and contact information. 1) PCP Appointment: PCP Friday 2) Specialist: 01/26/2018 Dr Arreguin 10:00am 3) Diagnostic (lab/radiology): Mara fell off yesterday, they will send it in 4) Discuss planning ahead for your office visit by bringing in written questions. DISCHARGE SERVICES 1) *Is there an agency coming to help at home with physical therapy, occupational therapy, or nursing? Outpatient PT,OT, ARCHITECT MARINE ordered OT and ARCHITECT MARINE appts Pt Friday a) Name of agency? b) Offer referral for therapy in a local hospital or with a local company if patient is not gettinghome care services? 2) Are coordination of discharge services needed (home care/DME/meals on wheels)? i) Stroke Support Group? Pt does not live locally, will encourage HOSPITAL STAY 1) *Was the educational material regarding stroke/TIA helpful? Daughter 2) *Do you feel confident that you and your family have the information you need now that you are home? Very impressed with the information from the team and the team was amazing SIGNS OF STROKE 1) *Reviewed the 5 signs of stroke with patient and what to do if any urgent/emergent symptoms occur: S/S stroke reviewed with daughter, daughter verbalized understanding a) NUMBNESS or weakness of face, arm, or leg, especially on one side of the body. b) CONFUSION, trouble speaking or understanding speech. c) TROUBLE SEEING in one or both eyes. d) TROUBLE WALKING, dizziness, loss of balance or coordination. e) SEVERE HEADACHE with no known cause. documented in this encounter Plan of Treatment Not on file documented as of this encounter Visit Diagnoses Not on filedocumented in this encounter Care Teams Wire Annealer Relationship Specialty Start Date End Date Jimena Jones MD PCP - General Family Medicine 01/08/18 documented as of this encounter
--- OUTSIDE RECORDS SUMMARY | 2023-09-18 18:26 | XMS_ITS | Encounter Summary ---
Author Organization [facility] [place] [address] Care Team Providers Care Waste Baler Name Role Phone Jimena Jones MD Primary Care Provider + [phone] Reason for Visit * Reason Onset Date Comments Pre Procedure Call 03/11/2018 Encounter Details Date Type Department Care Team (Late st Contact Info) Description 03/11/2018 Telephone Cardiology at [address] [place] [address] Mary Malone MD [facility] [place] [address] Pre Procedure Call Social History Tobacco Use Types Packs/Day Years [...] encounter Miscellaneous Notes * Telephone Encounter - Jasmyne Bowen - 03/11/2018 2:[address] Malone, Patient wished to proceed with procedure you discussed. Please place order as appropriate. Lab scheduling Please call patient at [phone] when order is in. Thanks documented in this encounter Plan of Treatment Not on file documented as of this encounter Visit Diagnoses Not on filedocumented in this encounter Care Teams Waste Baler Relationship Specialty Start Date End Date Jimena Jones MD PCP - General Family Medicine 01/08/18 documented as of this encounter
--- OUTSIDE RECORDS SUMMARY | 2023-09-18 18:26 | XMS_ITS | Encounter Summary ---
[place] [address] Care Team Providers Care Fermentologist Name Role Phone Jimena Jones MD Primary Care Provider + [phone] Reason for Visit * Reason Onset Date Comments Other 02/18/2018 Encounter Details Date Type Department Care Team (Late st Contact Info) Description 02/18/2018 Telephone [place] [address] Emre Arreguin MD [facility] [place] [address] Other Social History Tobacco Use Types Packs/Day Years [...] Telephone Encounter - Jimena Vega RN - 02/19/2018 11:42 AM EST Call placed to pt, pt given information from letter. Pt already scheduled for appt in Cardiology. Pt knows she will be getting a letter * Telephone Encounter - Ana Kincaid - 02/18/2018 3:30 PM EST Clinical [place] Message Caller: Lars If not Pt / Relation to pt: Call back Number:[phone] Best time to reach caller: Reason for call: patient had CRIS on Friday Message/information for the nurse: Patient states that she had her CRIS on Friday and the Podiatric Surgeon that did the procedure found a hole. She is wondering what the next step is for her. She is scheduled to see Dr. Arreguin on 05/08. Please call and advise. ?? Routine Message sent to the Nurse documented in this encounter Plan of Treatment Not on file documented as of this encounter Visit Diagnoses Not on filedocumented in this encounter Care Teams Fermentologist Relationship Specialty Start Date End Date Jimena Jones MD PCP - General Family Medicine 01/08/18 documented as of this encounter
--- OUTSIDE RECORDS SUMMARY | 2023-09-18 18:26 | XMS_ITS | Encounter Summary ---
[place] [address] Care Team Providers Care Crop And Soil Technician Name Role Phone Jimena Jones MD Primary Care Provider [phone] Reason for Referral * Diagnostic Test (Routine) - Closed Specialty Diagnoses / Procedures Referred By Willa t Referred To Contact Diagnoses Acute CVA (cerebrovascular accident) Procedures Juan Miguel Johnson MD [facility] [place] [address] [phone] Referral ID Status Reason Start Date Expiration Date V isits Requested Visits Authorized [id number] Closed Specialty Service Requested 01/11/2018 01/11/2019 1 1 Reason for Visit * Auth/Cert Specialty Diagnoses / Procedures Referred By Willa t Referred To Contact Diagnoses Arterial ischemic stroke, MCA, left, acute STROKE SYMPTOMS Procedures EMERGENCY IPI Referral ID Status Reason Start Date Expiration Date Visits Re quested Visits Authorized [id number] 1 1 Encounter Details Date Type Department Care Team (Latest Contact Info) Description 01/12/2018 7:07 AM EST - 01/12/2018 5:09 PM EST Hospital Encounter Non-[place] [address] Emre Arreguin MD [facility] [place] [address] Acute CVA (cerebrovascular accident) Discharge Disposition: Home Social History Tobacco Use [...] Procedure Name Priority Date/Time Associated Diagnosis Comments ZIOPATCH Routine 01/12/2018 7:08 AM EST Acute CVA (cerebrovascular accident) documented in this encounter Results * Ziopatch (01/12/2018 7:08 AM EST) Anatomical Region Laterality Modality Other Narrative 01/29/2018 2:21 PM EST Cardiac Electrophysiology Zio Monitor Study Initiated: ??11 January 2018 Duration: ?? 3 days 18 hours (after removal of ~2 hours of artifact) Indication: Cerebral infarction Result: The overall sinus rhythm rate range was 46-129/minute, and averaged 66/minute. The predominant underlying rhythm throughout the monitoring period was conducted sinus rhythm. The slowest heart rates marginally tended to occur overnight, but overall heart rate variation from moment to moment and from day to day was limited. No pauses >3 seconds were seen, and there was no high grade atrioventricular conduction block reported or observed at normal sinus rates. There was a <1.0% burden of isolated ectopic supraventricular beats detected, and rare couplets and triplets were detected as well. There was 1 supraventricular run detected (14.0 seconds with a maximum rate of 154/minute and with a mean rate of 114/minute). There was a <<1.0% burden of isolated ectopic ventricular beats detected, and 1 triplet wasdetected as well. There were no ventricular runs detected. The patient wrote in 1 timed diary entry for pain/tingling in her neck or arm; sinus rhythm 64/minute was present at the associated time specified. There were no patient-triggered events. Conclusion: This monitor study was remarkable for sinus rhythm. One run of nonsustained supraventricular tachycardia (without atrial flutter/fibrillation) and a low overall burden of ectopy were detected. ____ Interpreted by Anup Jain MD, [facility] Emre Arreguin MD CARDIAC SERVICES O RDERABLES documented in this encounter Visit Diagnoses Diagnosis Acute CVA (cerebrovascular accident) documented in this encounter Care Teams Crop And Soil Technician Relationship Specialty Start Date End Date Jimena Jones MD PCP - General Family Medicine 01/08/18 documented as of this encounter
--- OUTSIDE RECORDS SUMMARY | 2023-09-18 18:26 | XMS_ITS | Encounter Summary ---
[place] [address] Care Team Providers Care Microbiological Lab Technician Name Role Phone Jimena Jones MD Primary Care Provider [phone] Reason for Visit * Auth/Cert Specialty Diagnoses / Procedures Referred By Contac t Referred To Contact Diagnoses Arterial ischemic stroke, MCA, left, acute STROKE SYMPTOMS Procedures EMERGENCY IPI Referral ID Status Reason Start Date Expiration Date Visits Re quested Visits Authorized [id number] 1 1 Encounter Details Date Type Department Care Team (Latest Contact Info) Description 01/12/2018 10:37 PM EST - 01/14/2018 1:53 PM [facility] Hospital Encounter [facility] [place] [address] Chelsea Petit MD [facility] [place] [address] Emre Arreguin MD [facility] [place] [address] Discharge Disposition: Home Social History Tobacco Use [...] Sign Reading Time Taken Comments Blood Pressure 132/85 01/14/2018 11:45 AM EST Pulse 69 01/14/2018 10:44 AM EST Temperature 37.2 ??C (99 ??F) 01/14/2018 11:53 AM EST Respiratory Rate 22 01/14/2018 11:53 AM EST Oxygen Saturation 96% 01/14/2018 11:53 AM EST Inhaled Oxygen Concentration - - Weight - - Height - - Body Mass Index - - documented in this encounter Discharge Summaries * Barry Martin PA - 01/14/2018 1:02 PM EST Images from the original note were not included. Discharge Summary Patient Name: Lars Jimenez Patient Age: 47 y.o. Language: Malagasy Race: White Ethnicity: Not nor Admit date: 01/12/2018 Discharge date and time: 181:02 PM Attending Physician: Emre Arreguin MD Discharge Physician: Emre Arreguin MD Follow-up Recommendations for Providers: -continue aspirin and statin for secondary stroke prevention -continue to monitor blood pressure and add back prior antihypertensives as needed -continue to support smoking cessation Inpatient Provider Contact Information: For questions regarding this document or issues related to this hospitalization on the Neurology Service, please contact the author(s) of this discharge summary through the [facility] [employer] . Discharge Diagnoses: Hypertension Episode of transient neurological symptoms Active Hospital Problems Diagnosis ??? Episode of transient neurologic symptoms ??? Arterial ischemic stroke, MCA, left, acute Resolved Hospital Problems No resolved problems to display. Past medical History: No past medical history on file. Active Non Hospital Problems: Active Non-Hospital Problems Diagnosis ??? Acute CVA (cerebrovascular accident) History of Presentation: Lars Jimenez is a 47 y.o. female with past medical history significant for hypertension, hyperlipidemia and GERD, and recent L MCA infarct s/p thrombectomy on 01/08/18, who presented today to [facility] with elevated blood pressures, found to have a hemorrhagic transformation of the left MCA infarct. Per telephone note earlier today: 47 yo F PMH recent L MCA infarct at M2 s/p thrombectomy on 01/08/18. Has residual expressive aphasia and RUE weakness. VNA at home noted high blood pressure, 200s/100s. Upon arrival to [facility] ED, was 187/107 mmHg. RUE is better, per PT. As BP was down to 140 mmHg, she did have transient numbness and weakness of the RUE. Head CT did demonstrate hemorrhagic conversion of L MCA infarct, 2mm midline shift? Advised: -??Return to [facility] status for intensive BP management - SBP goal <160 mmHg, including en route via ambulance ?? She had a recent admission for the L MCA infarct, when she had the mechanical thrombectomy, and improvement of blood flow to TICI 2b result. She had residual mutism, was started on aspirin and atorvastatin, and workup with no clear culprit. Home BP meds (propranolol and +/- lisinopril) were held due to BPs within goal range (120s-150s systolically). With strong preference, the patient discharged home with 24/ cares. As noted above, hemorrhagic transformation was identified at OSH, and blood pressure was treated with goal of <160/90 mmHg. She remained hemodynamically and neurologically stable en route, and upon arrival to [facility], was stable neurologically with BP in the 140s systolically. Physical Exam at Admission: Gen: Apparent stated age, well nourished, well developed, awake, alert, NAD Neck: Supple, no meningismus HEENT: MMM CV: S1, S2, RRR, no murmur apreciated Resp: Normal respiratory effort, CTAB Abd: Obese, +normoactive bowel sounds, soft, nontender, nondistended Ext: No edema. No bony deformity Skin: No suspicious rashes or lesions Neuro Exam: MS: Awake, alert, no spontaneous words or sounds; notably able to laugh spontaneously oriented to person, place, year, month (by shaking head yes/no in agreement to choices) Able to follow complex commands, cooperative with neuro exam CN: Pupils 4mm ERRL, no RAPD EOMI, visual guadalupe full to confrontation in quadrants Facial sensation intact to light touch Flattened RIGHT nasolabial fold Hearing intact to voice Palate elevates symmetrically, tongue protrudes midline SCM and trap strength intact Motor: Normal bulk and tone. Subtle RUE pronator drift. UE: 4/5 R, 5/5 L Arm abduction at shoulder 4+/5 R, 5/5 L Elbow extension 4+/5 R, 5/5 L Elbow flexion 5/5 R, 5/5 L [employer] LE: 5/5 R, 5/5 L Hip flexion 5/5 R, 5/5 L Knee extension 5/5 R, 5/5 L Knee flexion 5/5 R, 5/5 L Foot dorsiflexion 5/5 R, 5/5 L Foot plantar flexion Sensation: Intact to light touch, temperature throughout, no simultagnosia Reflexes: DTRs 2+ R, 2+ L Biceps 2+ R, 2+ L Brachioradialis 2+ R, 2+ L Triceps 2+ R, 2+ L Patellar 2+ R, 2+ L Achilles tendon + [place] cortical thumb on the RIGHT Toes R equivocal, L down Coordination: Finger to nose intact, no dysmetria Rapid alternating movements & finger tapping smooth and symmetric Heel-colon intact No tremor Gait: Not assessed NIH stroke Scale: NIH Stroke Scale at Initial Evaluation: ?? 1.a. Level of consciousness: 0-Alert 1-Not alert, but arousable with minimal stimulation 2-Not alert, requires repeat stimulation to attend 3-Coma 1.b. Ask patient the month and their age: 0-Answers both correctly 1-Answers one correctly 2-Both incorrect 1.c. Ask patient to open and close eyes: 0-Obeys both correctly 1-Obeys one correctly 2-Both incorrect 2. Best gaze (horizontal eye movement): 0-Normal 1-Partial gaze palsy 2-Forced deviation 3. Visual field testin-No visual field loss 1-Partial hemianopia 2-Complete hemianopia 3-Bilateral hemianopia (blind including cortical blindness) 4. Facial paresis (Ask patient to show teeth or raise eyebrows and close eyes tightly): 0-Normal symmetrical movement 1-Minor paralysis (flattened nasolabial fold, asymmetry on smiling) 2-Partial paralysis (total or near paralysis of lower face) 3-Complete paralysis of one or both sides (absence of facial movement in the upper and lower face) 5. Motor function right arm: 0-Normal (extends arm 90 degrees for 10 seconds without drift) 1-Drift 2-Some effort against gravity 3-No effort against gravity 4-No movement UT-Untestable (Joint fused or limb amputated) 5. Motor function- left arm: 0-Normal (extends arm 90 degrees for 10 seconds without drift) 1-Drift 2-Some effort against gravity 3-No effort against gravity (but baseline) 4-No movement UT-Untestable (Joint fused or limb amputated) 6. Motor function right le-Normal (extends leg 30 degrees for 5 seconds without drift) 1-Drift 2-Some effort against gravity 3-No effort against gravity 4-No movement UT-Untestable (Joint fused or limb amputated) 6. Motor function-left le-Normal (extends leg 30 degrees for 5 seconds without drift) 1-Drift 2-Some effort against gravity 3-No effort against gravity 4-No movement UT-Untestable (Joint fused or limb amputated) 7. Limb ataxia: 0-No ataxia 1-Present in one limb 2-Present in two limbs 8. Sensory (Use pinprick to test arms, legs, trunk and face compare side to side): 0-Normal 1-Mild to moderate decrease in sensation 2-Severe to total sensory loss 9. Best language (describe picture, name items, read sentences): 0-No aphasia 1-Mild to moderate aphasia 2-Severe aphasia 3-Mute 10. Dysarthria (read several words): 0-Normal articulation 1-Mild to moderate slurring of words 2-Near unintelligible or unable to speak UT-Intubated or other physical barrier 11. Extinction and inattention: 0-Normal 1-Inattention or extinction to bilateral simultaneous in one of the sensory modalities 2-Severe sherman-inattention or sherman-inattention to more than one modality ?? TOTAL SCORE: 9 Hospital Course:: Lars Jimenez is a 47 y.o. female who was admitted to the neurology service for further evaluation of transient RUE weakness and numbness in the setting of hypertension and recent L MCA infarct with hemorrhagic conversion. She was seen at an outside hospital where hemorrhage was seen on CT and thought to be a new finding. Neurological examination on admission was pertinent for no new neurological findings but persistent deficits of facial droop, right arm drift and no verbal output residual fromrecent stroke. Patient was monitored with frequent checks of vitals and neurological status. Telemetry monitoring showed no afib. Head CT showed evolving L MCA infarct with hemorrhagic conversion. This was compared to MRI from prior admission and found to be stable. No new sites of hemorrhage. Mostlikely etiology of symptoms was hypertension. Aspirin was held for initial evaluation and then resumed. On the day after admission she experienced transient right hand tingling/numbness lasting <1min and did not recur. Cause of this episode is unclear. Had prior radial fracture there but had no symptoms of median nerve compression. Blood pressure was closely monitored and responded well to resumption of propranolol. She remained hemodynamically and neurologically stable and deemed appropriate for discharge home to resume prior outpatient rehab services. Patient was evaluated by rehabilitation services and deemed appropriate for home. Operations & Procedures: n/a Consultations: 1. PT/OT/SL Diagnostic Tests & Neuroimaging: Date Study Results 01/12 CT Head COMPARISON: Multiple priors, most recent CT from January 12, 2018 and most recent MRI fromJanuary 09, 2018 ?? FINDINGS: There is continued evolution of the left MCA territory infarct with minimally increased area of hypoattenuation. Small indistinct hyperdensities with indistinct margins within the area of infarct are unchanged from recent study and compatible with known hemorrhagic conversion. Minimally increased local masseffect effaces the adjacent sulci. No definite left ventricular effacement. Nomidline shift. Basal cisterns are preserved. Hemorrhage remains in the region ofknown infarct. No new foci of intracranial hemorrhage. No new territorialhypodensity. ?? IMPRESSION Evolving left MCA territory infarct with hemorrhagic conversion, with mild local mass effect. No midline shift or transtentorial herniation. Labs: Lipid Panel Lab Results Component Value Date CHLPL 185 01/09/2018 HDL 45 01/09/2018 CHOLHDL 4.1 01/09/2018 TRIG 110 01/09/2018 LDLDIRECT 123 01/09/2018 Lab Results Component Value Date HA1C 5.6 01/09/2018 Last wbc, hgb, hct plt Recent Labs 01/13/18 013 WBC 6.6 HGB 11.4* HCT 35.1* Last 3 CBC Recent Labs 01/13/18 0139 01/11/18 0543 01/10/18 0534 WBC 6.6 8.8 7.0 Pending Studies and Lab Data: No current labs Functional and Cognitive Status: Patient presents with impaired speech (unable to talk, uses white board to communicate), and decreased core strength/act tolerance after a recent admission sec to [facility], now readmitted. Patient is a&o x 4, pleasant, cooperative and able to follow all commands. Her daughter is at bedside and reports patient had been functioning well since her d/c from this hospital including ambulating without difficulties and showering independently. Pt demonstrated functional auditory comprehension. Word recall is functional via a written modality. Unable to motorically produce words orally. Functional lingual and labial movement in non-speech tasks. Pt presents more with a severe verbal apraxia. Pt is able to compensate with writing or [id number] frank to communicate. Able to communicate through pointing at letters to spell words but at times became perseverative orwould provide answers for different or previously asked questions (for example when asked if her works pt repeatedly spelled out child in an attempt to indicate that her daughter lives withthem as well). Due to significant speech/language impairments and cognitive deficits pt would highly benefit from intensive multidisciplinary rehabilitation to progress independence and explore additional communication options. Vital Signs at Discharge: BP: 132/85, Heart Rate: 69, Temp: 37.2 ??C (99 ??F), Resp: 22, Physical Exam at Discharge: Gen: Apparent stated age, well nourished, well developed, awake, alert, NAD Neck: Supple, no meningismus HEENT: MMM CV: S1, S2, RRR, no murmur apreciated Resp: Normal respiratory effort, CTAB Abd: Obese, +normoactive bowel sounds, soft, nontender, nondistended Ext: No edema. No bony deformity Skin: No suspicious rashes or lesions Neuro Exam: MS: Awake, alert, no spontaneous words or sounds; notably able to laugh spontaneously oriented to person, place, year, month (by shaking head yes/no in agreement to choices) Able to follow complex commands, cooperative with neuro exam CN: Pupils 4mm ERRL, no RAPD EOMI, visual guadalupe full to confrontation in quadrants Facial sensation intact to light touch Flattened RIGHT nasolabial fold Hearing intact to voice Palate elevates symmetrically, tongue protrudes midline SCM and trap strength intact Motor: Normal bulk and tone. UE: 4+/5 R, 5/5 L Arm abduction at shoulder 4+/5 R, 5/5 L Elbow extension 4+/5 R, 5/5 L Elbow flexion 5/5 R, 5/5 L [employer] LE: 5/5 R, 5/5 L Hip flexion 5/5 R, 5/5 L Knee extension 5/5 R, 5/5 L Knee flexion 5/5 R, 5/5 L Foot dorsiflexion 5/5 R, 5/5 L Foot plantar flexion Sensation: Intact to light touch, temperature throughout, no simultagnosia Reflexes: DTRs 2+ R, 2+ L Biceps 2+ R, 2+ L Brachioradialis 2+ R, 2+ L Triceps 2+ R, 2+ L Patellar 2+ R, 2+ L Achilles tendon Toes R equivocal, L down Coordination: Finger to nose intact, no dysmetria Rapid alternating movements & finger tapping smooth and symmetric Heel-colon intact No tremor Gait: Not assessed Discharge Condition/Prognosis: Stable/fair Discharge to: Home Updated Allergies/ADRs: Allergies Allergen Reactions ??? Morphine Anaphylaxis Breathing difficulty ??? Codeine Nausea And Vomiting And stomach pain Immunizations Given this Hospitalization: There is no immunization history on file for this patient. Discharge Medications: Your Medications Continued medications, unchanged Dose Details aspirin 81 mg Chew Take 81 mg by mouth daily. 81 mg Quantity: 30 tablet Refills: 3 atorvastatin 40 mg Tab Commonly known as: LIPITOR Take 1 tablet by mouth every evening. 40 mg Quantity: 90 tablet Refills: 3 fluconazole 200 mg Tab Commonly known as: DIFLUCAN Take 200 mg by mouth daily. 200 mg Refills: 0 LORazepam 1 mg Tab Commonly known as: ATIVAN Take 1 mg by mouth every 6 hours as needed for Anxiety. 1 mg Refills: 0 nicotine 14 mg/24 hr Pt24 Commonly known as: NICODERM CQ Place 1 patch onto the skin daily as needed (tobacco cravings). 1 patch Quantity: 28 patch Refills: 0 omeprazole 40 mg Cpdr Commonly known as: PriLOSEC Take 40 mg by mouth daily. 40 mg Refills: 0 PARoxetine 20 mg Tab Commonly known as: PAXIL Take 20 mg by mouth every morning. 20 mg Refills: 0 propranolol 20 mg Tab Commonly known as: INDERAL Take 1 tablet by mouth 2 times daily. 1 tablet Refills: 0 STOPPED Medications lisinopril 40 mg Tab Commonly known as: PRINIVIL;ZESTRIL Smoking Status at Discharge: Social History Tobacco Use Smoking Status Current Every Day Smoker ??? Packs/day: 1.00 ??? Types: Cigarettes SECONDARY STROKE PREVENTION: Preventative measure Antithrombotic agent for stroke prevention (aspirin,clopidogrel, ticagrelor, therapeutic anticoagulation etc...) was Initiated. If documented history of atrial fibrillation/flutter, anticoagulation therapy was not prescribed due to no hx of afib for stroke prevention. Cholesterol-lowering medication (including statins) was prescribed Smoking cessation: If patient smoked within the past year, smoking cessation counseling was performed. Nicotine supplements were provided to the patient/caregiver. Education: Stroke information packet provided to patient and/or family, which included personal modifiable risk factors for stroke, stroke warning signs and symptoms, how to activate EMS for stroke, and need for follow-up after discharge was performed. Modified Deland Score (MRS) on discharge Score Description 0 No symptoms at all 1 No significant disability despite symptoms; able to carry out all usual duties and activities 2 Slight disability; unable to carry out all previous activities, but able to look after own affairs without assistance 3 Moderate disability; requiring some help, but able to walk without assistance 4 Moderately severe disability; unable to walk without assistance 5 Severe disability; bedridden, incontinent and requiring constant nursing care and attention 6 Total Score: 3 NIH Stroke Scale at Discharge Evaluation: 1.a. Level of consciousness: 0-Alert 1-Not alert, but arousable with minimal stimulation 2-Not alert, requires repeat stimulation to attend 3-Coma 1.b. Ask patient the month and their age: 0-Answers both correctly 1-Answers one correctly 2-Both incorrect 1.c. Ask patient to open and close eyes: 0-Obeys both correctly 1-Obeys one correctly 2-Both incorrect 2. Best gaze (horizontal eye movement): 0-Normal 1-Partial gaze palsy 2-Forced deviation 3. Visual field testin-No visual field loss 1-Partial hemianopia 2-Complete hemianopia 3-Bilateral hemianopia (blind including cortical blindness) 4. Facial paresis (Ask patient to show teeth or raise eyebrows and close eyes tightly): 0-Normal symmetrical movement 1-Minor paralysis (flattened nasolabial fold, asymmetry on smiling) 2-Partial paralysis (total or near paralysis of lower face) 3-Complete paralysis of one or both sides (absence of facial movement in the upper and lower face) 5. Motor function right arm: 0-Normal (extends arm 90 degrees for 10 seconds without drift) 1-Drift 2-Some effort against gravity 3-No effort against gravity 4-No movement 9-Untestable (Joint fused or limb amputated) 5. Motor function- left arm: 0-Normal (extends arm 90 degrees for 10 seconds without drift) 1-Drift 2-Some effort against gravity 3-No effort against gravity 4-No movement 9-Untestable (Joint fused or limb amputated) 6. Motor function right le-Normal (extends leg 30 degrees for 5 seconds without drift) 1-Drift 2-Some effort against gravity 3-No effort against gravity 4-No movement 9-Untestable (Joint fused or limb amputated) 6. Motor function-left le-Normal (extends leg 30 degrees for 5 seconds without drift) 1-Drift 2-Some effort against gravity 3-No effort against gravity 4-No movement 9-Untestable (Joint fused or limb amputated) 7. Limb ataxia: 0-No ataxia 1-Present in one limb 2-Present in two limbs 8. Sensory (Use pinprick to test arms, legs, trunk and face compare side to side): 0-Normal 1-Mild to moderate decrease in sensation 2-Severe to total sensory loss 9. Best language (describe picture, name items, read sentences): 0-No aphasia 1-Mild to moderate aphasia 2-Severe aphasia 3-Mute 10. Dysarthria (read several words): 0-Normal articulation 1-Mild to moderate slurring of words 2-Near unintelligible or unable to speak 9-Intubated or other physical barrier 11. Extinction and inattention: 0-Normal 1-Inattention or extinction to bilateral simultaneous in one of the sensory modalities 2-Severe sherman-inattention or sherman-inattention to more than one modality TOTAL SCORE: 8 Instructions Given to Patient at Discharge: Patient Instructions Patient Instructions: You were admitted to the neurology service at [facility] Your Diagnosis: Hypertension -We found NO new stroke or bleed this admission. Continue to monitor your blood pressure and pleasekeep a log to bring to your next appointment. Goal is to keep it under 140/80. A few readings in the 140s/90s with activity is okay, but if consistently high please call for further instructions. -It is unclear what caused the temporary numbness in the right hand. Keep an eye on this and let usknow if it happens again. -Resume prior outpatient rehab. Let us know if you have difficulty arranging this. -continue taking aspirin and atorvastatin to reduce your risk of repeat events. - Work close with your primary care provider (PCP) with monitoring your blood pressure, blood sugarand cholesterol. - Lifestyle modifications should include: taking all medications as prescribed, smoking cessation or staying away from others who are smoking to avoid second hand smoke, limiting alcohol intake, maintaining a normal/healthy weight, adhering to a healthy diet (low-fat, low-sodium, high intake of fresh fruits and vegetables, limiting red meat), and engaging in regular physical activity. ??? Call 911 or your local EMS if you have sudden weakness or numbness in your face or one of your limbs, slurred speech, loss of vision, or difficulty speaking. It is important to seek medical attention as soon as possible, as these symptoms could be related to a new stroke. ??? Diet: we recommend a heart healthy diet: low fat, low cholesterol, low concentrated sweets. ??? Activity Restrictions: As tolerated. ??? Driving Restrictions: No new restrictions Know Your Numbers! Blood Pressure BP Readings from Last 3 Encounters: 01/14/18 132/85 01/11/18 (!) 143/91 HA1C Lab Results Component Value Date HA1C 5.6 01/09/2018 Cholesterol Lab Results Component Value Date CHLPL 185 01/09/2018 HDL 45 01/09/2018 CHOLHDL 4.1 01/09/2018 TRIG 110 01/09/2018 LDLDIRECT 123 01/09/2018 Below is an explanation of each of the cholesterol test results. Total cholesterol: This test is best when below 200. It can be improved primarily by a low fat diet. HDL (good cholesterol): The higher the better. It is best when above 50. It is primarily genetically determined but can be increased with exercise. LDL (bad cholesterol): this test is best when below 130 (or below 100 if you have heart disease or below 70 if you have had a stroke or TIA). It can be lowered by a low fat diet. Triglycerides: This test is best when below 180. It can be lowered by a low fat diet, avoidance of sweets and weight loss. ??? Follow-up: ??? Neurology: You will have a follow-up appointment in the neurology clinic at [facility]. See below for the appointment time. If you do not have an appointment, you will be called with a time/date for this appointment. ??? Primary Care Provider: Please follow up with your Primary Care Provider within one to 2 weeks of discharge. For questions regarding this document or issues relating to this hospitalization on the Neurology Service, please contact the author(s) of this discharge summary through the [facility] [employer] . General Instructions None Future Appointments and Orders Future Appointments and Orders Future Appointments Provider Department Dept Phone 01/26/2018 10:00 AM Emre Arreguin MD Neurology at [place] Arrive at: [employer] Area [phone] Primary Care Provider: Jimena Jones MD [address] [place] [id number] Discharge References/Attachments None documented in this encounter Discharge Instructions * Patient Instructions* Barry Martin PA - 01/14/2018 12:38 PM EST Images from the original note were not included. Patient Instructions: You were admitted to the neurology service at [facility] Your Diagnosis: Hypertension -We found NO new stroke or bleed this admission. Continue to monitor your blood pressure and pleasekeep a log to bring to your next appointment. Goal is to keep it under 140/80. A few readings in the 140s/90s with activity is okay, but if consistently high please call for further instructions. -It is unclear what caused the temporary numbness in the right hand. Keep an eye on this and let usknow if it happens again. -Resume prior outpatient rehab. Let us know if you have difficulty arranging this. -continue taking aspirin and atorvastatin to reduce your risk of repeat events. - Work close with your primary care provider (PCP) with monitoring your blood pressure, blood sugarand cholesterol. - Lifestyle modifications should include: taking all medications as prescribed, smoking cessation or staying away from others who are smoking to avoid second hand smoke, limiting alcohol intake, maintaining a normal/healthy weight, adhering to a healthy diet (low-fat, low-sodium, high intake of fresh fruits and vegetables, limiting red meat), and engaging in regular physical activity. ??? Call 911 or your local EMS if you have sudden weakness or numbness in your face or one of your limbs, slurred speech, loss of vision, or difficulty speaking. It is important to seek medical attention as soon as possible, as these symptoms could be related to a new stroke. ??? Diet: we recommend a heart healthy diet: low fat, low cholesterol, low concentrated sweets. ??? Activity Restrictions: As tolerated. ??? Driving Restrictions: No new restrictions Know Your Numbers! Blood Pressure BP Readings from Last 3 Encounters: 01/14/18 132/85 01/11/18 (!) 143/91 HA1C Lab Results Component Value Date HA1C 5.6 01/09/2018 Cholesterol Lab Results Component Value Date CHLPL 185 01/09/2018 HDL 45 01/09/2018 CHOLHDL 4.1 01/09/2018 TRIG 110 01/09/2018 LDLDIRECT 123 01/09/2018 Below is an explanation of each of the cholesterol test results. Total cholesterol: This test is best when below 200. It can be improved primarily by a low fat diet. HDL (good cholesterol): The higher the better. It is best when above 50. It is primarily genetically determined but can be increased with exercise. LDL (bad cholesterol): this test is best when below 130 (or below 100 if you have heart disease or below 70 if you have had a stroke or TIA). It can be lowered by a low fat diet. Triglycerides: This test is best when below 180. It can be lowered by a low fat diet, avoidance of sweets and weight loss. ??? Follow-up: ??? Neurology: You will have a follow-up appointment in the neurology clinic at [facility]. See below for the appointment time. If you do not have an appointment, you will be called with a time/date for this appointment. ??? Primary Care Provider: Please follow up with your Primary Care Provider within one to 2 weeks of discharge. For questions regarding this document or issues relating to this hospitalization on the Neurology Service, please contact the author(s) of this discharge summary through the [facility] [employer] . documented in this encounter Medications at Time [...] daily. 01/16/2018 documented as of this encounter Progress Notes * Mine Martin RN - 01/14/2018 1:03 PM EST Chart reviewed, care reviewed with primary team and at interdisciplinary rounds. Lars Jimenez is medically ready for discharge to home with assist from family. Will be transported via car This plan was formulated with input from patient, family and team. All are in agreement with plan. * Sherwin Hargrove MD - 01/14/2018 1:01 PM EST Images from the original note were not included. Vascular Neurology Progress Note - 01/14/2018 Patient name: Lars Jimenez Date of : 1970 ID: Lars Jimenez is a 47 y.o. female with past medical history significant for hypertension, hyperlipidemia and GERD, and recent L MCA infarct s/p thrombectomy on 01/08/18, who presented today to [facility] with elevated blood pressures, found to have a hemorrhagic transformation of the left MCA infarct. Interval History: -episode of intermittent right hand numbness and tingling yesterday - No acute events overnight, vital signs stable, afebrile - Neurologic exam stable - No BP meds needed Physical Exam: Vitals: Temp: [36.1 ??C (97 ??F)-37.5 ??C (99.5 ??F)] Heart Rate: [55-78] Resp: [18-30] BP: (92-145)/(53-122) SpO2: [92 %-98 %] Heart Rate from SPO2: [55 bpm-76 bpm] Gen: Apparent stated age, well nourished, well developed, awake, alert, NAD Neck: Supple, no meningismus HEENT: MMM CV: S1, S2, RRR, no murmur apreciated Resp: Normal respiratory effort, CTAB Abd: Obese, +normoactive bowel sounds, soft, nontender, nondistended Ext: No edema. No bony deformity Skin: No suspicious rashes or lesions Neuro Exam: MS: Awake, alert, no spontaneous words or sounds; notably able to laugh spontaneously oriented to person, place, year, month (by shaking head yes/no in agreement to choices) Able to follow complex commands, cooperative with neuro exam CN: Pupils 4mm ERRL, no RAPD EOMI, visual guadalupe full to confrontation in quadrants Facial sensation intact to light touch Flattened RIGHT nasolabial fold Hearing intact to voice Palate elevates symmetrically, tongue protrudes midline SCM and trap strength intact Motor: Normal bulk and tone. No drift UE: 4+/5 R, 5/5 L Arm abduction at shoulder 4+/5 R, 5/5 L Elbow extension 4+/5 R, 5/5 L Elbow flexion 5/5 R, 5/5 L [employer] LE: 5/5 R, 5/5 L Hip flexion 5/5 R, 5/5 L Knee extension 5/5 R, 5/5 L Knee flexion 5/5 R, 5/5 L Foot dorsiflexion 5/5 R, 5/5 L Foot plantar flexion Sensation: Intact to light touch Reflexes: DTRs 2+ R, 2+ L Biceps 2+ R, 2+ L Brachioradialis 2+ R, 2+ L Triceps 2+ R, 2+ L Patellar 2+ R, 2+ L Achilles tendon Toes R equivocal, L down Coordination: Finger to nose intact, no dysmetria No tremor Gait: Not assessed Labs: Hemoglobin A1c 5.6 TCholesterol: 185 LDL: 123 HDL: 45 TTE 01/09/18: SUMMARY: 1. The left ventricular chamber size [...] patent foramen ovale with agitated saline contrast. Diagnostic Tests and Imaging: CT Head at OSH 01/12: hemorrhagic conversion of L MCA infarct, 2mm midline shift Repeat head CT on arrival: IMPRESSION Evolving left MCA territory infarct with hemorrhagic conversion, with mild local mass effect. No midline shift or transtentorial herniation. Assessment and Plan: Lars Jimenez is a 47 y.o. female with past medical history significant for hypertension, hyperlipidemia and GERD, and recent L M2 ischemic stroke s/p mechanical thrombectomy on 01/08/18 with TICI 2b recanalization, who presents with HTN and hemorrhagic transformation of ischemic stroke. Although there were fluctuations in her reported examination, she seems to be stable to improved at this time. Etiology of hemorrhagic transformation is likely hypertension; there is also the contribution of reperfusion injury in parenchyma that is s/p recanalization, but the blood products seem to be limited to the previous ischemic zones. Thrombolytics were considered and not given secondary to diagnosis of hemorrhage. Will restart her ASA today. Blood pressures stable on home propanolol without intervention. Will have her work with nurses and then check blood pressure afterwards. Will be medically ready for discharge this afternoon. # Left M2 Ischemic Stroke s/p hemorrhagic transformation, mild local brain swelling causing mass effect - BP goal <160/90 mmHg - start home ASA 01/14 # Hypertension - Restart home propranolol (01/13) # Anxiety/depression - Continue home fluoxetine # Prophylaxis - NO pharm dvt ppx due to hemorrhage - RBOs - SCDs # Supportive care - [facility] diet - Tylenol PRN - Up with assistance # FULL code Sherwin Hargrove MD Vascular Neurology Pager [phone] 01/14/2018 Associated attestation - Emre Arreguin MD - 01/14/2018 5:38 PM EST Neurology Staff Note I have reviewed the resident's history during the visit and I agree with the details as written. Myphysical examination confirms the resident's findings. The assessment and plan were formulated in discussion with me at the time of the visit and I agree with them as documented. Doing well. Ready to go home. Zio patch on. Future CRIS to be considered. This hospitalization was due to elevated, there was no new neurologic diagnosis. * Sherwin Hargrove MD - 01/14/2018 7:37 AM EST Images from the original note were not included. Vascular Neurology Progress Note - 01/13/2018 Patient name: Lars Jimenez Date of : 1970 ID: Lars Jimenez is a 47 y.o. female with past medical history significant for hypertension, hyperlipidemia and GERD, and recent L MCA infarct s/p thrombectomy on 01/08/18, who presented today to [facility] with elevated blood pressures, found to have a hemorrhagic transformation of the left MCA infarct. Interval History: -episode of intermittent right hand numbness and tingling yesterday - No acute events overnight, vital signs stable, afebrile - Neurologic exam stable - No BP meds needed Physical Exam: Vitals: Temp: [36.4 ??C (97.5 ??F)-37.5 ??C (99.5 ??F)] Heart Rate: [57-78] Resp: [15-23] BP: (114-144)/(65-102) SpO2: [92 %-98 %] Heart Rate from SPO2: [56 bpm-76 bpm] Gen: Apparent stated age, well nourished, well developed, awake, alert, NAD Neck: Supple, no meningismus HEENT: MMM CV: S1, S2, RRR, no murmur apreciated Resp: Normal respiratory effort, CTAB Abd: Obese, +normoactive bowel sounds, soft, nontender, nondistended Ext: No edema. No bony deformity Skin: No suspicious rashes or lesions Neuro Exam: MS: Awake, alert, no spontaneous words or sounds; notably able to laugh spontaneously oriented to person, place, year, month (by shaking head yes/no in agreement to choices) Able to follow complex commands, cooperative with neuro exam CN: Pupils 4mm ERRL, no RAPD EOMI, visual guadalupe full to confrontation in quadrants Facial sensation intact to light touch Flattened RIGHT nasolabial fold Hearing intact to voice Palate elevates symmetrically, tongue protrudes midline SCM and trap strength intact Motor: Normal bulk and tone. Subtle RUE pronator drift. UE: 4+/5 R, 5/5 L Arm abduction at shoulder 4+/5 R, 5/5 L Elbow extension 4+/5 R, 5/5 L Elbow flexion 5/5 R, 5/5 L [employer] LE: 5/5 R, 5/5 L Hip flexion 5/5 R, 5/5 L Knee extension 5/5 R, 5/5 L Knee flexion 5/5 R, 5/5 L Foot dorsiflexion 5/5 R, 5/5 L Foot plantar flexion Sensation: Intact to light touch, temperature throughout, no simultagnosia Reflexes: DTRs 2+ R, 2+ L Biceps 2+ R, 2+ L Brachioradialis 2+ R, 2+ L Triceps 2+ R, 2+ L Patellar 2+ R, 2+ L Achilles tendon + [place] cortical thumb on the RIGHT Toes R equivocal, L down Coordination: Finger to nose intact, no dysmetria Rapid alternating movements & finger tapping smooth and symmetric Heel-colon intact No tremor Gait: Not assessed Labs: Hemoglobin A1c 5.6 TCholesterol: 185 LDL: 123 HDL: 45 TTE 01/09/18: SUMMARY: 1. The left ventricular chamber size [...] patent foramen ovale with agitated saline contrast. Diagnostic Tests and Imaging: CT Head at OSH 01/12: hemorrhagic conversion of L MCA infarct, 2mm midline shift Repeat head CT on arrival: IMPRESSION Evolving left MCA territory infarct with hemorrhagic conversion, with mild local mass effect. No midline shift or transtentorial herniation. Assessment and Plan: Lars Jimenez is a 47 y.o. female with past medical history significant for hypertension, hyperlipidemia and GERD, and recent L M2 ischemic stroke s/p mechanical thrombectomy on 01/08/18 with TICI 2b recanalization, who presents with HTN and hemorrhagic transformation of ischemic stroke. Although there were fluctuations in her reported examination, she seems to be stable to improved at this time. Etiology of hemorrhagic transformation is likely hypertension; there is also the contribution of reperfusion injury in parenchyma that is s/p recanalization, but the blood products seem to be limited to the previous ischemic zones. Thrombolytics were considered and not given secondary to diagnosis of hemorrhage. Will restart her ASA today. Blood pressures stable on home propanolol without intervention. Will have her work with nurses and then check blood pressure afterwards. Will be medically ready for discharge this afternoon. # Left M2 Ischemic Stroke s/p hemorrhagic transformation, mild local brain swelling causing mass effect - BP goal <160/90 mmHg - start home ASA 01/14 # Hypertension - Restart home propranolol (01/13) # Anxiety/depression - Continue home fluoxetine # Prophylaxis - NO pharm dvt ppx due to hemorrhage - RBOs - SCDs # Supportive care - [facility] diet - Tylenol PRN - Up with assistance # FULL code Sherwin Hargrove MD Vascular Neurology Pager [phone] 01/13/2018 Associated attestation - Emre Arreguin MD - 01/14/2018 12:22 PM EST Neurology Staff Note I have reviewed the resident's history during the visit and I agree with the details as written. Myphysical examination confirms the resident's findings. The assessment and plan were formulated in discussion with me at the time of the visit and I agree with them as documented. Doing well. BPs within goal. They will continue to monitor at home. Re right hand numbness, unclearwhat caused these brief isolated episodes of tingling. Had prior radial fx there and has no symptoms with median nerve compression. Full power in hand muscles now. Ready for DC to home. * Rupinder Florez DT - 01/13/2018 9:59 AM EST Nutrition Services - Initial Note Lars Jimenez : 1970 AGE: 47 y.o. Patient Active Problem List Diagnosis Date Noted ??? Hospital-Arterial ischemic stroke, MCA, left, acute 01/12/2018 ??? Acute CVA (cerebrovascular accident) 01/08/2018 Reason for Nutrition Intervention: Diagnosis Diet Order: [facility] Appetite: Fair Food allergies: NKFA Chewing/Swallowing difficulty: None - per pt Ht Readings from Last 3 Encounters: 01/09/18 160 cm (5' 3) Wt Readings from Last 3 Encounters: 01/10/18 106.3 kg (234 lb 5.6 oz) There is no height or weight on file to calculate BMI. Assessment: Patient seen for diagnosis. Pt used whiteboard to communicate answers. Pt informed of current diet order without questions. She reported a fair appetite without difficulty chewing or swallowing. She is tolerating current diet without nausea or vomiting. Pt reported she is comfortable filling out menus independently. Pt reported she ate cheerios for breakfast 01/13. Pt agreeable to receiving all foods cut up and all containers open upon delivery. Pt requested a fruit cup as a snack. Patient had no further questions at this time. Good PO intake encouraged. Encouraged patient to contact Food and Nutrition services with any questions that may arise. Nutrition will continue to monitor and follow up with pt to further assess level of PO intake and appetite. Nutrition Plan: Continue current diet. Recommend Daily Multi Vitamins. Open containers and all foods cut up. Monitor weight. Encourage good po intake. Support and encouragement provided. Nutrition services to follow weekly thru hospital course unless consulted in the interim. HARLEY Ledesma * Shola Hernandez - 01/13/2018 7:00 AM EST Images from the original note were not included. Vascular Neurology Progress Note - 01/13/2018 Patient name: Lars Jimenez Date of : 1970 ID: Lars Jimenez is a 47 y.o. female with past medical history significant for hypertension, hyperlipidemia and GERD, and recent L MCA infarct s/p thrombectomy on 01/08/18, who presented today to [facility] with elevated blood pressures, found to have a hemorrhagic transformation of the left MCA infarct. Interval History: - Repeat head CT with stable to improved blood products - BP: BP: (114-139)/(65-102) - No acute events overnight, vital signs stable, afebrile - Neurologic exam stable Physical Exam: Vitals: Temp: -- Heart Rate: [67] Resp: [23] BP: (128)/(71) SpO2: [94 %] Heart Rate from SPO2: [67 bpm] Gen: Apparent stated age, well nourished, well developed, awake, alert, NAD Neck: Supple, no meningismus HEENT: MMM CV: S1, S2, RRR, no murmur apreciated Resp: Normal respiratory effort, CTAB Abd: Obese, +normoactive bowel sounds, soft, nontender, nondistended Ext: No edema. No bony deformity Skin: No suspicious rashes or lesions Neuro Exam: MS: Awake, alert, no spontaneous words or sounds; notably able to laugh spontaneously oriented to person, place, year, month (by shaking head yes/no in agreement to choices) Able to follow complex commands, cooperative with neuro exam CN: Pupils 4mm ERRL, no RAPD EOMI, visual guadalupe full to confrontation in quadrants Facial sensation intact to light touch Flattened RIGHT nasolabial fold Hearing intact to voice Palate elevates symmetrically, tongue protrudes midline SCM and trap strength intact Motor: Normal bulk and tone. Subtle RUE pronator drift. UE: 4/5 R, 5/5 L Arm abduction at shoulder 4+/5 R, 5/5 L Elbow extension 4+/5 R, 5/5 L Elbow flexion 5/5 R, 5/5 L [employer] LE: 5/5 R, 5/5 L Hip flexion 5/5 R, 5/5 L Knee extension 5/5 R, 5/5 L Knee flexion 5/5 R, 5/5 L Foot dorsiflexion 5/5 R, 5/5 L Foot plantar flexion Sensation: Intact to light touch, temperature throughout, no simultagnosia Reflexes: DTRs 2+ R, 2+ L Biceps 2+ R, 2+ L Brachioradialis 2+ R, 2+ L Triceps 2+ R, 2+ L Patellar 2+ R, 2+ L Achilles tendon + [place] cortical thumb on the RIGHT Toes R equivocal, L down Coordination: Finger to nose intact, no dysmetria Rapid alternating movements & finger tapping smooth and symmetric Heel-colon intact No tremor Gait: Not assessed Labs: Hemoglobin A1c 5.6 TCholesterol: 185 LDL: 123 HDL: 45 TTE 01/09/18: SUMMARY: 1. The left ventricular chamber size [...] patent foramen ovale with agitated saline contrast. Diagnostic Tests and Imaging: CT Head at OSH 01/12: hemorrhagic conversion of L MCA infarct, 2mm midline shift Repeat head CT on arrival: IMPRESSION Evolving left MCA territory infarct with hemorrhagic conversion, with mild local mass effect. No midline shift or transtentorial herniation. Assessment and Plan: Lars Jimenez is a 47 y.o. female with past medical history significant for hypertension, hyperlipidemia and GERD, and recent L M2 ischemic stroke s/p mechanical thrombectomy on 01/08/18 with TICI 2b recanalization, who presents with HTN and hemorrhagic transformation of ischemic stroke. Although there were fluctuations in her reported examination, she seems to be stable to improved at this time. Etiology of hemorrhagic transformation is likely hypertension; there is also the contribution of reperfusion injury in parenchyma that is s/p recanalization, but the blood products seem to be limited to the previous ischemic zones. Thrombolytics were considered and not given secondary to diagnosis of hemorrhage. 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 A&O x4, PERRLA, follows commands,denies pain/numbness/tingling. Does not verbalize but nods and gestures appropriately. VSS, SBP < 160, afebrile, LS clear on RA. Ambulated to bathroom, voids spontaneously. Head CT obtained. Oriented to room, call heller within reach, educated on importance of using prior to getting OOB, belongings updated in eDH, bed locked in low position, purposeful hourly rounding, bed alarm on. documented in this encounter H&P Notes * Shola Hernandez - 01/12/2018 11:36 PM EST Images from the original note were not included. Neurology Admission History and Physical - 01/12/2018 Patient name: Lars Jimenez Date of : 1970 PCP: Jimena Jones MD CC: Hemorrhagic transformation of L MCA infarct HPI: Lars Jimenez is a 47 y.o. female with past medical history significant for hypertension, hyperlipidemia and GERD, and recent L MCA infarct s/p thrombectomy on 01/08/18, who presented today to [facility] with elevated blood pressures, found to have a hemorrhagic transformation of the left MCA infarct. Per telephone note earlier today: 47 yo F PMH recent L MCA infarct at M2 s/p thrombectomy on 01/08/18. Has residual expressive aphasia and RUE weakness. VNA at home noted high blood pressure, 200s/100s. Upon arrival to [facility] ED, was 187/107 mmHg. RUE is better, per PT. As BP was down to 140 mmHg, she did have transient numbness and weakness of the RUE. Head CT did demonstrate hemorrhagic conversion of L MCA infarct, 2mm midline shift ?? Advised: - Return to [facility] NSCU status for intensive BP management - SBP goal <160 mmHg, including en route via ambulance ?? She had a recent admission for the L MCA infarct, when she had the mechanical thrombectomy, and improvement of blood flow to TICI 2b result. She had residual mutism, was started on aspirin and atorvastatin, and workup with no clear culprit. Home BP meds (propranolol and +/- lisinopril) were held due to BPs within goal range (120s-150s systolically). With strong preference, the patient discharged home with 24/7 cares. As noted above, hemorrhagic transformation was identified at OSH, and blood pressure was treated with goal of <160/90 mmHg. She remained hemodynamically and neurologically stable en route, and upon arrival to [facility], was stable neurologically with BP in the 140s systolically. Past Medical & Surgical History: No past medical history on file. Past Surgical History: Procedure Laterality Date ??? IR NEURO MECHANICAL THROMBECTOMY 01/08/2018 IR Neuro Mechanical Thrombectomy 01/08/2018 Ritchie Strauss MD [facility] INTERVENTIONL RAD ??? PRO THROMBOLYSIS VENOUS INFUSION W IMAGING INITIAL TX N/A 01/08/2018 IR VENOUS INFUSION FOR THROMBOLYSIS,VENA CAVA (WRVU 7.06) performed by Ritchie Strauss MD at [facility] Home Medications: No current facility-administered medications on file prior to encounter. Current Outpatient Medications on File Prior to Encounter Medication Sig Dispense Refill ??? aspirin 81 mg Tablet, Chewable Take 81 mg by mouth daily. 30 tablet 3 ??? atorvastatin (LIPITOR) 40 mg Tablet Take 1 tablet by mouth every evening. 90 tablet 3 ??? nicotine (NICODERM CQ) 14 mg/[address] 1 patch onto the skin daily as needed (tobacco cravings). 28 patch 0 ??? LORazepam (ATIVAN) 1 mg Tablet Take 1 mg by mouth every 6 hours as needed for Anxiety. ??? omeprazole (PRILOSEC) 40 mg Capsule, Delayed Release(E.C.) Take 40 mg by mouth daily. ??? fluconazole (DIFLUCAN) 200 mg Tablet Take 200 mg by mouth daily. ??? PARoxetine (PAXIL) 20 mg Tablet Take 20 mg by mouth every morning. Allergy: Allergies Allergen Reactions ??? Morphine Anaphylaxis Breathing difficulty ??? Codeine Nausea And Vomiting And stomach pain Family History: No family history on file. Social History: Smoking: Smoker, has nicotine patches Social History Socioeconomic History ??? Marital status: Spouse name: Not on file ??? Number of children: Not on file ??? Years of education: Not on file ??? Highest education level: Not on file Social Needs ??? Financial resource strain: Not on file ??? Food insecurity - worry: Not on file ??? Food insecurity - inability: Not on file ??? Transportation needs - medical: Not on file ??? Transportation needs - non-medical: Not on file Occupational History ??? Not on file Tobacco Use ??? Smoking status: Current Every Day Smoker Packs/day: 1.00 Types: Cigarettes ??? Smokeless tobacco: Never Used Substance and Sexual Activity ??? Alcohol use: No Frequency: Never ??? Drug use: No ??? Sexual activity: Not on file Other Topics Concern ??? Not on file Social History Narrative ??? Not on file Review of systems: Unable to verify with patient Physical Exam: Vitals: Temp: -- Heart Rate: [67] Resp: [23] BP: (128)/(71) SpO2: [94 %] Heart Rate from SPO2: [67 bpm] Gen: Apparent stated age, well nourished, well developed, awake, alert, NAD Neck: Supple, no meningismus HEENT: MMM CV: S1, S2, RRR, no murmur apreciated Resp: Normal respiratory effort, CTAB Abd: Obese, +normoactive bowel sounds, soft, nontender, nondistended Ext: No edema. No bony deformity Skin: No suspicious rashes or lesions Neuro Exam: MS: Awake, alert, no spontaneous words or sounds; notably able to laugh spontaneously oriented to person, place, year, month (by shaking head yes/no in agreement to choices) Able to follow complex commands, cooperative with neuro exam CN: Pupils 4mm ERRL, no RAPD EOMI, visual guadalupe full to confrontation in quadrants Facial sensation intact to light touch Flattened RIGHT nasolabial fold Hearing intact to voice Palate elevates symmetrically, tongue protrudes midline SCM and trap strength intact Motor: Normal bulk and tone. Subtle RUE pronator drift. UE: 4/5 R, 5/5 L Arm abduction at shoulder 4+/5 R, 5/5 L Elbow extension 4+/5 R, 5/5 L Elbow flexion 5/5 R, 5/5 L [employer] LE: 5/5 R, 5/5 L Hip flexion 5/5 R, 5/5 L Knee extension 5/5 R, 5/5 L Knee flexion 5/5 R, 5/5 L Foot dorsiflexion 5/5 R, 5/5 L Foot plantar flexion Sensation: Intact to light touch, temperature throughout, no simultagnosia Reflexes: DTRs 2+ R, 2+ L Biceps 2+ R, 2+ L Brachioradialis 2+ R, 2+ L Triceps 2+ R, 2+ L Patellar 2+ R, 2+ L Achilles tendon + [place] cortical thumb on the RIGHT Toes R equivocal, L down Coordination: Finger to nose intact, no dysmetria Rapid alternating movements & finger tapping smooth and symmetric Heel-colon intact No tremor Gait: Not assessed NIH Stroke Scale: (bold applicable choices) NIH Stroke Scale at Initial Evaluation: 1.a. Level of consciousness: 0-Alert 1-Not alert, but arousable with minimal stimulation 2-Not alert, requires repeat stimulation to attend 3-Coma 1.b. Ask patient the month and their age: 0-Answers both correctly 1-Answers one correctly 2-Both incorrect 1.c. Ask patient to open and close eyes: 0-Obeys both correctly 1-Obeys one correctly 2-Both incorrect 2. Best gaze (horizontal eye movement): 0-Normal 1-Partial gaze palsy 2-Forced deviation 3. Visual field testin-No visual field loss 1-Partial hemianopia 2-Complete hemianopia 3-Bilateral hemianopia (blind including cortical blindness) 4. Facial paresis (Ask patient to show teeth or raise eyebrows and close eyes tightly): 0-Normal symmetrical movement 1-Minor paralysis (flattened nasolabial fold, asymmetry on smiling) 2-Partial paralysis (total or near paralysis of lower face) 3-Complete paralysis of one or both sides (absence of facial movement in the upper and lower face) 5. Motor function right arm: 0-Normal (extends arm 90 degrees for 10 seconds without drift) 1-Drift 2-Some effort against gravity 3-No effort against gravity 4-No movement UT-Untestable (Joint fused or limb amputated) 5. Motor function- left arm: 0-Normal (extends arm 90 degrees for 10 seconds without drift) 1-Drift 2-Some effort against gravity 3-No effort against gravity (but baseline) 4-No movement UT-Untestable (Joint fused or limb amputated) 6. Motor function right le-Normal (extends leg 30 degrees for 5 seconds without drift) 1-Drift 2-Some effort against gravity 3-No effort against gravity 4-No movement UT-Untestable (Joint fused or limb amputated) 6. Motor function-left le-Normal (extends leg 30 degrees for 5 seconds without drift) 1-Drift 2-Some effort against gravity 3-No effort against gravity 4-No movement UT-Untestable (Joint fused or limb amputated) 7. Limb ataxia: 0-No ataxia 1-Present in one limb 2-Present in two limbs 8. Sensory (Use pinprick to test arms, legs, trunk and face compare side to side): 0-Normal 1-Mild to moderate decrease in sensation 2-Severe to total sensory loss 9. Best language (describe picture, name items, read sentences): 0-No aphasia 1-Mild to moderate aphasia 2-Severe aphasia 3-Mute 10. Dysarthria (read several words): 0-Normal articulation 1-Mild to moderate slurring of words 2-Near unintelligible or unable to speak UT-Intubated or other physical barrier 11. Extinction and inattention: 0-Normal 1-Inattention or extinction to bilateral simultaneous in one of the sensory modalities 2-Severe sherman-inattention or sherman-inattention to more than one modality TOTAL SCORE: 9 ICH Score: GCS 2: 3-4 1: 5-12 0: 13-15 ICH volume 1: > 30 cm3 0: < 30 cm3 Interventricular hemorrhage 1: yes 0: no Infratentorial origin of ICH 1: yes 0: no Age 1: > 80 years 0: < 80 years TOTAL 0 Interpretation: ICH score 0 1 2 3 4 5 6 30 day mortality No mortality 13% 26% 72% 97% 100% Estimated 100% Labs: Hemoglobin A1c 5.6 TCholesterol: 185 LDL: 123 HDL: 45 TTE 01/09/18: SUMMARY: 1. The left ventricular chamber size [...] patent foramen ovale with agitated saline contrast. Diagnostic Tests and Imaging: CT Head at OSH 01/12: hemorrhagic conversion of L MCA infarct, 2mm midline shift Repeat head CT upon arrival: Stable appearance of blood products Assessment and Plan: aLrs Jimenez is a 47 y.o. female with past medical history significant for hypertension, hyperlipidemia and GERD, and recent L M2 ischemic stroke s/p mechanical thrombectomy on 01/08/18 with TICI 2b recanalization, who presents with HTN and hemorrhagic transformation of ischemic stroke. Although there were fluctuations in her reported examination, she seems to be stable to improved at this time. Etiology of hemorrhagic transformation is likely hypertension; there is also the contribution of reperfusion injury in parenchyma that is s/p recanalization, but the blood products seem to be limited to the previous ischemic zones. Thrombolytics were considered and not given secondary to diagnosis of hemorrhage. # Left M2 Ischemic Stroke s/p hemorrhagic transformation - Admit to NSCU, neuro pager [phone] - Neuro check & vitals q2h - BP goal <160/90 mmHg - Restart home propranolol, consider lisinopril - PRN labetalol, enalaprilat, nicardipine - HOLD antiplatelets, anticoagulation - Telemetry - PT/OT/BIAS MACHINE OPERATOR HELPER # Hypertension - Restart home propranolol, consider restarting home lisinopril # Anxiety/depression - Continue home fluoxetine # Prophylaxis - NO pharm dvt ppx due to hemorrhage - RBOs - SCDs # Supportive care - [facility] [place] diet - Tylenol PRN - Up with assistance # FULL code Shola Hernandez MD Vascular Neurology Pager [phone] 01/12/18 Standard [facility] [place] Swallow Screen: This screen is to be used to document a Swallow Screen prior to ingestion of water and /or oral medications for patients with possible stroke (Ischemic or Hemorrhagic). Exclusion Criteria: A swallow screen is not to be performed on patients who: ?? have a decreased level of consciousness. ?? are not able to follow simple commands. ?? are hypoxic, or have increasing O2 needs or may need to be intubated. ?? have a G/J tube for nutrition. ?? have a recent history of a swallowing disorder *These patients should remain NPO (HOLD MEDS) and the physician notified for further orders. Swallow Screen Using Water: None of the Exclusion Criteria as mentioned above is present? Patient is alert and sitting upright? Able to close lips and tongue is midline? Able to cough, manage oral secretions with dry voice? ONLY IF ABOVE ALL YES, Able to swallow 30 ml of water without coughing, displaying a wet voice or choking? Repeat Twice. ??? If YES to all responses, proceed with water and oral medications as well as diet as medical provider deems appropriate. Consider BIAS MACHINE OPERATOR HELPER consult for full evaluation and diet recommendations. ??? If NO to any of the responses, stop immediately, keep patient NPO and notify physician. Associated attestation - Emre Arreguin MD - 01/13/2018 9:01 PM EST Neurology Staff Note I have reviewed the above resident's history during the visit and I agree with the details as written. My physical examination confirms the resident's findings. The assessment and plan were formulated in discussion with me at the time of the visit and I agree with them as documented. I have examined the patient myself and personally reviewed all studies. In addition, I certify thatI am a [facility] credentialed attending provider with admitting privileges and that the patient meets or has met medical necessity to require an inpatient I level of care meeting a minimum of two midnights or is on the [facility] inpatient only procedure list (status C) due to: - neurologic instability requiring neurologic checks at least every 4 hours. - acute stroke requiring neurologic checks at least every 4 hours. MCCs and CCs on admission (Present if in bold): Clinically significant cerebral edema, vasogenic Hyponatremia CHF acute, systolic Brain compression Hypernatremia CHF acute on chronic, systolic Clinically significant cerebral edema, cytotoxic Cerebellar ataxia CHF acute on chronic, diastolic Coma Hypertension, malignant CHF acute diastolic Hemiplegia Hypertension accelerated CHFchronic diastolic Hemiparesis Hypertensive encephalopathy Dementia with delrium Quadraplegia Malnutrition BMI<19 Dementia with depression Encephalopathy, metabolic Cachexia Alzheimer's Dementia with behavioral disturbance Encephalopathy, toxic Morbid obesity, BMI>40 Anoxic brain damage Encephalopathy, other CKD stage 4 (eGFR 15-30ml/min/1.73m2) Acute Kidney Injury Delirium, drug induced CKD stage 5 or ESRD Paroxysmal AF Persistent AF Longstanding persistent AF Permanent AF The degree of hemorrhagic transformation is unchanged when compared to the prior imaging. BP now good and will plan to continue the propranolol. Will check BP with physical activity. The cerebral edema present is not clinically significant. documented in this encounter Miscellaneous Notes * Plan of Care - Lynn Casanova RN - 01/14/2018 4:10 AM EST Problem: Patient Care Overview Goal: Plan of Care Review Outcome: Ongoing (Interventions Implemented as Appropriate) 01/13/18 1540 01/13/181999 Coping/Psychosocial Plan Of Care Reviewed With -- patient Plan of Care Review Progress no change -- OUTCOME SUMMARY: ?? Pt A&O x4, PERRLA, does not verbalize but nods and gestures appropriately, follows commands, denies pain/numbness/tingling. VSS, SBP remains < 160, afebrile, LS clear. Ambulates with SBA. Patient safety maintained. No further s/s of stroke. ?? PLAN MOVING FORWARD: ?? Monitor for neuro changes. Manage BP to keep SBP <160. Plan to progress to floor status. ?? INDIVIDUALIZED FALL PREVENTION INTERVENTIONS: ?? Patient-specific fall risk factors per assessment: generalized weakness ?? Assistance: SBA ?? Supervision: Eyes on ?? Surveillance: Bed locked in low position, call heller within reach, purposeful hourly rounding, bed alarm on, clutter free room. ?? Patient-specific fall prevention interventions for sensory deficits provided: Yes ?? CPG GOAL OUTCOME EVALUATION: ?? Continue care plan as documented. ?? Stroke Education Modifiable risk factors (Ischemic & Hemorrhagic): Checked box [x] indicates present [x] Hypertension [ ] Use of Oral Contraceptive [ ] Smoker (or exposure to cigarette smoke) [ ] Poor Diet/Nutrition [ ] Diabetes [x] Physical Inactivity [ ] Hyperlipidemia [x] Obesity [ ] Atrial Fibrillation [ ] Sleep Apnea [ ] Asymptomatic carotid artery stenosis [ ] Post-menopausal hormone therapy ?? (Hemorrhagic stroke specific) [ ] High alcohol intake [ ] Anticoagulation [ ] Use of sympathomimetic drugs (i.e. cocaine, amphetamine, methamphetamine) ?? Patient Education Provided: Checked box [x] indicates done [ ] Ischemic, Hemorrhagic, TIA education packet provided [ ] Supplemental Personalized Educational Material added to packet, including: [ ] Personal Risk Factors [ ] Warning signs of stroke [ ] Activation of an emergency medical system [ ] Need for follow-up after discharge [ ] Medications prescribed ?? The above items were reviewed in detail today. Patient/family expresses understanding of the likelycauses of this stroke, personal risk factors, diagnostic considerations, hospital course thus far, and treatment plan going forward. Patient and/or family members have received personalized stroke edu cational materials to review and were allowed time for questions and answers. There are no further questions at this time. They were encouraged to review the educational handouts provided and write down any questions that may arise for the vascular neurology team to address at a later time. ?? Patient discharge plans include: [ ] home discharge [ ] Acute Rehab [ ] home with family assistance [ ] Other [ ] home with VNA services [x] Unknown at this time in hospital course [ ] [facility] * Plan of Care - Celi Laura RN - 01/13/2018 3:43 PM EST Problem: Patient Care Overview Goal: Plan of Care Review 01/13/18 2720 Coping/Psychosocial Plan Of Care Reviewed With patient Plan of Care Review Progress no change OUTCOME EVALUATION NOTE: OUTCOME SUMMARY: Pt VSS on RA. SBP < 160 with no PRN's required. Neuro exam remains stable. Pt continues to be non-verbal. Intermittent tingling of right fingers reported, no other changes in neuro exam noted, MD notified. Pt eating 100% of meals. Pt out of bed with stand-by assist. Voiding spontaneously in bedside toilet. Pt afebrile. No c/o pain. Daughter and at bedside this AM. Pt utilizing white board and marker to effectively communicate. Will continue to monitor at this time. PLAN MOVING FORWARD: Q2h neuro checks Transfer to floor/discharge tomorrow? * Plan of Care - Nyla Quezada, PT - 01/13/2018 11:07 AM EST Physical Therapy Evaluation Pertinent History of Current Problem: Lars Jimenez is a 47 y.o. female with past medical history significant for hypertension, hyperlipidemia and GERD, and recent L MCA infarct s/p thrombectomy on 01/08/18, who presented today to [facility] with elevated blood pressures, found to have a hemorrhagic transformation of the left MCA infarct. Precautions/Restrictions: fall Precautions Comments: BP<160/90, up with assist Assessment: Pt seen today for PT evaluation. Patient presents with impaired speech (unable to talk,uses white board to communicate), and decreased core strength/act tolerance after a recent admission sec to CVA, now readmitted. Patient is a&o x 4, pleasant, cooperative and able to follow all commands. Her daughter is at bedside and reports [facility] without difficulties and showering independently. Today, pt was able to get OOB without assistance and ambulated 150 ft with supervision without an AD and steady gait. Home education was provided regarding pacing her activities, conserving energy, and alternating activities with rest breaks. Pt has 09/09 supervision/assistance at home and plans on resuming outpatient PT. OT, and BIAS MACHINE OPERATOR HELPER services. Neither patient nor daughter had any further questions or concerns. Will monitor for remainder of hospitalization, otherwise cleared for d/c from PT standpoint. Staff Mobility Recommendations: Supervision Discharge Recommendation: Home with assist and resuming outpatient PT, OT, and BIAS MACHINE OPERATOR HELPER 01/13/18 1025 Rehab Evaluation Document Type evaluation Total Evaluation Minutes, Physical Therapy 23 (eval, gait) Patient Effort excellent Symptoms Noted During/After Treatment none General Information Patient Profile Review yes Patient/Family/Caregiver Comments/Observations Pt alert, cooperative, pleasant, communicates General Observations of Patient Pleasant, engaging Pertinent History of Current Problem Lars Jimenez is a 47 y.o. female with past medical history significant for hypertension, hyperlipidemia and GERD, and recent L MCA infarct s/p thrombectomy on 01/08/18, who presented today to [facility] with elevated blood pressures, found to have a hemorrhagic transformation of the left MCA infarct. Precautions/Restrictions fall Precautions Comments BP<160/90, up with assist Treatment Number PT 1 Living Environment Patient population Adult Living Environment Lives With spouse Living Arrangements house Home Accessibility stairs to enter home Number of Stairs to Enter Home 4 Living Environment Comment pt lives with in a one-level home with 4 BRUNO. works during day; pt's daughter (who is an COOK MANAGER) will be with patient during daytime. Functional Level Prior Ambulation 0-->independent Transferring 0-->independent Prior Functional Level Comment Pt is independent with all functional mobility and (I)ADL tasks at baseline. She reports since her last d/c from here she has had no problems with mobilizing, getting dressed or other tasks. She showers independently. She plans on resuming outpatient PT, OT, and BIAS MACHINE OPERATOR HELPER. Self-Care Dominant Hand right Vital Signs Heart Rate 62 BP (!) 127/93 SpO2 96 % O2 Device RA Cognitive Assessment/Intervention Additional Documentation (a&o, follows all commands, communicates with whiteboard) Cognitive Assessment Interventions Orientation Status (Cognitive) oriented x 4 Behavior/Mood Observations (Cognitive) alert;cooperative Pain Scale/Rating Pain Assessment Scale Numbers (Numeric Rating Pain Scale) Pain Level 0 ROM (Range of Motion) Additional Documentation (BLE WFL) MMT (Manual Muscle Testing) Additional Documentation (BLE WFL, decr core strength) Mobility Assessment/Training Additional Documentation Bed Mobility Assessment/Treatment (Group);Gait Assessment/Treatment (Group);Transfer Assessment/Treatment (Group) Bed Mobility Assessment/Treatment Eiorjw-mu-Ojv Collier (Bed Mobility) independent Nva-nb-[id number] Collier (Bed Mobility) independent Transfer Assessment/Treatment Collier (Sit-Stand Transfers) supervision required Collier (Stand-Sit Transfers) supervision required Gait Assessment/Treatment Collier (Gait) supervision required Distance in Feet (Gait) 150 ft Comment (Gait) steady Motor Skills/Interventions Additional Documentation Balance Skills Training (Group) Balance Skills Training Sitting Balance: Static good balance Sitting Balance: Dynamic good balance Kuf-oh-Afawg Balance good balance Standing Balance: Static good balance Standing Balance: Dynamic fair balance Coping Observed Emotional State calm;cooperative;pleasant Plan of Care Review Plan Of Care Reviewed With patient;daughter Clinical Impression Therapy Frequency evaluation only Anticipated Discharge Disposition home with assist;home with outpatient services General Interventions Additional Documentation Planned Therapy Interventions (Group) Pager: [phone] OUMAR GonzalezT, NCS Physical Therapy Rehabilitation Department 2017 PT Evaluation Code Rationale: ?? Diagnosis & Pertinent Co-Morbidities, personal factors, and present illness affecting Plan of Care: Patient Active Problem List Diagnosis Code ??? Acute CVA (cerebrovascular accident) I63.9 ??? Arterial ischemic stroke, MCA, left, acute I63.512 Additional personal factors or co-morbidities that impact plan: ?? Total # of Factors: 0 1-2 3+ x ?? Examination of body system impairments, functional limitations and behaviors, and/or participation restrictions. Addressing 1-2 elements x Addressing 3 + elements Addressing 4 + elements ?? Clinical presentation: See assessment above. Stable/Uncomplicated Evolving/Fluctuating Symptoms Unstable/Unpredictable x ?? Clinical decision making of moderate complexity based on pt's functional performance as outlinedin this evaluation. * Initial Assessments - Mine Martin, GLENDA - 01/13/2018 10:48 AM EST Office of Care Management Initial Assessment Mine Martin RN reviewed record and discussed patient with Care Team. Source of Information: chart review, patient and interview Introduced self/reviewed role; services accepted. Reason for Hospitalization: Lars Jimenez is a 47 y.o. female with past medical history significant for hypertension, hyperlipidemia and GERD, and recent L MCA infarct s/p thrombectomy on 01/08/18, who presented today to [facility] with elevated blood pressures, found to have a hemorrhagic transformation of the left MCA infarct (per H&P) No past medical history on file. Hospitalizations Within the Past 30 Days: Yes, 01/08 Anticipated Length Of Stay (If known): expected to dc home today Current Decision-Making Capacity: alert and oriented, able to make independent decisions, able to indicate needs. Advance Care Planning: not on file, paperwork provided to the family to fill out Current Coping/Education/Information Needs: feels updated on the current plan of care from the medical team Current Functional Ability: up with assist. Functional Status Prior to Admission: independent prior MCA infarct/hospitalization Home Environment: lives in one level house, 4 steps to the house with railings, can stay on one level. Social & Family Supports/Community Resources: lives with Alli. Daughter Cheryl lives nearby. and daughter indicated that they will be simone to provide support with ADLs/ transportation and will be able to provide 24/7 care at home. Behavioral Health History: History of anxiety and depression managed with ativan and paroxetine Substance Use/Abuse: History of smoking, does not smoke currently. Denies ETOH and ellicit drus use. Other Pertinent/Service Specific Information: had outpatient therapy for PT/OT/Speech set up through [facility] that is close to the house. The plan is to resume these services post discharge. and daughter confirmed that they will provide transportation. Health/Prescription Coverage: Primary Insurance: [facility] Secondary Insurance: N/A Prescription Coverage: Yes Preferred Pharmacy: [id number] - [place], [place] - [address] [facility] [address] [facility] Other: Primary Care Provider: Jimena Jones MD [phone] Patient/Caregiver Goals of Treatment: dc home with assist from family Potential Needs for Transition of Care: Rehab/SNF: n/a Home Health: n/a DME: no Dialysis: no Community Resources: n/a Transportation: car, family will provide Other: Anticipated Barriers to Discharge/Special Considerations: none Assessment: patient is s/p MCA infarct, medically ready to dc home with assist, transpo by car, family will provide. Plan: A member of the Care Management team will continue to monitor progress, follow for continuity of care and assist with transition of care planning. Mine Martin, RN Pager: [phone] * Plan of Care - Renato Cali, BIAS MACHINE OPERATOR HELPER - 01/13/2018 10:30 AM EST Speech-Language Pathology Document Type: evaluation Pertinent History of Current Problem: Pt suffered a left MCA CVA on 01/08/18. Discharged home. Re-admitted with ? of hemorrhagic transformation. Speech consulted for aphasia evaluation. Assessment: Pt seen for Language / speech evaluation. Pt demonstrated functional auditory comprehension. Word recall is functional via a written modality. Unable to motorically produce words orally. Functional lingual and labial movement in non-speech tasks. Pt presents more with a severe verbal apraxia. Pt is able to compensate with writing or wbtl-[id number] frank to communicate. Encouraged pt to attempt verbally producing 1 and 2 syllable words after writing them. Please see flow sheet data below for specific details, POC and goals. Recommendations ?? Continue speech intervention following discharge. ?? Encourage pt to write or utilize [id number] frank for communication. Therapy Frequency: 2-3 times/wk RENATO CALI, BIAS MACHINE OPERATOR HELPER Inpatient Speech Pathologist Pager: [phone] 01/13/18 1023 Rehab Evaluation Document Type evaluation Total Evaluation Minutes, Speech Language Pathology 35 Patient Effort good General Information Patient Profile Review yes Patient/Family/Caregiver Comments/Observations Pt is alert and interactive. Family present. General Observations of Patient Currently on RA. Pertinent History of Current Problem Pt suffered a left MCA CVA on 01/08/18. Discharged home. Re-admitted with ? of hemorrhagic transformation. Speech consulted for aphasia evaluation. Current Diet Limitations regular solid;thin liquids Cognitive Assessment/Intervention Additional Documentation Cognitive Assessment Interventions (Group) Cognitive Assessment Interventions Behavior/Mood Observations (Cognitive) alert Orientation Status (Cognitive) oriented x 4 Attention (Cognitive) WNL/WFL Attending Skill Interventions (Cognitive) Able to shift topics appropriately. Communication Assessment/Intervention Additional Documentation Auditory Comprehen Assess/Intervention (Group);Verbal Expression Assess/Intervention (Group);Writing Assessment/Intervention (Group) Auditory Comprehen Assess/Intervention Auditory Comprehension WNL/WFL Answers Yes/No Questions (Cognitive) WNL/WFL Yes/No Questions Comment Appropriate responses to personal yes / no questions. Able to Follow Commands (Cognitive) WNL/WFL Follow Commands Comment (Cognitive) Executes 5 step commands. Verbal Expression Assess/Intervention Automatic Speech (Verbal Expression) severe impairment Automatic Speech Comment (Verbal Expression) Occasionally able to sing some words during happy birthday. Occaionally able to produce single numbers during counting with maximal cueing. Speech Fluency (Verbal Expression) nonfluent speech Conversational Speech (Verbal Expression) successful, some complexity Conversational Speech Comment (Verbal Expression) 100% word recall in response to common room objects and conversational questions via a written response. Initiation of Phonation (Verbal Expression) impaired initiation Sustained Phonation (Verbal Expression) impaired initiation Motor Speech (Verbal Expression) words impaired;phrase impaired Writing Assessment/Intervention Writing Skills (Writing) WNL/WFL Writing to Dictation (Writing) WNL/WFL Writing to Dictation Comment (Writing) Able to write name, words in response to questions and sentences. 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 Communication Goal, Additional Goal Pt will verbalize words and phrases with cueing. 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 Prognosis good Therapy Frequency 2-3 times/wk * Plan of Care - Lynn Casanova RN - 01/13/2018 4:08 AM EST Problem: Patient Care Overview Goal: Plan of Care Review Outcome: Ongoing (Interventions Implemented as Appropriate) 01/13/18 0402 Coping/Psychosocial Plan Of Care Reviewed With patient;family Plan of Care Review Progress progress toward functional goals as expected OUTCOME EVALUATION NOTE: OUTCOME SUMMARY: Pt A&O x4, PERRLA, does not verbalize but nods and gestures appropriately, follows commands, denies pain/numbness/tingling. VSS, SBP remains < 160, afebrile, LS clear, placed on 2LPM via NC for O2 desaturation r/t ALAINA. Ambulates with SBA. Head CT obtained. Patient safety maintained. No further s/s of stroke. PLAN MOVING FORWARD: Monitor for neuro changes. Wean O2 as appropriately tolerated per pt. Manage BP to keep SBP <160. Plan to progress to floor if VS continue to remain stable. INDIVIDUALIZED FALL PREVENTION INTERVENTIONS: Patient-specific fall risk factors per assessment: generalized weakness Assistance: SBA Supervision: Eyes on Surveillance: Bed locked in low position, call heller within reach, purposeful hourly rounding, bed alarm on, clutter free room. Patient-specific fall prevention interventions for sensory deficits provided: Yes CPG GOAL OUTCOME EVALUATION: Continue care plan as documented. Stroke Education Modifiable risk factors (Ischemic & Hemorrhagic): Checked box [x] indicates present [x] Hypertension [ ] Use of Oral Contraceptive [ ] Smoker (or exposure to cigarette smoke) [ ] Poor Diet/Nutrition [ ] Diabetes [x] Physical Inactivity [ ] Hyperlipidemia [x] Obesity [ ] Atrial Fibrillation [ ] Sleep Apnea [ ] Asymptomatic carotid artery stenosis [ ] Post-menopausal hormone therapy (Hemorrhagic stroke specific) [ ] High alcohol intake [ ] Anticoagulation [ ] Use of sympathomimetic drugs (i.e. cocaine, amphetamine, methamphetamine) Patient Education Provided: Checked box [x] indicates done [ ] Ischemic, Hemorrhagic, TIA education packet provided [ ] Supplemental Personalized Educational Material added to packet, including: [ ] Personal Risk Factors [ ] Warning signs of stroke [ ] Activation of an emergency medical system [ ] Need for follow-up after discharge [ ] Medications prescribed The above items were reviewed in detail today. Patient/family expresses understanding of the likelycauses of this stroke, personal risk factors, diagnostic considerations, hospital course thus far, and treatment plan going forward. Patient and/or family members have received personalized stroke edu cational materials to review and were allowed time for questions and answers. There are no further questions at this time. They were encouraged to review the educational handouts provided and write down any questions that may arise for the vascular neurology team to address at a later time. Patient discharge plans include: [ ] home discharge [ ] Acute Rehab [ ] home with family assistance [ ] Other [ ] home with VNA services [x] Unknown at this time in hospital course [ ] [facility] Facility documented in this encounter Plan of Treatment Not on file documented as of this encounter Procedures Procedure Name Priority Date/Time Associated Diagnosis Comments RAPID DRUG SCREEN, URINE (LAYLA REQUEST) STAT 01/13/2018 6:43 AM EST RAPID DRUG SCREEN W/ CONFIRMATION, URINE STAT 01/13/2018 6:43 AM EST URINALYSIS WITH REFLEX CULTURE STAT 01/13/2018 6:43 AM EST ABORH RECHECK STATUS STAT 01/13/2018 1:39 AM EST HEMOGRAM STAT 01/13/2018 1:39 AM EST DIFFERENTIAL, AUTOMATED STAT 01/13/2018 1:39 AM EST ABO/RH TYPING STAT 01/13/2018 1:39 AM EST APTT STAT 01/13/2018 1:39 AM EST PROTHROMBIN TIME STAT 01/13/2018 1:39 AM EST CBC (WITH DIFF) STAT 01/13/2018 1:39 AM EST ANTIBODY SCREEN STAT 01/13/2018 1:39 AM EST TYPE AND SCREEN ([facility]/JESUS) STAT 01/13/2018 1:39 AM EST COMPREHENSIVE METABOLIC PANEL (NON-FASTING) STAT 01/13/2018 1:[address] HEAD WO CONTRAST (GENERIC) Routine 01/12/2018 11:42 PM EST documented in this encounter Results * Rapid Drug Screen w/ Confirmation, Urine (01/13/2018 6:43 AM EST) U Barbiturates Screen None Detected None Detected [facility] Comment: The barbiturate screen detects barbiturates at concentrations >200 ng/mL. Note: Not all barbiturates cross-react equally with antibody used in this screen. A ? Presumptive Positive? result indicates that the screening result was positive but has not yet been confirmed by a highly-specific method. As with any screen, occasional false positive results from cross-reacting substances may occur. Not for Medico-Legal Purposes. U Benzodiazepines Screen None Detected None Detected [facility] Comment: The benzodiazepines screen detects benzodiazepines at concentrations >100 ng/mL. Not all benzodiazepines cross-react equally with antibody used in this screen. Due to the low dosage of clonazepam, false negatives may be obtained due to low concentration of clonazepam metabolites. A ? Presumptive Positive? result indicates that the screening result was positive but has not yet been confirmed by a highly-specific method. As with any screen, occasional false positive results from cross-reacting substances may occur. Not for Medico-Legal Purposes. U Cocaine Screen None Detected None Detected [facility] Comment: The cocaine metabolites screen detects benzoylecgonine (Cocaine Metabolite) at concentrations >150 ng/mL. A ? Presumptive Positive? result indicates that the screening result was positive but has not yet been confirmed by a highly-specific method. As with any screen, occasional false positive results from cross-reacting substances may occur. Not for Medico-Legal Purposes. U Methadone Metabolites Screen None Detected None Detected [facility] Comment: The methadone metabolite screen detects EDDP (major methadone metabolite) at concentrations >100 ng/mL. A ? Presumptive Positive? result indicates that the screening result was positive but has not yet been confirmed by a highly-specific method. As with any screen, occasional false positive results from cross-reacting substances may occur. Not for Medico-Legal Purposes. U Opiate Screen None Detected None Detected [facility] Comment: The opiates screen detects opiates at concentrations >300 ng/mL. Please note that oxycodone, oxymorphone, fentanyl, tramadol, and other synthetic opioids are not detected by the opiate screen. A ? Presumptive Positive? result indicates that the screening result was positive but has not yet been confirmed by a highly-specific method. As with any screen, occasional false positive results from cross-reacting substances may occur. Not for Medico-Legal Purposes. U Cannabinoid Screen None Detected None Detected [facility] Comment: The marijuana metabolites screen detects the THC metabolite (24-gsb-6-carboxy-delta 9-THC) at concentrations >20 ng/mL. A ? Presumptive Positive? result indicates that the screening result was positive but has not yet been confirmed by a highly-specific method. As with any screen, occasional false positive results from cross-reacting substances may occur. Not for Medico-Legal Purposes. U Oxycodone Screen None Detected None Detected [facility] Comment: The oxycodone screen detects oxycodone and oxymorphone at concentrations >100 ng/mL. A ? Presumptive Positive? result indicates that the screening result was positive but has not yet been confirmed by a highly-specific method. As with any screen, occasional false positive results from cross-reacting substances may occur. Not for Medico-Legal Purposes. U Buprenorphine Screen None Detected None Detected [facility] Comment: The buprenorphine screen detects buprenorphine at concentrations >5 ng/mL. A ? Presumptive Positive? result indicates that the screening result was positive but has not yet been confirmed by a highly-specific method. As with any screen, occasional false positive results from cross-reacting substances may occur. Not for Medico-Legal Purposes. U Fentanyl Screen None Detected None Detected [facility] Comment: The fentanyl screen detects fentanyl at concentrations >2 ng/mL. A ? Presumptive Positive? result indicates that the screening result was positive but has not yet been confirmed by a highly-specific method. As with any screen, occasional false positive results from cross-reacting substances may occur. Not for Medico-Legal Purposes. U Tricyclics Screen None Detected None Detected [facility] Comment: The tricyclics screen detects tricyclic antidepressants at concentrations >150 ng/mL. Not all tricyclics cross-react equally with the antibody used in this screen. A ? Presumptive Positive? result indicates that the screening result was positive but has not yet been confirmed by a highly-specific method. As with any screen, occasional false positive results from cross-reacting substances may occur. Not for Medico-Legal Purposes. U Ethanol Screen None Detected None Detected [facility] Comment:This urine ethanol a ssay detects ethanol at concentrations >/= 100 mg/L. U Amphetamines Screen None Detected None Detected [facility] Comment: The amphetamine screen detects d-amphetamine and d-methamphetamine at concentrations >300 ng/mL. A ? Presumptive Positive? result indicates that the screening result was positive but has not yet been confirmed by a highly-specific method. As with any screen, occasional false positive results from cross-reacting substances may occur. Not for Medico-Legal Purposes. U Adulterants Screen None Detected None Detected [facility] Comment: No adulteration or dilution of this urine sample was detected. All urine samples submitted for urine drugs of abuse analysis are tested for creatinine concentration, pH, and for the presence of oxidants, nitrites, and chromate. Urine specimen (specimen) 01/13/2018 6:43 AM EST 01/13/2018 7:04 AM EST Narrative Resulting Agency Comment Spec In Lab Shola Hernandez MD CHEMISTRY ORDERABLES Performing Organization Address [facility] Co de Phone Number [facility] [place] [address] * Urinalysis with reflex Culture (01/13/2018 6:43 AM EST) Glucose UA Negative Negative mg/dL [facility] Protein UA Negative Negative mg/dL [facility] Bilirubin UA Negative Negative mg/dL [facility] Comment: Clinical correlation required for positive Urine Bilirubin results as false positive may occur with some drugs and drug related products. If a false positive is suspected a serum total bilirubin should be considered if clinically indicated. Urobilinogen UA Normal Normal mg/dL [facility] pH UA 6.0 5.0 - 8.0 [facility] Blood UA Negative Negative mg/dL [facility] Ketones UA Negative Negative mg/dL [facility] Nitrite UA Negative Negative [facility] Leukocytes UA Negative Negative [facility] Appearance UA Clear Clear [facility] Spec [place] UA 1.014 1.002 - 1.030 [facility] Color UA Yellow Yellow [facility] Culture Reflexed No [facility] Urine specimen obtained by clean catch procedure (specimen) 01/13/2018 6:43 AM EST 01/13/2018 7:03 AM EST Narrative Resulting Agency Comment Spec In Lab Chelsea Petit MD URINE ORDERABLES Performing Organization Address [facility]/ZIP Co de Phone Number [facility] [place] [address] * Rapid Drug Screen, Urine (LAYLA Request) (01/13/2018 6:43 AM EST) LAYLA Conf Requested Yes [facility] Comment: Collection date/time has been modified to: 06:43:00. ??Previous collection date/time: 06:37:00. Corrected from Yes [NA] on 01/13/18 07:04 by Johanny Ardon LAYLA Requested See Comment [facility] Comment: Refer to Rapid Drug Screen w/ Confirmation, Urine for results. Collection date/time has been modified to: 06:43:00. ??Previous collection date/time: 06:37:00. Corrected from See Comment [NA] on 01/13/18 07:04 by Johanny Ardon Urine specimen (specimen) 01/13/2018 6:43 AM EST 01/13/2018 7:04 AM EST Narrative Resulting Agency Comment Spec In Lab Chelsea Petit MD URINE ORDERABLES Performing Organization Address City/[facility]/ZIP Co de Phone Number [facility] [place] [address] * ABORH Recheck Status (01/13/2018 1:39 AM EST) ABORH Type Recheck Completed [facility] Blood specimen (specimen) 01/13/2018 1:39 AM EST 01/13/2018 2:06 AM EST Narrative Resulting Agency Comment Spec In Lab Shola Hernandez MD BLOOD BANK LAB ORDER CAROLYNN Performing Organization Address City/[facility]/ZIP Co de Phone Number [facility] [place] [address] * Antibody screen (01/13/2018 1:39 AM EST) Ab Screen Interp Negative [facility] Expires at [id number] on: 01/16/2018 [facility] Blood specimen (specimen) 01/13/2018 1:39 AM EST 01/13/2018 2:06 AM EST Narrative Resulting Agency Comment Spec In Lab Shola Hernandez MD BLOOD BANK LAB ORDER CAROLYNN Performing Organization Address City/[facility]/ZIP Co de Phone Number [facility] [place] [address] * ABO/Rh Typing (01/13/2018 1:39 AM EST) ABORH Type A Pos [facility] Blood specimen (specimen) 01/13/2018 1:39 AM EST 01/13/2018 2:06 AM EST Narrative Resulting Agency Comment Spec In Lab Shola Hernandez MD BLOOD BANK LAB ORDER CAROLYNN [facility] [place] [address] * Differential, Automated (01/13/2018 1:39 AM EST) Neutrophils % 65.4 % [facility] Neutr Abs (ANC) 4.28 1.70 - 6.10 x10(3)/[facility] Lymphocytes % 25.2 % [facility] Lymphocytes Abs 1.6 0.9 - 3.2 x10(3)/[facility] Monocytes % 6.4 % [facility] Monocyte Abs 0.4 0.3 - 0.9 x10(3)/[facility] Eosinophils % 2.1 % [facility] Eosinophils Abs 0.1 0.0 - 0.4 x10(3)/[facility] Basophils % 0.6 % [facility] Basophils Abs 0.0 0.0 - 0.1 x10(3[place] Immature Gran % 0.30 % [facility] Comment: Immature granulocytes(IG's)percentage and absolute count will include metamyelocytes, myelocytes, and promyelocytes. Blood smears from CBCs yielding IG's will be scanned manually for concordance. If this scan disagrees with the automated IG or if promyelocytes are noted, a manual differential will be performed. Tia Gran Abs 0.02 0.00 - 0.04 x10(3)/[facility] Blood specimen (specimen) 01/13/2018 1:39 AM EST 01/13/2018 1:54 AM EST Narrative Resulting Agency Comment Spec In Lab Shola Hernandez MD HEMATOLOGY ORDERABLE S Performing Organization Address City/[facility]/ZIP Co de Phone Number [facility] [place] [address] * (ABNORMAL) Hemogram (01/13/2018 1:39 AM EST) WBC 6.6 4.0 - 9.5 x10(3)/[facility] RBC 4.24 4.00 - 5.21 x10(6)/[facility] Hemoglobin 11.4(L) 11.7 - 15.5 gm/dL [facility] Hematocrit 35.1(L) 35.7 - 45.8 % [facility] MCV 82.8 82.6 - 94.4 fL [facility] MCH 26.9(L) 27.1 - 32.0 pg [facility] MCHC 32.5 31.7 - 35.0 gm/dL [facility] Platelets 278 145 - 357 x10(3)/[facility] RDWSD 40.2 37.0 - 46.0 [facility] RDWCV 13.5 11.5 - 14.1 % [facility] MPV 9.4 7.6 - 12.9 [facility] nRBC % Auto 0.0 % [facility] nRBC Abs Auto 0.000 0.000 - 0.000 x10(3)/[facility] Blood specimen (specimen) 01/13/2018 1:39 AM EST 01/13/2018 1:54 AM EST Narrative Resulting Agency Comment Spec In Lab Shola Hernandez MD HEMATOLOGY ORDERABLE S [facility] [place] [address] * (ABNORMAL) Comprehensive metabolic panel (non-fasting) (01/13/2018 1:39 AM EST) Glucose Lvl 101 65 - 199 mg/dL [facility] Comment:Diabetes: >=200 mg/d L plus symptoms BUN 8 8 - 18 mg/dL [facility] Creatinine 0.55(L) 0.70 - 1.20 mg/dL [facility] Sodium 142 135 - 145 mmol/L [facility] Potassium 3.5 3.5 - 5.0 mmol/L [facility] Comment: Please note: ??Patients with WBC >100,000 may have falsely elevated Potassium levels. ??For accurate Potassium quantification in these patients send serum separator tube (gold top) for subsequent determinations. ??Contact the Clinical Chemistry Laboratory if there are any questions. Chloride 105 98 - 107 mmol/L [facility] CO2 23 22 - 31 mmol/L [facility] Anion Gap 14 5 - 15 mmol/L [facility] Calcium 8.7 8.5 - 10.5 mg/dL [facility] Total Protein 6.3 6.1 - 8.0 gm/dL [facility] Albumin 3.5 3.2 - 5.2 gm/dL [facility] AST 10 0 - 30 unit/L [facility] ALT 9 0 - 30 unit/L [facility] Alk Phos 81 40 - 104 unit/L [facility] Total Bilirubin 0.3 0.2 - 1.3 mg/dL [facility] Estimated GFR 112 >=60 mL/min/1. 73 m?? [facility] Comment: The eGFR was calculated using the CKD-EPI equation. As with all creatinine based estimates of kidney function, eGFR values calculated with the CKD-EPI equation are not accurate in patients with acute kidney failure, extremes of body mass or the acutely ill. [email or web address] eGFR 129 >=60 mL/min/1. 73 m?? [facility] Comment: The eGFR was calculated using the CKD-EPI equation. As with all creatinine based estimates of kidney function, eGFR values calculated with the CKD-EPI equation are not accurate in patients with acute kidney failure, extremes of body mass or the acutely ill. [email or web address] Blood specimen (specimen) 01/13/2018 1:39 AM EST 01/13/2018 1:54 AM EST Narrative Resulting Agency Comment Spec In Lab Chelsea Petit MD CHEMISTRY ORDERABLES Performing Organization Address [facility] Co de Phone Number [facility] [address] * APTT (01/13/2018 1:39 AM EST) PTT 34 25 - 37 sec [facility] Comment: The PTT is NOT appropriate for heparin monitoring. Use the Anti-Xa level for heparin monitoring (HEP UFH) or LMWH monitoring (HEP LMW). A PTT less than 37 seconds generally indicates adequate hemostasis. Blood specimen (specimen) 01/13/2018 1:39 AM EST 01/13/2018 1:54 AM EST Narrative Resulting Agency Comment Spec In Lab Chelsea Petit MD HEMATOLOGY ORDERABLE S Performing Organization Address [facility] Co de Phone Number [facility] [place] [address] * (ABNORMAL) Prothrombin Time (01/13/2018 1:39 AM EST) PT 12.9(H) 9.4 - 12.5 sec [facility] INR 1.2 [facility] Comment: An INR <2.0 indicates adequate procoagulant activity for hemostasis in most patients without underlying bleeding disorders, though the INR may not adequately reflect hemostatic capacity in patients with liver disease and synthetic impairment. The recommended target INR range for therapeutic anticoagulation is 2.0 ? 3.0 for most applications, though lower and higher ranges may be appropriate depending on clinical circumstances. Blood specimen (specimen) 01/13/2018 1:39 AM EST 01/13/2018 1:54 AM EST Narrative Resulting Agency Comment Spec In Lab Chelsea Petit MD HEMATOLOGY ORDERABLE S [facility] [place] [address] * CT Head wo Contrast (Generic) (01/12/2018 11:42 PM EST) Anatomical Region Laterality Modality Head Computed Tomogra phy Impressions 01/13/2018 1:02 AM EST Evolving left MCA territory infarct with hemorrhagic conversion, with mild local mass effect. No midline shift or transtentorial herniation. Narrative 01/13/2018 1:02 AM EST EXAMINATION: CT HEAD WO CONTRAST (GENERIC) CLINICAL HISTORY: f/u l mca hge conversion 47 y.o.?female with past medical history significant for hypertension, hyperlipidemia and GERD, and recent L M2 ischemic stroke s/p mechanical thrombectomy on 01/08/18 with TICI 2b recanalization, who presents with HTN and hemorrhagic transformation of ischemic stroke. Although there were fluctuations in her reported examination, she seems to be stable to improved at this time. Etiology of hemorrhagic transformation is likely hypertension; there is also the contribution of reperfusion injury in parenchyma that is s/p recanalization, but the blood products seem to be limited to the previous ischemic zones.? TECHNIQUE: CT head performed without intravenous contrast administration. COMPARISON: Multiple priors, most recent CT from January 12, 2018 and most recent MRI from January 09, 2018 FINDINGS: There is continued evolution of the left MCA territory infarct with minimally increased area of hypoattenuation. Small indistinct hyperdensities with indistinct margins within the area of infarct are unchanged from recent study and compatible with known hemorrhagic conversion. Minimally increased local mass effect effaces the adjacent sulci. No definite left ventricular effacement. No midline shift. Basal cisterns are preserved. Hemorrhage remains in the region of known infarct. No new foci of intracranial hemorrhage. No new territorial hypodensity. Procedure Note Grecia Ozuna MD - 01/13/2018 EXAMINATION: CT HEAD WO CONTRAST (GENERIC) CLINICAL HISTORY: f/u l mca hge conversion 47 y.o.?female with past medical history significant for hypertension, hyperlipidemia and GERD, and recent L M2 ischemic stroke s/p mechanical thrombectomy on 01/08/18 with TICI 2b recanalization, who presents withHTN and hemorrhagic transformation of ischemic stroke. Although there werefluctuations in her reported examination, she seems to be stable to improved at thistime. Etiology of hemorrhagic transformation is likely hypertension; there isalso the contribution of reperfusion injury in parenchyma that is s/precanalization, but the blood products seem to be limited to the previous ischemic zones.? TECHNIQUE: CT head performed without intravenous contrast administration. COMPARISON: Multiple priors, most recent CT from January 12, 2018 and most recent MRIfrom January 09, 2018 FINDINGS: There is continued evolution of the left MCA territory infarct withminimally increased area of hypoattenuation. Small indistinct hyperdensities with indistinct margins within the area of infarct are unchanged from recentstudy and compatible with known hemorrhagic conversion. Minimally increasedlocal mass effect effaces the adjacent sulci. No definite left ventriculareffacement. No midline shift. Basal cisterns are preserved. Hemorrhage remains in theregion of known infarct. No new foci of intracranial hemorrhage. No newterritorial hypodensity. IMPRESSION Evolving left MCA territory infarct with hemorrhagic conversion, with mildlocal mass effect. No midline shift or transtentorial herniation. Chelsea Petit MD IM CT ORDERABLES documented in this encounter Visit Diagnoses Diagnosis Arterial ischemic stroke, MCA, left, acute Unspecified cerebral artery occlusion with cerebral infarction Episode of transient neurologic symptoms Other symptoms involving nervous and musculoskeletal systems documented in this encounter Admitting Diagnoses Diagnosis Arterial ischemic stroke, MCA, left, acute Unspecified cerebral artery occlusion with cerebral infarction documented in this encounter Administered Medications Inactive Administered Medications - up to 3 most recent administrations Medication Order MAR Action Action Date Dose Rate Site acetaminophen (TYLENOL) 650 mg/20.3 mL oral liquid 975 mg 975 mg, Per G Tube, EVERY 6 HOURS PRN, Starting on Fri01/13/18 at 0022, Until Fri01/14/18 at 1554, Pain, Fever, pain or temperature greater than 100 degrees F (measured by mouth), Routine acetaminophen (TYLENOL) suppository 975 mg 975 mg, Rectal, EVERY 6 HOURS PRN, Starting on Fri01/13/18 at 0022, Until Fri01/14/18 at 1554, Pain, Fever, pain or temperature greater than 100 degrees F (measured by mouth), Maximum dose of acetaminophen is 4000 mg from all sources in 24 hours., Routine acetaminophen (TYLENOL) tablet 975 mg 975 mg, Oral, EVERY 6 HOURS PRN, Starting on Fri01/13/18 at 0022, Until Fri01/14/18 at 1554, Pain, Fever, pain or temperature greater than 100 degrees F (measured by mouth), Maximum dose of acetaminophen is 4000 mg from all sources in 24 hours., Routine aspirin chewable tablet 81 mg 81 mg, Oral, DAILY, First dose on Fri01/14/18 at 1030, Until Discontinued, Routine Given 01/14/2018 10:38 AM EST 81 mg atorvastatin (LIPITOR) tablet 40 mg 40 mg, Oral, EVERY EVENING, First dose on Fri01/13/18 at 1700, Until Discontinued, Routine Given 01/13/2018 4:26 PM EST 40 mg calcium carbonate (TUMS) chewable tablet 500-1,000 mg 500-1,000 mg, Oral, EVERY 4 HOURS PRN, Starting on Fri01/13/18 at 0923, Until Fri01/14/18 at 1554, Heartburn, Give 500 mg (1 tablet) for mild to moderate heartburn. Give 1,000 mg (2 tablets) for severe heartburn., Routine Given 01/13/2018 9:38 AM EST 500 mg niCARdipine 0.2 mg/mL (standard Adult and Pedi greater than 20 kg) infusion 0-15 mg/hr (0-75 mL/hr), Intravenous, CONTINUOUS PRN, Starting on Fri01/13/18 at 0022, Until Fri01/14/18 at 1554, hypertension, Call Correction Officer Head to discontinue labetalol if blood pressure is not controlled. Call Correction Officer Head if SBP is less than 110. Administer if inadequate blood pressure control in 30 minutes despite labetalol or if labetalol not ordered. Titrate to a systolic blood pressure (SBP) greater than 120 and less than 160 mmHg. Start nicardipine at 5 mg/hr, adjust rate by 2.5 mg/hr every 5 minutes to achieve SBP target. Dose not to exceed 15 mg/hr., Routine nicotine (NICODERM CQ) patch REMOVAL Transdermal, NIGHTLY, First dose on Fri01/13/18 at 0100, Until Discontinued, Remove Nicotine Patch pantoprazole (PROTONIX) tablet 40 mg 40 mg, Oral, DAILY, First dose on Fri01/13/18 at 0945, Until Discontinued, DO NOT CRUSH OR OPEN, Routine Given 01/14/2018 9:10 AM EST 40 mg Given 01/13/2018 9:38 AM EST 40 mg PARoxetine (PAXIL) tablet 20 mg 20 mg, Oral, EVERY MORNING, First dose on Fri01/13/18 at 0700, Until Discontinued, Routine Given 01/14/2018 6:1 7 AM EST 20 mg Given 01/13/2018 8:03 AM EST 20 mg propranolol (INDERAL) tablet 20 mg 20 mg, Oral, 2 TIMES DAILY, First dose on Fri01/13/18 at 0045, Until Discontinued, Routine Given 01/14/2018 9:1 0 AM EST 20 mg Given 01/13/2018 8:48 PM EST 20 mg Given 01/13/2018 8:03 AM EST 20 mg sodium chloride 0.9 % flush 5 mL 5 mL, Intravenous, 2 TIMES DAILY, First dose on Fri01/13/18 at 0045, Until Discontinued, Routine Given 01/14/2018 9:14 AM EST 5 mLs Given 01/13/2018 8:49 PM EST 5 mLs Given 01/13/2018 8:04 AM EST 5 mLs sodium chloride 0.9 % flush 5 mL 5 mL, Intravenous, 2 TIMES DAILY, First dose on Fri01/13/18 at 0045, Until Discontinued, Routine Given 01/14/2018 9:14 AM EST 5 mLs Given 01/13/2018 8:49 PM EST 5 mLs Given 01/13/2018 8:04 AM EST 5 mLs documented in this encounter Active and Recently Administered Medications Times are shown in EST. Scheduled Medication Order 01/12/2018 01/13/2018 01/14/2018 aspirin chewable tablet 81 mg 81 mg, Oral, DAILY, First dose on Fri01/14/18 at 1030, Until Discontinued, Routine 1038 (Given - Provid er: Denisha Frost RN) atorvastatin (LIPITOR) tablet 40 mg 40 mg, Oral, EVERY EVENING, First dose on Fri01/13/18 at 1700, Until Discontinued, Routine 1626 (Given - Provider: Celi Laura RN) nicotine (NICODERM CQ) patch REMOVAL Transdermal, NIGHTLY, First dose on Fri01/13/18 at 0100, Until Discontinued, Remove Nicotine Patch 99 (Patch Removed - Provider: Lynn Casanova, GLENDA)2052 (Patch Removed - Provider: Lynn Casanova, GLENDA) pantoprazole (PROTONIX) tablet 40 mg 40 mg, Oral, DAILY, First dose on Fri01/13/18 at 0945, Until Discontinued, DO NOT CRUSH OR OPEN, Routine 0938 (Given - Provider: Celi Laura RN) 0910 (Given - Provider: Denisha Frost, GLENDA) PARoxetine (PAXIL) tablet 20 mg 20 mg, Oral, EVERY MORNING, First dose on Fri01/13/18 at 0700, Until Discontinued, Routine 0803 (Given - Provider: Celi Laura RN) 0617 (Given - Provider: Lynn Casanova, GLENDA) polyethylene glycol (MIRALAX) packet 17 g 17 g, Oral, DAILY, First dose on Fri01/13/18 at 0900, Until Discontinued, Routine 0900 (Not Given - Provider: Celi Laura RN - Reason: Contraindicated) 0900 (Not Given - Provider: Denisha Frost, GLENDA - Reason: Patient/family refused) propranolol (INDERAL) tablet 20 mg 20 mg, Oral, 2 TIMES DAILY, First dose on Fri01/13/18 at 0045, Until Discontinued, Routine 0136 (Given - Provider: Lynn Casanova, GLENDA)0803 (Given - Provider: Celi Laura, GLENDA)204 (Given - Provider: Lynn Casanova, GLENDA) 0910 (Given - Provider: Denisha Frost, GLENDA) senna-docusate (PERICOLACE) 8.6-50 mg per tablet 2 tablet 2 tablet, Oral, 2 TIMES DAILY, First dose on Fri01/13/18 at 0045, Until Discontinued, Administer to achieve 1 soft bowel movement daily without straining, Routine 0045 (Not Given - Provider: Lynn Casanova RN - Reason: Patient/family refused)0900 (Not Given - Provider: Celi Laura RN - Reason: Contraindicated)2044 (Not Given - Provider: Lynn Casanova RN - Reason: Patient/family refused) 0900 (Not Given - Provider: Denisha Frost, GLENDA - Reason: Patient/family refused) sodium chloride 0.9 % flush 5 mL 5 mL, Intravenous, 2 TIMES DAILY, First dose on Fri01/13/18 at 0045, Until Discontinued, Routine 0137 (Given - Provider: Lynn Casanova RN)0804 (Given - Provider: Celi Laura, GLENDA)2048 (Given - Provider: Lynn Casanova RN) 0914 (Given - Provider: Denisha Frost RN) sodium chloride 0.9 % flush 5 mL 5 mL, Intravenous, 2 TIMES DAILY, First dose on Fri01/13/18 at 0045, Until Discontinued, Routine 0136 (Given - Provider: Lynn Casanova RN)0804 (Given - Provider: Celi Laura RN)2048 (Given - Provider: Lynn Casanova, GLENDA) 0914 (Given - Provider: Denisha Frost, GLENDA) PRN Medication Order 01/12/2018 01/13/2018 01/14/2018 acetaminophen (TYLENOL) 650 mg/20.3 mL oral liquid 975 mg(Linked Group 1) 975 mg, Per G Tube, EVERY 6 HOURS PRN, Starting on Fri01/13/18 at 0022, Until Fri01/14/18 at 1554, Pain, Fever, pain or temperature greater than 100 degrees F (measured by mouth), Routine acetaminophen (TYLENOL) suppository 975 mg(Linked Group 1) 975 mg, Rectal, EVERY 6 HOURS PRN, Starting on Fri01/13/18 at 0022, Until Fri01/14/18 at 1554, Pain, Fever, pain or temperature greater than 100 degrees F (measured by mouth), Maximum dose of acetaminophen is 4000 mg from all sources in 24 hours., Routine acetaminophen (TYLENOL) tablet 975 mg(Linked Group 1) 975 mg, Oral, EVERY 6 HOURS PRN, Starting on Fri01/13/18 at 0022, Until Fri01/14/18 at 1554, Pain, Fever, pain or temperature greater than 100 degrees F (measured by mouth), Maximum dose of acetaminophen is 4000 mg from all sources in 24 hours., Routine bisacodyl (DULCOLAX) suppository 10 mg 10 mg, Rectal, DAILY PRN, Starting on Fri01/13/18 at 0022, Until Fri01/14/18 at 1554, Constipation, Administer if needed per patient's routine or if no bowel movement within 48 hours to achieve: (1) One bowel movement at least every 48 hours, AND (2) Without straining. If multiple PRN bowel medications ordered, start with magnesium hydroxide, then bisacodyl. Multiple medications may be given concomitantly for constipation., Routine calcium carbonate (TUMS) chewable tablet 500-1,000 mg 500-1,000 mg, Oral, EVERY 4 HOURS PRN, Starting on Fri01/13/18 at 0923, Until Fri01/14/18 at 1554, Heartburn, Give 500 mg (1 tablet) for mild to moderate heartburn. Give 1,000 mg (2 tablets) for severe heartburn., Routine 0938 (Given - Provider: Mo Laura RN) enalaprilat (VASOTEC) injection 1.25 mg, Intravenous, Administer over 5 Minutes, EVERY 6 HOURS PRN, Starting on Fri01/13/18 at 0022, Until Fri01/14/18 at 1554, Hypertension, - Administer if inadequate blood pressure control in 30 minutes despite Labetalol. enalaprilat can be given with labetalol or nicardipine. - Give when SBP is greater than 160 mmHg or DBP greater than 90 mmHg., Routine enalaprilat (VASOTEC) injection 1.25 mg, Intravenous, Administer over 5 Minutes, EVERY 6 HOURS PRN, Starting on Fri01/13/18 at 0022, Until Fri01/14/18 at 1554, Hypertension, - Administer if inadequate blood pressure control in 30 minutes despite Labetalol. enalaprilat can be given with labetalol or nicardipine. - Give when SBP is greater than 160 mmHg or DBP greater than 90 mmHg., Routine labetalol (NORMODYNE,TRANDATE) injection 10-20 mg 10-20 mg, Intravenous, Administer over 2 Minutes, EVERY 15 MIN PRN, Starting on Fri01/13/18 at 0022, Until Fri01/14/18 at 1554, High Blood Pressure, - Administer for systolic blood pressure (SBP) greater than 160 mmHg. - Administer 10 mg over 2 minutes. May repeat every 15 minutes if SBP remains above goal. - If inadequate effect with 10 mg dose then increase dose to 20 mg for subsequent dosing every 15 minutes. - Dose not to exceed 300 mg per day. Hold if pulse is less than 50 beats per minute. If Labetalol does not satisfactorily control BP within 30 minutes, consider enalaprilat or niCARdipine., Routine lidocaine (XYLOCAINE) 10 mg/mL (1 %) injection 3 mg 3 mg (0.3 mL), Subcutaneous, ONCE PRN, 1 dose, Starting on Fri01/13/18 at 0022, Until Fri01/14/18 at 1554, for discomfort with PIV insertion, Routine lidocaine (XYLOCAINE) 10 mg/mL (1 %) injection 3 mg 3 mg (0.3 mL), Subcutaneous, ONCE PRN, 1 dose, Starting on Fri01/13/18 at 0022, Until Fri01/14/18 at 1554, for discomfort with PIV insertion, Routine LORazepam (ATIVAN) tablet 1 mg 1 mg, Oral, EVERY 6 HOURS PRN, Starting on Fri01/13/18 at 0022, Until Fri01/14/18 at 1554, Anxiety, Routine magnesium hydroxide (MILK OF MAGNESIA) oral suspension 10 mL 10 mL, Oral, NIGHTLY PRN, Starting on Fri01/13/18 at 0022, Until Fri01/14/18 at 1554, Constipation, Administer if needed per patient's routine or if no bowel movement within 48 hours to achieve: (1) One bowel movement at least every 48 hours, AND (2) Without straining. If multiple PRN bowel medications ordered, start with magnesium hydroxide, then bisacodyl. Multiple medications may be given concomitantly for constipation., Routine meTOPROLOL (LOPRESSOR) injection 5 mg 5 mg, Intravenous, EVERY 5 MIN PRN, Starting on Fri01/13/18 at 0022, Until Fri01/14/18 at 1554, High Blood Pressure, Routine niCARdipine 0.2 mg/mL (standard Adult and Pedi greater than 20 kg) infusion(Linked Group 2) 0-15 mg/hr (0-75 mL/hr), Intravenous, CONTINUOUS PRN, Starting on Fri01/13/18 at 0022, Until Fri01/14/18 at 1554, hypertension, Call Correction Officer Head to discontinue labetalol if blood pressure is not controlled. Call Correction Officer Head if SBP is less than 110. Administer if inadequate blood pressure control in 30 minutes despite labetalol or if labetalol not ordered. Titrate to a systolic blood pressure (SBP) greater than 120 and less than 160 mmHg. Start nicardipine at 5 mg/hr, adjust rate by 2.5 mg/hr every 5 minutes to achieve SBP target. Dose not to exceed 15 mg/hr., Routine nicotine (NICODERM CQ) 14 mg/24 hr patch 14 mg 14 mg (1 patch), Transdermal, Administer over 24 Hours, DAILY PRN, Starting on Fri01/13/18 at 0022, Until Fri01/14/18 at 1554, tobacco cravings, Routine sodium chloride 0.9 % flush 5-20 mL 5-20 mL, Intravenous, EVERY 1 MIN PRN, Starting on Fri01/13/18 at 0022, Until Fri01/14/18 at 1554, flush, Flush pertains to all indwelling lines. Flush per protocol found in the job aid using the link provided on this medication record., Routine sodium chloride 0.9 % flush 5-20 mL 5-20 mL, Intravenous, EVERY 1 MIN PRN, Starting on Fri01/13/18 at 0022, Until Fri01/14/18 at 1554, flush, Flush pertains to all indwelling lines. Flush per protocol found in the job aid using the link provided on this medication record., Routine Linked Groups Order Group 1: acetaminophen (TYLENOL) tablet 975 mgJump to med 975 mg, Oral, EVERY 6 HOURS PRN, Starting on Fri01/13/18 at 0022, Until Fri01/14/18 at 1554, Pain, Fever, pain or temperature greater than 100 degrees F (measured by mouth), Maximum dose of acetaminophen is 4000 mg from all sources in 24 hours., Routine Or acetaminophen (TYLENOL) 650 mg/20.3 mL oral liquid 975 mgJump to med 975 mg, Per G Tube, EVERY 6 HOURS PRN, Starting on Fri01/13/18 at 0022, Until Fri01/14/18 at 1554, Pain, Fever, pain or temperature greater than 100 degrees F (measured by mouth), Routine Or acetaminophen (TYLENOL) suppository 975 mgJump to med 975 mg, Rectal, EVERY 6 HOURS PRN, Starting on Fri01/13/18 at 0022, Until Fri01/14/18 at 1554, Pain, Fever, pain or temperature greater than 100 degrees F (measured by mouth), Maximum dose of acetaminophen is 4000 mg from all sources in 24 hours., Routine Group 2: niCARdipine 0.2 mg/mL (standard Adult and Pedi greater than 20 kg) infusionJump to med 0-15 mg/hr (0-75 mL/hr), Intravenous, CONTINUOUS PRN, Starting on Fri01/13/18 at 0022, Until Fri01/14/18 at 1554, hypertension, Call Correction Officer Head to discontinue labetalol if blood pressure is not controlled. Call Correction Officer Head if SBP is less than 110. Administer if inadequate blood pressure control in 30 minutes despite labetalol or if labetalol not ordered. Titrate to a systolic blood pressure (SBP) greater than 120 and less than 160 mmHg. Start nicardipine at 5 mg/hr, adjust rate by 2.5 mg/hr every 5 minutes to achieve SBP target. Dose not to exceed 15 mg/hr., Routine And Vital signs Q2H (CANCELED) Routine, EVERY 2 HOURS, First occurrence on Fri01/13/18 at 0200, Vital Signs per step down or critical care units. And Cardiac Monitoring (CANCELED) Routine, UNTIL DISCONTINUED, Starting on Fri01/13/18 at 0025, Until Specified, This order is to be used only in the following areas: ED / CDU, Critical Care and Step Down Units to initiate cardiac monitoring per unit protocols. documented in this encounter Care Teams Microbiological Lab Technician Relationship Specialty Start Date End Date Jimena Jones MD PCP - General Family Medicine 11/22/18 documented as of this encounter
--- OUTSIDE RECORDS SUMMARY | 2023-09-18 18:26 | XMS_ITS | Encounter Summary ---
Author Organization [facility] [place] [address] Care Team Providers Care Help Desk Rep Name Role Phone Jimena Jones MD Primary Care Provider [phone] Encounter Details Date Type Department Care Team (Late st Contact Info) Description 12/23/2018 Telephone Cardiology at [address] [phone] Ana-Andreina Mendez, RN Social History Tobacco Use Types Packs/Day [...] encounter Miscellaneous Notes * Telephone Encounter - Andreina Perez, RN - 12/23/2018 4:41 PM EST RTC from Dr. Lee Melgar Server Software Engineer at [facility] in [facility]. Pt sees Dr. Melgar for general cardiology there. Pt was seen today and advised Dr. Melgar that she was still taking plavix Along with her Xeralto and ASA. This was very concerning to Dr. Melgar who called the office to questionwhy. Advised Dr. Melgar that pt was advised on MyD-H message dated 09/17/[address] Malone that she was to STOP the plavix at that time. Per Dr. Melgar the patient continued to take the plavix. Dr. Dunham asking for the pt to have another F/U appt here at [facility] to discuss her continued anticoagulationas he is not understanding why she is still being anticoagulated. After speaking with Dr. Melgar I found documentation in the pt's chart indicating that Dr. Malone wanted pt to F/U with Dr. Garrett. An appt was scheduled for 10/26/18 but was cancelled. Pt has not been rescheduled for this appt. I calledDr. Garrett's team and spoke with Alecia. Requested that she call the pt's Dtg and arrange a F/U appt with Dr. Garrett re: anticoagulation per Dr. Malone's last progress note ( 09/10/18). Alecia will reach out to pt's Dtg. documented in this encounter Plan of Treatment Not on file documented as of this encounter Visit Diagnoses Not on filedocumented in this encounter Care Teams Help Desk Rep Relationship Specialty Start Date End Date Jimena Jones MD PCP - General Family Medicine 01/08/18 documented as of this encounter
--- OUTSIDE RECORDS SUMMARY | 2023-09-18 18:26 | XMS_ITS | Encounter Summary ---
[place] [address] Care Team Providers Care Obstetrics Gyn Name Role Phone Jimena Jones MD Primary Care Provider [phone] Reason for Referral * Consultation (Routine) - Specialty Diagnoses / Procedures Referred By Contac t Referred To Contact Cardiology Diagnoses Cryptogenic stroke PFO (patent foramen ovale) Emre Arreguin MD [facility] [place] [address] [facility] [address] [place] [id number] Referral ID Status Reason Start Date Expiration Date V isits Requested Visits Authorized [id number] Consult, Test & Treat 02/18/2018 02/18/2019 1 1 Encounter Details Date Type Department Care Team (Late st Contact Info) Description 02/18/2018 Orders Only Neurology at [place] [phone] Emre Arreguin MD [facility] [place] [address] Cryptogenic stroke; PFO (patent foramen ovale) Social History Tobacco [...] of this encounter Plan of Treatment Scheduled Referrals Name Type Priority Associated Diagnoses Order Schedule Referral to Cardiology Outpatient Referral Routine Cryptogenic stroke PFO (patent foramen ovale) Ordered: 02/18/2018 documented as of this encounter Visit Diagnoses Diagnosis Cryptogenic stroke Unspecified cerebral artery occlusion with cerebral infarction PFO (patent foramen ovale) Ostium secundum type atrial septal defect documented in this encounter Care Teams Obstetrics Gyn Relationship Specialty Start Date End Date Jimena Jones MD PCP - General Family Medicine 01/08/18 documented as of this encounter
--- OUTSIDE RECORDS SUMMARY | 2023-09-18 18:26 | XMS_ITS | Encounter Summary ---
[place] [address] Care Team Providers Care Legal Coordinator Name Role Phone Jimena Jones MD Primary Care Provider + [phone] Reason for Visit * Reason Onset Date Comments Other 01/29/2018 Encounter Details Date Type Department Care Team (Late st Contact Info) Description 01/29/2018 [place] [address] Emre Arreguin MD [facility] [place] [address] Other Social History Tobacco Use Types Packs/Day [...] Telephone Encounter - Jimena Vega RN - 01/30/2018 10:31 AM EST Pt scheduled for Echo 02/09 at noon. Daughter notified that she will be getting a call with instructions and where they will check in * Telephone Encounter - Jimena Vega RN - 01/30/2018 10:19 AM EST Call placed to pt's daughter. Daughter instructed to have pt start with lower dose and increase more slowly. Pt took 300mg at HS and was feeling drunk and hungover the next morning. Daughter instructed to have pt reduce dose to 100mg at HS over weekend and call on Friday with update * Telephone Encounter - Jimena Vega RN - 01/29/2018 4:22 PM EST Call returned to daughter, message left on voicemail requesting call back * Telephone Encounter - Sheila Fleming - 01/29/2018 4:18 PM EST Clinical [place] Message Caller: Cheryl Call back number: [phone] Reason for Call: returning call to office Who from office does the pt said called: Nila Castellon When does the patient report they received the message: Today Disposition of call: Message forwarded to the staff person in the office that left the message asking pt to call back. * Telephone Encounter - Carissa Suarez - 01/29/2018 2:33 PM EST Clinical [place] Message Caller: Cheryl Call back number: [phone] Reason for Call: returning call to office Who from office does the pt said called: Nila Castellon When does the patient report they received the message: 01/29 @ 10:15 Disposition of call: Message forwarded to the staff person in the office that left the message asking pt to call back. * Telephone Encounter - Jimena Vega RN - 01/29/2018 10:15 AM EST Call returned to daughter, message left requesting call back * Telephone Encounter - Sheila Fleming - 01/29/2018 9:18 AM EST Clinical Orthotic/Prosthetic Practitioner Message Caller: Cheryl If not Pt / Relation to pt: daughter Call back Number: [phone] Best time to reach caller: anytime Reason for call: asking to adjust or change dosing of medication Asking for medication Change or Medication dose adjustment: Name of Medication asking to be changed or adjusted: Gabapentin When was the medication started: Last night Why does the patient want to make a change or adjustment: It makes her feel drunk Additional information or questions for the nurse: Patient states that she would like to switch to another medication as this one makes her feel drunk. Daughter also know if there TTE could be done at [facility] Disposition of Call ? Routine message sent to nurse documented in this encounter Plan of Treatment Not on file documented as of this encounter Visit Diagnoses Not on filedocumented in this encounter Care Teams Legal Coordinator Relationship Specialty Start Date End Date Jimena Jones MD PCP - General Family Medicine 01/08/18 documented as of this encounter
--- OUTSIDE RECORDS SUMMARY | 2023-09-18 18:26 | XMS_ITS | Encounter Summary ---
Author Organization [facility] [place] [address] Care Team Providers Care Allied Health Instructor Name Role Phone Jimena Jones MD Primary Care Provider [phone] Encounter Details Date Type Department Care Team (Late st Contact Info) Description 09/10/2018 Telephone Cardiology at [address] [address] Markus Dwyer, RN Social History Tobacco Use Types Packs/Day [...] encounter Miscellaneous Notes * Telephone Encounter - Markus Dwyer RN - 09/10/2018 2:06 PM EDT Images from the original note were not included. Received voicemail prompt (dated 09/09/18) from Ms. Jimenez, seeking return contact. Voicemail messageindicates concern for return of swelling in her leg. Previous contact dated 09/03/[address] Malone noted (below): Note I spoke with Lars and it sounds [...] will plan on seeing her in Nov. ?? , ?? Mary Malone MD [facility] Interventional Cardiology Pager [phone] Call returned, detailed message left on home identified voicemail. Call placed to listed cell contact; successful connection with Ms. Jimenez's daughter. Instructed to contact home number again, (in 10minutes) despite previous message machine. Daughter will text Ms. Jimenez, and encourage to answer the phone. Eventual, successful connection with Ms. Jimenez. Reports interim contact with her PCP, who reportedly called and got advice from the Cardiology person marketing sales consultant. Interim decision for continued Lovenox. Two doses since yesterday (last night and this morning). Leg swelling improved, but not yet resolved. Reports interim scan/ vascular study within [facility], reportedly negative for DVT. Seeking expert review and advice from Dr. Malone - regarding further anticoagulation plan. Note routed to for her review and contact. Best number - per patient - [phone]. Commits to being available at that number. Joni Dwyer operations superintendent Team Nurse [facility] documented in this encounter Plan of Treatment Not on file documented as of this encounter Visit Diagnoses Not on filedocumented in this encounter Care Teams Allied Health Instructor Relationship Specialty Start Date End Date Jimena Jones MD PCP - General Family Medicine 01/08/18 documented as of this encounter
--- OUTSIDE RECORDS SUMMARY | 2023-09-18 18:26 | XMS_ITS | Encounter Summary ---
[place] [address] Care Team Providers Care Materials Handling Coordinator Name Role Phone Jimena Jones MD Primary Care Provider [phone] Reason for Referral * Diagnostic Test (Routine) - Closed Specialty Diagnoses / Procedures Referred By Contac t Referred To Contact Cardiology Diagnoses Ischemic stroke Procedures Transesophageal Echocardiogram (MANAS) Emre Arreguin MD [facility] [place] [address] [facility] [place] [address] Referral ID Status Reason Start Date Expiration Date V isits Requested Visits Authorized [id number] Closed Specialty Service Requested 01/26/2018 01/26/2019 1 1 Encounter Details Date Type Department Care Team (Late st Contact Info) Description 01/26/2018 10:00 AM EST [place] [address] Emre Arreguin MD [facility] [place] [address] Ischemic stroke Social History Tobacco Use Types Packs/Day [...] Sign Reading Time Taken Comments Blood Pressure 153/91 01/26/2018 9:53 AM EST Pulse 70 01/26/2018 9:53 AM EST Temperature - - Respiratory Rate - - Oxygen Saturation - - Inhaled Oxygen Concentration - - Weight 109.4 kg (241 lb 3.2 oz) 01/26/2018 9:53 AM EST Height 157.5 cm (5' 2) 01/26/2018 9:53 AM EST r eported Body Mass Index 44.12 01/26/2018 9:53 AM EST documented in this encounter Patient Instructions * Patient Instructions* Emre Arreguin MD - 01/26/2018 10:00 AM EST Go to 3L for lab test We will set up the echocradiogram OK to start Lisinopril 10 mg a day. I sent prescription for gabapentin to pharmacy. Let us know if you have any side effects (sedation,dizziness) and if it's not effective and dose may need to be changed. documented in this encounter Progress Notes * Emre Arreguin MD - 01/26/2018 10:00 AM EST [facility] Disease [facility] Stroke [facility] Department of Neurology [place] [id number] t: [phone] / f: [phone] Date of Appointment: 01/26/2018 Patient: Lars Jimenez This 47 y.o. 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 Speech improved quite a bit. Had 2 TOOL ANALYST sessions. Seemed to do better when she was told it was ok tojust talk. PCP last week and BP was 160s/100 and was rushing and after sat and was then 150s/80s. Has nerve pain on right UE and side of leg since stroke, sensitive to shower and clothing. Has had some migraines when she needed to go to bed. Previously took Maxalt and Imitrex and took Topamax years ago. 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 Has spoken to office and this won't interfere with therapy. Initially could work only a couple hours a day. Only needs a nap occasionally. Was not on any short-term disability. Was still getting paid. The staff included her, Pamela Mcarthur, and Aguilar a nurse. Modified Yani Scale (MRS) 0: No symptoms at all 1: No significant disability despite symptoms; able to carry out all usual duties and activities 2: Slight disability; unable to carry out all previous activities, but able to look after own affairs without assistance 3: Moderate disability; requiring some help, but able to walk without assistance 4: Moderate disability; unable to walk without assistance and unable to attend to own bodily needs without assistance 5: Severe disability; bedridden, incontinent and requiring constant nursing care and attention 6: Patient Active Problem List Diagnosis Code ??? Acute CVA (cerebrovascular accident) I63.9 ??? Arterial ischemic stroke, MCA, left, acute I63.512 ??? Episode of transient neurologic symptoms R29.90 Allergies Allergen Reactions ??? Morphine Anaphylaxis Breathing difficulty ??? Codeine Nausea And Vomiting And stomach pain Outpatient Medications Marked as Taking for the 01/26/18 encounter (Office Visit) with Emre Arreguin MD Medication Sig Dispense Refill ??? propranolol (INDERAL) 20 mg Tablet Take [...] Take 20 mg by mouth every morning. Exam: Vitals: 01/26/18 0953 BP: (!) 153/91 BP Location (NBP): Right arm Patient Position: Sitting BP Cuff Sizes: Large Adult (32-43 cm) Pulse: 70 Weight: 109.4 kg (241 lb 3.2 oz) Height: 157.5 cm (5' 2) Well appearing patient, nontoxic. Heart regular. No edema lower extremities. No wheezing or dyspneanoted. No rash, thyromegaly. Mood euthymic. Alert, oriented; attentive; speech fluent/articulate, no dysarthria, paraphasic errors or fabio aphasia. No facial weakness. No pronator drift or tremor. Gait normal. NIH Stroke Scale: (bold applicable choices) NIH [...] to more than one modality TOTAL SCORE: 3 Able to express her thoughts with effort and somewhat telegraphic speech. Names 6/6 except spencer alves Reads with some pausing but can read a full sentence. Data reviewed: None new Assessment and Plans: She has had a break-through with her speech this past week. Given that the cause of her stroke has not been identified, we will check some additional labs and a MANAS. OK to resume lisinopril at 10 mg a day initially. Await Zio patch results. Encouraged smoking cessation. OK to resume riving. Daughter will watch her initially. Could switch gabapentin and consider nortriptyline (could also help with bladder) or topamiax if migraines persist. Ok to start oxybutinin PCP prescribed. OK to RTW part-time. Has a supportive office. Follow-up here 3 months. I made no medication changes today. I ordered no additional tests. documented in this encounter Plan of Treatment Not on file documented as of this encounter Procedures Procedure Name Priority Date/Time Associated Diagnosis Comments LUPUS ANTICOAGULANT Routine 01/26/2018 1 1:10 AM EST Ischemic stroke SILICA CLOTTING TIME Routine 01/26/2018 11:10 AM EST Ischemic stroke DRVVT Routine 01/26/2018 11:10 AM EST Ischemic stroke CARDIOLIPIN ANTIBODY SCREEN Routine 01/26/2018 11:10 AM EST Ischemic stroke documented in this encounter Results * MANAS IN MINOR (02/16/2018 10:49 AM EST) Anatomical Region Laterality Modality Other 02/16/2018 Narrative 02/16/2018 11:20 AM EST Procedure: ?Transesophageal Echocardiogram Patient: ?VIN Jimenez ?(Age): 1970(47y) Med Rec#: ? [id number] ?Sex: ?F ? Site Loc: ? [facility] ?Ht / Wt: ??(cm)/ (kg) ? Pt. Loc: ?PACU ? Study Date: ?? 02/16/2018 ?Pt. Type: Tape: ? Referring: VÍCTOR Reading: Familia Correa ([id number]) Test Car Driver: Familia Correa ([id number]) Test Car Driver: Horace Garrett ??([id number]) Test Car Driver 2: Terence Santos AIMEE Interpreting Fellow: Horace Garrett ??([id number]) Diagnosis: *Cerebral infarction, unspecified (I63.9) SUMMARY: 1. [...] is a patent foramen ovale with predominant abwkr-ov-qnsa shunting. ?The patent foramen ovale is demonstrated [...] 02/16/2018 11:19:59 Images reviewed and interpretation verified [facility] Cardiac Ultrasound Laboratory Procedure Note Familia Correa MD - 02/16/2018 Procedure: Transesophageal Echocardiogram Patient: VIN AREVALO(Age): 1970(47y) Med Rec#: [id number] Sex: F Site Loc: [facility] Ht / Wt: (cm)/ (kg) Pt. Loc: PACU Study Date: 02/16/2018 Pt. Type: Tape: Referring: VÍCTOR Reading: Familia Correa ([id number]) Test Car Driver: Familia Correa ([id number]) Test Car Driver: Horace Garrett ([id number]) Test Car Driver 2: Terence Santos [facility] Interpreting Fellow: Horace Garrett ([id number]) Diagnosis: *Cerebral infarction, unspecified (I63.9) SUMMARY: 1. [...] is a patent foramen ovale with predominant uvywl-dl-adza shunting. The patent foramen ovale is demonstrated [...] 02/16/2018 11:19:59 Images reviewed and interpretation verified [facility] Cardiac Ultrasound Laboratory Emre Arreguin MD ECHO ORDERABLES * (ABNORMAL) Silica Clotting Time (01/26/2018 11:10 AM EST) Silica Clotting Time 1.30(H) <=1.16 ratio [facility] Comment: A result greater than 1.16 TR is consistent with the presence of lupus anticoagulant. Values of 1.16 to 1.24 in this assay are not definitively positive or negative for the presence of a lupus anticoagulant. The SCT ratio may be falsely elevated in patients on anticoagulants, especially heparins and direct oral anticoagulants. An abnormal test result in an anticoagulated patient must therefore be interpreted with caution, and repeat testing after discontinuing anticoagulation may be appropriate. Blood specimen (specimen) 01/26/2018 11:10 AM EST 01/26/2018 11:17 AM EST Narrative Resulting Agency Comment Spec In Lab Emre Arreguin MD HEMATOLOGY ORDERAB LES [facility] [place] [place] [address] * dRVVT (01/26/2018 11:10 AM EST) dRVVT 1.16 <=1.20 IU/mL [facility] Comment: A result greater than 1.20 TR is consistent with the presence of lupus anticoagulant. Values of 1.20 to 1.30 in this assay are not definitively positive or negative for the presence of a lupus anticoagulant. The DRVVT ratio may be falsely elevated in patients on anticoagulants, especially heparins and direct oral anticoagulants. An abnormal test result in an anticoagulated patient must therefore be interpreted with caution, and repeat testing after discontinuing anticoagulation may be appropriate. Blood specimen (specimen) 01/26/2018 11:10 AM EST 01/26/2018 11:17 AM EST Narrative Resulting Agency Comment Spec In Lab Emre Arreguin MD HEMATOLOGY ORDERAB LES Performing Organization Address City/State/[facility] Co de Phone Number [facility] [place] [address] * Cardiolipin Antibody Screen (01/26/2018 11:10 AM EST) Cardiolipin IgG <9.4 <=14.9 GPL unit(s) [facility] Comment: Ranges ?? GPL ------ ?? --- Negative ?? <=14.9 Indeterminate ??15.0 - 20.0 Low/Medium Positive 20.1 - 80.0 High Positive ??>80.0 Cardiolipin IgM <9.4 <=12.5 MPL unit(s) [facility] Comment: Ranges ?? MPL ------ ?? --- Negative ?? <=12.5 Indeterminate ??12.6 - 20.0 Low/Medium Positive 20.1 - 80.0 High Positive ??>80.0 Blood specimen (specimen) 01/26/2018 11:10 AM EST 01/26/2018 1:22 PM EST Narrative Resulting Agency Comment Spec In Lab Emre Arreguin MD IMMUNOLOGY ORDERAB LES [facility] [place] [place] [address] documented in this encounter Visit Diagnoses Diagnosis Ischemic stroke documented in this encounter Care Teams Materials Handling Coordinator Relationship Specialty Start Date End Date Jimena Jones MD PCP - General Family Medicine 01/08/18 documented as of this encounter
--- OUTSIDE RECORDS SUMMARY | 2023-09-18 18:26 | XMS_ITS | Encounter Summary ---
[place] [address] Care Team Providers Care Side Seam Envelope Machine Operator Name Role Phone Jimena Jones MD Primary Care Provider [phone] Reason for Referral * Diagnostic Test (Routine) - Closed Specialty Diagnoses / Procedures Referred By Contac t Referred To Contact Cardiology Diagnoses Acute CVA (cerebrovascular accident) Arterial ischemic stroke, MCA, left, acute PFO (patent foramen ovale) Episode of transient neurologic symptoms Procedures Echocardiogram Transthoracic(Leb) [facility] Cardiology [address] [place] [id number] [facility] [place] [address] Referral ID Status Reason Start Date Expiration Date V isits Requested Visits Authorized [id number] Closed Specialty Service Requested 06/09/2018 06/09/2019 1 1 Encounter Details Date Type Department Care Team (Late st Contact Info) Description 06/09/2018 Telephone Cardiology at [address] [address] Markus Dwyer, RN Social History [...] Telephone Encounter - Markus Dwyer RN - 06/09/2018 4:49 PM EDT Received an e-mail request from Dr. Malone, seeking scheduling assistance with patient follow up. Patient is status post PFO closure 05/05/18; currently scheduled for 4 A Clinic follow up 06/19/[address] Malone. Limited TTE ordered. Note routed to Clinic Scheduling Team, requesting TTE precede Office visit currently scheduled for 10 AM 06/19/18. Joni Dwyer RNhead of it Team Nurse [facility] Ambulatory Cardiology documented in this encounter Plan of Treatment Not on file documented as of this encounter Results * ECHO LMTD W/O CONTRAST W LMTD SPEC DOPP COLOR DOPP (06/19/2018 11:31 AM EDT) EF 60 HEARTLAB SYSTEM Anatomical Region Laterality Modality Other 06/19/2018 Narrative 06/19/2018 11:59 AM EDT Procedure: ?Transthoracic Echocardiogram Patient: ?VIN Jimenez ?(Age): 1970(47y) Med Rec#: ? [id number] ?Sex: ?F ? Site Loc: ? [facility] ?Ht / Wt: ??157(cm)/109(kg) Pt. Loc: ?Echo Lab ?BSA: ?2.06 Study Date: ?? 06/19/2018 ?Pt. Type: Outpatient Tape: ? Referring: DEAN Reading: Dereje Santos ([id number]) Title Insurance Agent: Blessing Kendrick Diagnosis: *Cerebral infarction, unspecified (I63.9) [...] E-wave Vmax ?0.7 ?m/sec ? MV deceleration [id number] ?msec ? MV A-wave Vmax ?0.9 ?m/sec ? MV E:A ratio ?0.8 ?ratio ? P. vein S-wave Vmax 0.7 ?m/sec ? P. vein D-wave Vmax 0.6 ?m/sec ? P. vein S:D Vmax rat1.2 ?ratio ? P. vein A-wave [id number] ?msec ? LV septal e' Vmax ?? [...] ? Mid-Inferior ?Normal ? Mid-Inferoseptal ?Normal ? [place]-Septal ? Normal ? [place]-Anterior ? Normal ? [place]-Lateral ?Normal ? [place]-Inferior ? Normal ? [place]-Tip ?Normal ? This report has been electronically signed by: Dereje Santos M.D. ? 06/19/2018 11:59:00 Images reviewed and interpretation verified [facility] Cardiac Ultrasound Laboratory Procedure Note Dereje Santos MD - 06/19/2018 Procedure: Transthoracic Echocardiogram Patient: VIN AREVALO(Age): 1970(47y) Med Rec#: [id number] Sex: F Site Loc: [facility] Ht / Wt: 157(cm)/109(kg) Pt. Loc: Echo Lab BSA: 2.06 Study Date: 06/19/2018 Pt. Type: Outpatient Tape: Referring: DEAN Reading: Dereje Santos ([id number]) Title Insurance Agent: Blessing Kendrick Diagnosis: *Cerebral infarction, unspecified (I63.9) [...] MV E-wave Vmax 0.7 m/sec MV deceleration [id number] msec MV A-wave Vmax 0.9 m/sec MV E:A ratio 0.8 ratio P. vein S-wave Vmax 0.7 m/sec P. vein D-wave Vmax 0.6 m/sec P. vein S:D Vmax rat1.2 ratio P. vein A-wave [id number] msec LV septal e' Vmax 0.1 m/sec [...] Normal Mid-Posterolateral Normal Mid-Inferior Normal Mid-Inferoseptal Normal [place]-Septal Normal [place]-Anterior Normal [place]-Lateral Normal [place]-Inferior Normal [place]-Tip Normal This report has been electronically signed by: Dereje Santos M.D. 06/19/2018 11:59:00 Images reviewed and interpretation verified [facility] Cardiac Ultrasound Laboratory Mary Malone MD ECHO ORDERABLES documented in this encounter Visit Diagnoses Diagnosis Acute CVA (cerebrovascular accident) Arterial ischemic stroke, MCA, left, acute Unspecified cerebral artery occlusion with cerebral infarction PFO (patent foramen ovale) Ostium secundum type atrial septal defect Episode of transient neurologic symptoms Other symptoms involving nervous and musculoskeletal systems Acute CVA (cerebrovascular accident) Arterial ischemic stroke, MCA, left, acute Unspecified cerebral artery occlusion with cerebral infarction PFO (patent foramen ovale) Ostium secundum type atrial septal defect Episode of transient neurologic symptoms Other symptoms involving nervous and musculoskeletal systems documented in this encounter Care Teams Side Seam Envelope Machine Operator Relationship Specialty Start Date End Date Jimena Jones MD PCP - General Family Medicine 01/08/18 documented as of this encounter
--- OUTSIDE RECORDS SUMMARY | 2023-09-18 18:26 | XMS_ITS | Encounter Summary ---
Author Organization [facility] Address [facility] [place] [address] Care Team Providers Care Foreign Exchange Student Coordinator Name Role Phone Jimena Jones MD Primary Care Provider [phone] Reason for Visit * Auth/Cert Specialty Diagnoses / Procedures Referred By Contac t Referred To Contact Diagnoses PFO (patent foramen ovale) [Q21.1]Cryptogenic stroke [I63.9] Procedures PRO PERC CLOS, JEOVANNY INTERATRIAL COMMUN W/IMPL PRG INTRACARD ECHO, THER/DX INTERVENT CARDIAC CATHETERIZATION ASD CLOSURE INTRACARDIAC ECHOCARDIOGRAPHY DURING INTERVENTION Referral ID Status Reason Start Date Expiration Date Visits Re quested Visits Authorized [id number] 1 1 Encounter Details Date Type Department Care Team (Latest Contact Info) Description 05/05/2018 9:28 AM EDT - 05/06/2018 11:26 AM EDT Hospital Encounter Short Stay Unit at [place] [phone] Mary Malone MD [facility] [address] [place] [address] Manuel Jules MD [facility] [place] [address] [place] [address] PFO (patent foramen ovale); Cryptogenic stroke Discharge Disposition: Home Social History Tobacco [...] Sign Reading Time Taken Comments Blood Pressure 137/88 05/06/2018 7:41 AM EDT Pulse 87 05/06/2018 7:41 AM EDT Temperature 37.7 ??C (99.9 ??F) 05/06/2018 7:41 AM ED T Respiratory Rate 18 05/06/2018 7:41 AM EDT Oxygen Saturation 98% 05/06/2018 7:41 AM EDT Inhaled Oxygen Concentration - - [...] removed per policy. Home with family. * EbonieIlene tse RN - 05/06/2018 8:08 AM EDT Activity [...] is NSR-this assessed at the time of 0015 * Ilene Loomis RN - 05/05/2018 8:51 [...] PM EDT Patient arrived to floor from label stamper alert and oriented x 3. Patient states [...] 2 and MP 2. Mary Malone MD [facility] Interventional Cardiology Pager [phone] documented in this encounter Miscellaneous Notes * Brief Op Note - Manuel Jules MD - 05/05/2018 1:00 PM EDT Brief Operative Note Patient Name: Lars Jimenez : [id number] MR#: [id number] Case Date: 05/05/2018 Surgeon: * Mary Malone MD * Manuel Jules MD Preoperative diagnosis: PFO (patent foramen ovale) [Q21.1]Cryptogenic stroke [I63.9] Postoperative diagnosis: PFO (patent foramen ovale) [Q21.1]Cryptogenic stroke [I63.9] Procedures: Bifemoral venous access, ultrasound-guided Intracardiac echocardiography Transseptal left heart catheterization Findings: Short tunneled PFO identified by ICE with moderate interatrial septal aneurysm Successful deployment of a 25 mm [place] Cardioform PFO occluder by ICE and fluoroscopy. Complications: None documented in this encounter Plan of Treatment Not on file documented as of this encounter Procedures Procedure Name Priority Date/Time Associated Diagnosis Comments ECHO LMTD W/O CONTRAST W LMTD SPEC DOPP COLOR DOPP Routine 05/06/2018 10:35 AM EDT PFO (patent foramen ovale) TUBE REPAIRER SCAN 05/06/2018 12:00 AM EDT EKG 12-LEAD [...] DOPP COLOR DOPP (05/06/2018 10:35 AM EDT) [facility] EF 65 HEARTSpectra Analysis Instruments SYSTEM Anatomical Region Laterality Modality Other 05/06/2018 Narrative 05/06/2018 10:55 AM EDT Procedure: ?Transthoracic Echocardiogram Patient: ?VIN Jimenez ?(Age): 1970(47y) Med Rec#: ? [id number] ?Sex: ?F ? Site Loc: ? [facility] [place] ?Ht / Wt: ??157(cm)/109(kg) Pt. Loc: ?Adult Floor ? BSA: ?2.06 Study Date: ?? 05/06/2018 ?Pt. Type: Inpatient Tape: ? Referring: Mary Malone MD Reading: Gerardo Bray ([id number]) Dynamite Shooter: Jay Whitney Diagnosis: *Atrial septal defect (Q21.1) [...] E-wave Vmax ?0.7 ?m/sec ? MV deceleration [id number] ?msec ? MV A-wave Vmax ?0.6 ?m/sec [...] ? Mid-Inferior ?Normal ? Mid-Inferoseptal ?Normal ? [place]-Septal ? Normal ? [place]-Anterior ? Normal ? [place]-Lateral ?Normal ? [place]-Inferior ? Normal ? [place]-Tip ?Normal ? This report has been electronically signed by: Gerardo Bray MD ? 05/06/2018 10:54:59 Images reviewed and interpretation verified [facility] Procedure Note Gerardo Bray MD - 05/06/2018 Procedure: Transthoracic Echocardiogram Patient: VIN AREVALO(Age): 1970(47y) Med Rec#: [id number] Sex: F Site Loc: [facility] [place] Ht / Wt: 157(cm)/109(kg) Pt. Loc: Adult Floor BSA: 2.06 Study Date: 05/06/2018 Pt. Type: Inpatient Tape: Referring: Mary Malone MD Reading: Gerardo Bray ([id number]) Dynamite Shooter: Jay Whitney Diagnosis: *Atrial septal defect (Q21.1) [...] MV E-wave Vmax 0.7 m/sec MV deceleration [id number] msec MV A-wave Vmax 0.6 m/sec MV [...] Normal Mid-Posterolateral Normal Mid-Inferior Normal Mid-Inferoseptal Normal [place]-Septal Normal [place]-Anterior Normal [place]-Lateral Normal [place]-Inferior Normal [place]-Tip Normal This report has been electronically signed by: Gerardo Bray MD 05/06/2018 10:54:59 Images reviewed and interpretation verified [facility] Mary Malone MD ECHO ORDERABLES * SCAN DOC: TUBE REPAIRER (05/06/2018 12:00 AM EDT) Anatomical Region Laterality [...] (Bezet) 454 ms MUSE SYSTEM Calculated P Boyd 50 degrees MUSE SYSTEM Calculated R Boyd 27 degrees MUSE SYSTEM Calculated T Boyd 29 degrees MUSE SYSTEM INTERPRETATION Normal sinus rhythm Normal ECG No previous ECGs available Confirmed by MD Wynn Timothy ([id number]) on 05/05/2018 5:32:29 PM MUSE SYSTEM 05/05/2018 1:28 PM EDT 05/05/2018 5:32 PM EDT Mary Malone MD ECG ORDERABLES MUSE SYSTEM * Differential, Automated (05/05/2018 9:46 AM EDT) Neutrophils % 64.9 % [facility] Neutr Abs (ANC) 4.33 1.70 - 6.10 x10(3)/[facility] Lymphocytes % 26.3 % [facility] Lymphocytes Abs 1.8 0.9 - 3.2 x10(3)/[facility] Monocytes % 5.7 % [facility] Monocyte Abs 0.4 0.3 - 0.9 x10(3)/[facility] Eosinophils % 2.3 % [facility] Eosinophils Abs 0.2 0.0 - 0.4 x10(3)/[facility] Basophils % 0.5 % [facility] Basophils Abs 0.0 0.0 - 0.1 x10(3)/[facility] LABOR[facility] Immature Gran % 0.30 % [facility] Comment: Immature granulocytes(IG's)percentage and absolute count will include metamyelocytes, myelocytes, and promyelocytes. Blood smears from CBCs yielding IG's will be scanned manually for concordance. If this scan disagrees with the automated IG or if promyelocytes are noted, a manual differential will be performed. Tia Gran Abs 0.02 0.00 - 0.04 x10(3)/[facility] LABORATORY Blood specimen (specimen) 05/05/2018 9:46 AM EDT 05/05/2018 10:04 AM EDT Narrative Resulting Agency Comment Spec In Lab Mary Malone MD HEMATOLOGY ORDERABLE S [facility] [place] [address] * (ABNORMAL) Hemogram (05/05/2018 9:46 AM EDT) [facility] WBC 6.7 4.0 - 9.5 x10(3)/[facility]ORATORY RBC 4.87 4.00 - 5.21 x10(6)/[facility] Hemoglobin 13.3 11.7 - 15.5 gm/dL [facility] Hematocrit 41.9 35.7 - 45.8 % [facility] MCV 86.0 82.6 - 94.4 [facility] MCH 27.3 27.1 - 32.0 pg [facility] MCHC 31.7 31.7 - 35.0 gm/dL [facility] Platelets 316 145 - 357 x10(3)/[facility]OR[facility] RDWSD 45.0 37.0 - 46.0 [facility] RDWCV 14.3(H) 11.5 - 14.1 % [facility] MPV 9.6 7.6 - 12.9 [facility]ORY nRBC % Auto 0.0 % [facility] nRBC Abs Auto 0.000 0.000 - 0.000 x10(3)/[facility] Blood specimen (specimen) 05/05/2018 9:46 AM EDT 05/05/2018 10:04 AM EDT Narrative Resulting Agency Comment Spec In Lab Mary Malone MD HEMATOLOGY ORDERABLE S [facility] [place] [address] * Basic Metabolic Panel (non-fasting) (05/05/2018 9:46 AM EDT) Pathologist [facility] Glucose Lvl 96 65 - 199 mg/dL [facility] Comment:Diabetes: >=200 mg/d L plus symptoms BUN 10 8 - 18 mg/dL [facility] Creatinine 0.71 0.70 - 1.20 mg/dL [facility] Sodium 142 135 - 145 mmol/L [facility] Potassium 4.6 3.5 - 5.0 mmol/L [facility] Comment: Please note: ??Patients with WBC >100,000 may have falsely elevated Potassium levels. ??For accurate Potassium quantification in these patients send serum separator tube (gold top) for subsequent determinations. ??Contact the Clinical Chemistry Laboratory if there are any questions. Chloride 105 98 - 107 mmol/L [facility] CO2 27 22 - 31 mmol/L [facility] Anion Gap 10 5 - 15 mmol/L [facility] Calcium 9.3 8.5 - 10.5 mg/dL [facility] Estimated GFR 101 >=60 mL/min/1. 73 m?? [facility] Comment: The eGFR was calculated using the CKD-EPI equation. As with all creatinine based estimates of kidney function, eGFR values calculated with the CKD-EPI equation are not accurate in patients with acute kidney failure, extremes of body mass or the acutely ill. [email or web address] eGFR 118 >=60 mL/min/1. 73 m?? [facility] Comment: The eGFR was calculated using the CKD-EPI equation. As with all creatinine based estimates of kidney function, eGFR values calculated with the CKD-EPI equation are not accurate in patients with acute kidney failure, extremes of body mass or the acutely ill. [email or web address] Blood specimen (specimen) 05/05/2018 9:46 AM EDT 05/05/2018 10:04 AM EDT Narrative Resulting Agency Comment Spec In Lab Mary Malone MD CHEMISTRY ORDERABLES [facility] [place] [address] documented in this encounter Visit Diagnoses Diagnosis PFO (patent foramen ovale) Ostium secundum type atrial septal defect Cryptogenic stroke Unspecified cerebral artery occlusion with cerebral infarction PFO (patent foramen ovale) Ostium secundum type atrial septal defect documented in this encounter Administered Medications Inactive [...] Given 05/06/2018 8:47 AM EDT 150 mg clopidogrel (PLAVIX) tablet 300 mg 300 mg, [...] Given 05/05/2018 9:53 PM EDT 100 mg lisinopril (PRINIVIL;ZESTRIL) tablet 30 mg 30 mg, Oral, DAILY, First dose on Fri05/05/18 at 1700, Until Discontinued, Routine Given 05/06/2018 8:47 AM EDT 30 mg Given 05/05/2018 4:20 PM EDT 30 mg PARoxetine (PAXIL) tablet 40 mg 40 [...] Discontinued, Routine 1620 (Given - Provider: Kierra Sommer, GLENDA) buPROPion (WELLBUTRIN XL) XL tablet 150 mg [...] on Fri05/05/18 at 2100, Until Discontinued, Routine 2152 (Given - Provider: Ilene Loomis RN) lisinopril [...] 2153 (Given - Provider: Ilene Loomis RN) [id number] [...] RN) documented in this encounter Care Teams Foreign Exchange Student Coordinator Relationship Specialty Start Date End Date Jimena Jones MD PCP - General Family Medicine 01/08/18 documented as of this encounter
--- OUTSIDE RECORDS SUMMARY | 2023-09-18 18:26 | XMS_ITS | Encounter Summary ---
[facility] [place] [address] Care Team Providers Care Hospital Cook Name Role Phone Jimena Jones MD Primary Care Provider [phone] Reason for Visit * Auth/Cert Specialty Diagnoses / Procedures Referred By Contac t Referred To Contact Diagnoses acute CVA Procedures PRG CRIS REAL TIME IMG 2D W PRB IMG ACQUIS I&R TRANSESOPHAGEAL ECHOCARDIOGRAM (WRVU 2.55) Referral ID Status Reason Start Date Expiration Date Visits Re quested Visits Authorized [id number] 1 1 Encounter Details Date Type Department Care Team (Late st Contact Info) Description 02/16/2018 9:58 AM EST Anesthesia Event [place] [address] Leonard Madrigal MD [facility] [place] [address] Anesthesia Record Procedure Summary Procedure Name Responsible Anesthesiologist Anesthesia Start Time Anesthesia Stop Time TRANSESOPHAGEAL ECHOCARDIOGRAM (WRVU 2.3) Leonard Madrigal MD 02/16/18 0958 02/16/18 1050 Events Date Time Event Comment 02/16/2018 0946 0958 Start 1001 AN Verify 1001 An Start Data 1013 Anesthesia Ready 1042 an stop data 1050 Recovery or ICU Handoff Tammi ent care was transferred to the destination unit staff after review of the patient's medical history, current anesthetic/surgical status and plan, according to the Provider Handoff Checklist. 1050 Stop Meds Name Total Propofol INF 366.16 mg lactated Ringers infusion 1,000 mL 0 mL * Agents No agents on file. * Blood No blood administrations on file. Lines, Drains, and Airways Type Details Placement Removal Incision 01/08/18; 1200; groi n; laparoscopic puncture; 10/15/21 (LDA cleanup utility RA#[id number]); 1715 (LDA cleanup utility RA#[id number]) 01/08/18 1200 by Deb Michelle RN 10/15/21 1715 by Elizabeth Pederson Wound 01/10/18; 1239; hand ; other (see comments); NS infiltrate; 10/15/21 (LDA cleanup utility RA#[id number]); 1715 (LDA cleanup utility RA#[id number]) 01/10/18 1239 by Sheila Beard RN 10/15/21 1715 by Elizabeth Pederson (RETIRED) Peripheral IV Line - Single Lumen 02/16/18; 0920; 02/16/18; 1201 02/16/18 0920 by Claudia Gonzalez RN 02/16/18 1201 by Gabi Barron RN documented in this encounter Social History Tobacco Use Types Packs/Day Years Used Date Smoking Tobacco: Former Cigarettes Smokeless Tobacco: Never Alcohol Use Standard Drinks/Week Comments No 0 (1 standard drink = 0.6 oz pur e alcohol) Sex and Gender Information Value Date Recorded Sex Assigned at Not on file Gender Identity Not on file Sexual Orientation Not on file documented as of this encounter OR Notes * Anesthesia Postprocedure Evaluation - Leonard Madrigal MD - 02/16/2018 11:41 AM EST [facility] [place] Department of Anesthesiology Post-procedure Note Patient: Lars Jimenez Procedure Summary Date: 02/16/18 Room / Location: [facility] SURGERY / [facility] MAIN OR Anesthesia Start: 957 Anesthesia Stop: 1049 Procedure: TRANSESOPHAGEAL ECHOCARDIOGRAM (WRVU 2.55) (N/A ) Diagnosis: Cerebrovascular accident (CVA), unspecified mechanism (acute CVA) Surgeon: Familia Correa MD Responsible Provider: Leonard Madrigal MD Anesthesia Type: general ASA Status: 3 All Anesthesia Providers: Anesthesiologist: Leonard Madrigal MD Core Dropper: Emre Baez MD Most Recent Vitals: 02/16/18 1127 BP: Pulse: Resp: Temp: SpO2: 97% Pain Patient Location: PACU/[facility] Level of Consciousness: Awake and Alert Pain Management: Satisfactory Analgesia PONV: None Cardiovascular Status: At Baseline and Hemodynamically Stable Respiratory Status: At Baseline and Room Air Postoperative Fluid Status: Intravascular EUvolemia Possible Anesthetic Complications: NONE apparent at time of evaluation Final Primary Anesthesia Type: General (The anesthetic type performed was the same as planned.) Comments: LEONARD MADRIGAL MD * Anesthesia Preprocedure Evaluation - Leonard Madrigal MD - 02/15/2018 2:16 PM EST Pre-Anesthesia Evaluation for: Lars Jimenez a 47 y.o. female. Procedure(s): TRANSESOPHAGEAL ECHOCARDIOGRAM (WRVU 2.55) Patient Active Problem List Diagnosis ??? Episode of transient neurologic symptoms ??? Arterial ischemic stroke, MCA, left, acute ??? Acute CVA (cerebrovascular accident) No past medical history on file. Past Surgical History: Procedure Laterality Date ??? IR NEURO MECHANICAL THROMBECTOMY 01/08/2018 IR Neuro Mechanical Thrombectomy 01/08/2018 Ritchie Strauss MD [facility] INTERVENTIONL RAD ??? PRO THROMBOLYSIS VENOUS INFUSION W IMAGING INITIAL TX N/A 01/08/2018 IR VENOUS INFUSION FOR THROMBOLYSIS,VENA CAVA (WRVU 7.06) performed by Ritchie Strauss MD at [facility] Social History Tobacco Use ??? Smoking status: Former Smoker Packs/day: 1.00 Types: Cigarettes ??? Smokeless tobacco: Never Used Substance Use Topics ??? Alcohol use: No Frequency: Never Social History Substance and Sexual Activity Drug Use No Allergies Allergen Reactions ??? Morphine Anaphylaxis Breathing difficulty ??? Codeine Nausea And Vomiting And stomach pain Medications: MAR and/or home medications have been reviewed. Physical Exam: There were no vitals filed for this visit. There is no height or weight on file to calculate BMI. Airway Assessment: Mallampati: II TM distance: >3 FB Neck ROM: full Cardiovascular Assessment: cardiovascular exam normal Pulmonary Assessment: (+) decreased breath sounds pulmonary exam normal Dental Assessment: - normal exam Misc Assessment: IV access: Peripheral line Anesthesia Plan: ASA 3 general, with a(n) intravenous induction 47yoF, 109kg, for CRIS to eval for PFO in setting of recent cryptogenic L MCA stroke (treated with IR embolectomy). PMH: stroke as above - improving speech, no other residual deficits; obesity, HTN (SHERLY-I, propranolol), HLD (statin), GERD (controlled on PPI), ? Depression (SSRI), ALAINA (CPAP) Recent TTE 12/2017 wnl; no PFO on bubble study Labs chem panel and CBC wnl Plan: Propofol IV with chinik airway, LMA or ETT as backup.' The patient verbalized understanding of the anesthesia plan including risks and alternatives and agreed to proceed. All questions were answered. Megan Madrigal MD. Region - Other Informed Consent: Anesthetic plan and risks discussed with patient and spouse. Plan discussed with resident and attending. PAT Staff Note documented in this encounter Plan of Treatment Not on file documented as of this encounter Visit Diagnoses Not on filedocumented in this encounter Administered Medications Inactive Administered Medications - up to 3 most recent administrations Medication Order MAR Action Action Date Dose Rate Site propofol (DIPRIVAN) infusion CONTINUOUS PRN, Starting on Fri02/16/18 at 1005, Until Fri02/16/18 at 1050, Anesthesia Intra-op, Routine Rate/Dose Change 02/16/2018 10:25 AM EST 75 mcg/kg/min 49.2 mL/hr Rate/Dose Change 02/16/2018 10:19 AM EST 100 mcg/kg/min 65 .6 mL/hr Rate/Dose Change 02/16/2018 10:13 AM EST 200 mcg/kg/min 13 1.2 mL/hr documented in this encounter Care Teams Hospital Cook Relationship Specialty Start Date End Date Jimena Jones MD PCP - General Family Medicine 01/08/18 documented as of this encounter
--- OUTSIDE RECORDS SUMMARY | 2023-09-18 18:27 | XMS_ITS | Encounter Summary ---
[place] [address] Care Team Providers Care Drink Box Mechanic Name Role Phone Jimena Jones MD Primary Care Provider + [phone] Reason for Visit * Auth/Cert Specialty Diagnoses / Procedures Referred By Contac t Referred To Contact Diagnoses Acute CVA (cerebrovascular accident) Cerebrovascular accident (CVA), unspecified mechanism Procedures EMERGENCY IPI Referral ID Status Reason Start Date Expiration Date Visits Re quested Visits Authorized [id number] 1 1 Encounter Details Date Type Department Care Team (Late st Contact Info) Description 01/08/2018 9:28 [place] [address] Roxanne Martin MD [facility] DR ANESTHESIOLOGY [place] [address] Chetna Muñoz CRNA [facility] [address] [place]OLOG[place] [address] Anesthesia Record Procedure Summary Procedure Name Responsible Anesthesiologist Anesthesia Start Time Anesthesia Stop Time IR VENOUS INFUSION FOR THROMBOLYSIS,VENA CAVA (WRVU 6.81) Roxanne Martin MD 01/08/18 0928 01/08/18 1246 Events Date Time Event Comment 01/08/2018 0928 AN Verify 0928 Start 0928 An Start Data 0934 An Induction 0935 An Intubation 0941 Anesthesia Ready 1109 Quick Note Ntg 100mg given on field by Dr. Strauss 1116 Quick Note 100mg NTG given on field by Dr. Strauss 1229 Extubation/LMA Out 1233 an stop data 1245 Recovery or ICU Handoff Tammi ent care was transferred to the destination unit staff after review of the patient's medical history, current anesthetic/surgical status and plan, according to the Provider Handoff Checklist. 1246 Stop 1311 Meds Name Total Propofol 250 mg Rocuronium 130 mg PHENYLephrine 880 mcg Ondansetron 4 mg Neostigmine 5 mg Glycopyrrolate 0.8 mg Succinylcholine 100 mg ceFAZolin 2 g Heparin 3,000 Units PHENYLephrine INF 10,980 mcg Esmolol 20 mg Lactated Ringers 1,000 mL * Agents Name O2 Air N2O Sevoflurane (et) * Blood No blood administrations on file. Lines, Drains, and Airways Type Details Placement Removal (RETIRED) Peripheral IV Line - Single Lumen metacarpal vein (top of hand), left; 20 gauge; NS infiltrate; site symptomatic, removed per policy/procedure, site care per policy/procedure, catheter/device intact; 01/10/18; 1227 01/08/18 1029 by 01/10/18 1227 by Sheila Beard, GLENDA (RETIRED) Peripheral IV Line - Single Lumen 01/08/18; ctqt-qkt-ibyqqp catheter system; 18 gauge; OSH; median cubital vein (antecubital fossa), left; 01/08/18; 1300 01/08/18 0000 by Karissa Alvarez RN 01/08/18 1300 by Denisha Loomis, RN (RETIRED) Peripheral IV Line - Single Lumen 01/08/18; median cubital vein (antecubital fossa), right; xxbe-ggc-ohctvo catheter system; 18 gauge; OSH; site symptomatic, removed per policy/procedure; 01/11/18; 0700 01/08/18 0000 by Karissa Alvarez RN 01/11/18 0700 by Kiki Delcid RN ETT Mask Ventilation: No t Attempted (0); ETT Type: Cuffed, Oral; ETT Size: 7 mm; Mac Blade: 4; Notes: Asleep, Pre-O2, RSI, Cricoid Pressure, Stylette; Attempts: 1; Laryngoscopy Grade: 1; ETT Placement Verified By: Auscultation, Capnometry, Visual; Inserted by: Chetna Muñoz CRNA; Removal Date: 01/08/18; Removal Time: 1229 01/08/18 0935 by Chetna Muñoz CRNA 01/08/18 1229 by Chetna Muñoz CRNA Arterial Line 01/08/18; 1018; dors radha pedis artery, left (multiple attempts. able to get decent flow but not thread catheter/wire); 20 gauge; Chetna Muñoz CRNA; Sterile Prep, Sterile Gloves; no longer indicated; 01/08/18; 195201/08/18 1018 by Chetna Muñoz CRNA 01/08/181952 by Nola Mcnair RN Incision 01/08/18; 1200; groi n; laparoscopic puncture; 10/15/21 (LDA cleanup utility RA#[id number]); 1715 (LDA cleanup utility RA#[id number]) 01/08/18 1200 by Deb Michelle RN 10/15/21 1715 by Elizabeth Pederson Urethral Catheter 01/08/18; 1300; othe r (see comments) (present on arrival to unit); tubing intact; 01/09/18; 1825 01/08/18 1300 by Denisha Loomis RN 01/09/18 1825 by Bettina Oliver RN documented in this encounter Social History Tobacco Use Types Packs/Day Years Used Date Smoking Tobacco: Never Assessed Sex and Gender Information Value Date Recorded Sex Assigned at Not on file Gender Identity Not on file Sexual Orientation Not on file documented as of this encounter OR Notes * Anesthesia Postprocedure Evaluation - Roxanne Martin MD - 01/09/2018 9:19 AM EST [facility] [place]iology Post-procedure Note Patient: Lars Jimenez Procedure Summary Date: 01/08/18 Room / Location: [facility] / [facility] Anesthesia Start: 927 Anesthesia Stop: 1246 Procedure: IR VENOUS INFUSION FOR THROMBOLYSIS,VENA CAVA (WRVU 7.06) (N/A ) Diagnosis: Surgeon: Ritchie Strauss MD Responsible Provider: Roxanne Martin MD Anesthesia Type: general ASA Status: 4 - Emergent All Anesthesia Providers: Anesthesiologist: Roxanne Martin MD SURVIVAL EQUIPMENT REPAIRER: Chetna Muñoz CRNA Most Recent Vitals: 01/10/18 0835 BP: (!) 152/98 Pulse: 85 Resp: 20 Temp: 36.9 ??C (98.4 ??F) SpO2: 97% Pain 0 (01/10/18 0835) Patient Location: PACU/[facility] Level of Consciousness: Awake and Alert Pain Management: Satisfactory Analgesia PONV: None Cardiovascular Status: At Baseline Respiratory Status: Supplemental O2 (NC or FM) and Stable Respiratory Status Postoperative Fluid Status: Intravascular EUvolemia Possible Anesthetic Complications: NONE apparent at time of evaluation Final Primary Anesthesia Type: General (The anesthetic type performed was the same as planned.) Comments: Ms. Jimenez continues to have expressive aphasia, with improved right facial droop and 4/5 right UE strength; pt with marked facial droop and 2/5 strength in RUE when presenting emergently tothe IR suite prior to the procedure. VSS. * Anesthesia Preprocedure Evaluation - Roxanne Martin MD - 01/08/2018 1:09 PM EST Pre-Anesthesia Evaluation for: Lars Jimenez a 47 y.o. female. Procedure(s): IR VENOUS INFUSION FOR THROMBOLYSIS,VENA CAVA (WRVU 7.06) Patient Active Problem List Diagnosis ??? Acute CVA (cerebrovascular accident) History reviewed. No pertinent past medical history. History reviewed. No pertinent surgical history. Social History Tobacco Use ??? Smoking status: Not on file Substance Use Topics ??? Alcohol use: Not on file Social History Substance and Sexual Activity Drug Use Not on file Allergies Allergen Reactions ??? Morphine Anaphylaxis Breathing difficulty ??? Codeine Nausea And Vomiting And stomach pain Medications: MAR and/or home medications have been reviewed. Physical Exam: Most Recent Vitals: 01/08/18 1300 BP: 159/88 Pulse: 86 Resp: 26 Temp: 36.4 ??C (97.5 ??F) SpO2: 100% There is no height or weight on file to calculate BMI. Weight: 114.3 kg (252 lb) Airway Assessment: Mallampati: (Unable to Assess) Cardiovascular Assessment: Pulmonary Assessment: Dental Assessment: Misc Assessment: IV access: Peripheral line Anesthesia Plan: ASA 4 emergent general, with a(n) intravenous induction Ms. Jimenez is a 47 year old woman urgently transferred to with an acute MCA stroke for embolectomy. Allergies to morphine/codeine. Plan for GETA, invasive BP monitoring, large bore PIV access. Due to emergent nature of the procedure, consent not obtained. Region - Intracranial (vascular) Informed Consent: Plan discussed with SURVIVAL EQUIPMENT REPAIRER. PAT Staff Note documented in this encounter Plan of Treatment Not on file documented as of this encounter Visit Diagnoses Not on filedocumented in this encounter Administered Medications Inactive Administered Medications - up to 3 most recent administrations Medication Order MAR Action Action Date Dose Rate Site ceFAZolin (ANCEF) 1g in dextrose 5% 50mL PRN, Starting on Dorcas 01/08/18 at 0941, Until Dorcas 01/08/18 at 1309, Administer over 30 Minutes, Anesthesia Intra-op Given 01/08/2018 9:41 AM EST 2 g esmolol (BREVIBLOC) injection PRN, Starting on Dorcas 01/08/18 at 1225, Until Dorcas 01/08/18 at 1309, Anesthesia Intra-op, Routine Given 01/08/2018 12:25 PM EST 20 mg glycopyrrolate (ROBINUL) multi-dose injection PRN, Starting on Dorcas 01/08/18 at 1220, Until Dorcas 01/08/18 at 1309, Anesthesia Intra-op, Routine Given 01/08/2018 12:20 PM EST 0.8 mg heparin (porcine) injection PRN, Starting on Dorcas 01/08/18 at 0956, Until Dorcas 01/08/18 at 1309, Anesthesia Intra-op, Routine Given 01/08/2018 9:56 AM EST 3,000 Units lactated Ringers infusion CONTINUOUS PRN, Starting on Dorcas 01/08/18 at 0928, Until Dorcas 01/08/18 at 1309, Anesthesia Intra-op New Bag 01/08/2018 12:00 PM EST New Bag 01/08/2018 9:28 AM EST neostigmine (BLOXIVERZ) injection PRN, Starting on Dorcas 01/08/18 at 1220, Until Dorcas 01/08/18 at 1309, Anesthesia Intra-op, Routine Given 01/08/2018 12:20 PM EST 5 mg ondansetron (ZOFRAN) injection PRN, Starting on Dorcas 01/08/18 at 1205, Until Dorcas 01/08/18 at 1309, Anesthesia Intra-op, Routine Given 01/08/2018 12:05 PM EST 4 mg PHENYLephrine (JOEL-SYNEPHRINE) 20 mg in sodium chloride 250 mL (standard ADULT & Pedi greater than 20kg) infusion CONTINUOUS PRN, Starting on Dorcas 01/08/18 at 1000, Until Dorcas 01/08/18 at 1309, Anesthesia Intra-op, Routine Rate/Dose Change 01/08/2018 12:22 PM EST 20 mcg/min 15 mL/hr Restarted 01/08/2018 12:08 PM EST 50 mcg/min 37.5 mL/hr Rate/Dose Change 01/08/2018 11:31 AM EST 90 mcg/min 67.5 m L/hr PHENYLephrine in NS (PF) (JOEL-SYNEPHRINE) 0.8 mg/10 mL (80 mcg/mL) multi-dose injection Syrg PRN, Starting on Dorcas 01/08/18 at 1000, Until Dorcas 01/08/18 at 1309, Anesthesia Intra-op, Routine Given 01/08/2018 12:11 PM EST 80 mcg Given 01/08/2018 11:55 AM EST 80 mcg Given 01/08/2018 11:39 AM EST 80 mcg propofol (DIPRIVAN) 10 mg/mL bolus injection (Anesthesia) PRN, Starting on Dorcas 01/08/18 at 0934, Until Dorcas 01/08/18 at 1309, Anesthesia Intra-op Given 01/08/2018 11:27 AM EST 5 0 mg Given 01/08/2018 9:34 AM EST 200 mg rocuronium (ZEMURON) multi-dose injection PRN, Starting on Dorcas 01/08/18 at 0934, Until Dorcas 01/08/18 at 1309, Anesthesia Intra-op, Routine Given 01/08/2018 11:27 AM EST 30 mg Given 01/08/2018 10:20 AM EST 50 mg Given 01/08/2018 9:41 AM EST 40 mg succinylcholine chloride (Quelicin) injection PRN, Starting on Dorcas 01/08/18 at 0934, Until Dorcas 01/08/18 at 1309, Anesthesia Intra-op, Routine Given 01/08/2018 9:34 AM EST 100 mg documented in this encounter Care Teams Drink Box Mechanic Relationship Specialty Start Date End Date Jimena Jones MD PCP - General Family Medicine 01/08/18 documented as of this encounter
--- OUTSIDE RECORDS SUMMARY | 2023-09-18 18:27 | XMS_ITS | Encounter Summary ---
[place] [address] Care Team Providers Care Production Zone Leader Name Role Phone Jimena Jones MD Primary Care Provider + [phone] Reason for Visit * Reason Comments Hospital Transfer Cerebrovascular Accident * Auth/Cert Specialty Diagnoses / Procedures Referred By Contac t Referred To Contact Diagnoses Acute CVA (cerebrovascular accident) Cerebrovascular accident (CVA), unspecified mechanism Procedures EMERGENCY IPI Referral ID Status Reason Start Date Expiration Date Visits Re quested Visits Authorized [id number] 1 1 Encounter Details Date Type Department Care Team (Late st Contact Info) Description 01/08/2018 9:30 AM EST - 01/08/2018 11:00 [place] [address] Ritchie Strauss MD [facility] [place] [address] IR VENOUS INFUSION FOR THROMBOLYSIS,VENA CAVA (WRVU 6.81) Social History Tobacco Use Types Packs/Day Years Used Date Smoking Tobacco: Every Day Cigarettes Smokeless Tobacco: Never Tobacco Cessation:Ready to Q [...] Sign Reading Time Taken Comments Blood Pressure 180/96 01/08/2018 8:56 AM EST Pulse 103 01/08/2018 8:56 AM EST Temperature 36.4 ??C (97.5 ??F) 01/08/2018 8:56 AM ES T Respiratory Rate 28 01/08/2018 8:56 AM EST Oxygen Saturation 97% 01/08/2018 8:56 AM EST Inhaled Oxygen Concentration - - Weight 114.3 kg (252 lb) 01/08/2018 8:56 AM EST Height - - Body Mass Index 41.51 01/09/2018 8:42 PM EST documented in this encounter Discharge Summaries * Juan Miguel Smith MD - 01/11/2018 1:14 PM EST Images from the original note were not included. Discharge Summary Patient Name: Lars Banuelos Patient Age: 47 y.o. Language: Colombian Race: White Ethnicity: Not nor Admit date: 01/08/2018 Discharge date and time: 181:13 PM Attending Physician: Emre Arreguin MD Discharge Physician: Denisha Petit MD Follow-up Recommendations for Providers: -Hold home propranolol and lisinopril in the acute period following stroke. Can consider restarting1 week after stroke. - We have placed referrals to speech therapy, physical and occupational therapy. Patient will be given referral forms on discharge, and was advised to call [facility] or a local center to set up appointments. - Patient should stop estradiol/estrogen as this can increase risk for strokes OT Assessment: Pt has been seen for occupational therapy evaluation, please refer to associated flowsheet data listed below for details. Lars Banuelos presents with the following performance skill deficits and client factors: decreased activity tolerance, mild balance impairment, mildly decreased att ention to task, ? visual involvement, mild RUE weakness and ? apraxia, and severe communication impairments. These performance deficits have led to activity limitations and participation restrictionsin the following areas of occupation: mobility, home management, work, leisure, driving, community m obility, communication, and social participation. Pt tolerated evaluation well. Able to communicatethrough pointing at letters to spell words but at times became perseverative or would provide answers for different or previously asked questions (for example when asked if her works pt repeatedly spelled out child in an attempt to indicate that her daughter lives with them as well). Due to significant speech/language impairments and cognitive deficits pt would highly benefit from intensive multidisciplinary rehabilitation to progress independence and explore additional communication options. Pt would benefit from further inpatient OT interventions to address performance deficits and maximize participation and independence with occupations of daily living. Staff Recommendations: Encourage OOB activity and participation in all self care tasks; supervisionlevel for ADL and mobility PT Assessment: Patient seen today for Initial PT Assessment and presents to PT with the following Impairments Found (describe specific impairments): aerobic capacity/endurance, gait, locomotion, and balance, anthropometric characteristics, muscle performance, ergonomics and body mechanics, cranial and peripheral nerve integrity with resultant functional limitations in quality and tolerance to functional activity 2' recent neurologic event and subsequent impairment. Patient will benefit from ongoing skilled PT rx to address the above deficits and facilitate maximal recovery of function. Patient has good potential for ongoing gains based on prior level of function and gains thus far, skilled P T will continue to follow. At this time, pt's greatest deficit is in her ability to generate speechand communicate. Pt is currently using a letterboard to spell out responses to simple questions andseems to be accurately a majority of responses, but not 100% of attempts, indicating potential for greater cognitive deficits that are not yet defined. Pt would benefit tremendously from intensive Acute Rehabilitation to facilitate maximal therapy services in all three disciplines to give her the best potential for recovery of premorbid status. Please see below for objective specifics of today's session and the specifics of the plan of care. Staff Mobility Recommendations amb as tolerated with assist for equipment CONSULTING SERVICES MANAGER Assessment: Pt seen for dysphagia tx / diet upgrade check. Pt demonstrated improved oral motor coordination andagility w/ chewing and swallowing solids. 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 Able to use letter board and pictureboard accurately, able to write short words/phrases. No family present, but pt indicates they will be coming in soon. Pt indicates that they will bring either a smart phone or tablet with them. GLENDA jama me, will attempt to put some communication apps on device if possible. Please see flow sheet data below for specific details, POC and goals. ?? Inpatient Provider Contact Information: For questions regarding this document or issues related to this hospitalization on the Neurology Service, please contact the author(s) of this discharge summary through the [facility] Senior Firewall Engineer . Discharge Diagnoses: Left MCA stroke s/p thrombectomy Active Hospital Problems Diagnosis ??? Acute CVA (cerebrovascular accident) Resolved Hospital Problems No resolved problems to display. Past medical History: History reviewed. No pertinent past medical history. Active Non Hospital Problems: There are no active non-hospital problems to display for this patient. History of Presentation: Lars Banuelos is a 47 y.o. female with past medical history significant for hypertension, hyperlipidemia and GERD who presented to [facility] for evaluation regarding right-sided weakness and aphasia. ?? Per telephone note from Dr. Shepherd from earlier today: Patient's last known well was 9 PM last evening prior to going to sleep. ??She woke up around 4 AMthis morning to alert her that something had changed. ??Patient was unable to communicate and had some right upper extremity weakness. ??Upon presentation to the emergency department at [facility], patient was noted to have loss of sensation in the right face, arm, and leg. ??She was also noted to have expressive aphasia. ??She however was able to follow commands. ??CT head and CT angiogram of head and neck was completed at that time. ??CT angiography showed patient the had a LEFT occlusion M2 by the sylvian fissure. ?? At that time [facility] was contacted for possible transfer but due to not having a neuro interventionalist we were contacted for possible transfer and evaluation for thrombectomy. ?? Patient is not on any antithrombotics at home. ??The outside provider gave the patient 300 mg per rectum of aspirin. ?? Patient is on estradiol, omeprazole, propranolol at home. ?? Blood pressure was noted to be 147/88. ??Heart rate noted to be 110 and in sinus tachycardia. ??Saturating well on room air. ?? call center dispatcher was [facility] neurology provider Dr. Sauceda who agreed to the transfer and ED evaluation for possible thrombectomy. ?? Neuro IR was subsequently contacted and patient will have MRI thrombectomy protocol attaining upon arrival. ?? On arrival to [facility] patient was mute and unable to communicate. She was following some commands. Shewas taken for MRI thrombectomy which showed a 4 cm acute left posterior frontal, superior temporal,insular infarction and was then taken for thrombectomy. Physical Exam at Admission: CV: + S1, S2, RRR, no murmur Resp: CTA B/L Ext: No edema. No bony deformity Neuro Exam: MS: Awake and alert CN: PERRL, EOMI, visual guadalupe full (questionable right field cut) Right facial droop Hearing intact to voice Tongue protrudes midline Motor: Normal bulk and tone. UE: 3/5 R, 5/5 L Arm abduction at shoulder LE: No drift in either lower extremity Sensation: dense hemisensory loss on right arm and leg Reflexes: DTRs Not tested Toes - R down, L down Coordination: can't test RUE, LUE no ataxia Gait: Not tested NIH stroke Scale: NIH Stroke Scale at [...] more than one modality ?? TOTAL SCORE: 13 ?? Hospital Course:: Lars Banuelos is a 47 y.o. female who was admitted to the neurology service for further evaluation of left M2 MCA occlusion. Neurological examination on admission was pertinent for dense right sided hemiparesis and mute on exam. She was not a tPA candidate as she was out side the time window, but went for thrombectomy with neuro-interventional radiology on 01/08 with TICI 2B recanalization. Patient was monitored with frequent checks of vitals and neurological status. On 01/09, she continued to do well and was transferred to the floor. Telemetry monitoring showed NSR, HR 70s. Permissive HTN was allowed, with labetalol administered prn for SBP >220. MRI demonstrated infarct of the left posterior insular, superior left temporal lobe, and posterior left frontal lobe. Vascular imagingshowed occlusion of the left M2 segment of the MCA. TTE revealed normal EF, no PFO, and no wall motion abnormalities. See detailed reports as below. Most likely etiology of stroke was small vessel disease. Patient was evaluated by rehabilitation services and deemed appropriate for home with outpatient services.. Operations & Procedures: thrombectomy on 01/08 Consultations: 1. PT/OT/SL Diagnostic Tests & Neuroimaging: Date Study Results ECG CXR 01/08/[address] Head Occlusion of the left M2 by the sylvian fissure MRA Head and Neck 01/09/18 MRI BRAIN FINDINGS: Redemonstrated area of restricted diffusion in the left posterior insular, superior left temporal lobe, and posterior left frontal lobe, with slightly increased extension superiorly along the left frontal lobe. Small foci of restricted diffusion are also seen in the posterior inferior left temporal lobe (series 4, image 12) and in the anterior left frontal lobe (series 4, image 18). There is mild effacement of the left sylvian fissure and cortical sulci. No midline shift. The ventricles are normal in size and configuration. The visualized paranasal sinuses and mastoid air cells are normal in signal. ?? 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 Thrombectomy Protocol on 01/08: IMPRESSION 4 cm acute left posterior frontal, superior temporal, insular infarction 01/09/18 TTE SUMMARY: 1. The left ventricular chamber size [...] patent foramen ovale with agitated saline contrast. Carotid Duplex Labs: Lipid Panel Lab Results Component Value Date CHLPL 185 01/09/2018 HDL 45 01/09/2018 CHOLHDL 4.1 01/09/2018 TRIG 110 01/09/2018 LDLDIRECT 123 01/09/2018 Lab Results Component Value Date HA1C 5.6 01/09/2018 Last 3 wbc, hgb, hct plt Recent Labs 01/11/18 0543 01/10/18 0534 01/09/18 0315 WBC 8.8 7.0 9.3 HGB 10.9* 11.7 11.6* HCT 34.4* 36.6 36.5 PLATELET 253 287 289 Last 3 Lytes Recent Labs 01/11/18 0543 01/10/18 0534 01/09/18 0315 NA 142 139 143 K 3.9 3.6 3.6 CL 106 104 106 CO2 BUN 13 6* 4* CREATININE 0.51* 0.50* 0.47* Pending Studies and Lab Data: The patient will need the following test completed on: 01/08/2018 1. Basic Metabolic Panel (non-fasting) Diagnosis: Authorizing Provider: Emre Arreguin MD Vital Signs at Discharge: BP: (!) 143/91, Heart Rate: 70, Temp: 37.1 ??C (98.8 ??F), Resp: 16, BMI (Calculated): 43.46 Height: 160 cm (5' 3) (01/09/182041) Weight: 106.3 kg (234 lb 5.6 oz) (01/10/18 1539) Functional and Cognitive Status: Stable/baseline though is unable to speak Physical Exam at Discharge: Constitutional: Patient of apparent stated age, no acute distress CV: RRR, S1, S2 Resp: normal respiratory effort Neuro Exam: MS:??Awake and alert CN: ?PERRL, EOMI, visual guadalupe full ?Right nasolabial fold flattening ?Hearing intact to??voice ?Tongue protrudes midline Motor: ??Normal bulk and tone. ?UE: ?4+/5 R, 5/5 L ?Arm abduction at shoulder?LE: ?No drift in either lower extremity? Sensation:??dense hemisensory loss on right arm and leg?? Reflexes: ?DTRs ?Not tested?Toes - R down, L down? Coordination:??no atxia on RUE or LUE, rapid alternating finger movements slower on R compared to Lhand?? Gait:??Not tested?? Discharge Conditions/Prognosis: Stable/good Discharge to: Home Updated Allergies/ADRs: Allergies Allergen Reactions ??? Morphine Anaphylaxis Breathing difficulty ??? Codeine Nausea And Vomiting And stomach pain Immunizations Given this Hospitalization: There is no immunization history on file for this patient. Discharge Medications: Your Medications New Medications Dose Details aspirin 81 mg Chew Take 81 mg by mouth daily. 81 mg Quantity: 30 tablet Refills: 3 atorvastatin 40 mg Tab Commonly known as: LIPITOR Take 1 tablet by mouth every evening. 40 mg Quantity: 90 tablet Refills: 3 nicotine 14 mg/24 hr Pt24 Commonly known as: NICODERM CQ Place 1 patch onto the skin daily as needed (tobacco cravings). 1 patch Quantity: 28 patch Refills: 0 Continued medications, unchanged Dose Details fluconazole 200 mg Tab Commonly known as: DIFLUCAN Take 200 mg by mouth daily. 200 mg Refills: 0 LORazepam 1 mg Tab Commonly known as: ATIVAN Take 1 mg by mouth every 6 hours as needed for Anxiety. 1 mg Refills: 0 omeprazole 40 mg Cpdr Commonly known as: PriLOSEC Take 40 mg by mouth daily. 40 mg Refills: 0 PARoxetine 20 mg Tab Commonly known as: PAXIL Take 20 mg by mouth every morning. 20 mg Refills: 0 STOPPED Medications estradiol 1 mg Tab Commonly known as: ESTRACE lisinopril 10 mg Tab Commonly known as: PRINIVIL;ZESTRIL propranolol 10 mg Tab Commonly known as: INDERAL Smoking Status at Discharge: Social History Tobacco Use Smoking Status Current Every Day Smoker ??? Packs/day: 1.00 ??? Types: Cigarettes SECONDARY STROKE PREVENTION: Preventative measure Antithrombotic agent for stroke prevention (aspirin,clopidogrel, ticagrelor, therapeutic anticoagulation etc...) was Initiated. If documented history of atrial fibrillation/flutter, n/a Cholesterol-lowering medication (including statins) was prescribed Smoking cessation: The patient declined nicotine patches, has decided to quit smoking, quit date ofadmission. Education: Stroke information packet provided to patient and/or family, which included personal modifiable risk factors for stroke, stroke warning signs and symptoms, how to activate EMS for stroke, and need for follow-up after discharge was performed. Modified Depauw Score (MRS) on discharge Score Description 0 [...] nursing care and attention 6 Total Score: 2 NIH Stroke Scale at Discharge Evaluation: 1.a. [...] more than one modality TOTAL SCORE: 9 Instructions Given to Patient at Discharge: Patient Instructions Patient Instructions: You were admitted to the neurology service at [facility] Your Diagnosis: stroke - Work close with your primary care [...] meat), and engaging in regular physical activity. - Work on smoking cessation - We have placed referrals to speech therapy, physical and occupational therapy. You will be given referral forms on discharge, call [facility] or a local center to set up appointments on Friday. If there is any issue, call the neurology office to help facilitate this process. - STOP taking your estradiol/estrogen as this can increase risk for strokes - Do not take your home propranolol and lisinopril until follow up with neurology - New medications for stroke prevention - Aspirin 81 mg daily - Atorvastatin 40 mg daily ??? Call 911 or your local EMS [...] Restrictions: As tolerated. ??? Driving Restrictions: No driving until neurology follow up Know Your Numbers! Blood Pressure BP Readings from Last 3 Encounters: 01/11/18 (!) 143/91 HA1C Lab Results Component [...] follow-up appointment in the neurology clinic at [facility]. See below for the appointment time. [...] author(s) of this discharge summary through the [facility] Senior Firewall Engineer . General Instructions None Future Appointments and Orders Future Orders Complete By Amisha Terry [[email or web address] Custom] 01/11/2018 07/11/2018 Process Instructions: Scheduling Instructions: Questions: Does the patient have a pacemaker? If yes provide HI/LO settings: Which location will this be performed?: [place] Referral to Occupational Therapy [[email or web address] Custom] As directed Process Instructions: Scheduling Instructions: Questions: Reason for OT?: Eval Type: Hand/UE Treatment Focus: Hand/UE Modalities could include: Hand Protocols: Eval Type: Neuro Rehab Focus: Eval Type: Work Reintegration Focus: Referral to Physical Therapy [[email or web address] Custom] As directed Process Instructions: Note: Please indicate in the comments any additional Instructions, Precautions or Contra-indications. Scheduling Instructions: Questions: Reason for PT: Specialty Program Eval: Modalities could include: Treatment Focus: Referral to Speech Therapy [[id number] Custom] As directed Process Instructions: Scheduling Instructions: Questions: Evaluation location?: In Clinic Reason for Speech Evaluation?: Aphasia Assessment Recommended focus?: Primary Care Provider: Jimena Jones MD [address] [place] [id number] Discharge References/Attachments None Associated attestation - Denisha Petit MD - 01/11/2018 1:37 PM EST I saw and evaluated the patient with the resident. I have reviewed the medical records and the patient's history during the visit and I agree with the details as written. My physical examination confirms the findings. ?? The assessment and plan were formulated in discussion with me at the time of the visit and I agree with them as documented. Denisha Petit MD documented in this encounter Discharge Instructions * Patient Instructions* PriorJuan Miguel MD - 01/11/2018 12:56 PM EST Images from the original note were not included. Patient Instructions: You were admitted to the neurology service at [facility] Your Diagnosis: stroke - Work close with your primary care [...] meat), and engaging in regular physical activity. - Work on smoking cessation - We have placed referrals to speech therapy, physical and occupational therapy. You will be given referral forms on discharge, call [facility] or a local center to set up appointments on Friday. If there is any issue, call the neurology office to help facilitate this process. - STOP taking your estradiol/estrogen as this can increase risk for strokes - Do not take your home propranolol and lisinopril until follow up with neurology - New medications for stroke prevention - Aspirin 81 mg daily - Atorvastatin 40 mg daily ??? Call 911 or your local EMS [...] Restrictions: As tolerated. ??? Driving Restrictions: No driving until neurology follow up Know Your Numbers! Blood Pressure BP Readings from Last 3 Encounters: 01/11/18 (!) 143/91 HA1C Lab Results Component [...] follow-up appointment in the neurology clinic at [facility]. You will be called tomorrow to schedule an appointment in approximately 1 week for close follow up. ??? Primary Care Provider: Please follow up with your Primary Care Provider within one to 2 weeks of discharge. For questions regarding this document or issues relating to this hospitalization on the Neurology Service, please contact the author(s) of this discharge summary through the [facility] Senior Firewall Engineer . documented in this encounter Medications at [...] as of this encounter Progress Notes * Carissa Alcantara Vel - 01/11/2018 6:47 AM EST Neurology Progress Note Patient Name: Lars Banuelos Admit Date: 01/08/2018 Patient ID: Lars Banuelos is a 47 y.o. with a PMH of HTN, HLD, and GERD transferred from [facility] for L M2 MCA occlusion s/p thrombectomy w/ TiCI 2b flow (no tPA due to OOW). Interval History: - No acute events overnight - BP at goal of 120-160 - On Aspirin, Atorvastatin, and Lovenox - PT/OT recommend inpatient rehab at discharge; patient has declined and family has agreed to 09/09 supervision Medications: Scheduled Meds: ??? aspirin 81 mg Oral Daily ??? enoxaparin 40 mg Subcutaneous Daily ??? pantoprazole 40 mg Oral Daily ??? atorvastatin 40 mg Oral QPM ??? propranolol 20 mg Oral BID ??? PARoxetine 20 mg Oral QAM ??? sodium chloride 0.9 % 5 mL Intravenous BID ??? senna-docusate 2 tablet Oral BID ??? polyethylene glycol (MIRALAX)oral powder 17 g Oral Daily Continuous Infusions: PRN Meds:.ondansetron OR ondansetron, nicotine AND Patch Verification AND nicotine, calcium carbonate, alum-mag hydroxide-simeth, sodium chloride 0.9 %, lidocaine, magnesium hydroxide, bisacodyl, labetalol, enalaprilat, acetaminophen OR acetaminophen OR acetaminophen Physical Exam: Vitals: Temp: [36 ??C (96.8 ??F)-36.9 ??C (98.4 ??F)] Heart Rate: [66-85] Resp: [18-22] BP: (126-152)/(74-98) SpO2: [93 %-98 %] Heart Rate from SPO2: -- Constitutional: Patient of apparent stated age, no acute distress CV: RRR, S1, S2 Resp: normal respiratory effort Neuro Exam: MS: Awake and alert CN: PERRL, EOMI, visual guadalupe full Right nasolabial fold flattening Hearing intact to voice Tongue protrudes midline Motor: Normal bulk and tone. UE: 4+/5 R, 5/5 L Arm abduction at shoulder LE: No drift in either lower extremity Sensation: dense hemisensory loss on right arm and leg Reflexes: DTRs Not tested Toes - R down, L down Coordination: no atxia on RUE or LUE, rapid alternating finger movements slower on R compared to L hand Gait: Not tested Labs: Recent Results (from the past 24 hour(s)) POCT Glucose Result Value Ref Range POC Glucose 108 65 - 199 mg/dL Urinalysis with reflex Culture Result Value Ref Range Glucose UA Negative Negative mg/dL Protein UA Negative Negative mg/dL Bilirubin UA Negative Negative mg/dL Urobilinogen UA Normal Normal mg/dL pH UA 6.0 5.0 - 8.0 Blood UA Small (A) Negative mg/dL Ketones UA Negative Negative mg/dL Nitrite UA Negative Negative Leukocytes UA Negative Negative mcL Appearance UA Clear Clear Spec [place] UA 1.016 1.002 - 1.030 Color UA Yellow Yellow Culture Reflexed No Urine Hold Result Value Ref Range Urine Hold Sample in lab. Urinalysis Microscopic Exam Result Value Ref Range RBC UA 11 (H) 0 - 4 /HPF WBC UA 4 0 - 5 /HPF Bacteria UA Moderate (A) None /HPF Squam Epith UA 8 (H) <=4 /HPF Trans Epith UA <1 <=1 /HPF Basic Metabolic Panel (non-fasting) Result Value Ref Range Glucose Lvl 102 65 - 199 mg/dL Creatinine 0.51 (L) 0.70 - 1.20 mg/dL Sodium 142 135 - 145 mmol/L Potassium 3.9 3.5 - 5.0 mmol/L Chloride 106 98 - 107 mmol/L CO2 23 22 - 31 mmol/L Anion Gap 13 5 - 15 mmol/L Calcium 8.5 8.5 - 10.5 mg/dL eGFR 115 >=60 mL/min/1.73 m?? eGFR 133 >=60 mL/min/1.73 m?? Hemogram Result Value Ref Range WBC 8.8 4.0 - 9.5 x10(3)/mcL RBC 4.04 4.00 - 5.21 x10(6)/mcL Hemoglobin 10.9 (L) 11.7 - 15.5 gm/dL Hematocrit 34.4 (L) 35.7 - 45.8 % MCV 85.1 82.6 - 94.4 fL MCH 27.0 (L) 27.1 - 32.0 pg MCHC 31.7 31.7 - 35.0 gm/dL Platelets 253 145 - 357 x10(3)/mcL RDWSD 42.9 37.0 - 46.0 fL RDWCV 13.7 11.5 - 14.1 % MPV 9.7 7.6 - 12.9 fL nRBC % Auto 0.0 % nRBC Abs Auto 0.000 0.000 - 0.000 x10(3)/mcL Differential, Automated Result Value Ref Range Neutrophils % 73.0 % Neutr Abs (ANC) 6.40 (H) 1.70 - 6.10 x10(3)/mcL Lymphocytes % 17.8 % Lymphocytes Abs 1.6 0.9 - 3.2 x10(3)/mcL Monocytes % 6.6 % Monocyte Abs 0.6 0.3 - 0.9 x10(3)/mcL Eosinophils % 1.4 % Eosinophils Abs 0.1 0.0 - 0.4 x10(3)/mcL Basophils % 0.5 % Basophils Abs 0.0 0.0 - 0.1 x10(3)/mcL Immature Gran % 0.70 % Tia Gran Abs 0.06 (H) 0.00 - 0.04 x10(3)/mcL Diagnostic Tests and Imaging: MRI Brain without contrast 01/09/18: IMPRESSION Evolution of left MCA distribution acute infarct. TTE 01/08/2018: SUMMARY: ?? 1. The left ventricular chamber [...] patent foramen ovale with agitated saline contrast. ? Assessment: 47 y.o. Right handed woman with a PMH of HTN, HLD, and GERD transferred from [facility] for L M2 MCA occlusion s/p thrombectomy w/ TiCI 2b flow (no tPA due to OOW). She is recovering well from her stroke though does have ongoing aphasia/mutism. She fully comprehends discussions and is able to write responses with her left hand on a white board. She has been started on aspirin and atorvastatin which are both new medications. Continuing telemetry, awaiting PT/OT for recs on disposition at discharge. Etiology likely small vessel disease. PT/OT recommend inpatient rehab facility at dischargehowever family has agreed to home 09/09 supervision which is patient's strong preference. Will place PT/OT/CONSULTING SERVICES MANAGER referrals externally for ongoing therapies closer to where she lives. Plan: ??# Left M2 Ischemic Stroke -Admitted to neurology, floor -Neuro check & vitals q4/q4h -Blood pressure goals as per interventional list team -Aspirin 81 daily -Atorvastatin 40 mg qhs -Check CBC, BMP, LFT, lipid profile, HbA1c, Mg, Phos, UA -TTE -12 lead EKG -Telemetry -MRI brain wo contrast -PT/OT/CONSULTING SERVICES MANAGER ?? #Hypertension Hold home lisinopril and propanolol in the acute post-stroke period ?? #Anxiety/depression Continue home fluoxetine ?? #Tobacco abuse -PRN nicotine -Is determined to quit smoking ?? # Prophylaxis -Lovenox 40mg SC daily -RBOs -SCDs ?? # Supportive care -N.p.o. until speech evaluation -Tylenol PRN -Up with assistance Dispo: pending placement ?? # FULL code Carissa Alcantara MD Neurology Resident, PGY-3 Vascular Neurology (Stroke) p#[id number] 01/11/18 Associated attestation - Denisha Petit MD - 01/12/2018 5:12 PM EST I saw and evaluated the patient with the resident. I have reviewed the medical records and the patient's history during the visit and I agree with the details as written. My physical examination confirms the findings. ?? The assessment and plan were formulated in discussion with me at the time of the visit and I agree with them as documented. Denisha Petit MD * Nicolasa Michaels, [facility] - 01/10/2018 2:12 PM EST 01/10/18 0835 Oxygen Therapy O2 Device RA SpO2 97 % Resp 20 pt on room air maintaining sat. Pt wears a CPAP at home. Pt doesn't know her settings Resmed brought to room and set up, in auto-titrating mode Mask fitted to pt. Pt is able to remove mask on her own Will continue to monitor pt * Sheila Beard, RN - 01/10/2018 12:26 PM EST Images from the original note were not included. Infiltration/Extravasation Scale Lars Jimenez Vin [id number] Infiltration appearance: Infiltration harm % for this extremity 9 Based on measurement calculation (greatest measurement X divided by length of extremity multiplied by 100= %) Considerations and Vasquez: Consider the following: If the percentage of limb affected is <5% then select 1 If the percentage of limb affected is 6-25% then select 2 If the percentage of limb affected is 26-49% then select 3 If the percentage of limb affected is > 50% then always select 4 2 Skin blanched Edema 1 to 6 inches (2.5 to 15 cm) in any direction Cool to touch With or without pain Infiltration appearance score: 2 Medication Name infiltrated is NS which is a (n) other Location of infiltration:left arm: posterior hand Measurement in cm of length and width of affected area---Affected extremity Measurement of Circumference in cm of Infiltrated area of affected extremity Measurement of Circumference in cm of Unaffected extremity (at same location as affected extremity) 6.5cm X 4cm Left Right Wrist 18 18 Hand 23 21 Pulses present on affected extremity yes Medicated treatment given per policy/ order: no treatment indicated Plan for continued monitoring of infiltration/extravasation Name of MD contacted Team [id number],Neuro Resident 12:26 PM Name of RN contacted Deb 12:26 PM Name of Pharmacist if consulted 12:26 PM Plastics Provider contacted: no 12:26 PM Name of Plastics MD (if consulted) WET FINISHER CARING FOR THIS PATIENT WILL CONTINUE TO MONITOR AND WILL ASSUME CARE, VASCULAR ACCESS WILL NOT FOLLOW THIS EVENT AT THE SIGNING OF THIS NOTE. * Cairssa Alcantara E - 01/10/2018 6:49 AM EST Neurology Progress Note Patient Name: Lars Banuelos Admit Date: 01/08/2018 Patient ID: Lars Banuelos is a 47 y.o. with a PMH of HTN, HLD, and GERD transferred from [facility] for L M2 MCA occlusion s/p thrombectomy w/ TiCI 2b flow (no tPA due to OOW). Interval History: - No acute events overnight - Transferred to floor - BP at goal of 120-160 - On Aspirin, Atorvastatin, and Lovenox - Cleared by CONSULTING SERVICES MANAGER for puree diet - Pending PT/OT assessments today Medications: Scheduled Meds: ??? aspirin 81 mg Oral Daily ??? enoxaparin 40 mg Subcutaneous Daily ??? pantoprazole 40 mg Oral Daily ??? atorvastatin 40 mg Oral QPM ??? propranolol 20 mg Oral BID ??? PARoxetine 20 mg Oral QAM ??? sodium chloride 0.9 % 5 mL Intravenous BID ??? senna-docusate 2 tablet Oral BID ??? polyethylene glycol (MIRALAX)oral powder 17 g Oral Daily ??? insulin lispro 1-4 Units Subcutaneous Q4H VIANEY Continuous Infusions: ??? sodium chloride 0.9% 100 mL/hr (01/09/181999) PRN Meds:.sodium chloride 0.9 %, lidocaine, magnesium hydroxide, bisacodyl, labetalol, enalaprilat,acetaminophen OR acetaminophen OR acetaminophen, dextrose 50% OR glucagon (human recombinant) Physical Exam: Vitals: Temp: [36.8 ??C (98.2 ??F)-37.5 ??C (99.5 ??F)] Heart Rate: [69-93] Resp: [16-27] BP: (132-153)/(65-104) SpO2: [95 %-98 %] Heart Rate from SPO2: [76 bpm-93 bpm] Constitutional: Patient of apparent stated age, no acute distress CV: RRR, S1, S2 Resp: normal respiratory effort Neuro Exam: MS: Awake and alert CN: PERRL, EOMI, visual guadalupe full Right nasolabial fold flattening Hearing intact to voice Tongue protrudes midline Motor: Normal bulk and tone. UE: 4+/5 R, 5/5 L Arm abduction at shoulder LE: No drift in either lower extremity Sensation: dense hemisensory loss on right arm and leg Reflexes: DTRs Not tested Toes - R down, L down Coordination: no atxia on RUE or LUE, rapid alternating finger movements slower on R compared to L hand Gait: Not tested Labs: Recent Results (from the past 24 hour(s)) POCT Glucose Result Value Ref Range POC Glucose 99 65 - 199 mg/dL POCT Glucose Result Value Ref Range POC Glucose 139 65 - 199 mg/dL POCT Glucose Result Value Ref Range POC Glucose 101 65 - 199 mg/dL POCT Glucose Result Value Ref Range POC Glucose 106 65 - 199 mg/dL POCT Glucose Result Value Ref Range POC Glucose 100 65 - 199 mg/dL POCT Glucose Result Value Ref Range POC Glucose 111 65 - 199 mg/dL Basic Metabolic Panel (non-fasting) Result Value Ref Range Glucose Lvl 101 65 - 199 mg/dL BUN 6 (L) 8 - 18 mg/dL Creatinine 0.50 (L) 0.70 - 1.20 mg/dL Sodium 139 135 - 145 mmol/L Potassium 3.6 3.5 - 5.0 mmol/L Chloride 104 98 - 107 mmol/L CO2 23 22 - 31 mmol/L Anion Gap 12 5 - 15 mmol/L Calcium 8.4 (L) 8.5 - 10.5 mg/dL eGFR 115 >=60 mL/min/1.73 m?? eGFR 134 >=60 mL/min/1.73 m?? Magnesium Result Value Ref Range Magnesium 0.91 0.69 - 1.07 mmol/L Phosphorus Result Value Ref Range Phosphorus 3.3 2.5 - 4.5 mg/dL Hepatic Function Panel Result Value Ref Range Total Protein 6.4 6.1 - 8.0 gm/dL Albumin 3.5 3.2 - 5.2 gm/dL AST 9 0 - 30 unit/L ALT 9 0 - 30 unit/L Alk Phos 76 40 - 104 unit/L Total Bilirubin 0.2 0.2 - 1.3 mg/dL Bili, Direct 0.1 0.0 - 0.3 mg/dL Hemogram Result Value Ref Range WBC 7.0 4.0 - 9.5 x10(3)/mcL RBC 4.29 4.00 - 5.21 x10(6)/mcL Hemoglobin 11.7 11.7 - 15.5 gm/dL Hematocrit 36.6 35.7 - 45.8 % MCV 85.3 82.6 - 94.4 fL MCH 27.3 27.1 - 32.0 pg MCHC 32.0 31.7 - 35.0 gm/dL Platelets 287 145 - 357 x10(3)/mcL RDWSD 43.6 37.0 - 46.0 fL RDWCV 14.0 11.5 - 14.1 % MPV 9.6 7.6 - 12.9 fL nRBC % Auto 0.0 % nRBC Abs Auto 0.000 0.000 - 0.000 x10(3)/mcL Differential, Automated Result Value Ref Range Neutrophils % 65.3 % Neutr Abs (ANC) 4.54 1.70 - 6.10 x10(3)/mcL Lymphocytes % 24.3 % Lymphocytes Abs 1.7 0.9 - 3.2 x10(3)/mcL Monocytes % 7.8 % Monocyte Abs 0.5 0.3 - 0.9 x10(3)/mcL Eosinophils % 1.6 % Eosinophils Abs 0.1 0.0 - 0.4 x10(3)/mcL Basophils % 0.4 % Basophils Abs 0.0 0.0 - 0.1 x10(3)/mcL Immature Gran % 0.60 % Tia Gran Abs 0.04 0.00 - 0.04 x10(3)/mcL Diagnostic Tests and Imaging: MRI Brain without contrast 01/09/18: IMPRESSION Evolution of left MCA distribution acute infarct. TTE 01/08/2018: SUMMARY: ?? 1. The left ventricular chamber [...] patent foramen ovale with agitated saline contrast. ? Assessment: 47 y.o. Right handed woman with a PMH of HTN, HLD, and GERD transferred from [facility] for L M2 MCA occlusion s/p thrombectomy w/ TiCI 2b flow (no tPA due to OOW). She is recovering well from her stroke though does have ongoing aphasia/mutism. She fully comprehends discussions and is able to write responses with her left hand on a white board. She has been started on aspirin and atorvastatin which are both new medications. Continuing telemetry, awaiting PT/OT for recs on disposition at discharge. Etiology likely small vessel disease. Depending on how she does with therapies she may be ready for discharge as early as tomorrow. Plan: ??# Left M2 Ischemic Stroke -Admitted to neurology, floor -Neuro check & vitals q4/q4h -Blood pressure goals as per interventional list team -Aspirin 81 daily -Atorvastatin 40 mg qhs -Check CBC, BMP, LFT, lipid profile, HbA1c, Mg, Phos, UA -TTE -12 lead EKG -Telemetry -MRI brain wo contrast -PT/OT/CONSULTING SERVICES MANAGER ?? #Hypertension Hold home lisinopril and propanolol in the acute post-stroke period ?? #Anxiety/depression Continue home fluoxetine ?? #Tobacco abuse -PRN nicotine -Is determined to quit smoking ?? # Prophylaxis -Lovenox 40mg SC daily -RBOs -SCDs ?? # Supportive care -N.p.o. until speech evaluation -Tylenol PRN -Up with assistance ?? # FULL code Carissa Alcantara MD Neurology Resident, PGY-3 Vascular Neurology (Stroke) p#[id number] 01/10/18 Associated attestation - Denisha Petit MD - 01/10/2018 2:24 PM EST I saw and evaluated the patient with the resident. I have reviewed the medical records and the patient's history during the visit and I agree with the details as written. My physical examination confirms the findings. ?? The assessment and plan were formulated in discussion with me at the time of the visit and I agree with them as documented. She is doing well physically but still limited by aphasia. Disposition is pending therapy assessments. She will need aggressive speech therapy. Patient preference is to go home with outpatient therapy. Possible DC tomorrow. Denisha Petit MD * Jaycee Arana, PT - 01/09/2018 3:42 PM EST Physical Therapy Consult received, hx/current status reviewed. Multiple attempts to see pt, she was unavailable at each. Will f.u tomorrow for initial assessment as appropriate. Jaycee Arana PT, MSPT Pager [phone] Inpatient Physical Therapy * Bomo Bradley, OT - 01/09/2018 2:53 PM EST Occupational Therapy Note Attempted to see pt x 3 and she was unavailable. OT will follow up tomorrow. MIRIAM Angel/L Pager: [phone] * Hilario Sanderson, DO - 01/09/2018 1:59 PM EST Interventional Neuroradiology Progress Note Procedure: Left M2 thrombectomy Post-procedure day: #1 Events: - Proximal left M2 occlusion s/p mechanical thrombectomy - complete expressive aphasia Medications: Reviewed Vitals Signs: SBPs 130-140s Physical Exam: Neuro: Complete expressive aphasia but following commands, facial droop, Moving extremities spontaneously, unchanged RUE weakness The right groin is without oozing or hematoma. 2+ femoral and DP pulses Recent Labs: Reviewed Imaging: Repeat MRI today showing similar size of completed infarct in left posterior frontal lobe Assessment/plan: 47 y.o. female who is s/p mechanical thrombectomy for a proximal left M2 occlusion. No evidence of hematoma at groin site. * Marva Kirby RN - 01/09/2018 9:22 AM EST Office of Care Management Initial Assessment Marva Kirby, RN reviewed record and discussed patient with Care Team. Source of Information: pt/spouse Alli Banuelos cell [phone] Introduced self/reviewed role; services accepted. Reason for Hospitalization: Lars Banuelos is a 47 y.o. female with past medical history significant for hypertension, hyperlipidemia and GERD who presented to [facility] for evaluation regarding right-sided weakness and aphasia. Per telephone note from Dr. Shepherd from earlier today: Patient's last known well was 9 PM last evening prior to going to sleep. ??She woke up around 4 AMthis morning to alert her that something had changed. ??Patient was unable to communicate and had some right upper extremity weakness. ??Upon presentation to the emergency department at [facility], patient was noted to have loss of sensation in the right face, arm, and leg. ??She was also noted to have expressive aphasia. ??She however was able to follow commands. ??CT head and CT angiogram of head and neck was completed at that time. ??CT angiography showed patient the had a LEFT occlusion M2 by the sylvian fissure?? At that time [facility] was contacted for possible transfer but due to not having a neuro interventionalist we were contacted for possible transfer and evaluation for thrombectomy. Hospitalizations Within the Past 30 Days: none Anticipated Length Of Stay (If known): Current Decision-Making Capacity: phasic, but is a,ox4-communicates with gestures, writing. Advance Care Planning: None written. 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 100%ADL barak Home Environment: lives with Alli in one story house. Four steps yard to door Social & Family Supports/Community Resources: . Supportive family at bedside Behavioral Health History: denied Substance Use/Abuse: denied Other Pertinent/Service Specific Information: na Health/Prescription Coverage: Primary Insurance: MVP Secondary Insurance: N/A Prescription Coverage: yes Preferred [facility]acy: [facility] Primary Care Provider: Jimena Jones MD [phone] Patient/Caregiver Goals of Treatment: home with Outpt Therapy Potential Needs for Transition of Care: Rehab/SNF: declined Home Health: declined DME: na Dialysis: na Community Resources: na Transportation: family Wants outpt Therapy for CONSULTING SERVICES MANAGER Anticipated Barriers to Discharge/Special Considerations: Limited insurance benefits Assessment: 47yowf w/ CVA resulting in Aphasia,aox4, MAEEW. Supportive family at bedside. Wants outpt Therapy. Plan: A member of the Care Management team will continue to monitor progress, follow for continuityof care and assist with transition of care planning. Marva Kirby RN Pager: [phone] * Emre Arreguin MD - 01/09/2018 8:44 AM EST error * Emre New MD - 01/08/2018 1:34 PM EST CRITICAL CARE SERVICE ADMISSION HISTORY AND PHYSICAL PGY-1 History of Present Illness: Lars Banuelos ( ) is a 47 y.o. 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. On admission to SICU, the patient was still somnolent from anesthesia, but was not moving the rightside spontaneously. Her SBP was >200mmHg as measured by left pedal a-line. NIV BP monitoring wascorrelating with arterial line, nicardipine gtt was started. Review of Systems: Positive as above, otherwise negative. Past Medical History: History reviewed. No pertinent past medical history. Past Surgical History: History reviewed. No pertinent surgical history. Allergies: Allergies Allergen Reactions ??? Morphine Anaphylaxis Breathing difficulty ??? Codeine Nausea And Vomiting And stomach pain Home Medications: Medications Prior to Admission Medication Sig Dispense Refill Last Dose ??? estradiol (ESTRACE) 1 mg Tablet Take 0.5 mg by mouth daily. ??? lisinopril (PRINIVIL;ZESTRIL) 10 mg Tablet Take 40 mg by mouth daily. ??? LORazepam (ATIVAN) 1 mg Tablet Take 1 mg by mouth every 6 hours as needed for Anxiety. ??? omeprazole (PRILOSEC) 40 mg Capsule, Delayed Release(E.C.) Take 40 mg by mouth daily. ??? propranolol (INDERAL) 10 mg Tablet Take 20 mg by mouth 2 times daily. ??? fluconazole (DIFLUCAN) 200 mg Tablet Take 200 mg by mouth daily. ??? PARoxetine (PAXIL) 20 mg Tablet Take 20 mg by mouth every morning. Family History: No family history on file. Social History: Social History Socioeconomic History ??? Marital status: [...] on file Tobacco Use ??? Smoking status: Not on file Substance and Sexual Activity ??? Alcohol use: Not on file ??? Drug use: Not on file ??? Sexual activity: Not on file Other Topics Concern ??? Not on file Social History Narrative ??? Not on file Vitals: Last value Range last 24 hrs Temperature Temp: 36.4 ??C (97.5 ??F) Temp: [36.4 ??C (97.5 ??F)] Heart Rate Heart Rate: 90 Heart Rate: [86-103] Cuff BP BP: 139/67 BP: (127-180)/(67-96) Arterial BP BP (Arterial Line): (148-213)/(61-96) CVP CVP: -- Respiratory Rate Resp: 24 Resp: [20-29] SpO2 SpO2: 97 % SpO2: [92 %-100 %] ABG: Recent Labs 01/08/18 1339 PHART 7.40 [id number] 36 PO2ART 66* [id number] 22.0 Physical Exam: General: Laying in bed, no acute distress. Neurological: Awake, alert, aphasic. CV: RRR per telemetry. Pulm: Normal effort. No wheezes or rales. Some ronchi bilaterally. Abd: soft, BS present. Musculoskeletal: No LEedema. Skin: warm and dry. Neuro Exam: Patient aphasic Pupils equal and reactive Able to follow some commands Moves RUE to pain Hand shoe caser 5/5 in LUE Plantarflexion 5/5 in the b/l LE with some clonus of the RLE Labs: Recent Labs 01/08/18 1335 WBC 9.0 HGB 11.8 HCT 36.9 PLATELET 281 Recent Labs 01/08/18 1335 PT 13.1* PTT 32 INR 1.2 Recent Labs 01/08/18 1335 NA 141 K 3.7 CL 105 CO2 22 BUN 7* CREATININE 0.50* GLUCOSE 123 Recent Labs 01/08/18 1335 CALCIUM 8.0* MAGNESIUM 0.81 PHOS 3.1 No results for input(s): AST, ALT, ALKPHOS, BILITOT, BILIDIR, AMYLASE, LIPASE in the last 168 hours. Recent Labs 01/08/18 1339 PHART 7.40 [id number] 36 PO2ART 66* [id number] 21 BEART -2.7 Imaging: EXAMINATION: MRI BRAIN MECHANICAL THROMBECTOMY PROTOCOL FINDINGS: ?? There is a 4 x 3 x 3 cm area of decreased diffusion in the posterior insula, superior left temporal lobe, and posterior left frontal lobe. It appears to include the precentral gyrus] and Wernicke's area. ?? IMPRESSION 4 cm acute left posterior frontal, superior temporal, insular infarction ?? Assessment: Lars Banuelos ( ) is a 47 y.o. 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. Plan: Neuro: -q1h neuro checks CV: -MAP goal > 65, SBP 120-160 -Home meds: hold home lisinopril -nicardipine gtt Pulm: -Extubated GI: -NPO diet (Give Meds) -Stress ulcer prophylaxis: protonix FEN/: -Li -mIVFs: NS at 100/hr MSK: -no active issues. ID: -abx: none Heme: -hgb: daily CBC and BMP -DVT prophylaxis: SCDs, hold AC Endo: -insulin: ISS -hold home estradiol Primary Service: neurology Consults: Code Status: Full Code Dispo: Admit to ICU Emre New MD 01/08/2018 2:42 PM Associated attestation - Luis Ordoñez MD - 01/08/2018 3:41 PM EST I have seen the patient and reviewed the resident's above history and I agree with the details as written. The assessment and plan were formulated in discussion with me and I agree with them as documented. * Sol Dennis - 01/08/2018 8:59 AM EST [facility] NAME: LARS BANUELOS : 1970 AGE: 47 y.o. DOCTOR/S: Kin Strauss Time of stroke 2 alert: 0840 Time of anesthesia : 0845 (left room after set up waiting for page) 0913 Anes back in room, Pt in MRI Time of patient in room: January 08, [id number] time out at 0939 Time of arterial puncture: 0943 Time of Trevo Stent deployment: 1058 Time of first pass:1103 Second pass: 1140 Time of revascularization at final TICI grade: 1145 2B IV tPA: (Y/N) no Heparin: (Y/N) yes 3000 unit bolus * Carissa Alcantara Vel - 01/08/2018 8:06 AM EST MRI safety sheet completed via phone with the assistance of Alli Banuelos, spouse. Answered yes to having a metal plate in her right wrist which was performed at [facility] in 2008. Remainder no. Please refer to safety sheet in eDH. 8:07 AM documented in this encounter H&P Notes * Sherwin Hargrove MD - 01/08/2018 8:59 AM EST Neurology Admission History and Physical Patient name: Lars Banuelos Date of : 1970 PCP: No primary care provider on file. Onset of symptoms (if witnessed): 4 AM Last known well: 9 PM last evening Stroke Alert Activated: N/A, arriving from outside hospital Neurology at Bedside: 0900 CC: New onset right-sided weakness and aphasia HPI: Lars Banuelos is a 47 y.o. female with past medical history significant for hypertension, hyperlipidemia and GERD who presented to [facility] for evaluation regarding right-sided weakness and aphasia. Per telephone note from Dr. Shepherd from earlier today: Patient's last known well was 9 PM last evening prior to going to sleep. She woke up around 4 AM this morning to alert her that something had changed. Patient was unable to communicate and had some right upper extremity weakness. Upon presentation to the emergency department at [facility], patient was noted to have loss of sensation in the right face, arm, and leg. She was also noted to have expressive aphasia. She however was able to follow commands. CT head and CT angiogram of head and neck was completed at that time. CT angiography showed patient the had a LEFT occlusion M2 by the sylvian fissure. ?? At that time [facility] was contacted for possible transfer but due to not having a neuro interventionalist we were contacted for possible transfer and evaluation for thrombectomy. ?? Patient is not on any antithrombotics at home. The outside provider gave the patient 300 mg per rectum of aspirin. ?? Patient is on estradiol, omeprazole, propranolol at home. ?? Blood pressure was noted to be 147/88. Heart rate noted to be 110 and in sinus tachycardia. Saturating well on room air. ?? call center dispatcher was [facility] neurology provider Dr. Sauceda who agreed to the transfer and ED evaluation for possible thrombectomy. ?? Neuro IR was subsequently contacted and patient will have MRI thrombectomy protocol attaining upon arrival. On arrival to [facility] patient was mute and unable to communicate. She was following some commands. Shewas taken for MRI thrombectomy which showed a 4 cm acute left posterior frontal, superior temporal,insular infarction and was then taken for thrombectomy. Past Medical & Surgical History: History reviewed. No pertinent past medical history. History reviewed. No pertinent surgical history. Home Medications: No current facility-administered medications on file prior to encounter. No current outpatient medications on file prior to encounter. Allergy: Allergies not on file Family History: No family history on file. Social History: Smoking: Unable to verify with patient EtOH: Unable to verify with patient Illicits: Unable to verify with patient Social History Socioeconomic History ??? Marital status: Not on file Spouse name: Not on file ??? Number [...] on file Tobacco Use ??? Smoking status: Not on file Substance and Sexual Activity ??? Alcohol use: Not on file ??? Drug use: Not on file ??? Sexual activity: Not on file Other Topics Concern ??? Not on file Social History Narrative ??? Not on file Review of systems: Unable to verify with patient Physical Exam: Vitals: Temp: -- Heart Rate: -- Resp: -- BP: -- SpO2: -- Heart Rate from SPO2: -- CV: + S1, S2, RRR, no murmur Resp: CTA B/L Ext: No edema. No bony deformity Neuro Exam: MS: Awake and alert CN: PERRL, EOMI, visual guadalupe full (questionable right field cut) Right facial droop Hearing intact to voice Tongue protrudes midline Motor: Normal bulk and tone. UE: 3/5 R, 5/5 L Arm abduction at shoulder LE: No drift in either lower extremity Sensation: dense hemisensory loss on right arm and leg Reflexes: DTRs Not tested Toes - R down, L down Coordination: can't test RUE, LUE no ataxia Gait: Not tested NIH Stroke Scale: (bold applicable choices) NIH [...] to more than one modality TOTAL SCORE: 13 Labs: No results found for this or any previous visit (from the past 24 hour(s)). Diagnostic Tests and Imaging: Head CT and CTA completed at OSH: CT angiography showed patient the had a LEFT occlusion M2 by the sylvian fissure MRI brain Mechanical Thrombectomy 4 cm acute left posterior frontal, superior temporal, insular infarction Swallow Screen Results: PASSED (All YES responses) Time 0900 Thrombectomy Findings of the procedure: left M2 occlusion -- large M2 and poor perfusion in much of MCA territory. After second pass TiCI 2b flow Assessment and Plan: Lars Banuelos is a 47 y.o. female with past medical history significant for hypertension, hyperlipidemia and GERD who presented to [facility] for evaluation regarding right-sided weakness and aphasia. CTA angiography showed left occlusion of the M2 by the sylvian fissure[facility] On [facility] her NIH SS is 13. She was taken for MRI brain and mechanical thrombectomy which showed a 4 cm acute infarct suggesting that intervention could help rescue some salvageable brain tissue. She was taking for thrombectomy which showed an left M2 occlusion.After a second pass TICI 2b Flow was achieved. Her symptoms on presentation to localize to the left MCA territory. The etiology of the stroke is possibly cardioembolic but unclear at this time. Patient will be admitted to the ICU for close post thrombectomy monitoring.Thrombolytics were considered and not given secondary to out of time window # Left M2 Ischemic Stroke -Admit to SICU -Neuro check & vitals as per post thrombectomy protocol -Blood pressure goals as per interventional list team -Aspirin 81 daily -Check CBC, BMP, LFT, lipid profile, HbA1c, Mg, Phos, UA -TTE -12 lead EKG -Telemetry -MRI brain wo contrast -PT/OT/CONSULTING SERVICES MANAGER #Hypertension Hold home lisinopril and propanolol #Anxiety/depression Continue home fluoxetine # Prophylaxis -Lovenox 40mg SC daily -RBOs -SCDs # Supportive care -N.p.o. until speech evaluation -Tylenol PRN -Up with assistance # FULL code Sherwin Hargrove MD Neurology Resident PGY2 Vascular Neurology Pager [phone] Standard [facility] Swallow Screen: This screen is to be [...] diet as medical provider deems appropriate. Consider CONSULTING SERVICES MANAGER consult for full evaluation and diet recommendations. ??? If NO to any of the responses, stop immediately, keep patient NPO and notify physician. Associated attestation - Emre Arreguin MD - 01/09/2018 5:35 PM EST Neurology Staff Note I have reviewed the above resident's history during the visit and I agree with the details as written. My physical examination confirms the resident's findings. The assessment and plan were formulated in discussion with me at the time of the visit and I agree with them as documented. She has been improving with her right UE weakness. Aphasia persists. Has a dense expressive aphasia and is mute. Has an oral apraxia. Has a right UE drift only now. Reviewed images including the MRI today with her and her daughter. Can move out of the ICU. Await TTE since the cause of the stroke is unclear. She declines NRT now but we have ordered it in case she changes her mind. She indicates she is determined to stop smoking. Cont aspirin and statin. Await other rehab team evals Would check CUS since the cervical carotid imaging was suboptimal. I have examined the patient myself and personally reviewed all studies. In addition, I certify thatI am a [facility] credentialed attending provider with admitting privileges and that the patient meets or has met medical necessity to require an inpatient IPI level of care meeting a minimum of two midnights or is on the [facility] inpatient only procedure list (status C) due [...] Persistent AF Longstanding persistent AF Permanent AF documented in this encounter ED Notes * Ana Zimmerman RN - 01/08/2018 9:37 AM EST Family brought to MRI waiting room, MRI and angio/IR aware. * Ana Zimmerman RN - 01/08/2018 9:05 AM EST Pt. Brought over to MRI on monitor, nursing report given to GLENDA Iglesias to monitor pt. In MRI. Planto have pt. Go to angio/IR directly from MRI for thrombectomy. and daughter waiting in ED room 14 for now until dispo is decided. * Terence Chua MD - 01/08/2018 8:58 AM EST ED Transfer Note: Patient accepted in transfer by Neurology due to concern for stroke. A brief history was elicited from the patient and the transfer documents. Briefly, Lars Banuelos is a 47 y.o. female who presented to OSH for R sided weakness upon awakening this morning. Course at OSH was notable for right facial droop, paralysis to the right upper extremity, intact strength to theright lower extremity, and expressive aphasia. CTA at OSH notable for left M2 occlusion. On my examination, patient's neuro deficits remain as noted above. I contacted the accepting team. They were at bedside to evaluate at 0900, please see their notes. ED Course and Disposition: 47-year-old female with acute thrombotic stroke of the left MCA, with dense neuro deficits on the right side and a aphasia. Patient does not a lytic candidate due to unknown time of onset. Patient ispotential thrombectomy candidate. Patient seen and evaluated by neurology and immediately taken to IR after ED arrival. Further care per Neuro/NSG. Terence Chua MD Resident 01/08/18 0901 Associated attestation - Kellie Adams MD - 01/08/2018 9:03 AM EST ED ATTENDING ATTESTATION NOTE The patient was seen in conjunction with Dr. Chua, the resident physician. I have independentlyperformed the vasquez portions of the history and physical exam. I have reviewed the nursing notes, vital signs. I have discussed the details of the case with the resident and agree with the assessment and plan as described in the resident note above unless noted otherwise below. documented in this encounter Miscellaneous Notes * Plan of Care - Kiki Delcid RN - 01/11/2018 2:46 PM EST Problem: Patient Care Overview Goal: Plan of Care Review Outcome: Outcome (s) achieved Date Met: 01/11/18 01/11/18 1798 Coping/Psychosocial Plan Of Care Reviewed With patient;family Plan of Care Review Progress improving OUTCOME EVALUATION NOTE: OUTCOME SUMMARY: Pt Is alert and oriented x 4, non-verbal, communicates by shaking and nodding headand writing on white board, denies pain, moving all 4 extremities, ambulatory, tolerates regular diet. AVS provided and reviewed, all questions answered. PLAN MOVING FORWARD: Discharge to home with outpt rehab services INDIVIDUALIZED FALL PREVENTION INTERVENTIONS: Patient-specific fall risk factors per assessment: [current deficits]: none Assistance [level of assistance required for transfers and ambulation]: independent Supervision [direct monitoring required during toileting and ADLs]: none Surveillance [continuous indirect monitoring]: none Patient-specific fall prevention interventions for sensory deficits provided, if applicable: no Goal: Individualization & Mutuality Outcome: Outcome (s) achieved Date Met: 01/11/18 01/11/181527 Individualization Patient Specific Goals discharge to home Patient Specific Interventions neuro checks, mobilize, facilitate communication, discharge teaching Goal: Fall Prevention-Safe Patient Handling Outcome: Outcome (s) achieved Date Met: 01/11/18 01/10/18204401/11/1880601/11/18 09 Howe Fall Risk History of Falling -- 0 -- Secondary Diagnosis -- 15 -- Ambulatory Aids -- 0 -- Intravenous Therapy/Heparin/Saline Lock -- 0 -- Gait/Transferring -- 0 -- Mental Status -- 0 -- Score -- 15 -- OTHER Howe Fall Risk -- Low -- Restraint Interventions Safety Promotion/Fall Prevention -- activity supervised;fall prevention program maintained;nonskid shoes/slippers when out of bed;safety round/check completed -- Positioning Body Position independent -- -- Activity Activity Type -- -- ambulated in galindo Activity Assistance Provided -- -- assistance, stand-by Assistive Device Utilized -- -- none Goal: Infection Control Outcome: Outcome (s) achieved Date Met: 01/11/18 01/10/18199901/10/18204401/11/18 08 Safety Interventions Isolation Precautions -- -- standard precautions maintained Infection Prevention -- environmental surveillance performed;rest/sleep promoted -- Coping Strategies Supportive Measures active listening utilized;positive reinforcement provided;self-reflection promoted;self-responsibility promoted -- -- Goal: Discharge Needs Assessment Outcome: Outcome (s) achieved Date Met: 01/11/18 01/11/181527 Discharge Needs Assessment Equipment Needed After Discharge none Discharge Disposition home or self-care Activity/Self Care Review of Systems Equipment Currently Used at Home none Current Health Anticipated Changes Related to Illness inability to work Living Environment Transportation Available family or friend will provide Goal: Interdisciplinary Rounds/Family Conf Outcome: Outcome (s) achieved Date Met: 11/25/18 11/25/18 1528 Interdisciplinary Rounds/Family Conf Participants family;nursing;patient;physician Problem: Stroke (Ischemic) (Adult) Goal: Signs and Symptoms of Listed Potential Problems Will be Absent, Minimized or Managed (Stroke) Signs and symptoms of listed potential problems will be absent, minimized or managed by discharge/transition of care (reference Stroke (Ischemic) (Adult) CPG). 01/10/18 1642 Stroke (Ischemic) Problems Assessed (Stroke (Ischemic)/TIA) all Problems Present (Stroke (Ischemic)/TIA) communication impairment;situational response * Plan of Care - Alice Tobin RN - 01/11/2018 5:44 AM EST Problem: Patient Care Overview Goal: Plan of Care Review Outcome: Ongoing (Interventions Implemented as Appropriate) 01/10/18 1647 01/10/181999 Coping/Psychosocial Plan Of Care Reviewed With -- patient;family Plan of Care Review Progress progress toward functional goals as expected -- OUTCOME EVALUATION NOTE: OUTCOME SUMMARY: Pt AAOx4 through shift, nodding/gesturing appropriately. No changes in speech. AVSS, no complaints of pain. Ambulated to bathroom. CPAP adjusted by respiratory, after which pt slept through night. PLAN MOVING FORWARD: Continue work with speech, PT/OT, discharge planning INDIVIDUALIZED FALL PREVENTION INTERVENTIONS: Patient-specific fall risk factors per assessment: N/Z Assistance: Independent, SBA Supervision: Independent Surveillance: Bed locked in low position, call heller within reach, purposeful hourly rounding, clutter free environment, bed/chair alarm on Patient-specific fall prevention interventions for sensory deficits provided: N/A CPG GOAL OUTCOME EVALUATION: Continue care plan as documented. * Plan of Care - Deb Michelle RN - 01/10/2018 5:06 PM EST Problem: Skin Integrity Impairment, Risk/Actual (Adult) Goal: Identify Related Risk Factors and Signs and Symptoms Related risk factors and signs and symptoms are identified upon initiation of Human Response Clinical Practice Guideline (CPG) Outcome: Ongoing (Interventions Implemented as Appropriate) 01/10/18 1647 Skin Integrity Impairment, Risk/Actual Signs and Symptoms (Skin Integrity Impairment) (incision R groin, new infiltrate) OUTCOME EVALUATION NOTE: OUTCOME SUMMARY: Presented w/ aphasia and R-sided weakness, now s/p L thombectomy. A&O. Aphasia and mild RUE weakness continues; no new neuro deficits noted. Using dry erase board frequently to communicate. VSS, on RA. Denies pain. R femoral puncture site shows no s/s infxn. L hand infiltrate today, VAS at bedside to assess, area marked. IVF D/C'd. RT at bedside to set pt up w/ CPAP for tonight. One episode of nausea this am, zofran given with good effect. Diet advanced, tolerating regular diet well. TUMs given x1 for heartburn this evening with little effect. UA sent. Social work contacted per pt's request to obtain a copy of paperwork for employer. Nicotine path offered, but refused. Showered. Worked w/ OT. Family, extremely supportive, at bedside all day. Continuous tele monitoring for stroke; tolerating well; HR 70s; NSR PLAN MOVING FORWARD: Monitor VS, labs, Is and Os Q4hr neuro checks Speech therapy Treat SBP>150 Pending acute rehab placement INDIVIDUALIZED FALL PREVENTION INTERVENTIONS: Patient-specific fall risk factors per assessment: [current deficits]: Medium risk to fall. New environment, steady on feet and calling appropriately Assistance [level of assistance required for transfers and ambulation]: IND Supervision [direct monitoring required during toileting and ADLs]: IND Surveillance [continuous indirect monitoring]: Purposeful hourly rounding. Call heller within reach. Family at bedside. Nonskid socks when OOB. Room near unit station. Patient-specific fall prevention interventions for sensory deficits provided, if applicable: N/A CPG GOAL OUTCOME EVALUATION: * Plan of Care - Nagi Triana OT - 01/10/2018 3:49 PM EST Occupational Therapy Evaluation Pertinent History of Current Problem: Lars Banuelos ( ) is a 47 y.o. 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 Precautions Comments: fall risk, communication impairment Assessment: Pt has been seen for occupational therapy evaluation, please refer to associated flowsheet data listed below for details. Lars Banuelos presents with the following performance skill deficits and client factors: decreased activity tolerance, mild balance impairment, mildly decreased attention to task, ? visual involvement, mild RUE weakness and ? apraxia, and severe communication impairments. These performance deficits have led to activity limitations and participation restrictions inthe following areas of occupation: mobility, home management, work, leisure, driving, community mobility, communication, and social participation. Pt tolerated evaluation well. Able to communicate through pointing at letters to spell words but at times became perseverative or would provide answers for different or previously asked questions (for example when asked if her works pt repeatedly spelled out child in an attempt to indicate that her daughter lives with them as well). Due to significant speech/language impairments and cognitive deficits pt would highly benefit from intensive multidisciplinary rehabilitation to progress independence and explore additional communication options. Pt would benefit from further inpatient OT interventions to address performance deficits and maximize participation and independence with occupations of daily living. Staff Recommendations: Encourage OOB activity and participation in all self care tasks; supervisionlevel for ADL and mobility Anticipated Discharge Disposition: inpatient rehabilitation facility(acute) Pager: [phone] NAGI TRIANA OT 01/10/2018 Occupational Therapy Rehabilitation Department 2017 OT Evaluation Code Rationale: ?? Diagnosis & Pertinent Co-Morbidities affecting Plan of Care: see PMHx ?? Occupational Profile & Client History: Brief Expanded Extensive X ?? Assessment of Occupational Performance: 1-3 performance deficits 3-5 performance deficits 5 + performance deficits X ?? Clinical Decision Making: Low Moderate High X Clinical decision making of high complexity using standardized patient assessment instrument and measurable assessment of functional outcome. 01/10/18 1355 Rehab Evaluation Document Type evaluation Total Evaluation Minutes, Occupational Therapy 31 (eval) Patient Effort excellent Symptoms Noted During/After Treatment none General Information Patient/Family/Caregiver Comments/Observations pt communicating by pointing to letters, able to write 1x on whiteboard Pertinent History of Current Problem Lars Banuelos ( ) is a 47 y.o. 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 Hearing Precautions/Limitations WFL Precautions Comments fall risk, communication impairment Treatment Number OT 1 Living Environment Patient population Adult Living Environment Living Environment Comment Pt lives with her and 28 year old daughter. 2 steps to enter with rail, 1 level home. 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 independent with all ADL/IADLs, amb without device, denies hx of falls or instability Self-Care Dominant Hand right Vision Assessment/Intervention Impact of Vision Impairment on Function appears baseline, able to read large print individual letters, did not test reading of words Cognitive Assessment Interventions Behavior/Mood Observations (Cognitive) alert;cooperative Orientation Status (Cognitive) oriented to;person;place;situation Attention (Cognitive) WNL/WFL Follows Commands/Answers Questions (Cognitive) able to follow single-step instructions Personal Safety (Cognitive) WNL/WFL Diffuse Language Characteristics perseveration noted Cognitive Assessment/Interventions Comment no vocalizations ? oral motor apraxia (refer to speech note for details), wrote 1989 when asked how old her daughter was, some incorrect answers (ie kept writing child when asked what her did for work) Pain Scale/Rating Pain Assessment Scale Faces ([place]-Lorenzo FACES Pain Rating Scale) Pain Level 0 Bed Mobility Assessment/Treatment Scoot/Bridge [place] (Bed Mobility) supervision required [id number] [place] (Bed Mobility) supervision required Transfer Assessment/Treatment [place] (Sit-Stand Transfers) supervision required [place] (Stand-Sit Transfers) supervision required Gait Assessment/Treatment Assistive Device (Gait) (no device) [place] (Gait) supervision required Distance in Feet (Gait) 300 Comment (Gait) occasional cue for topographical orientation and attention to task ADL Assessment/Intervention Additional Documentation Bathing Assessment/Training (Group);Lower Body Dressing Assessment/Training (Group);Upper Body Dressing Assessment/Training (Group) Bathing Assessment/Training Comment (Bathing) showered with supervision from nursing this AM (per RN did not require physical assist) Upper Body Dressing Assessment/Training [place] Level (UB Dressing) independent Lower Body Dressing Assessment/Training Position (LB Dressing) sitting;standing [place] Level (LB Dressing) supervision required Plan of Care Review Plan Of Care Reviewed With patient Occupational Therapy Goal Types Occupational Therapy Goal Types Cognition Goal (Group);Grooming Goal (Group);Home Management Goal (Group);Occupational Therapy Goal (Group) Cognition Goal Cognition Goal, Date Established 01/10/18 Cognition Goal, Time to Achieve 2 wks Cognition Goal, Activity Type Pt will fill out daily menu independently. Cognition Goal, Additional Goal Pt will partipate in ongoing cognitive evaluation. Grooming Goal Grooming Goal, Date Established 01/10/18 Grooming Goal, Time to Achieve 2 wks Grooming Goal, Activity Type Pt will perform grooming routine standing at sink independently. Home Management Goal Home Mgmt Goal, Date Established 01/10/18 Home Mgmt Goal, Time To Achieve 2 wks Home Mgmt Goal, Activity Type Pt will retrieve linens for ADL with supervision. Home Mgmt Goal, Additional Goal Pt will follow simple recipe for kitchen task with supervision. Occupational Therapy Goal OT Goal, Date Established 01/10/18 OT Goal, Time to Achieve 2 wks OT Goal, Activity Type Pt will accurately communicate basic needs 100% of the time using communication device. Clinical Impression Therapy Frequency 2-4 times/wk Anticipated Equipment Needs at Discharge (TBD) Anticipated Discharge Disposition inpatient rehabilitation facility (acute) General Therapy Interventions Additional Documentation Planned Therapy Interventions (Group) Planned Therapy Interventions ADL retraining;IADL retraining;balance training;neuromuscular re-education (cognition, safety) * Plan of Care - Jaycee Arana, PT - 01/10/2018 3:31 PM EST Physical Therapy Evaluation Pertinent History of Current Problem: Pt adm from OSH for neurologic intervention after waking up with sudden onset aphasia and right-sided weakness s/p left thombectomy for occlusion of the M2 branch of the left internal carotid. PMH significant for HTN, HLD, GERD Precautions/Restrictions: fall Assessment: Patient seen today for Initial PT Assessment and presents to PT with the following Impairments Found (describe specific impairments): aerobic capacity/endurance, gait, locomotion, and balance, anthropometric characteristics, muscle performance, ergonomics and body mechanics, cranial and peripheral nerve integrity with resultant functional limitations in quality and tolerance to functional activity 2' recent neurologic event and subsequent impairment. Patient will benefit from ongoing skilled PT rx to address the above deficits and facilitate maximal recovery of function. Patient has good potential for ongoing gains based on prior level of function and gains thus far, skilled PT will continue to follow. At this time, pt's greatest deficit is in her ability to generate speech and communicate. Pt is currently using a letterboard to spell out responses to simple questions and seems to be accurately a majority of responses, but not 100% of attempts, indicating potential for greater cognitive deficits that are not yet defined. Pt would benefit tremendously from intensive AcuteRehabilitation to facilitate maximal therapy services in all three disciplines to give her the bestpotential for recovery of premorbid status. Please see below for objective specifics of today's session and the specifics of the plan of care. Staff Mobility Recommendations amb as tolerated with assist for equipment Anticipated Discharge Disposition: inpatient rehabilitation facility JAYCEE ARANA, PT Pager: [phone] Inpatient Physical Therapy 2016 PT Evaluation Code Rationale: ?? Diagnosis & Pertinent Co-Morbidities, personal factors, and present illness affecting Plan of Care: Patient Active Problem List Diagnosis Code ??? Acute CVA (cerebrovascular accident) I63.9 Additional personal factors or co-morbidities that impact plan: ?? Total # of Factors: 0 1-2 3+ x ?? Examination of body system impairments, functional limitations and behaviors, and/or participation restrictions. Addressing 1-2 elements Addressing 3 + elements Addressing 4 + elements x ?? Clinical presentation: See assessment above. Stable/Uncomplicated Evolving/Fluctuating Symptoms Unstable/Unpredictable x ?? Clinical decision making of high complexity based on pt's functional performance as outlined in this evaluation. 01/10/18 1354 Rehab Evaluation Document Type evaluation Total Evaluation Minutes, Physical Therapy 31 (IE) General Information Patient/Family/Caregiver Comments/Observations Pt recieved in supine with visitors at bedside, pt very motivated to participate General Observations of Patient alert/attentive, agreeable to rx Pertinent History of Current Problem Pt adm from OSH for neurologic intervention after waking up with sudden onset aphasia and right-sided weakness s/p left thombectomy for occlusion of the M2 branchof the left internal carotid. PMH significant for HTN, HLD, GERD Precautions/Restrictions fall Treatment Number PT 1 Living Environment Patient population Adult Living Environment Lives With spouse;child(luis), adult Living Arrangements house Home Accessibility stairs to enter home;bed and bath on same level Number of Stairs to Enter Home 2 Number of Stairs Within Home 0 Living Environment Comment all needs on 1 level, lives with her spouse and 28 yo dtr who is able toassist Functional Level Prior Ambulation 0-->independent Transferring 0-->independent Toileting 0-->independent Bathing 0-->independent Dressing 0-->independent Eating 0-->independent Communication 0-->understands/communicates without difficulty Swallowing 0-->swallows foods/liquids without difficulty Prior Functional Level Comment [employer]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 independent with all ADL/IADLs, amb without device, denies hx of falls or instability Self-Care Dominant Hand right Vital Signs Heart Rate 78 SpO2 98 % O2 Device RA Pain Scale/Rating Pain Level 0 ROM (Range of Motion) Additional Documentation General Assessment (Group) General Range of Motion no range of motion deficits identified MMT (Manual Muscle Testing) Additional Documentation General Assessment (Group) General Manual Muscle Testing Assessment Detail grossly 4-/5 R UE; 4/5 R LE. OTW grossly WFL Mobility Assessment/Training Additional Documentation Bed Mobility Assessment/Treatment (Group);Gait Assessment/Treatment (Group);Transfer Assessment/Treatment (Group) Bed Mobility Assessment/Treatment Scoot/Bridge [place] (Bed Mobility) supervision required [id number] [place] (Bed Mobility) supervision required Transfer Assessment/Treatment [place] (Sit-Stand Transfers) supervision required [place] (Stand-Sit Transfers) supervision required Comment (Transfers) assist for environmental management/setup Gait Assessment/Treatment [place] (Gait) supervision required Assistive Device (Gait) (none) Distance in Feet (Gait) 300 Comment (Gait) variable step length, variable KELLIE. rare vc for attention to task Motor Skills/Interventions Additional Documentation Balance Skills Training (Group) Balance Skills Training Sitting Balance: Static good balance Sitting Balance: Dynamic good balance [id number]-[id number] Balance fair balance Standing Balance: Static fair balance Standing Balance: Dynamic fair balance Plan of Care Review Plan Of Care Reviewed With patient Progress progress towards functional goals is fair Physical Therapy Goal Types Physical Therapy Goal Types Bed Mobility Goal (Group);Gait Training Goal (Group);Transfer Training Goal (Group);Physical Therapy Goal (Group) Bed Mobility Goal Bed Mobility Goal, Date Established 01/10/18 Bed Mobility Goal, Time to Achieve 2 wks Bed Mobility Goal, Activity Type all bed mobility activities Bed Mobility Goal, [place] Level independent Gait Training Goal Gait Training Goal, Date Established 01/10/18 Gait Training Goal, Time to Achieve 2 wks Gait Training Goal, [place] Level independent Gait Training Goal, Distance to Achieve 1000 Gait Training Goal, Additional Goal Up/Down 2 steps with rail, with/without AD, independently Transfer Training Goal Transfer Training Goal, Date Established 01/10/18 Transfer Training Goal, Time to Achieve 2 wks Transfer Training Goal, Activity Type lod-oh-akqcx/qevny-xw-jgf;xdz-xc-fpkdi/mmvsf-bb-hif Transfer Train Goal, [place] Level independent Physical Therapy Goal PT Goal, Date Established 01/10/18 PT Goal, Time to Achieve 2 wks PT Goal, Activity Type Pt will demonstrate score of >=20/24 on DGI PT Goal, [place] Level independent Clinical Impression Impairments Found (describe specific impairments) aerobic capacity/endurance;gait, locomotion, and balance;anthropometric characteristics;muscle performance;ergonomics and body mechanics;cranial and p eripheral nerve integrity Therapy Frequency 3-5 times/wk Anticipated Discharge Disposition inpatient rehabilitation facility General Interventions Additional Documentation Planned Therapy Interventions (Group) Planned Therapy Interventions balance training;bed mobility training;gait training;home exercise program;motor coordination training;neuromuscular re- education;patient/family education;stair training;strengthening * Plan of Care - Vielka Ruby, CONSULTING SERVICES MANAGER - 01/10/2018 2:13 PM EST Speech-Language Pathology Document Type: therapy note (daily note) Pertinent History of Current Problem: Lars Banuelos ( ) is a 47 y.o. 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 Pt demonstrated improved oral motor coordination andagility w/ chewing and swallowing solids. 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 Able to use letter board and pictureboard accurately, able to write short words/phrases. No family present, but pt indicates they will be coming in soon. Pt indicates that they will bring either a smart phone or tablet with them. RN topage me, will attempt to put some communication apps on device if possible. Please see flow sheet data below for specific details, POC and goals. Addendum: Checked back in w/ pt and this PM. here but daughter who has tablet has not yet arrived. Recommended pt have daughter download free version of [employer] Lite as AAC basic device and free 15 day trial version of Constant Therapy on tablet for pt to look at and try. Gave and pt print outs from both websites w/ info about both products. Recommendations CONSULTING SERVICES MANAGER Diet Recommendation: no diet restrictions Recommended Feeding/Eating Techniques: maintain upright posture during/after eating for 30 mins, small sips/bites Therapy Frequency: 3-5 times/wk(for communication) VIELKA RUBY, CONSULTING SERVICES MANAGER Inpatient Speech Pathologist Pager: [phone] 01/10/18 0739 Rehab Evaluation Document Type therapy note (daily note) Total Evaluation Minutes, Speech Language Pathology 14 Patient Effort excellent Symptoms Noted During/After Treatment none General Information Patient/Family/Caregiver Comments/Observations LITIGATION DOCKET MANAGER reports no swallow issues w/ pureed /thin liquids General Observations of Patient HOB elevated, self feeding breakfast, wants diet upgrade Current Diet Limitations puree;thin liquids Pain Assessment Additional Documentation (pt shakes head no) General Feeding/Swallowing Observations Current Feeding Method oral feeding methods Observation of Self Feeding Skills appropriate self-feeding skills observed Observation of Posture During Feeding HOB elevated Non Instrumental/Clinical Swallow Exam Additional Documentation NIS Solid Trial (Group) NIS Thin Liquid Trial Thin Liquid, Mode of Presentation (Nis) self-fed;cup Thin Liquid, Volume Presented (mL) (Nis) patient controlled volumes Thin Liquid, Oral Phase Results (Nis) intact oral phase without signs of dysfunction Thin Liquid, Pharyngeal Phase Results (Nis) safe swallow, no signs/symptoms of aspiration or penetration Thin Liquid, Pharyngeal Phase, Cervical Auscultation (Nis) normal sounds/flow NIS Puree Trial Puree, Mode of Presentation (Nis) self-fed;spoon Puree, Volume Presented (mL) (Nis) patient controlled volumes Puree, Oral Phase Results (Nis) intact oral phase without signs of dysfunction Puree, Pharyngeal Phase Results (Nis) safe swallow, no signs/symptoms of aspiration or penetration Puree, Pharyngeal Phase, Cervical Auscultation (Nis) normal sounds/flow NIS Solid Trial Solid Food, Mode of Presentation (Nis) self-fed Solid Food, Volume Presented (mL) (Nis) patient controlled volumes Solid Food, Oral Phase Results (Nis) intact oral phase without signs of dysfunction Solid Food, Pharyngeal Phase Results (Nis) safe swallow, no signs/symptoms of aspiration or penetration Solid Food, Pharyngeal Phase, Cervical Auscultation (Nis) normal sounds/flow NIS Swallow Recommendations Feeding Assistance (NIS) no assistance needed with self-feeding Modified Feeding Strategies (NIS) provide positioning assistance to enhance swallowing Recommended Liquid Modification (NIS) no liquid modification needed Recommended Food Modification (NIS) level 4, regular diet Communication Goal Communication Goal, Date Established 01/09/18 Communication Goal, Time to Achieve by discharge Communication Goal, Activity Type Pt will functionally communicate basic wants/needs via AAC device Communication Goal, Additional Goal Pt will repeat / produce single syllable words w/ max cues Communication Goal, Outcome Achieved goal ongoing Dysphagia Goal Dysphagia Goal, Date Established 01/09/18 Dysphagia Goal, Time to Achieve by discharge Oral Nutritional Level Goal safely tolerates/maintains adequate oral nutrition;safely tolerates recommended diet texture;safely tolerates recommended liquid viscosity;no signs/symptoms of aspiration present Dysphagia Goal, Additional Goal Pt/caregivers indepedent w/ aspiration precautions Dysphagia Goal, Outcome goal met Clinical Impression CONSULTING SERVICES MANAGER Swallowing Diagnosis (WFL) Therapy Frequency 3-5 times/wk (for communication) CONSULTING SERVICES MANAGER Diet Recommendation no diet restrictions Recommended Feeding/Eating Techniques maintain upright posture during/after eating for 30 mins;small sips/bites Monitor for Signs of Aspiration cough * Plan of Care - Alice Tobin RN - 01/10/2018 5:26 AM EST Problem: Patient Care Overview Goal: Plan of Care Review Outcome: Ongoing (Interventions Implemented as Appropriate) 01/09/18 0800 Coping/Psychosocial Plan Of Care Reviewed With patient OUTCOME EVALUATION NOTE: OUTCOME SUMMARY: Pt admitted to unit last night, AAOx4, nods appropriately when provided choices. RUE 4/5, right droop improved. Up to bathroom SBA, voiding fine. 2L 02 given overnight, pt reports sleep apnea and using CPAP at home. PLAN MOVING FORWARD: Continue neuro checks, encourage ambulation, encourage communication attempts. INDIVIDUALIZED FALL PREVENTION INTERVENTIONS: Patient-specific fall risk factors per assessment: generalized weaness Assistance: SBA Supervision: Independent Surveillance: Bed locked in low position, call heller within reach, purposeful hourly rounding, clutter free environment, bed/chair alarm on Patient-specific fall prevention interventions for sensory deficits provided: N/A CPG GOAL OUTCOME EVALUATION: Continue care plan as documented. * Plan of Care - Bettina Oliver RN - 01/09/2018 8:22 PM EST Problem: Patient Care Overview Goal: Plan of Care Review Outcome: Ongoing (Interventions Implemented as Appropriate) 01/09/18 0800 Coping/Psychosocial Plan Of Care Reviewed With patient OUTCOME EVALUATION NOTE: OUTCOME SUMMARY: 1220: SBAR report received from GLENDA Salcedo and care continues by this service writer. Holdens unable to speak but nod/gestures very well. This service writer is able to assess that Lars is oriented x4 by her nods/gestures. Echocardiogram completed. Tolerated well. Pureed diet is not appetizing. Lars only eats some of the soup, yogurt, jello and/or ice cream/sherbert that's with each meal. Able to swallow medications whole with sips of water. Lars's Alli and daughter Cheryl in to visit throughout the afternoon. VSS, afebrile. Li catheter d/c'd. Tolerated well. OOB to chair in room. Waiting for [facility] room to be ready to transfer into. PLAN MOVING FORWARD: Continue neuro and neurovascular checks as ordered. Treat SBPs greater than 160. Commode at bedside. PT will see in AM 01/10/18. INDIVIDUALIZED FALL PREVENTION INTERVENTIONS: Patient-specific fall risk factors per assessment: [current deficits]: As noted in EMR. Assistance [level of assistance required for transfers and ambulation]: As noted in EMR. Supervision [direct monitoring required during toileting and ADLs]: Eyes on hands on and as noted in EMR. Surveillance [continuous indirect monitoring]: Purposeful hourly rounding and as noted in EMR. Patient-specific fall prevention interventions for sensory deficits provided, if applicable: As noted in EMR. CPG GOAL OUTCOME EVALUATION: Goal: Fall Prevention-Safe Patient Handling Outcome: Ongoing (Interventions Implemented as Appropriate) 01/09/18 0800 01/09/181999 [place] Fall Risk History of Falling 0 -- Secondary Diagnosis 15 -- Ambulatory Aids 0 -- Intravenous Therapy/Heparin/Saline Lock 20 -- Gait/Transferring 0 -- Mental Status 0 -- Score 35 -- OTHER [place] Fall Risk Med -- Restraint Interventions Safety Promotion/Fall Prevention -- safety round/check completed;muscle strengthening facilitated;fall prevention program maintained Positioning Body Position -- neutral head position;neutral body alignment Activity Activity Type -- activity adjusted per tolerance Activity Assistance Provided -- assistance, stand-by Assistive Device Utilized -- none Goal: Infection Control Outcome: Ongoing (Interventions Implemented as Appropriate) 01/09/18 0800 01/09/181999 Safety Interventions Isolation Precautions -- standard precautions maintained Infection Prevention -- rest/sleep promoted;personal protective equipment utilized;equipment surfaces disinfected;environmental surveillance performed Coping Strategies Supportive Measures active listening utilized;decision-making supported;goal setting facilitated;positive reinforcement provided;problem solving facilitated;self-care encouraged;self-responsibility promoted;verbalization of feelings encouraged -- Goal: Discharge Needs Assessment Outcome: Ongoing (Interventions Implemented as Appropriate) 01/09/182019 Discharge Needs Assessment Discharge Disposition still a patient Goal: Interdisciplinary Rounds/Family Conf Outcome: Ongoing (Interventions Implemented as Appropriate) Problem: Stroke (Ischemic) (Adult) Goal: Signs and Symptoms of Listed Potential Problems Will be Absent, Minimized or Managed (Stroke) Signs and symptoms of listed potential problems will be absent, minimized or managed by discharge/transition of care (reference Stroke (Ischemic) (Adult) CPG). Outcome: Ongoing (Interventions Implemented as Appropriate) 01/09/182019 Stroke (Ischemic) Problems Assessed (Stroke (Ischemic)/TIA) all Problems Present (Stroke (Ischemic)/TIA) communication impairment;situational response * Plan of Care - Vielka Ruby, GLENN - 01/09/2018 9:32 AM EST Speech-Language Pathology Document Type: evaluation(BSE) Pertinent History of Current Problem: Lars Banuelos ( ) is a 47 y.o. 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 Pt demonstrated severe apraxia of speech, mild kentrell-pharyngeal timing and coordination issues; mild oropharyngeal dysphagia related to decreased oral agility and coordination. ROM, phonation, basic comprehension intact. Pt able to accurately point to pictures and objects, difficulty writing anything but short, high frequency words at this time. Full speech-language assessment to follow. Please see flow sheet data below for specific details, POC and goals. Recommendations CONSULTING SERVICES MANAGER Diet Recommendation: puree, thin liquids Recommended Feeding/Eating Techniques: hard swallow with each bite or sip, maintain upright postureduring/after eating for 30 mins, small sips/bites(pills one at a time w/ water) Therapy Frequency: 3-5 times/wk VIELKA RUBY, CONSULTING SERVICES MANAGER Inpatient Speech Pathologist Pager: [phone] 01/09/18 0905 Rehab Evaluation Document Type evaluation (BSE) Total Evaluation Minutes, Speech Language Pathology 35 Patient Effort excellent Symptoms Noted During/After Treatment none General Information Patient/Family/Caregiver Comments/Observations Pt alert, non-verbal, comprehension intact, family supportive General Observations of Patient smiling at family; frustrated by lack of speech Pertinent History of Current Problem Lars Banuelos ( ) is a 47 y.o. 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 Current Diet Limitations NPO Pain Assessment Additional Documentation (pt denies (writes no)) Oral Motor Structure/Functional Assess Dentition (Oral Motor Assessment) present and adequate Secretion Management (Oral Motor Assessment) WNL/WFL Mucosal Quality (Oral Motor Assessment) good Gag Response WNL Volitional swallow (Oral Motor Assessment) no issues initiating volitional swallow Volitional cough (Oral Motor Assessment) no issues initiating volitional cough Oral Musculature General Assessment (mild decreases in oral agility/coordination noted) General Feeding/Swallowing Observations Current Feeding Method NPO Observation of Self Feeding Skills (needs set up; self feeding w/ non-dominant hand (L)) Observation of Posture During Feeding HOB elevated NIS Thin Liquid Trial Thin Liquid, Mode of Presentation (Nis) fed by clinician;self-fed;spoon;straw;cup Thin Liquid, Volume Presented (mL) (Nis) 5 mL;10 mL;patient controlled volumes Thin Liquid, Oral Phase Results (Nis) intact oral phase without signs of dysfunction Thin Liquid, Pharyngeal Phase Results (Nis) impaired pharyngeal phase of swallowing Thin Liquid, Pharyngeal Phase, Cervical Auscultation (Nis) delayed swallow Thin Liquid, Comment (Nis) OK when takes small single sips NIS [place] Liquid Trial [place] Thick Liquid, Mode of Presentation (Nis) fed by clinician;cup;spoon [place] Thick Liquid, Volume Presented (mL) (Nis) 5 mL;10 mL [place] Thick Liquid, Oral Phase Results (Nis) intact oral phase without signs of dysfunction [place] Thick Liquid, Pharyngeal Phase Results (Nis) safe swallow, no signs/symptoms of aspiration or penetration [place] Thick Liquid, Pharyngeal Phase, Cervical Auscultation (Nis) delayed swallow NIS Puree Trial Puree, Mode of Presentation (Nis) fed by clinician;self-fed;spoon Puree, Volume Presented (mL) (Nis) 5 mL;10 mL;patient controlled volumes Puree, Oral Phase Results (Nis) intact oral phase without signs of dysfunction;impaired oral phase,signs of dysfunction present (mild) Puree, Oral Preparation Concerns (Nis) excess chewing noted Puree, Pharyngeal Phase Results (Nis) safe swallow, no signs/symptoms of aspiration or penetration Puree, Pharyngeal Phase, Cervical Auscultation (Nis) delayed swallow NIS Swallow Recommendations Feeding Assistance (NIS) needs occasional supervision during self-feeding activity (set up; pt self feeds one handed, non-dominant hand) Modified Feeding Strategies (NIS) adjust rate of feeding to fit with patient's ability;provide positioning assistance to enhance swallowing Recommended Liquid Modification (NIS) no liquid modification needed Liquid Bolus Volume Modification (NIS) decrease to smaller bolus volume Recommended Food Modification (NIS) level 1, dysphagia pureed diet Food Bolus Volume Modification (NIS) decrease to smaller bolus volume Oral Therapeutic Exercise Program (NIS) lingual exercise, focus on bolus manipulation;lingual exercise, focus on lateralization (oral agility) Communication Goal Communication Goal, Date Established 01/09/18 Communication Goal, Time to Achieve by discharge Communication Goal, Activity Type Pt will functionally communicate basic wants/needs via AAC device Communication Goal, Additional Goal Pt will repeat / produce single syllable words w/ max cues Communication Goal, Outcome Achieved goal ongoing Dysphagia Goal Dysphagia Goal, Date Established 01/09/18 Dysphagia Goal, Time to Achieve by discharge Oral Nutritional Level Goal safely tolerates/maintains adequate oral nutrition;safely tolerates recommended diet texture;safely tolerates recommended liquid viscosity;no signs/symptoms of aspiration present Dysphagia Goal, Additional Goal Pt/caregivers indepedent w/ aspiration precautions Dysphagia Goal, Outcome goal ongoing Clinical Impression CONSULTING SERVICES MANAGER Swallowing Diagnosis mild dysphagia;oral dysfunction;pharyngeal dysfunction Rehab Potential/Prognosis, Swallowing good, to achieve stated therapy goals Therapy Frequency 3-5 times/wk CONSULTING SERVICES MANAGER Diet Recommendation puree;thin liquids Recommended Feeding/Eating Techniques hard swallow with each bite or sip;maintain upright posture during/after eating for 30 mins;small sips/bites (pills one at a time w/ water) Monitor for Signs of Aspiration cough;throat clearing * Brief Op Note - Ritchie Strauss MD - 01/08/2018 12:09 PM EST INTERVENTIONAL RADIOLOGY BRIEF PROCEDURE NOTE Patient Name: Lars Banuelos : 1970 Case Date: 01/08/2018 Operators: Attending: All Staff: Staff No Staff Documented Post-operative diagnosis/Indication: Left MCA occlusion Name of Procedure Performed: Mechanical thrombectomy Description of the procedure: Left M1 thrombectomy with stent-retriever and balloon flow reversal Findings of the procedure: left M2 occlusion -- large M2 and poor perfusion in much of MCA territory. After second pass TiCI 2b flow EBL: <10 mL Specimens: None Complications: No immediate Plan/Disposition: to ICU FULL PROCEDURE NOTE TO FOLLOW IN IMAGE REPORT * Consult Note - Ritchie Strauss MD - 01/08/2018 9:16 AM EST Interventional Neuroradiology Consult Note HPI: Lars Banuelos is a 47 y.o. female who suffered sudden onset of aphasia and right hemiparesis discovered on waking this morning. We are now consulted for endovascular acute stroke therapy. PMH:HTN, hypercholesterolemia Labs: Imaging: CT of the head shows no infarction. CTA shows proximal left M2 occlusion Assessment/Plan: I 47 y.o. female with acute Left M2 thromboembolism. There is no completed infarction visible on CT. MRI shows A completed branch infarct in the posterior frontal lobe. Only mechanical thrombectony is options at this point. Procedure and its risks (including stroke, , bleeding in head or at groin, damage to blood vessels, adverse reaction to medication, device malfunction) were discussed with patients , questions answered, and written informed consent obtained. We will proceed on with the procedure on an emergency basis. documented in this encounter Plan of Treatment Scheduled Orders Name Type Priority Associated Diagnoses Orde r Schedule EKG 12 Lead ECG Routine Cerebrovascular accident (CVA), unspecified mechanism One Time for 1 Occurrences starting 01/10/2018 until 01/10/2018 Scheduled Referrals Name Type Priority Associated Diagnoses Order Schedule Referral to Speech Therapy Outpatient Referral Routine Acute CVA (cerebrovascular accident) Ordered: 01/11/2018 Referral to Physical Therapy Outpatient Referral Routine Acute CVA (cerebrovascular accident) Ordered: 01/11/2018 Referral to Occupational Therapy Outpatient Referral Routine Acute CVA (cerebrovascular accident) Ordered: 01/11/2018 documented as of this encounter Procedures Procedure Name Priority Date/Time Associated Diagnosis Comments HEMOGRAM Routine 01/11/2018 5:43 AM EST DIFFERENTIAL, AUTOMATED Routine 01/11/2018 5:43 AM EST CBC (WITH DIFF) Routine 01/11/2018 5:43 AM EST BASIC METABOLIC PANEL (NON-FASTING) STAT 01/11/2018 5:43 AM EST URINALYSIS MICROSCOPIC EXAM STAT 01/10/2018 10:35 AM EST URINE HOLD STAT 01/10/2018 10:35 AM EST URINALYSIS WITH REFLEX CULTURE STAT 01/10/2018 10:35 AM EST POCT GLUCOSE Routine 01/10/2018 7:51 AM EST HEMOGRAM Routine 01/10/2018 5:34 AM EST DIFFERENTIAL, AUTOMATED Routine 01/10/2018 5:34 AM EST CBC (WITH DIFF) Routine 01/10/2018 5:34 AM EST PHOSPHORUS Routine 01/10/2018 5:34 AM EST MAGNESIUM Routine 01/10/2018 5:34 AM EST HEPATIC FUNCTION PANEL Routine 01/10/2018 5:34 AM EST BASIC METABOLIC PANEL (NON-FASTING) Routine 01/10/2018 5:34 AM EST POCT GLUCOSE Routine 01/10/2018 4:27 AM EST POCT GLUCOSE Routine 01/10/2018 12:05 AM EST POCT GLUCOSE Routine 01/09/2018 7:40 PM EST POCT GLUCOSE Routine 01/09/2018 3:44 PM EST ECHO COMPLETE Routine 01/09/2018 2:00 PM EST Cerebrovascular accident (CVA), unspecified mechanism POCT GLUCOSE Routine 01/09/2018 12:34 PM EST MRI BRAIN WO CONTRAST STAT 01/09/2018 11:20 AM EST POCT GLUCOSE Routine 01/09/2018 8:45 AM EST POCT GLUCOSE Routine 01/09/2018 3:22 AM EST BMP W/FASTING GLUCOSE Routine 01/09/2018 3:15 AM EST HEMOGRAM Routine 01/09/2018 3:15 AM EST DIFFERENTIAL, AUTOMATED Routine 01/09/2018 3:15 AM EST CBC (WITH DIFF) Routine 01/09/2018 3:15 AM EST TRIGLYCERIDE Routine 01/09/2018 3:15 AM EST PHOSPHORUS Routine 01/09/2018 3:15 AM EST MAGNESIUM Routine 01/09/2018 3:15 AM EST LDL CHOLESTEROL, DIRECT Routine 01/09/2018 3:15 AM EST HDL/CHOL PROFILE Routine 01/09/2018 3:15 AM EST HEMOGLOBIN A1C Routine 01/09/2018 3:15 AM EST HEPATIC FUNCTION PANEL Routine 01/09/2018 3:15 AM EST POCT GLUCOSE Routine 01/09/2018 12:08 AM EST POCT GLUCOSE Routine 01/08/2018 8:58 PM EST POCT GLUCOSE Routine 01/08/2018 4:22 PM EST BLOOD GAS 2 ARTERIAL Routine 01/08/2018 1:39 PM EST HEMOGRAM STAT 01/08/2018 1:35 PM EST DIFFERENTIAL, AUTOMATED STAT 01/08/2018 1:35 PM EST APTT STAT 01/08/2018 1:35 PM EST PROTHROMBIN TIME STAT 01/08/2018 1:35 PM EST CBC (WITH DIFF) STAT 01/08/2018 1:35 PM EST PHOSPHORUS STAT 01/08/2018 1:35 PM EST MAGNESIUM STAT 01/08/2018 1:35 PM EST BASIC METABOLIC PANEL (NON-FASTING) STAT 01/08/2018 1:35 PM EST POCT GLUCOSE Routine 01/08/2018 12:50 PM EST IR NEURO MECHANICAL THROMBECTOMY STAT 01/08/2018 12:49 PM EST IR VENOUS INFUSION FOR THROMBOLYSIS,VENA CAVA (WRVU 6.81) 01/08/2018 9:28 AM EST MRI BRAIN MECHANICAL THROMBECTOMY PROTOCOL STAT 01/08/2018 9:26 AM EST documented in this encounter Results * Ziopatch [...] detected. ____ Interpreted by Anup Jain MD, [facility] Emre Arreguin MD CARDIAC SERVICES O RDERABLES * (ABNORMAL) Differential, Automated (01/11/2018 5:43 AM EST) Neutrophils % 73.0 % [facility] Neutr Abs (ANC) 6.40(H) 1.70 - 6.10 x10(3)/mc L [facility] Lymphocytes % 17.8 % [facility] Lymphocytes Abs 1.6 0.9 - 3.2 x10(3)/[facility] Monocytes % 6.6 % [facility] Monocyte Abs 0.6 0.3 - 0.9 x10(3)/[facility] Eosinophils % 1.4 % [facility] Eosinophils Abs 0.1 0.0 - 0.4 x10(3)/[facility] Basophils % 0.5 % [facility] Basophils Abs 0.0 0.0 - 0.1 x10(3)/[facility] Immature Gran % 0.70 % [facility] Comment: Immature granulocytes(IG's)percentage and absolute count will include metamyelocytes, myelocytes, and promyelocytes. Blood smears from CBCs yielding IG's will be scanned manually for concordance. If this scan disagrees with the automated IG or if promyelocytes are noted, a manual differential will be performed. Tia Gran Abs 0.06(H) 0.00 - 0.04 x10(3)/[facility] Blood specimen (specimen) 01/11/2018 5:43 AM EST 01/11/2018 6:01 AM EST Narrative Resulting Agency Comment Spec In Lab Mine Simon MD HEMATOLOGY ORDERABLE S Performing Organization Address City/State/[facility] Co de Phone Number [facility] [place] [address] * (ABNORMAL) Hemogram (01/11/2018 5:43 AM EST) WBC 8.8 4.0 - 9.5 x10(3)/[facility] LABORATORY RBC 4.04 4.00 - 5.21 x10(6)/[facility] Hemoglobin 10.9(L) 11.7 - 15.5 gm/dL [facility] Hematocrit 34.4(L) 35.7 - 45.8 % [facility] MCV 85.1 82.6 - 94.4 fL [facility] MCH 27.0(L) 27.1 - 32.0 pg [facility] MCHC 31.7 31.7 - 35.0 gm/dL [facility] Platelets 253 145 - 357 x10(3)/[facility] LABORATORY RDWSD 42.9 37.0 - 46.0 [facility] RDWCV 13.7 11.5 - 14.1 % [facility] MPV 9.7 7.6 - 12.9 [facility] nRBC % Auto 0.0 % [facility] nRBC Abs Auto 0.000 0.000 - 0.000 x10(3)/[facility] Blood specimen (specimen) 01/11/2018 5:43 AM EST 01/11/2018 6:01 AM EST Narrative Resulting Agency Comment Spec In Lab Mine Simon MD HEMATOLOGY ORDERABLE S [facility] [place] [address] * (ABNORMAL) Basic Metabolic Panel (non-fasting) (01/11/2018 5:43 AM EST) Glucose Lvl 102 65 - 199 mg/dL [facility] Comment:Diabetes: >=200 mg/d L plus symptoms BUN 13 8 - 18 mg/dL [facility] Comment:result rechecked-sb Creatinine 0.51(L) 0.70 - 1.20 mg/dL [facility] Sodium 142 135 - 145 mmol/L [facility] Potassium 3.9 3.5 - 5.0 mmol/L [facility] Comment: Please note: ??Patients with WBC >100,000 may have falsely elevated Potassium levels. ??For accurate Potassium quantification in these patients send serum separator tube (gold top) for subsequent determinations. ??Contact the Clinical Chemistry Laboratory if there are any questions. Chloride 106 98 - 107 mmol/L [facility] CO2 23 22 - 31 mmol/L [facility] Anion Gap 13 5 - 15 mmol/L [facility] Calcium 8.5 8.5 - 10.5 mg/dL [facility] Estimated GFR 115 >=60 mL/min/1. 73 m?? [facility] Comment: The eGFR was calculated using the CKD-EPI equation. As with all creatinine based estimates of kidney function, eGFR values calculated with the CKD-EPI equation are not accurate in patients with acute kidney failure, extremes of body mass or the acutely ill. [email or web address] eGFR 133 >=60 mL/min/1. 73 m?? [facility] Comment: The eGFR was calculated using the CKD-EPI equation. As with all creatinine based estimates of kidney function, eGFR values calculated with the CKD-EPI equation are not accurate in patients with acute kidney failure, extremes of body mass or the acutely ill. [email or web address] Blood specimen (specimen) 01/11/2018 5:43 AM EST 01/11/2018 6:01 AM EST Narrative Resulting Agency Comment Spec In Lab Emre Arreguin MD CHEMISTRY ORDERABL ES [facility] [place] [address] * (ABNORMAL) Urinalysis Microscopic Exam (01/10/2018 10:35 AM EST) RBC UA 11(H) 0 - 4 /HPF [facility] WBC UA 4 0 - 5 /HPF [facility] Bacteria UA Moderate(A ) None /HPF [facility] Squam Epith UA 8(H) <=4 /HPF [facility] Trans Epith UA <1 <=1 /HPF [facility] Urine specimen (specimen) 01/10/2018 10:35 AM EST 01/10/2018 10:47 AM EST Narrative Resulting Agency Comment Spec In Lab Mayank Shepherd MD URINE ORDERABLE S [facility] [place] [address] * Urine Hold (01/10/2018 10:35 AM EST) Urine Hold Sample in lab. [facility] Urine specimen (specimen) Urine / Unknown 01/10/2018 10:35 AM EST 01/10/2018 10:47 AM EST Mayank Shepherd MD URINE ORDERABLE S Performing Organization Address [facility] Co de Phone Number [facility] [place] [address] * (ABNORMAL) Urinalysis with reflex Culture (01/10/2018 10:35 AM EST) Glucose UA Negative Negative mg/dL [facility] Protein UA Negative Negative mg/dL [facility] Bilirubin UA Negative Negative mg/dL [facility] Comment: Clinical correlation required for positive Urine Bilirubin results as false positive may occur with some drugs and drug related products. If a false positive is suspected a serum total bilirubin should be considered if clinically indicated. Urobilinogen UA Normal Normal mg/dL [facility] pH UA 6.0 5.0 - 8.0 [facility] Blood UA Small(A) Negative mg/dL [facility] Ketones UA Negative Negative mg/dL [facility] Nitrite UA Negative Negative [facility] Leukocytes UA Negative Negative [facility] Appearance UA Clear Clear [facility] Spec [place] UA 1.016 1.002 - 1.030 [facility] Color UA Yellow Yellow [facility] Culture Reflexed No [facility] Urine specimen (specimen) 01/10/2018 10:35 AM EST 01/10/2018 10:47 AM EST Narrative Resulting Agency Comment Spec In Lab Emre Arreguin MD URINE ORDERABLES Performing Organization Address City/[facility]/ZIP Co de Phone Number [facility] [place] [address] * POCT Glucose (01/10/2018 7:51 AM EST) Pathologist [facility] POC Glucose 108 65 - 199 mg/dL [facility] Comment: Supplemental ranges: <140 mg/dL before meals <180 mg/dL all other times of the day Blood specimen (specimen) 01/10/2018 7:51 AM EST 01/10/2018 7:51 AM EST Emre Arreguin MD POINT OF CARE TEST ORDERABLES Performing Organization Address [facility] Co de Phone Number [facility] [place] [address] * Differential, Automated (01/10/2018 5:34 AM EST) Pathologist [facility] Neutrophils % 65.3 % [facility] Neutr Abs (ANC) 4.54 1.70 - 6.10 x10(3)/[facility] Lymphocytes % 24.3 % [facility] Lymphocytes Abs 1.7 0.9 - 3.2 x10(3)/[facility] Monocytes % 7.8 % [facility] Monocyte Abs 0.5 0.3 - 0.9 x10(3)/[facility] Eosinophils % 1.6 % [facility] Eosinophils Abs 0.1 0.0 - 0.4 x10(3)/[facility] Basophils % 0.4 % [facility] Basophils Abs 0.0 0.0 - 0.1 x10(3)/[facility] Immature Gran % 0.60 % [facility] Comment: Immature granulocytes(IG's)percentage and absolute count will include metamyelocytes, myelocytes, and promyelocytes. Blood smears from CBCs yielding IG's will be scanned manually for concordance. If this scan disagrees with the automated IG or if promyelocytes are noted, a manual differential will be performed. Tia Gran Abs 0.04 0.00 - 0.04 x10(3)/[facility] Blood specimen (specimen) 01/10/2018 5:34 AM EST 01/10/2018 5:56 AM EST Narrative Resulting Agency Comment Spec In Lab Mine Simon MD HEMATOLOGY ORDERABLE S [facility] [place] [address] * Hemogram (01/10/2018 5:34 AM EST) WBC 7.0 4.0 - 9.5 x10(3)/[facility] LAB[facility] RBC 4.29 4.00 - 5.21 x10(6)/[facility] Hemoglobin 11.7 11.7 - 15.5 gm/dL [facility] Hematocrit 36.6 35.7 - 45.8 % [facility] MCV 85.3 82.6 - 94.4 fL [facility] MCH 27.3 27.1 - 32.0 pg [facility] MCHC 32.0 31.7 - 35.0 gm/dL [facility] Platelets 287 145 - 357 x10(3)/[facility] LABORATORY RDWSD 43.6 37.0 - 46.0 [facility] RDWCV 14.0 11.5 - 14.1 % [facility] MPV 9.6 7.6 - 12.9 [facility] nRBC % Auto 0.0 % [facility] nRBC Abs Auto 0.000 0.000 - 0.000 x10(3)/[facility] Blood specimen (specimen) 01/10/2018 5:34 AM EST 01/10/2018 5:56 AM EST Narrative Resulting Agency Comment Spec In Lab Mine Simon MD HEMATOLOGY ORDERABLE S [facility] [place] [address] * (ABNORMAL) Basic Metabolic Panel (non-fasting) (01/10/2018 5:34 AM EST) Glucose Lvl 101 65 - 199 mg/dL [facility] Comment:Diabetes: >=200 mg/d L plus symptoms BUN 6(L) 8 - 18 mg/dL [facility] Creatinine 0.50(L) 0.70 - 1.20 mg/dL [facility] Sodium 139 135 - 145 mmol/L [facility] Potassium 3.6 3.5 - 5.0 mmol/L [facility] Comment: Please note: ??Patients with WBC >100,000 may have falsely elevated Potassium levels. ??For accurate Potassium quantification in these patients send serum separator tube (gold top) for subsequent determinations. ??Contact the Clinical Chemistry Laboratory if there are any questions. Chloride 104 98 - 107 mmol/L [facility] CO2 23 22 - 31 mmol/L [facility] Anion Gap 12 5 - 15 mmol/L [facility] Calcium 8.4(L) 8.5 - 10.5 mg/dL [facility] Estimated GFR 115 >=60 mL/min/1. 73 m?? [facility] Comment: The eGFR was calculated using the CKD-EPI equation. As with all creatinine based estimates of kidney function, eGFR values calculated with the CKD-EPI equation are not accurate in patients with acute kidney failure, extremes of body mass or the acutely ill. [email or web address] eGFR 134 >=60 mL/min/1. 73 m?? [facility] Comment: The eGFR was calculated using the CKD-EPI equation. As with all creatinine based estimates of kidney function, eGFR values calculated with the CKD-EPI equation are not accurate in patients with acute kidney failure, extremes of body mass or the acutely ill. [email or web address] Blood specimen (specimen) 01/10/2018 5:34 AM EST 01/10/2018 5:56 AM EST Narrative Resulting Agency Comment Spec In Lab Emre Arreguin MD CHEMISTRY ORDERABL ES Performing Organization Address [facility] de Phone Number [facility] [place] [address] * Hepatic Function Panel (01/10/2018 5:34 AM EST) Total Protein 6.4 6.1 - 8.0 gm/dL [facility] Albumin 3.5 3.2 - 5.2 gm/dL [facility] AST 9 0 - 30 unit/L [facility] ALT 9 0 - 30 unit/L [facility] Alk Phos 76 40 - 104 unit/L [facility] Total Bilirubin 0.2 0.2 - 1.3 mg/dL [facility] Bili, Direct 0.1 0.0 - 0.3 mg/dL [facility] Blood specimen (specimen) 01/10/2018 5:34 AM EST 01/10/2018 5:56 AM EST Narrative Resulting Agency Comment Spec In Lab Emre Arreguin MD CHEMISTRY ORDERABL ES Performing Organization Address [facility] Co de Phone Number [facility] [place] [address] * Phosphorus (01/10/2018 5:34 AM EST) Phosphorus 3.3 2.5 - 4.5 mg/dL [facility] Blood specimen (specimen) 01/10/2018 5:34 AM EST 01/10/2018 5:56 AM EST Narrative Resulting Agency Comment Spec In Lab Emre Arreguni MD CHEMISTRY ORDERABL ES Performing Organization Address City/[facility]/ZIP Co de Phone Number [facility] [place] [address] * Magnesium (01/10/2018 5:34 AM EST) Magnesium 0.91 0.69 - 1.07 mmol/L [facility] Blood specimen (specimen) 01/10/2018 5:34 AM EST 01/10/2018 5:56 AM EST Narrative Resulting Agency Comment Spec In Lab Emre Arreguin MD CHEMISTRY ORDERABL ES Performing Organization Address [facility] Co de Phone Number [facility] [place] [address] * POCT Glucose (01/10/2018 4:27 AM EST) POC Glucose 111 65 - 199 mg/dL [facility] Comment: Supplemental ranges: <140 mg/dL before meals <180 mg/dL all other times of the day Blood specimen (specimen) 01/10/2018 4:27 AM EST 01/10/2018 4:27 AM EST Emre Arreguin MD POINT OF CARE TEST ORDERABLES Performing Organization Address [facility]/ZIP Co de Phone Number [facility] [place] [address] * POCT Glucose (01/10/2018 12:05 AM EST) POC Glucose 100 65 - 199 mg/dL [facility] Comment: Supplemental ranges: <140 mg/dL before meals <180 mg/dL all other times of the day Blood specimen (specimen) 01/10/2018 12:05 AM EST 01/10/2018 12:05 AM EST Emre Arreguin MD POINT OF CARE TEST ORDERABLES Performing Organization Address City/[facility]/ZIP Co de Phone Number [facility] [place] [address] * POCT Glucose (01/09/2018 7:40 PM EST) POC Glucose 106 65 - 199 mg/dL [facility] Comment: Supplemental ranges: <140 mg/dL before meals <180 mg/dL all other times of the day Blood specimen (specimen) 01/09/2018 7:40 PM EST 01/09/2018 7:40 PM EST Emre Arreguin MD POINT OF CARE TEST ORDERABLES Performing Organization Address [facility] Co de Phone Number [facility] [place] [address] * POCT Glucose (01/09/2018 3:44 PM EST) POC Glucose 101 65 - 199 mg/dL [facility] Comment: Supplemental ranges: <140 mg/dL before meals <180 mg/dL all other times of the day Blood specimen (specimen) 01/09/2018 3:44 PM EST 01/09/2018 3:44 PM EST Emre Arreguin MD POINT OF CARE TEST ORDERABLES Performing Organization Address [facility] Co de Phone Number [facility] [place] [address] * ECHO COMPLETE (01/09/2018 2:00 PM EST) EF 62 HEARTLAB SYSTEM Anatomical Region Laterality Modality Other 01/09/2018 Narrative 01/09/2018 2:12 PM EST Procedure: ?Transthoracic Echocardiogram Patient: ?HAKANKRYSTEN CLEARY M ?(Age): 1970(47y) Med Rec#: ? [id number] ?Sex: ?F ? Site Loc: ? [facility] ?Ht / Wt: ??154.94(cm)/109. Pt. Loc: ?ICU ? BSA: ?2.05 Study Date: ?? 01/09/2018 ?Pt. Type: Inpatient Tape: ? Referring: Nirmal Sommer III Reading: Dereje Santos ([id number]) Sticker Operator: Stacy Ghosh [facility] Diagnosis: *Cerebral infarction, unspecified (I63.9) BP: ? 145/90 SUMMARY: 1. The left ventricular chamber size is normal. ??Left ventricular wall thickness is normal. ??There is normal global left ventricular systolic function. ??The quantitative left ventricular ejection fraction by biplane Olson's method is 62%. 2. The right ventricle is normal in size. ??Right ventricular global systolic function is normal. 3. There is no evidence of a patent foramen ovale with agitated saline contrast. Findings ? : Study Quality: ? Adequate Left Ventricle: ? The left ventricular chamber size is normal. ?Left ventricular wall thickness is normal. ?There is normal global left ventricular systolic function. ?The quantitative left ventricular ejection fraction by biplane Olson's method is 62%. Left Atrium: ? The left atrium is normal in size. ?There is no evidence of a patent foramen ovale with agitated saline contrast. Right Ventricle: ? The right ventricle is normal in size. ?Right ventricular global systolic function is normal. ?The estimated pulmonary artery systolic pressure is 36 mmHg. ?The estimated right atrial pressure is 15 mmHg. Right Atrium: ? The right atrium is normal in size. Aortic Valve: ? The aortic valve is tricuspid. ?There is no evidence of aortic valve thickening. ?Systolic excursion of the aortic valve is normal. ?There is no evidence of aortic valve stenosis. ?There is no evidence of aortic regurgitation. Mitral Valve: ? The mitral valve leaflets are mildly thickened. ?There is mitral annular calcification. ?There is trace mitral regurgitation present. Tricuspid Valve: ? The tricuspid valve leaflets are morphologically normal. ?There is trace tricuspid regurgitation present. Pulmonic Valve: ? The pulmonic valve is probably normal. ?There is no evidence of pulmonic regurgitation. Pericardium: ? There is no pericardial effusion. ?No pleural effusion is present. Aorta: ? The aortic root is normal in size. ?The ascending aorta is normal in size. Pulmonary Artery: ? The main pulmonary artery appears normal. Venous: ? The inferior vena cava appears dilated. ?There is less than 50% respiratory change in the inferior vena cava dimension consistent with elevated right atrial pressure. Misc: ? Two-dimensional echo, spectral Doppler and color Doppler performed. Chambers 2D ?Value ?Units (Range) ? IVSd (2D) ? 0.8 ?cm ? LVPWd (2D) ?0.8 ?cm ? IVS:LVPW ratio (2D) 1 ?ratio ? RWT (2D) ?0.4 ?ratio ? RWT PW (2D) ? 0.4 ?ratio ? LVIDd (2D) ?4.4 ?cm ? LVIDs (2D) ?3.5 ?cm ? LVIDd (2D) index ?2.2 ?cm/m2 ? LVIDs (2D) index ?1.7 ?cm/m2 ? LV FS (2D) ?20 ? % ? EF Teichholz (2D) ?? 41 ? % ? Ao root diameter (2D2.9 ?cm (2.1 - 3.6) ? Ascending Ao ?3 ?cm (2 - 3.5) ? Volumes/Mass ?Value ?Units (Range) ? LA Area 4 CH ?19 ? cm2 (<21) ? LA ESV BP (A/L) inde29.4 ? ml/m2 ? RA AREA 4CH ? 10 ? cm2 ? LV ESV SP 4CH (MOD) 38.9 ? ml ? LV ESV SP 2CH (MOD) 29.5 ? ml ? LV EDV BP ? 90.2 ? ml ? LV ESV BP ? 34.7 ? ml ? LV EDV BP index ? 44 ? ml/m2 ? LV ESV BP index ? 16.9 ? ml/m2 ? BP EF (MOD) ? 61 ? % ? LV mass (2D) ?114.8 ?g ? LV mass (2D) index ??56 ? g/m2 ? Diastolic/Systolic Function ?Value ?Units (Range) ? MV E-wave Vmax ?0.6 ?m/sec ? MV deceleration cvhg562.5 ?msec ? MV A-wave Vmax ?0.7 ?m/sec ? MV E:A ratio ?0.9 ?ratio ? LV septal e' Vmax ?? 0.1 ?m/sec ? LV lateral e' Vmax ??0.1 ?m/sec ? LV average e' Vmax ??0.1 ?m/sec ? LV E:e' septal ratio6.8 ?ratio ? LV E:e' lateral rati7.7 ?ratio ? LV average E:e' rati7.7 ?ratio ? Tricuspid Valve ?Value ?Units (Range) ? TR Vmax ? 2.3 ?m/sec ? TR peak gradient ?20.5 ? mmHg ? RAP ? 15 ? mmHg ? RVSP ?36 ? mmHg ? Measurement Trending Name ? 01/09/2018 ? RAP ?15 RVSP ? 36 Wall Motion: Segment Name ?Rest ? Base-Anteroseptal ?? Normal ? Base-Anterior ? Normal ? Base-Anterolateral ??Normal ? Base-Posterolateral Normal ? Base-Inferior ? Normal ? Base-Inferoseptal ?? Normal ? Mid-Anteroseptal ?Normal ? Mid-Anterior ?Normal ? Mid-Anterolateral ?? Normal ? Mid-Posterolateral ??Normal ? Mid-Inferior ?Normal ? Mid-Inferoseptal ?Normal ? [place]-Septal ? Normal ? [place]-Anterior ? Normal ? [place]-Lateral ?Normal ? [place]-Inferior ? Normal ? [place]-Tip ?Normal ? This report has been electronically signed by: Dereje Santos M.D. ? 01/09/2018 14:11:53 Images reviewed and interpretation verified [facility] Cardiac Ultrasound Laboratory Procedure Note Dereje Santos MD - 01/09/2018 Procedure: Transthoracic Echocardiogram Patient: VIN Jimenez (Age): 1970(47y) Med Rec#: [id number] Sex: F Site Loc: [facility] Ht / Wt: 154.94(cm)/109. Pt. Loc: ICU BSA: 2.05 Study Date: 01/09/2018 Pt. Type: Inpatient Tape: Referring: Nirmal Sommer III Reading: Dereje Santos ([id number]) Sticker Operator: Stacy Ghosh [facility] Diagnosis: *Cerebral infarction, unspecified (I63.9) BP: 145/90 SUMMARY: 1. The left ventricular chamber size [...] patent foramen ovale with agitated saline contrast. Findings : Study Quality: Adequate Left Ventricle: The left ventricular chamber size is normal. Left ventricular wall thickness is normal. There is normal global left ventricular systolic function. The quantitative left ventricular ejection fraction by biplane Olson's method is 62%. Left Atrium: The left atrium is normal in size. There is no evidence of a patent foramen ovale with agitated saline contrast. Right Ventricle: The right ventricle is normal in size. Right ventricular global systolic function is normal. The estimated pulmonary artery systolic pressure is 36 mmHg. The estimated right atrial pressure is 15 mmHg. Right Atrium: The right atrium is normal in size. Aortic Valve: The aortic valve is tricuspid. There is no evidence of aortic valve thickening. Systolic excursion of the aortic valve is normal. There is no evidence of aortic valve stenosis. There is no evidence of aortic regurgitation. Mitral Valve: The mitral valve leaflets are mildly thickened. There is mitral annular calcification. There is trace mitral regurgitation present. Tricuspid Valve: The tricuspid valve leaflets are morphologically normal. There is trace tricuspid regurgitation present. Pulmonic Valve: The pulmonic valve is probably normal. There is no evidence of pulmonic regurgitation. Pericardium: There is no pericardial effusion. No pleural effusion is present. Aorta: The aortic root is normal in size. The ascending aorta is normal in size. Pulmonary Artery: The main pulmonary artery appears normal. Venous: The inferior vena cava appears dilated. There is less than 50% respiratory change in the inferior vena cava dimension consistent with elevated right atrial pressure. Misc: Two-dimensional echo, spectral Doppler and color Doppler performed. Chambers 2D Value Units (Range) IVSd (2D) 0.8 cm LVPWd (2D) 0.8 cm IVS:LVPW ratio (2D) 1 ratio RWT (2D) 0.4 ratio RWT PW (2D) 0.4 ratio LVIDd (2D) 4.4 cm LVIDs (2D) 3.5 cm LVIDd (2D) index 2.2 cm/m2 LVIDs (2D) index 1.7 cm/m2 LV FS (2D) 20 % EF Teichholz (2D) 41 % Ao root diameter (2D2.9 cm (2.1 - 3.6) Ascending Ao 3 cm (2 - 3.5) Volumes/Mass Value Units (Range) LA Area 4 CH 19 cm2 (<21) LA ESV BP (A/L) inde29.4 ml/m2 RA AREA 4CH 10 cm2 LV ESV SP 4CH (MOD) 38.9 ml LV ESV SP 2CH (MOD) 29.5 ml LV EDV BP 90.2 ml LV ESV BP 34.7 ml LV EDV BP index 44 ml/m2 LV ESV BP index 16.9 ml/m2 BP EF (MOD) 61 % LV mass (2D) 114.8 g LV mass (2D) index 56 g/m2 Diastolic/Systolic Function Value Units (Range) MV E-wave Vmax 0.6 m/sec MV deceleration nypl215.5 msec MV A-wave Vmax 0.7 m/sec MV E:A ratio 0.9 ratio LV septal e' Vmax 0.1 m/sec LV lateral e' Vmax 0.1 m/sec LV average e' Vmax 0.1 m/sec LV E:e' septal ratio6.8 ratio LV E:e' lateral rati7.7 ratio LV average E:e' rati7.7 ratio Tricuspid Valve Value Units (Range) TR Vmax 2.3 m/sec TR peak gradient 20.5 mmHg RAP 15 mmHg RVSP 36 mmHg Measurement Trending Name 01/09/2018 RAP 15 RVSP 36 Wall Motion: Segment Name Rest Base-Anteroseptal Normal Base-Anterior Normal Base-Anterolateral Normal Base-Posterolateral Normal Base-Inferior Normal Base-Inferoseptal Normal Mid-Anteroseptal Normal Mid-Anterior Normal Mid-Anterolateral Normal Mid-Posterolateral Normal Mid-Inferior Normal Mid-Inferoseptal Normal [place]-Septal Normal Charlotte-Anterior Normal [place]-Lateral Normal [place]-Inferior Normal Charlotte-Tip Normal This report has been electronically signed by: Dereje Santos M.D. 01/09/2018 14:11:53 Images reviewed and interpretation verified [facility] Cardiac Ultrasound [facility] Nirmal Sommer III, MD ECHO ORDERABLES * POCT Glucose (01/09/2018 12:34 PM EST) POC Glucose 139 65 - 199 mg/dL [facility] Comment: Supplemental ranges: <140 mg/dL before meals <180 mg/dL all other times of the day Blood specimen (specimen) 01/09/2018 12:34 PM EST 01/09/2018 12:34 PM EST Emre Arreguin MD POINT OF CARE TEST ORDERABLES [facility] [place] [address] * MRI Brain wo Contrast (01/09/2018 11:20 AM EST) Anatomical Region Laterality Modality Head Magnetic Resonan ce Impressions 01/09/2018 11:56 AM EST Evolution of left MCA distribution acute infarct. 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 ??Looking to assess full evolution of infarct TECHNIQUE: MRI of the brain performed without intravenous contrast administration. COMPARISON: Diffusion weighted images 01/08/2018 FINDINGS: Redemonstrated area of restricted diffusion in the left posterior insular, superior left temporal lobe, and posterior left frontal lobe, with slightly increased extension superiorly along the left frontal lobe. Small foci of restricted diffusion are also seen in the posterior inferior left temporal lobe (series 4, image 12) and in the anterior left frontal lobe (series 4, image 18). There is mild effacement of the left sylvian fissure and cortical sulci. No midline shift. The ventricles are normal in size and configuration. The visualized paranasal sinuses and mastoid air cells are normal in signal. Procedure Note Segun Dillon MD - 01/09/2018 EXAMINATION: MRI BRAIN WO CONTRAST CLINICAL HISTORY: Patient with Left M2 occlusion who will be s/pthrombectomy by the time this MRI is obtained. Looking to assess full evolution ofinfarct TECHNIQUE: MRI of the brain performed without intravenous contrast administration. COMPARISON: Diffusion weighted images 01/08/2018 FINDINGS: Redemonstrated area of restricted diffusion in the left posteriorinsular, superior left temporal lobe, and posterior left frontal lobe, withslightly increased extension superiorly along the left frontal lobe. Small fociof restricted diffusion are also seen in the posterior inferior left temporallobe (series 4, image 12) and in the anterior left frontal lobe (series 4,image 18). There is mild effacement of the left sylvian fissure and cortical sulci.No midline shift. The ventricles are normal in size and configuration. The visualized paranasal sinuses and mastoid air cells are normal in signal. 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 I have personally reviewed the image(s) and the residents interpretationand agree with the findings, Segun Dillon at 01/09/2018 11:56 AM 11:56 AM Nirmal Sommer III, MD IMG MRI ORDERABLE S * POCT Glucose (01/09/2018 8:45 AM EST) POC Glucose 99 65 - 199 mg/dL [facility] Comment: Supplemental ranges: <140 mg/dL before meals <180 mg/dL all other times of the day Blood specimen (specimen) 01/09/2018 8:45 AM EST 01/09/2018 8:45 AM EST Emre Arreguin MD POINT OF CARE TEST ORDERABLES Performing Organization Address City/[facility]/ZIP Co de Phone Number [facility] [place] [address] * POCT Glucose (01/09/2018 3:22 AM EST) POC Glucose 113 65 - 199 mg/dL [facility] Comment: Supplemental ranges: <140 mg/dL before meals <180 mg/dL all other times of the day Blood specimen (specimen) 01/09/2018 3:22 AM EST 01/09/2018 3:22 AM EST Nirmal Sommer III, MD POINT OF CARE TATA T ORDERABLES Performing Organization Address City/[facility]/ZIP Co de Phone Number [facility] [place] [address] * (ABNORMAL) BMP w/fasting Glucose (01/09/2018 3:15 AM EST) Glucose Fasting 104(H) 65 - 99 mg/dL [facility] Comment: ?Fasting* Glucose Interpretive Criteria Normal ?65-99 mg/dL Impaired Fasting glucose ?100-125 mg/dL Consistent with Diabetes Mellitus ? >or= 126 mg/dL *Fasting is defined as no caloric intake for at least 8 hours In the absence of unequivocal hyperglycemia a plasma glucose value of >or= 126 mg/dL should be repeated on a subsequent day. Diagnosis and Classification of Diabetes Mellitus, Position Statement from the [place] [employer]. ??Diabetes Care, Volume 33, Supplement 1, Feb 2009 BUN 4(L) 8 - 18 mg/dL [facility] Creatinine 0.47(L) 0.70 - 1.20 mg/dL [facility] Sodium 143 135 - 145 mmol/L [facility] Potassium 3.6 3.5 - 5.0 mmol/L [facility] Comment: Please note: ??Patients with WBC >100,000 may have falsely elevated Potassium levels. ??For accurate Potassium quantification in these patients send serum separator tube (gold top) for subsequent determinations. ??Contact the Clinical Chemistry Laboratory if there are any questions. Chloride 106 98 - 107 mmol/L [facility] CO2 24 22 - 31 mmol/L [facility] Anion Gap 13 5 - 15 mmol/L [facility] Calcium 8.0(L) 8.5 - 10.5 mg/dL [facility] Estimated GFR 118 >=60 mL/min/1. 73 m?? [facility] Comment: The eGFR was calculated using the CKD-EPI equation. As with all creatinine based estimates of kidney function, eGFR values calculated with the CKD-EPI equation are not accurate in patients with acute kidney failure, extremes of body mass or the acutely ill. [email or web address] eGFR 136 >=60 mL/min/1. 73 m?? [facility] Comment: The eGFR was calculated using the CKD-EPI equation. As with all creatinine based estimates of kidney function, eGFR values calculated with the CKD-EPI equation are not accurate in patients with acute kidney failure, extremes of body mass or the acutely ill. [email or web address] Blood specimen (specimen) 01/09/2018 3:15 AM EST 01/09/2018 3:41 AM EST Narrative Resulting Agency Comment Spec In Lab Mayank Shepherd MD CHEMISTRY ORDER CAROLYNN [facility] [place] [address] * (ABNORMAL) Differential, Automated (01/09/2018 3:15 AM EST) Neutrophils % 76.3 % [facility] Neutr Abs (ANC) 7.09(H) 1.70 - 6.10 x10(3)/[facility]ATORY Lymphocytes % 16.9 % [facility] Lymphocytes Abs 1.6 0.9 - 3.2 x10(3)/[facility] Monocytes % 5.3 % [facility] Monocyte Abs 0.5 0.3 - 0.9 x10(3)/[facility] Eosinophils % 0.8 % [facility] Eosinophils Abs 0.1 0.0 - 0.4 x10(3)/[facility] Basophils % 0.4 % [facility] Basophils Abs 0.0 0.0 - 0.1 x10(3)/[facility] Immature Gran % 0.30 % [facility] Comment: Immature granulocytes(IG's)percentage and absolute count will include metamyelocytes, myelocytes, and promyelocytes. Blood smears from CBCs yielding IG's will be scanned manually for concordance. If this scan disagrees with the automated IG or if promyelocytes are noted, a manual differential will be performed. Tia Gran Abs 0.03 0.00 - 0.04 x10(3)/[facility] Blood specimen (specimen) 01/09/2018 3:15 AM EST 01/09/2018 3:41 AM EST Narrative Resulting Agency Comment Spec In Lab Mayank Shepherd MD HEMATOLOGY CHAPIS ARZOLA [facility] [place] [address] * (ABNORMAL) Hemogram (01/09/2018 3:15 AM EST) WBC 9.3 4.0 - 9.5 x10(3)/[facility] LABORATORY RBC 4.32 4.00 - 5.21 x10(6)/[facility] LABORATORY Hemoglobin 11.6(L) 11.7 - 15.5 gm/dL [facility] Hematocrit 36.5 35.7 - 45.8 % [facility] MCV 84.5 82.6 - 94.4 [facility] LABORATORY MCH 26.9(L) 27.1 - 32.0 pg [facility] MCHC 31.8 31.7 - 35.0 gm/dL [facility] Platelets 289 145 - 357 x10(3)/[facility] LABORATORY RDWSD 43.8 37.0 - 46.0 [facility] LAB[facility]ATORY RDWCV 14.2(H) 11.5 - 14.1 % [facility] MPV 9.6 7.6 - 12.9 [facility] nRBC % Auto 0.0 % [facility] nRBC Abs Auto 0.000 0.000 - 0.000 x10(3)/[facility] LABORATORY Blood specimen (specimen) 01/09/2018 3:15 AM EST 01/09/2018 3:41 AM EST Narrative Resulting Agency Comment Spec In Lab Mayank Shepherd MD HEMATOLOGY CHAPIS ARZOLA [facility] [place] [address] * Triglyceride (01/09/2018 3:15 AM EST) Triglycerides 110 mg/dL [facility] Comment: Average Risk/Lower Risk: <150 mg/dL Borderline High Risk: 150-199 mg/dL High Risk: 200-499 mg/dL Very High Risk: >gq=228 mg/dL Blood specimen (specimen) 01/09/2018 3:15 AM EST 01/09/2018 3:41 AM EST Narrative Resulting Agency Comment Spec In Lab Nirmal Sommer III, MD CHEMISTRY ORDERAB LES [facility] [place] [address] * HDL/Cholesterol Profile (01/09/2018 3:15 AM EST) Chol, Total 185 mg/dL [facility] Comment: Lower Risk: <200 mg/dL Average Risk: 200-239 mg/dL Higher Risk: >mr=588 mg/dL HDL 45 mg/dL [facility] Comment: Males: ?? Higher Risk: <40 mg/dL Females: ?? HIgher Risk: <50 mg/dL Chol/HDL Ratio 4.1 ratio [facility] Chol/HDL Interpretation See Note [facility] Comment: Lipid management should be guided by a patient? s ASCVD risk, goals and preferences. ACC/AHA Guidelines recommend high intensity statin if clinical ASCVD or LDL greater than or equal to 190 mg/dL. [email or web address]-[email or web address] Measure LDL if Total Cholesterol minus HDL Cholesterol is greater than 220 mg/dL. Adults aged 40-75 with LDL 70-189 mg/dL should have their 10 year ASCVD risk estimated with the ACC/AHA ASCVD risk advanced manager http://tools.acc.org/GEYSW-Ffev-Ozncyevtf/ Statin should be discussed if risk greater than or equal to 7.5% in non-diabetics. With diabetes, moderate intensity statin is recommended if risk less than 7.5%, high intensity if risk greater than or equal to 7.5%. Annual lipid monitoring on statins is not necessary. Lifestyle modification is a critical component of ASCVD risk reduction. Blood specimen (specimen) 01/09/2018 3:15 AM EST 01/09/2018 3:41 AM EST Narrative Resulting Agency Comment Spec In Lab Nirmal Sommer III, MD CHEMISTRY ORDERAB LES Performing Organization Address [facility] Co de Phone Number [facility] [place] [address] * LDL Cholesterol, Direct (01/09/2018 3:15 AM EST) LDL Chol Direct 123 mg/dL [facility] Comment: Lowest Risk: <100 mg/dL Lower Risk: 100-129 mg/dL Borderline High Risk: 130-159 mg/dL High Risk: 160-189 mg/dL Very High Risk: >bc=562 mg/dL Blood specimen (specimen) 01/09/2018 3:15 AM EST 01/09/2018 3:41 AM EST Narrative Resulting Agency Comment Spec In Lab Nirmal Sommer III, MD CHEMISTRY ORDERAB LES Performing Organization Address [facility] Co de Phone Number [facility] [place] [address] * Hemoglobin A1c (01/09/2018 3:15 AM EST) Hemoglobin A1C 5.6 4.3 - 5.6 % [facility] Comment: Reference Range: 4.3 - 5.6% 5.7 - 6.4% - Increased Risk of Developing Diabetes Mellitus >=6.5% - Consistent with diagnosis of Diabetes Mellitus In the absence of hyperglycemia (i.e. plasma glucose > 200 mg/dL) or classic symptoms of hyperglycemia a repeat measurement of HbA1c should be performed on a separate sample to confirm the diagnosis. Diagnosis and Classification of Diabetes Mellitus, Diabetes Care 2013; 36: Suppl. 1, V27-31 Est Avg Gluc 114 mg/dL [facility] Comment: eAG equivalents for HbA1c percentages: HbA1c(%) ?eAG(mg/dL) 6.0 ?126 6.5 ?140 7.0 ?154 7.5 ?169 8.0 ?183 8.5 ?197 9.0 ?212 9.5 ?226 10.0 ? 240 Limitations: The eAG calculation has not been validated on women, individuals below 18 years old and above 70 years old, and individuals with hemoglobinopathies. Additional resources are available on the ADA website. Shaggy VIERA, Cristobal J, Wendie R, et al. ??Translating the A1C assay into estimated average glucose values. ??Diabetes Care 2008:31(8):4411-1270. Blood specimen (specimen) 01/09/2018 3:15 AM EST 01/09/2018 3:41 AM EST Narrative Resulting Agency Comment Spec In Lab Nirmal Sommer III, MD CHEMISTRY ORDERAB LES [facility] [place] [address] * Hepatic Function Panel (01/09/2018 3:15 AM EST) Total Protein 6.1 6.1 - 8.0 gm/dL [facility] Albumin 3.4 3.2 - 5.2 gm/dL [facility] AST 11 0 - 30 unit/L [facility] ALT 9 0 - 30 unit/L [facility] Alk Phos 73 40 - 104 unit/L [facility] Total Bilirubin 0.3 0.2 - 1.3 mg/dL [facility] Bili, Direct <0.1 0.0 - 0.3 mg/dL [facility] Blood specimen (specimen) 01/09/2018 3:15 AM EST 01/09/2018 3:41 AM EST Narrative Resulting Agency Comment Spec In Lab Emre Arreguin MD CHEMISTRY ORDERABL ES Performing Organization Address [facility] Co de Phone Number [facility] [place] [address] * Phosphorus (01/09/2018 3:15 AM EST) Phosphorus 2.5 2.5 - 4.5 mg/dL [facility] Blood specimen (specimen) 01/09/2018 3:15 AM EST 01/09/2018 3:41 AM EST Narrative Resulting Agency Comment Spec In Lab Emre Arreguin MD CHEMISTRY ORDERABL ES Performing Organization Address [facility] de Phone Number [facility] [place] [address] * Magnesium (01/09/2018 3:15 AM EST) Magnesium 0.86 0.69 - 1.07 mmol/L [facility] Blood specimen (specimen) 01/09/2018 3:15 AM EST 01/09/2018 3:41 AM EST Narrative Resulting Agency Comment Spec In Lab Emre Arreguin MD CHEMISTRY ORDERABL ES Performing Organization Address [facility] Co de Phone Number [facility] [place] [address] * POCT Glucose (01/09/2018 12:08 AM EST) POC Glucose 120 65 - 199 mg/dL [facility] Comment: Supplemental ranges: <140 mg/dL before meals <180 mg/dL all other times of the day Blood specimen (specimen) 01/09/2018 12:08 AM EST 01/09/2018 12:08 AM EST Nirmal Sommer III, MD POINT OF CARE [employer] T ORDERABLES Performing Organization Address [facility] Co de Phone Number [facility] [place] [address] * POCT Glucose (01/08/2018 8:58 PM EST) POC Glucose 111 65 - 199 mg/dL [facility] Comment: Supplemental ranges: <140 mg/dL before meals <180 mg/dL all other times of the day Blood specimen (specimen) 01/08/2018 8:58 PM EST 01/08/2018 8:58 PM EST Nirmal Sommer III, MD POINT OF CARE [employer] T ORDERABLES Performing Organization Address [facility] de Phone Number [facility] [place] [address] * POCT Glucose (01/08/2018 4:22 PM EST) POC Glucose 114 65 - 199 mg/dL [facility] Comment: Supplemental ranges: <140 mg/dL before meals <180 mg/dL all other times of the day Blood specimen (specimen) 01/08/2018 4:22 PM EST 01/08/2018 4:22 PM EST Nirmal Sommer III, MD POINT OF CARE [employer] T ORDERABLES Performing Organization Address [facility] de Phone Number [facility] [place] [address] * (ABNORMAL) BLOOD GAS 2 ARTERIAL (01/08/2018 1:39 PM EST) pH Art 7.40 7.35 - 7.45 [facility] pCO2 Art 36 35 - 45 mmHg [facility] pO2 Art 66(L) 85 - 104 mmHg [facility] HCO3 Art 22.0 20.0 - 26.0 mmol/L [facility] BE Art -2.7 -3.0 - 3.0 mmol/L [facility] Hgb Blood Gas 13.1 11.7 - 15.5 gm/dL [facility] O2HB Art 91.3(L) 94.0 - 97.0 % [facility] COHB Art 0.3 % [facility] Comment: Nonsmokers: 0.5-1.5% COHB Smokers: Variable, but usually less than 10% Toxic: 20-30% COHB Lethal: Greater than 60% COHB METHB Art 0.6 <=1.5 % [facility] Na Whole Blood 139 135 - 145 mmol/L [facility] K Whole Blood 3.5 3.5 - 5.0 mmol/L [facility] Comment: Please note: Patients with WBC >100,000 may have falsely elevated Potassium levels. Contact the Clinical Chemistry Laboratory if there are any questions. ICa Whole Blood 1.12(L) 1.15 - 1.33 mmol/L [facility] Comment: Note: ??Total bilirubin higher than 20 mg/dL may lead to falsely low ionized calcium. CL Whole Blood 108(H) 98 - 107 mmol/L [facility] Gluc Whole Bld 126 65 - 199 mg/dL [facility] Comment:Diabetes: >=200 mg/d L plus symptoms. Lactate WB 0.7 0.5 - 2.2 mmol/L [facility] FIO2 Art 21 % [facility] PF Ratio Art 314 [facility] Blood specimen (specimen) 01/08/2018 1:39 PM EST 01/08/2018 1:39 PM EST Nirmal Sommer III, MD CHEMISTRY ORDERAB LES [facility] [place] [address] * (ABNORMAL) Differential, Automated (01/08/2018 1:35 PM EST) Neutrophils % 78.8 % [facility] Neutr Abs (ANC) 7.04(H) 1.70 - 6.10 x10(3)/[facility] Lymphocytes % 15.1 % [facility] Lymphocytes Abs 1.4 0.9 - 3.2 x10(3)/[facility] Monocytes % 5.0 % [facility] Monocyte Abs 0.4 0.3 - 0.9 x10(3)/[facility] Eosinophils % 0.4 % [facility] Eosinophils Abs 0.0 0.0 - 0.4 x10(3)/[facility] Basophils % 0.3 % [facility] Basophils Abs 0.0 0.0 - 0.1 x10(3)/[facility] Immature Gran % 0.40 % [facility] Comment: Immature granulocytes(IG's)percentage and absolute count will include metamyelocytes, myelocytes, and promyelocytes. Blood smears from CBCs yielding IG's will be scanned manually for concordance. If this scan disagrees with the automated IG or if promyelocytes are noted, a manual differential will be performed. Tia Gran Abs 0.04 0.00 - 0.04 x10(3)/[facility] Blood specimen (specimen) 01/08/2018 1:35 PM EST 01/08/2018 1:51 PM EST Narrative Resulting Agency Comment Spec In Lab Shalom Mandujano MD HEMATOLOGY ORDER CAROLYNN [facility] [place] [address] * (ABNORMAL) Hemogram (01/08/2018 1:35 PM EST) WBC 9.0 4.0 - 9.5 x10(3)/[facility] LABORATORY RBC 4.41 4.00 - 5.21 x10(6)/[facility] Hemoglobin 11.8 11.7 - 15.5 gm/dL [facility] Hematocrit 36.9 35.7 - 45.8 % [facility] MCV 83.7 82.6 - 94.4 fL [facility] MCH 26.8(L) 27.1 - 32.0 pg [facility] MCHC 32.0 31.7 - 35.0 gm/dL [facility] Platelets 281 145 - 357 x10(3)/[facility] LAB[facility]ORY RDWSD 43.1 37.0 - 46.0 [facility] RDWCV 14.1 11.5 - 14.1 % [facility] MPV 9.6 7.6 - 12.9 [facility] nRBC % Auto 0.0 % [facility] nRBC Abs Auto 0.000 0.000 - 0.000 x10(3)/[facility] Blood specimen (specimen) 01/08/2018 1:35 PM EST 01/08/2018 1:51 PM EST Narrative Resulting Agency Comment Spec In Lab Shalom Mandujano MD HEMATOLOGY ORDER CAROLYNN [facility] [place] [address] * (ABNORMAL) Basic Metabolic Panel (non-fasting) (01/08/2018 1:35 PM EST) Glucose Lvl 123 65 - 199 mg/dL [facility] Comment:Diabetes: >=200 mg/d L plus symptoms BUN 7(L) 8 - 18 mg/dL [facility] Creatinine 0.50(L) 0.70 - 1.20 mg/dL [facility] Sodium 141 135 - 145 mmol/L [facility] Potassium 3.7 3.5 - 5.0 mmol/L [facility] Comment: Please note: ??Patients with WBC >100,000 may have falsely elevated Potassium levels. ??For accurate Potassium quantification in these patients send serum separator tube (gold top) for subsequent determinations. ??Contact the Clinical Chemistry Laboratory if there are any questions. Chloride 105 98 - 107 mmol/L [facility] CO2 22 22 - 31 mmol/L [facility] Anion Gap 14 5 - 15 mmol/L [facility] Calcium 8.0(L) 8.5 - 10.5 mg/dL [facility] Estimated GFR 115 >=60 mL/min/1. 73 m?? [facility] Comment: The eGFR was calculated using the CKD-EPI equation. As with all creatinine based estimates of kidney function, eGFR values calculated with the CKD-EPI equation are not accurate in patients with acute kidney failure, extremes of body mass or the acutely ill. [email or web address] eGFR 134 >=60 mL/min/1. 73 m?? [facility] Comment: The eGFR was calculated using the CKD-EPI equation. As with all creatinine based estimates of kidney function, eGFR values calculated with the CKD-EPI equation are not accurate in patients with acute kidney failure, extremes of body mass or the acutely ill. [email or web address]://[employer] [facility] Blood specimen (specimen) 01/08/2018 1:35 PM EST 01/08/2018 1:51 PM EST Narrative Resulting Agency Comment Spec In Lab Emre Arreguin MD CHEMISTRY ORDERABL ES Performing Organization Address [facility] de Phone Number [facility] [place] [address] * Phosphorus (01/08/2018 1:35 PM EST) Phosphorus 3.1 2.5 - 4.5 mg/dL [facility] Blood specimen (specimen) 01/08/2018 1:35 PM EST 01/08/2018 1:51 PM EST Narrative Resulting Agency Comment Spec In Lab Nirmal Sommer III, MD CHEMISTRY ORDERAB LES Performing Organization Address City/[facility]/ZIP Co de Phone Number [facility] [place] [address] * Magnesium (01/08/2018 1:35 PM EST) Magnesium 0.81 0.69 - 1.07 mmol/L [facility] Blood specimen (specimen) 01/08/2018 1:35 PM EST 01/08/2018 1:51 PM EST Narrative Resulting Agency Comment Spec In Lab Nirmal Sommer III, MD CHEMISTRY ORDERAB LES Performing Organization Address [facility] Co de Phone Number [facility] [place] [address] * (ABNORMAL) Prothrombin Time (01/08/2018 1:35 PM EST) PT 13.1(H) 9.4 - 12.5 sec [facility] INR 1.2 [facility] Comment: An INR <2.0 [...] depending on clinical circumstances. Blood specimen (specimen) 01/08/2018 1:35 PM EST 01/08/2018 1:51 PM EST Narrative Resulting Agency Comment Spec In Lab Nirmal Sommer III, MD HEMATOLOGY ORDERA BLES Performing Organization Address [facility] Co de Phone Number [facility] [place] [address] * APTT (01/08/2018 1:35 PM EST) PTT 32 25 - 37 sec [facility] Comment: The PTT is NOT appropriate for heparin monitoring. Use the Anti-Xa level for heparin monitoring (HEP UFH) or LMWH monitoring (HEP LMW). A PTT less than 37 seconds generally indicates adequate hemostasis. Blood specimen (specimen) 01/08/2018 1:35 PM EST 01/08/2018 1:51 PM EST Narrative Resulting Agency Comment Spec In Lab Nirmal Sommer III, MD HEMATOLOGY ORDERA BLES Performing Organization Address City/[facility]/ZIP Co de Phone Number [facility] [place] [address] * POCT Glucose (01/08/2018 12:50 PM EST) POC Glucose 124 65 - 199 mg/dL [facility] Comment: Supplemental ranges: <140 mg/dL before meals <180 mg/dL all other times of the day Blood specimen (specimen) 01/08/2018 12:50 PM EST 01/08/2018 12:50 PM EST Nirmal Sommer III, MD POINT OF CARE TATA T ORDERABLES Performing Organization Address [facility] Co de Phone Number [facility] [place] [place] [address] * IR Neuro Mechanical Thrombectomy (01/08/2018 12:49 PM EST) Anatomical Region Laterality Modality X-Ray Angiograph y Impressions 01/11/2018 12:34 PM EST 1. 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 Reperfusion following mechanical thrombectomy with TICI 2B flow. Narrative 01/11/2018 12:34 PM EST EXAMINATION: IR NEURO MECHANICAL THROMBECTOMY CLINICAL HISTORY: left M2 thrombus; Exam/Procedure requested: thrombectomy OPERATORS: Dr. Hilario Sanderson, Dr. Ritchie Strauss. I, Dr. Ritchie Strauss, was present for the entire procedure. PROCEDURE: 1. Cerebral angiogram. 2. Community Health Representative thrombolysis with retrieval of thromboembolic material from the left M2 segment, MCA. ANESTHESIA: General endotracheal anesthesia EBL: <50 ml CONTRAST: 170 mL Visipaque-320. RADIATION EXPOSURE: A-plane 860 mGy, B-plane ??355 mGy. MATERIALS: Micropuncture set, 8Fr Arrow sheath, ??0.035 3J wire, 0.035 125 cm Glidewire, Flowgate2 balloon guide catheter, Catalyst six reperfusion catheter, Solitaire 4 x 20 retriever, Prowler Plus microcatheter, ??Trevo microcatheter, Synchro 14 wire, Trevo 3 x 20 retriever, Trevo 4 x 20 ??retriever, 5Fr Berenstein catheter TECHNIQUE: The procedure and its risks were discussed with the ??patient's and written informed consent obtained. The patient was brought to the angiography suite and placed under general anesthesia. The balloon guide catheter was prepared. The right groin was sterilely prepped and draped. ??Using micropuncture set, the ??femoral artery was accessed and the ??8Fr ??Arrow sheath was placed in the descending aorta, flushed, and connected to a continuous heparinized saline infusion. The Flowgate BGC was placed in the left internal carotid artery over the Berenstein catheter and Glidewire. This catheter was flushed and connected to a continuous heparinized saline infusion. A hand-injected left ??internal carotid ??angiogram was performed. A 3000 unit iv bolus of heparin was delivered. The Prowler plus microcatheter and Synchro 14 wire were preloaded into the Catalyst six catheter and the assembly was introduced into the left ??internal carotid artery. The wire and then microcatheter were advanced through the area of occlusion. The SHERLY 68 catheter was advanced to the carotid siphon. The wire was removed and gentle aspiration used to assure microcatheter placement in unoccluded artery. During placement of the Solitaire retriever the microcatheter retracted posteriorly. The retriever was withdrawn, the occluded artery re-accessed, and a second attempt made to place the solitary retriever with similar results. The microcatheter was replaced with a prevertebral microcatheter and again at the occluded M2 branch was accessed in similar fashion. The Trevo device was placed in the microcatheter and unsheathed across the occlusion. The microcatheter was removed. After 5 minutes the balloon guide catheter was inflated, the Cat 6 catheter advanced slightly to the clot and vaccuum aspiration started, and the reperfusion catheter-retriever assembly slowly withdrawn with close monitoring of flow through the reperfusion catheter, and aspiration applied to the balloon guide catheter. ?? After the assembly had been completely withdrawn and ??free flow of blood established in the balloon guide catheter, the balloon was deflated. A hand-injected left ??internal carotid ??angiogram was performed. This showed marked vasospasm within the left internal carotid artery. ??Two boluses of 100 mg of nitroglycerin were delivered into the left common carotid artery with careful monitoring of systemic blood pressure and hand injected angiogram was performed after each bolus. These angiograms showed occlusion of the M1 segment. The procedure with the aspiration catheter and stent retriever was repeated, this time using theTrevo 4 x 20 retriever. 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 The balloon guide cathter was removed. Margarette CT was obtained and reviewed. The sheath was removed and manual compression used to chief hemostasis. There were no immediate complications. The patient was transferred to the ICU in stable condition. FINDINGS: LEFT INTERNAL CAROTID ARTERY INJECTION: There is no stenosis of the internal carotid artery. There is occlusion of the largest M2 division of the left middle cerebral artery approximately 2 cm beyond its origin. Pial-Pial collateral filling of the branches beyond the occlusion is modest. LEFT INTERNAL CAROTID ARTERY INJECTION (after pass #1): There is severe vasospasm in the proximal left internal carotid artery distal to the site of the flow via catheter. Thrombus now lies at the apex of the internal carotid artery and extends into both the A1 and M1 segments. There is complete occlusion of the left MCA. Left internal carotid artery injection (status post nitroglycerin infusion x2): There is marked improvement in the irregular narrowing of the proximal left internal carotid artery though moderate irregularity and stenosis persists. With the aspiration catheter placed beyond the stenosis in the ICA there is persistence of the clot at the ICA apex but there is now some flow passing beyond the thrombus in the left middle cerebral artery. Left internal carotid artery injection (after pass #2): There is removal of the material within the ICA apex and confucianism of flow within a majority of the left MCA distribution. There is persistent occlusion of a distal MCA branch with a wedge-shaped paucity of capillary blush; this area appears to correspond to the area of known completed infarction from the preprocedure MRI. DynaCT: There is no evidence of intracranial hemorrhage or ventriculomegaly Procedure Note Ritchie Strauss MD - 01/11/2018 EXAMINATION: IR NEURO MECHANICAL THROMBECTOMY CLINICAL HISTORY: left M2 thrombus; Exam/Procedure requested: thrombectomy OPERATORS: Dr. Hilario Sanderson, Dr. Ritchie Strauss. I, Dr. Ritchie Esposito, was present for the entire procedure. PROCEDURE: 1. Cerebral angiogram. 2. Community Health Representative thrombolysis with retrieval of thromboembolic material fromthe left M2 segment, MCA. ANESTHESIA: General endotracheal anesthesia EBL: <50 ml CONTRAST: 170 mL Visipaque-320. RADIATION EXPOSURE: A-plane 860 mGy, B-plane 355 mGy. MATERIALS: Micropuncture set, 8Fr Arrow sheath, 0.035 3J wire, 0.233024 cm Glidewire, Flowgate2 balloon guide catheter, Catalyst six reperfusioncatheter, Solitaire 4 x 20 retriever, Prowler Plus microcatheter, Trevomicrocatheter, Synchro 14 wire, Trevo 3 x 20 retriever, Trevo 4 x 20 retriever, 5Fr Berenstein catheter TECHNIQUE: The procedure and its risks were discussed with thepatient's and written informed consent obtained. The patient was brought tothe angiography suite and placed under general anesthesia. The balloon guide catheter was prepared. The right groin was sterilely prepped and draped.Using micropuncture set, the femoral artery was accessed and the 8Fr Arrowsheath was placed in the descending aorta, flushed, and connected to acontinuous heparinized saline infusion. The Flowgate BGC was placed in the leftinternal carotid artery over the Berenstein catheter and Glidewire. This catheterwas flushed and connected to a continuous heparinized saline infusion. A hand-injected left internal carotid angiogram was performed. A 3000 unitiv bolus of heparin was delivered. The Prowler plus microcatheter and [id number] wire were preloaded into the Catalyst six catheter and the assembly was introduced into the left internal carotid artery. The wire and then microcatheter were advanced through the area of occlusion. The SHERLY 68catheter was advanced to the carotid siphon. The wire was removed and gentleaspiration used to assure microcatheter placement in unoccluded artery. Duringplacement of the Solitaire retriever the microcatheter retracted posteriorly. Theretriever was withdrawn, the occluded artery re-accessed, and a second attempt madeto place the solitary retriever with similar results. The microcatheter was replaced with a prevertebral microcatheter and again at the occluded [id number] was accessed in similar fashion. The Trevo device was placed in the microcatheter and unsheathed across the occlusion. The microcatheter was removed. After 5 minutes the balloon guide catheter was inflated, the Cat6 catheter advanced slightly to the clot and vaccuum aspiration started, andthe reperfusion catheter-retriever assembly slowly withdrawn with closemonitoring of flow through the reperfusion catheter, and aspiration applied to theballoon guide catheter. After the assembly had been completely withdrawn andfree flow of blood established in the balloon guide catheter, the balloon was deflated. A hand-injected left internal carotid angiogram was performed.This showed marked vasospasm within the left internal carotid artery. Twoboluses of 100 mg of nitroglycerin were delivered into the left common carotid arterywith careful monitoring of systemic blood pressure and hand injected angiogramwas performed after each bolus. These angiograms showed occlusion of the [id number]. The procedure with the aspiration catheter and stent retriever wasrepeated, this time using theTrevo 4 x 20 retriever. A final hand injected leftcommon carotid artery aneurysm was performed. The balloon guide cathter was removed. Margarette CT was obtained and reviewed. The sheath was removed and manual compression used to chief hemostasis. There were no immediate complications. The patient was transferred to theICU in stable condition. FINDINGS: LEFT INTERNAL CAROTID ARTERY INJECTION: There is no stenosis of theinternal carotid artery. There is occlusion of the largest M2 division of the leftmiddle cerebral artery approximately 2 cm beyond its origin. Pial-Pialcollateral filling of the branches beyond the occlusion is modest. LEFT INTERNAL CAROTID ARTERY INJECTION (after pass #1): There is severe vasospasm in the proximal left internal carotid artery distal to the siteof the flow via catheter. Thrombus now lies at the apex of the internal carotidartery and extends into both the A1 and M1 segments. There is complete occlusionof the left MCA. Left internal carotid artery injection (status post nitroglycerin infusionx2): There is marked improvement in the irregular narrowing of the proximalleft internal carotid artery though moderate irregularity and stenosispersists. With the aspiration catheter placed beyond the stenosis in the ICA there is persistence of the clot at the ICA apex but there is now some flowpassing beyond the thrombus in the left middle cerebral artery. Left internal carotid artery injection (after pass #2): There is removalof the material within the ICA apex and confucianism of flow within a majority ofthe left MCA distribution. There is persistent occlusion of a distal MCAbranch with a wedge-shaped paucity of capillary blush; this area appears to correspondto the area of known completed infarction from the preprocedure MRI. DynaCT: There is no evidence of intracranial hemorrhage orventriculomegaly IMPRESSION 1. 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 Reperfusion following mechanical thrombectomy with TICI 2B flow. 12:34 PM Ritchie SAENZ IR ORDERABLES * MRI Brain Mechanical Thrombectomy Protocol (01/08/2018 9:26 AM EST) Anatomical Region Laterality Modality Head Magnetic Resonan ce Impressions 01/08/2018 2:03 PM EST 4 cm acute left posterior frontal, superior temporal, insular infarction Narrative 01/08/2018 2:03 PM EST EXAMINATION: MRI BRAIN MECHANICAL THROMBECTOMY PROTOCOL CLINICAL HISTORY: Left M2 thrombus TECHNIQUE: The study consists of MRI of brain limited to diffusion-weighted imaging only. COMPARISON: CT head of same day FINDINGS: There is a 4 x 3 x 3 cm area of decreased diffusion in the posterior insula, superior left temporal lobe, and posterior left frontal lobe. It appears to include the precentral gyrus] and ??Wernicke's area. Procedure Note Ritchie Strauss MD - 01/08/2018 EXAMINATION: MRI BRAIN MECHANICAL THROMBECTOMY PROTOCOL CLINICAL HISTORY: Left M2 thrombus TECHNIQUE: The study consists of MRI of brain limited todiffusion-weighted imaging only. COMPARISON: CT head of same day FINDINGS: There is a 4 x 3 x 3 cm area of decreased diffusion in the posteriorinsula, superior left temporal lobe, and posterior left frontal lobe. It appearsto include the precentral gyrus] and Wernicke's area. IMPRESSION 4 cm acute left posterior frontal, superior temporal, insular infarction Ritchie J Eskey MD IMG MRI ORDERABLES documented in this encounter Visit Diagnoses Not on filedocumented in this encounter Admitting Diagnoses Diagnosis Acute CVA (cerebrovascular accident) documented in this encounter Administered Medications Inactive Administered Medications - up to 3 most recent administrations Medication Order MAR Action Action Date Dose Rate Site acetaminophen (TYLENOL) 650 mg/20.3 mL oral liquid 975 mg 975 mg, Per G Tube, EVERY 6 HOURS PRN, Starting on Dorcas 01/08/18 at 1510, Until 01/11/18 at 1646, Pain, Fever, pain or temperature greater than 100 degrees F (measured by mouth), Routine acetaminophen (TYLENOL) suppository 975 mg 975 mg, Rectal, EVERY 6 HOURS PRN, Starting on Dorcas 01/08/18 at 1510, Until 01/11/18 at 1646, Pain, Fever, pain or temperature greater than 100 degrees F (measured by mouth), Maximum dose of acetaminophen is 4000 mg from all sources in 24 hours., Routine acetaminophen (TYLENOL) tablet 975 mg 975 mg, Oral, EVERY 6 HOURS PRN, Starting on Dorcas 01/08/18 at 1510, Until 01/11/18 at 1646, Pain, Fever, pain or temperature greater than 100 degrees F (measured by mouth), Maximum dose of acetaminophen is 4000 mg from all sources in 24 hours., Routine alum-mag hydroxide-simeth (MAALOX) 200-200-20 mg/5 mL oral suspension 10 mL 10 mL, Oral, 3 TIMES DAILY PRN, Starting on 01/10/18 at 1852, Until 01/11/18 at 1646, Heartburn, Routine Given 01/10/2018 7:33 PM EST 10 mLs aspirin chewable tablet 81 mg 81 mg, Oral, DAILY, First dose on Fri01/09/18 at 0915, Until Discontinued, Routine Given 01/11/2018 8:26 AM EST 81 mg Given 01/10/2018 8:51 AM EST 81 mg Given 01/09/2018 9:08 AM EST 81 mg atorvastatin (LIPITOR) tablet 40 mg 40 mg, Oral, EVERY EVENING, First dose on Fri01/09/18 at 1745, Until Discontinued, Routine Given 01/10/2018 5:5 6 PM EST 40 mg Given 01/09/2018 6:33 PM EST 40 mg calcium carbonate (TUMS) chewable tablet 500 mg 500 mg, Oral, 3 TIMES DAILY PRN, Starting on 01/10/18 at 1536, Until 01/11/18 at 1646, Heartburn, Routine Given 01/11/2018 2:04 PM EST 500 mg Given 01/10/2018 3:43 PM EST 500 mg enoxaparin (LOVENOX) injection 40 mg 40 mg, Subcutaneous, EVERY 24 HOURS SCHEDULED (Daily), First dose on Fri01/09/18 at 0915, Until Discontinued, Routine Given 01/11/2018 8:28 AM EST 40 mg Given 01/10/2018 8:51 AM EST 40 mg Given 01/09/2018 9:08 AM EST 40 mg nicotine (NICODERM CQ) 14 mg/24 hr patch 14 mg 14 mg (1 patch), Transdermal, Administer over 24 Hours, DAILY PRN, Starting on 01/10/18 at 1058, Until 01/11/18 at 1646, tobacco cravings, Routine nicotine (NICODERM CQ) 14 mg/24 hr patch Patch Removal Transdermal, NIGHTLY PRN, Starting on 01/10/18 at 1059, Until 01/11/18 at 1646, Remove nicotine 14 mg/24 hr patch nicotine (NICODERM CQ) 14 mg/24 hr patch Patch Verification Transdermal, 2 TIMES DAILY PRN, Starting on 01/10/18 at 1059, Until 01/11/18 at 1646, Verify nicotine 14 mg/24 hr patch. ondansetron (ZOFRAN) injection 4 mg 4 mg, Intravenous, EVERY 8 HOURS PRN, Starting on 01/10/18 at 0942, Until 01/11/18 at 1646, Nausea ondansetron (ZOFRAN) tablet 4 mg 4 mg, Oral, EVERY 8 HOURS PRN, Starting on 01/10/18 at 0942, Until 01/11/18 at 1646, Nausea, Routine Given 01/10/2018 9:50 AM EST 4 mg pantoprazole (PROTONIX) tablet 40 mg 40 mg, Oral, DAILY, First dose on 01/10/18 at 0900, Until Discontinued, DO NOT CRUSH OR OPEN Given 01/11/2018 8:26 AM EST 40 mg Given 01/10/2018 8:51 AM EST 40 mg PARoxetine (PAXIL) tablet 20 mg 20 mg, Oral, EVERY MORNING, First dose on Fri01/09/18 at 0700, Until Discontinued, Routine Given 01/11/2018 6:3 3 AM EST 20 mg Given 01/10/2018 6:16 AM EST 20 mg polyethylene glycol (MIRALAX) packet 17 g 17 g, Oral, DAILY, First dose on Fri01/08/18 at 1530, Until Discontinued, Routine Given 01/11/2018 8:28 AM EST 17 g Given 01/10/2018 8:51 AM EST 17 g propranolol (INDERAL) tablet 20 mg 20 mg, Oral, 2 TIMES DAILY, First dose on Fri01/08/18 at 2100, Until Discontinued, Routine Given 01/11/2018 8:2 6 AM EST 20 mg Given 01/10/2018 9:18 PM EST 20 mg Given 01/10/2018 8:54 AM EST 20 mg senna-docusate (PERICOLACE) 8.6-50 mg per tablet 2 tablet 2 tablet, Oral, 2 TIMES DAILY, First dose on Fri01/08/18 at 2100, Until Discontinued, Administer to achieve 1 soft bowel movement daily without straining, Routine Given 01/11/2018 8:27 AM EST 1 tablet Given 01/10/2018 9:18 PM EST 2 tablets Given 01/10/2018 8:50 AM EST 2 tablets sodium chloride 0.9 % flush 5 mL 5 mL, Intravenous, 2 TIMES DAILY, First dose on Dorcas 01/08/18 at 2100, Until Discontinued, Routine Given 01/10/2018 9:18 PM EST 5 mLs Given 01/10/2018 8:51 AM EST 5 mLs Given 01/09/2018 9:00 PM EST 5 mLs documented in this encounter Active and Recently Administered Medications Times are shown in EST. Scheduled Medication Order 01/09/2018 01/10/2018 01/11/2018 aspirin chewable tablet 81 mg 81 mg, Oral, DAILY, First dose on Fri01/09/18 at 0915, Until Discontinued, Routine 0908 (Given - Provider: Denisse Meza RN) 0851 (Given - Provider: Deb Michelle RN) 0826 (Given - Provider: Kiki Delcid RN) atorvastatin (LIPITOR) tablet 40 mg 40 mg, Oral, EVERY EVENING, First dose on Fri01/09/18 at 1745, Until Discontinued, Routine 1833 (Given - Provider: Bettina Oliver RN) 1756 (Given - Provider: Deb Michelle RN) enoxaparin (LOVENOX) injection 40 mg 40 mg, Subcutaneous, EVERY 24 HOURS SCHEDULED (Daily), First dose on Fri01/09/18 at 0915, Until Discontinued, Routine 0908 (Given - Provider: Denisse Meza RN) 0851 (Given - Provider: Deb Michelle RN) 0828 (Given - Provider: Kiki Delcid RN) pantoprazole (PROTONIX) injection 40 mg (CANCELED) 40 mg, Intravenous, DAILY, First dose on Fri01/08/18 at 1330, Until Discontinued 0843 (Given - Provider: Denisse Meza RN) pantoprazole (PROTONIX) tablet 40 mg 40 mg, Oral, DAILY, First dose on Fri01/10/18 at 0900, Until Discontinued, DO NOT CRUSH OR OPEN 0851 (Given - Provider: Deb Michelle RN) 0826 (Given - Provider: Kiki Delcid RN) PARoxetine (PAXIL) tablet 20 mg 20 mg, Oral, EVERY MORNING, First dose on Fri01/09/18 at 0700, Until Discontinued, Routine 0641 (Not Given - Provider: Nola Mcnair RN - Reason: NPO) 0616 (Given - Provider: Alice Tobin RN) 0633 (Given - Provider: Alice Tobin RN) polyethylene glycol (MIRALAX) packet 17 g 17 g, Oral, DAILY, First dose on Fri01/08/18 at 1530, Until Discontinued, Routine 0900 (Not Given - Provider: Denisse Meza RN - Reason: NPO) 0851 (Given - Provider: Deb Michelle RN) 0828 (Given - Provider: Kiki Delcid RN) propranolol (INDERAL) tablet 20 mg 20 mg, Oral, 2 TIMES DAILY, First dose on Fri01/08/18 at 2100, Until Discontinued, Routine 0900 (Given - Provider: Denisse Meza RN)1999 (Given - Provider: Isa Dotson RN) 0854 (Given - Provider: Deb Michelle, GLENDA)2117 (Given - Provider: Alice Tobin, GLENDA) 08 (Given - Provider: Kiki Delcid, GLENDA) senna-docusate (PERICOLACE) 8.6-50 mg per tablet 2 tablet 2 tablet, Oral, 2 TIMES DAILY, First dose on Dorcas 01/08/18 at 2100, Until Discontinued, Administer to achieve 1 soft bowel movement daily without straining, Routine 0900 (Given - Provider: Denisse Meza RN)2100 (Not Given - Provider: Alice Tobin, GLENDA - Reason: Patient/family refused) 0850 (Given - Provider: Deb Michelle RN)2117 (Given - Provider: Alice Tobin RN) 0827 (Given - Provider: Kiki Delcid RN) sodium chloride 0.9 % flush 5 mL 5 mL, Intravenous, 2 TIMES DAILY, First dose on Dorcas 01/08/18 at 2100, Until Discontinued, Routine 0843 (Given - Provider: Denisse eMza RN)2099 (Given - Provider: Alice Tobin RN) 0851 (Given - Provider: Deb Michelle RN)2117 (Given - Provider: Alice Tobin RN) 0900 (Not Given - Provider: Kiki Delcid RN - Reason: Loss of access) Continuous Medication Order 01/09/2018 01/10/2018 01/11/2018 sodium chloride 0.9% infusion (CANCELED) 100 mL/hr, Intravenous, CONTINUOUS, Starting on [place] 01/08/18 at 1415, Until 01/10/18 at 1335 [id number] (New Bag - Provider: Denisse Meza RN)1999 (Rate/Dose Verify - Provider: Isa Dotson RN) 0703 (New Bag - Provider: Alice Tobin RN)1413 (Stopped - Provider: Deb Michelle RN) PRN Medication Order 01/09/2018 01/10/2018 01/11/2018 acetaminophen (TYLENOL) 650 mg/20.3 mL oral liquid 975 mg(Linked Group 1) 975 mg, Per G Tube, EVERY 6 HOURS PRN, Starting on [place] 01/08/18 at 1510, Until 01/11/18 at 1646, Pain, Fever, pain or temperature greater than 100 degrees F (measured by mouth), Routine acetaminophen (TYLENOL) suppository 975 mg(Linked Group 1) 975 mg, Rectal, EVERY 6 HOURS PRN, Starting on [place] 01/08/18 at 1510, Until 01/11/18 at 1646, Pain, Fever, pain or temperature greater than 100 degrees F (measured by mouth), Maximum dose of acetaminophen is 4000 mg from all sources in 24 hours., Routine acetaminophen (TYLENOL) tablet 975 mg(Linked Group 1) 975 mg, Oral, EVERY 6 HOURS PRN, Starting on [place] 01/08/18 at 1510, Until 01/11/18 at 1646, Pain, Fever, pain or temperature greater than 100 degrees F (measured by mouth), Maximum dose of acetaminophen is 4000 mg from all sources in 24 hours., Routine alum-mag hydroxide-simeth (MAALOX) 200-200-20 mg/5 mL oral suspension 10 mL 10 mL, Oral, 3 TIMES DAILY PRN, Starting on 01/10/18 at 1852, Until 01/11/18 at 1646, Heartburn, Routine 1933 (Given - Provider: Alice Tobin RN) bisacodyl (DULCOLAX) suppository 10 mg 10 mg, Rectal, DAILY PRN, Starting on [place] 01/08/18 at 1510, Until 01/11/18 at 1646, Constipation, Administer if needed per patient's routine or if no bowel movement within 48 hours to achieve: (1) One bowel movement at least every 48 hours, AND (2) Without straining. If multiple PRN bowel medications ordered, start with magnesium hydroxide, then bisacodyl. Multiple medications may be given concomitantly for constipation., Routine calcium carbonate (TUMS) chewable tablet 500 mg 500 mg, Oral, 3 TIMES DAILY PRN, Starting on 01/10/18 at 1536, Until 01/11/18 at 1646, Heartburn, Routine 1543 (Given - Provider: Deb Michelle RN) 1404 (Given - Provider: Kiki Delcid RN) enalaprilat (VASOTEC) injection 1.25 mg, Intravenous, Administer over 5 Minutes, EVERY 6 HOURS PRN, Starting on [place] 01/08/18 at 1510, Until 01/11/18 at 1646, hypertension , Systolic blood pressure (SBP) goal Less Than 150 mmHg. Administer if inadequate blood pressure control in 30 minutes despite Labetolol or when SBP is greater than 150 mmHg or diastolic blood pressure (DBP) greater than 110 mmHg. Note: enalaprilat can be given with labetalol or nicardipine., Routine labetalol (NORMODYNE,TRANDATE) injection 10-20 mg 10-20 mg, Intravenous, Administer over 2 Minutes, EVERY 15 MIN PRN, Starting on [place] 01/08/18 at 1510, Until 01/11/18 at 1646, High Blood Pressure, - Systolic blood pressure (SBP) goal Less Than 150 mmHg. Start with 10 mg/dose every 15 minutes, If inadequate effect with 10 mg/dose then increase to 20 mg/dose for subsequent dosing. - Do not exceed 300 mg per day. - Repeat every 15 minutes for SBP greater than 150 mmHg. - Hold if pulse is less than 50 beats per minute. If Labetalol does not satisfactorily control BP within 30 minutes, consider enalaprilat or niCARdipine., Routine lidocaine (XYLOCAINE) 10 mg/mL (1 %) injection 3 mg 3 mg (0.3 mL), Subcutaneous, ONCE PRN, 1 dose, Starting on [place] 01/08/18 at 1510, Until 01/11/18 at 1646, for discomfort with PIV insertion, Routine magnesium hydroxide (MILK OF MAGNESIA) oral suspension 10 mL 10 mL, Oral, NIGHTLY PRN, Starting on [place] 01/08/18 at 1510, Until 01/11/18 at 1646, Constipation, Administer if needed per patient's routine or if no bowel movement within 48 hours to achieve: (1) One bowel movement at least every 48 hours, AND (2) Without straining. If multiple PRN bowel medications ordered, start with magnesium hydroxide, then bisacodyl. Multiple medications may be given concomitantly for constipation., Routine nicotine (NICODERM CQ) 14 mg/24 hr patch 14 mg(Linked Group 2) 14 mg (1 patch), Transdermal, Administer over 24 Hours, DAILY PRN, Starting on 01/10/18 at 1058, Until 01/11/18 at 1646, tobacco cravings, Routine nicotine (NICODERM CQ) 14 mg/24 hr patch Patch Removal(Linked Group 2) Transdermal, NIGHTLY PRN, Starting on Sat 18 at 1059, Until Sun 11 at 1646, Remove nicotine 14 mg/24 hr patch nicotine (NICODERM CQ) 14 mg/24 hr patch Patch Verification(Linked Group 2) Transdermal, 2 TIMES DAILY PRN, Starting on 01/10/18 at 1059, Until 01/11/18 at 1646, Verify nicotine 14 mg/24 hr patch. ondansetron (ZOFRAN) injection 4 mg(Linked Group 3) 4 mg, Intravenous, EVERY 8 HOURS PRN, Starting on 01/10/18 at 0942, Until 01/11/18 at 1646, Nausea 0950 (See Alternative - Provider: Deb Michelle RN) ondansetron (ZOFRAN) tablet 4 mg(Linked Group 3) 4 mg, Oral, EVERY 8 HOURS PRN, Starting on 01/10/18 at 0942, Until 01/11/18 at 1646, Nausea, Routine 0950 (Given - Provider: Deb Michelle RN) sodium chloride 0.9 % flush 5-20 mL 5-20 mL, Intravenous, EVERY 1 MIN PRN, Starting on [place] 01/08/18 at 1510, Until 01/11/18 at 1646, flush, Flush pertains to all indwelling lines. Flush per protocol found in the job aid using the link provided on this medication record., Routine Linked Groups Order Group 1: acetaminophen (TYLENOL) tablet 975 mgJump to med 975 mg, Oral, EVERY 6 HOURS PRN, Starting on [place] 01/08/18 at 1510, Until 01/11/18 at 1646, Pain, Fever, pain or temperature greater than 100 degrees F (measured by mouth), Maximum dose of acetaminophen is 4000 mg from all sources in 24 hours., Routine Or acetaminophen (TYLENOL) 650 mg/20.3 mL oral liquid 975 mgJump to med 975 mg, Per G Tube, EVERY 6 HOURS PRN, Starting on [place] 01/08/18 at 1510, Until 01/11/18 at 1646, Pain, Fever, pain or temperature greater than 100 degrees F (measured by mouth), Routine Or acetaminophen (TYLENOL) suppository 975 mgJump to med 975 mg, Rectal, EVERY 6 HOURS PRN, Starting on [place] 01/08/18 at 1510, Until 01/11/18 at 1646, Pain, Fever, pain or temperature greater than 100 degrees F (measured by mouth), Maximum dose of acetaminophen is 4000 mg from all sources in 24 hours., Routine Group 2: nicotine (NICODERM CQ) 14 mg/24 hr patch 14 mgJump to med 14 mg (1 patch), Transdermal, Administer over 24 Hours, DAILY PRN, Starting on 01/10/18 at 1058, Until 01/11/18 at 1646, tobacco cravings, Routine And nicotine (NICODERM CQ) 14 mg/24 hr patch Patch VerificationJump to med Transdermal, 2 TIMES DAILY PRN, Starting on 01/10/18 at 1059, Until 01/11/18 at 1646, Verify nicotine 14 mg/24 hr patch. And nicotine (NICODERM CQ) 14 mg/24 hr patch Patch RemovalJump to med Transdermal, NIGHTLY PRN, Starting on 01/10/18 at 1059, Until 01/11/18 at 1646, Remove nicotine 14 mg/24 hr patch Group 3: ondansetron (ZOFRAN) tablet 4 mgJump to med 4 mg, Oral, EVERY 8 HOURS PRN, Starting on 01/10/18 at 0942, Until 01/11/18 at 1646, Nausea, Routine Or ondansetron (ZOFRAN) injection 4 mgJump to med 4 mg, Intravenous, EVERY 8 HOURS PRN, Starting on 01/10/18 at 0942, Until 01/11/18 at 1646, Nausea documented in this encounter Care Teams Production Zone Leader Relationship Specialty Start Date End Date Jimena Jones MD PCP - General Family Medicine 01/08/18 documented as of this encounter
--- OUTSIDE RECORDS SUMMARY | 2023-09-18 18:27 | XMS_ITS | Encounter Summary ---
Author Organization [facility] [place] [address] Care Team Providers Care Historical Society Director Name Role Phone Jimena Jones MD Primary Care Provider [phone] Encounter Details Date Type Department Care Team (Latest Contact Info) Description 01/08/2018 7:20 AM EST - 01/08/2018 8:48 AM EST Hospital Encounter [place] [address] Octavio Sauceda MD [facility] [place] [address] Discharge Disposition: Home Social History Tobacco Use [...] mouth every evening. 90 tablet 3 01/11/2018 lisinopril (PRINIVIL;ZESTRIL) 40 mg Tablet Take 1 tablet by mouth daily. 11/16/2017 01/14/2018 propranolol (INDERAL) 20 mg Tablet Take 1 tablet by mouth 2 times daily. 12/16/2017 02/01/2019 nicotine (NICODERM CQ) 14 mg/[address] 1 patch onto the skin daily as needed (tobacco cravings). 28 patch 01/11/2018 01/16/2018 documented as of this encounter Plan of Treatment Not on file documented as of this encounter Procedures Procedure Name Priority Date/Time Associated Diagnosis Comments FILM LIBRARY STORAGE ONLY CT HEAD Routine 01/08/2018 7:20 AM EST documented in this encounter Results * Film Library- Storage Only CT Head (01/08/2018 7:20 AM EST) Narrative [place] - 01/08/2018 7:20 AM EST This exam is for storage only and is auto-finalizing. Octavio Sauceda MD IMG FILM LIBRARY ORD ERABLES [place], [place] documented in this encounter Visit Diagnoses Not on filedocumented in this encounter Care Teams Historical Society Director Relationship Specialty Start Date End Date Jimena Jones MD PCP - General Family Medicine 01/08/18 documented as of this encounter
--- OUTSIDE RECORDS SUMMARY | 2023-09-18 18:27 | XMS_ITS | Encounter Summary ---
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 Name Role Phone Jimena Jones MD Primary Care Provider [phone] Encounter Details Date Type Department Care Team (Latest Contact Info) Description 01/08/2018 7:19 AM EST Hospital Encounter [facility] [place] [address] Octavio Sauceda MD [facility] [place] [address] Discharge Disposition: Home Social History Tobacco Use [...] Comments FILM LIBRARY STORAGE ONLY CT HEAD AND SPINE Routine 01/08/2018 7:19 AM EST documented in this encounter Results * Film Library- Storage Only CT Head And Spine (01/08/2018 7:19 AM EST) Narrative [facility] - 01/08/2018 7:19 AM EST This exam is for storage only and is auto-finalizing. Octavio Sauceda MD IMG FILM LIBRARY ORD ERABLES [place], [place] documented in this encounter Visit Diagnoses Not on filedocumented in this encounter Care Teams Production Wood Craftsman Relationship Specialty Start Date End Date Jimena Jones MD PCP - General Family Medicine 01/08/18 documented as of this encounter
--- OUTSIDE RECORDS SUMMARY | 2023-09-18 18:27 | XMS_ITS | Encounter Summary ---
Author Organization [facility] [place] [address] Care Team Providers Care Medical Lab Assistant Name Role Phone Jimena Jones MD Primary Care Provider [phone] Reason for Referral * Occupational Therapy (Routine) - Specialty Diagnoses / Procedures Referred By Contac t Referred To Contact Diagnoses Acute CVA (cerebrovascular accident) Juan Miguel Smith MD [facility] [place] [address] Referral ID Status Reason Start Date Expiration Date V isits Requested Visits Authorized [id number] Evaluate and Treat 01/11/2018 07/10/2018 12 12 * Physical Therapy (Routine) - Specialty Diagnoses / Procedures Referred By Contac t Referred To Contact Diagnoses Acute CVA (cerebrovascular accident) Juan Miguel Smith MD [facility] [place] [address] Referral ID Status Reason Start Date Expiration Date V isits Requested Visits Authorized [id number] Evaluate and Treat 01/11/2018 07/10/2018 12 12 * Diagnostic Test (Routine) - Closed Specialty Diagnoses / Procedures Referred By Contac t Referred To Contact Diagnoses Acute CVA (cerebrovascular accident) Procedures Ziopatch Juan Miguel Smith MD [facility] [place] [address] [address] Referral ID Status Reason Start Date Expiration Date V isits Requested Visits Authorized [id number] Closed Specialty Service Requested 01/11/2018 01/11/2019 1 1 * Speech Therapy (Routine) - Specialty Diagnoses / Procedures Referred By Contac t Referred To Contact Diagnoses Acute CVA (cerebrovascular accident) Juan Miguel Smith MD [facility] [place] [address] Referral ID Status Reason Start Date Expiration Date V isits Requested Visits Authorized [id number] Evaluate and Treat 01/11/2018 07/10/2018 12 12 Reason for Visit * Reason Comments Hospital Transfer Cerebrovascular Accident * Auth/Cert Specialty Diagnoses / Procedures Referred By Contac t Referred To Contact Diagnoses Acute CVA (cerebrovascular accident) Cerebrovascular accident (CVA), unspecified mechanism Procedures EMERGENCY IPI Referral ID Status Reason Start Date Expiration Date Visits Re quested Visits Authorized [id number] 1 1 Encounter Details Date Type Department Care Team (Latest Contact Info) Description 01/08/2018 8:49 AM EST - 01/11/2018 2:46 PM EST Hospital Encounter [address] [place] [address] Kellie Adams MD [facility] DR [place]ERGENCY [place] [address] Ti Lama MD [facility] [place] [address] Nirmal Sommer III, MD [facility] [place] [address] Emre Arreguin MD [facility] [place] [address] Cerebrovascular accident (CVA), unspecified mechanism; Acute CVA (cerebrovascular accident) Discharge Disposition: Home [...] Sign Reading Time Taken Comments Blood Pressure 143/91 01/11/2018 11:45 AM EST Pulse 70 01/11/2018 11:45 AM EST Temperature 37.1 ??C (98.8 ??F) 01/11/2018 1 1:45 AM EST Respiratory Rate 16 01/11/2018 11:4 5 AM EST Oxygen Saturation 98% 01/11/2018 11: 45 AM EST Inhaled Oxygen Concentration - - Weight 106.3 kg (234 lb 5.6 oz) 01/10/2018 3:39 PM EST Height 160 cm (5' 3) 01/09/2018 8:42 PM EST Body Mass Index 41.51 01/09/2018 8:42 PM EST documented in this encounter Discharge Summaries * Juan Miguel Smith MD - 01/11/2018 1:14 PM EST Images from the original note were not included. Discharge Summary Patient Name: Lars Banuelos Patient Age: 47 y.o. Language: Kazakh Race: White Ethnicity: Not nor Admit date: 01/08/2018 Discharge date and time: 181:13 PM Attending Physician: Emre Arreguin MD Discharge Physician: Fernando Petit MD Follow-up Recommendations for Providers: -Hold home propranolol and lisinopril in the acute period following stroke. Can consider restarting1 week after stroke. - We have placed referrals to speech therapy, physical and occupational therapy. Patient will be given referral forms on discharge, and was advised to call [facility] or a local center to set [...] amb as tolerated with assist for equipment PHYSICAL MEDICINE PHYSICIAN Assessment: Pt seen for dysphagia tx / [...] author(s) of this discharge summary through the [facility] [employer] . Discharge Diagnoses: Left MCA stroke s/p [...] hypertension, hyperlipidemia and GERD who presented to [facility] for evaluation regarding right-sided weakness and aphasia. [...] ??Upon presentation to the emergency department at [facility], patient was noted to have loss of sensation in the right face, arm, and leg. ??She was also noted to have expressive aphasia. ??She however was able to follow commands. ??CT head and CT angiogram of head and neck was completed at that time. ??CT angiography showed patient the had a LEFT occlusion M2 by the sylvian fissure. ?? At that time [facility] was contacted for possible transfer but [...] well on room air. ?? call center operator was [facility] neurology provider Dr. Sauceda who agreed to the transfer and ED evaluation for possible thrombectomy. ?? Neuro IR was subsequently contacted and patient will have MRI thrombectomy protocol attaining upon arrival. ?? On arrival to [facility] patient was mute and unable to communicate. [...] for follow-up after discharge was performed. Modified [place] Score (MRS) on discharge Score Description 0 [...] were admitted to the neurology service at [facility] Your Diagnosis: stroke - Work close [...] be given referral forms on discharge, call [facility] or a local center to set [...] follow-up appointment in the neurology clinic at [facility]. See below for the appointment time. If [...] author(s) of this discharge summary through the [facility] [employer] . General Instructions None Future Appointments and Orders Future Orders Complete By Amisha Terry [[email or web address] Custom] 01/11/2018 07/11/2018 Process Instructions: Scheduling Instructions: Questions: Does the patient have a pacemaker? If yes provide HI/LO settings: Which location will this be performed?: [place] Referral to Occupational Therapy [REF53 Custom] As [...] include: Treatment Focus: Referral to Speech Therapy [[id number] Custom] As directed Process Instructions: Scheduling Instructions: Questions: Evaluation location?: In Clinic Reason for Speech Evaluation?: Aphasia Assessment Recommended focus?: Primary Care Provider: Jimena Jones MD [address] [facility] [address] Discharge References/Attachments None Associated attestation - Fernando Petit MD - 01/11/2018 1:37 PM EST [...] and I agree with them as documented. Fernando Petit MD documented in this encounter Discharge Instructions * Patient Instructions* Prior, Juan Miguel Crowder MD - 01/11/2018 12:56 PM EST Images from the original note were not included. Patient Instructions: You were admitted to the neurology service at [facility] Your Diagnosis: stroke - Work close [...] be given referral forms on discharge, call [facility] or a local center to set [...] follow-up appointment in the neurology clinic at [facility]. You will be called tomorrow to schedule an appointment in approximately 1 week for close follow up. ??? Primary Care Provider: Please follow up with your Primary Care Provider within one to 2 weeks of discharge. For questions regarding this document or issues relating to this hospitalization on the Neurology Service, please contact the author(s) of this discharge summary through the [facility] [employer] . documented in this encounter Medications at [...] this encounter Progress Notes * Carissa Alcantara - 01/11/2018 6:47 AM EST Neurology Progress Note Patient Name: Lars Banuelos Admit Date: 01/08/2018 Patient ID: Lars Banuelos is a 47 y.o. with a PMH of HTN, HLD, and GERD transferred from [facility] for L M2 MCA occlusion s/p thrombectomy [...] Negative mcL Appearance UA Clear Clear Spec [place] UA 1.016 1.002 - 1.030 Color UA [...] of HTN, HLD, and GERD transferred from [facility] for L M2 MCA occlusion s/p thrombectomy [...] at dischargehowever family has agreed to home w09/09 supervision which is patient's strong preference. Will place PT/OT/PHYSICAL MEDICINE PHYSICIAN referrals externally for ongoing therapies closer to where she lives. Plan: ??# Left M2 Ischemic Stroke -Admitted to neurology, floor -Neuro check & vitals q4/q4h -Blood pressure goals as per interventional list team -Aspirin 81 daily -Atorvastatin 40 mg qhs -Check CBC, BMP, LFT, lipid profile, HbA1c, Mg, Phos, UA -TTE -12 lead EKG -Telemetry -MRI brain wo contrast -PT/OT/PHYSICAL MEDICINE PHYSICIAN ?? #Hypertension Hold home lisinopril and propanolol [...] MD Neurology Resident, PGY-3 Vascular Neurology (Stroke) p#[id number] 01/11/18 Associated attestation - Fernando Petit MD - 01/12/2018 5:12 PM EST [...] and I agree with them as documented. Fernando Petit MD * Nicolasa Michaels RCP - 01/10/2018 2:12 PM EST 01/10/18 0835 [...] Will continue to monitor pt * Sheila Beard RN - 01/10/2018 12:26 PM EST Images from the original note were not included. Infiltration/Extravasation Scale Lars Banuelos [id number] 503/[id number] Infiltration appearance: Infiltration harm % for [...] of infiltration/extravasation Name of MD contacted Team [id number],Neuro Resident 12:26 PM Name of RN contacted Deb 12:26 PM Name of Pharmacist if consulted 12:26 PM Plastics Provider contacted: no 12:26 PM Name of Plastics MD (if consulted) MOBILE HEAVY EQUIPMENT OPERATOR CARING FOR THIS PATIENT WILL CONTINUE TO MONITOR AND WILL ASSUME CARE, VASCULAR ACCESS WILL NOT FOLLOW THIS EVENT AT THE SIGNING OF THIS NOTE. * Carissa Alcantara - 01/10/2018 6:49 AM EST Neurology Progress Note Patient Name: Lars Banuelos Admit Date: 01/08/2018 Patient ID: Lars Banuelos is a 47 y.o. with a PMH of HTN, HLD, and GERD transferred from [facility] for L M2 MCA occlusion s/p thrombectomy w/ TiCI 2b flow (no tPA due to OOW). Interval History: - No acute events overnight - Transferred to floor - BP at goal of 120-160 - On Aspirin, Atorvastatin, and Lovenox - Cleared by PHYSICAL MEDICINE PHYSICIAN for puree diet - Pending PT/OT assessments [...] of HTN, HLD, and GERD transferred from [facility] for L M2 MCA occlusion s/p thrombectomy [...] lead EKG -Telemetry -MRI brain wo contrast -PT/OT/PHYSICAL MEDICINE PHYSICIAN ?? #Hypertension Hold home lisinopril and propanolol in the acute post-stroke period ?? #Anxiety/depression Continue home fluoxetine ?? #Tobacco abuse -PRN nicotine -Is determined to quit smoking ?? # Prophylaxis -Lovenox 40mg SC daily -RBOs -SCDs ?? # Supportive care -N.p.o. until speech evaluation -Tylenol PRN -Up with assistance ?? # FULL code Carissa Alcantara MD Neurology Resident, PGY-3 Vascular Neurology (Stroke) p#[id number] 01/10/18 Associated attestation - Fernando Petit MD - 01/10/2018 2:24 PM EST [...] home with outpatient therapy. Possible DC tomorrow. Fernando Petit MD * Jaycee Arana, PT - 01/09/2018 3:42 PM EST Physical Therapy Consult received, hx/current status reviewed. Multiple attempts to see pt, she was unavailable at each. Will f.u tomorrow for initial assessment as appropriate. Jaycee Arana, PT, MSPT Pager [phone] Inpatient Physical Therapy * Boom Bradley OT - 01/09/2018 2:53 PM EST Occupational Therapy Note Attempted to see pt x 3 and she was unavailable. OT will follow up tomorrow. MIRIAM Angel/Linda Pager: [phone] * Hilario Sanderson DO - 01/09/2018 1:59 PM EST Interventional [...] Office of Care Management Initial Assessment Marva Kirby RN reviewed record and discussed patient with Care Team. Source of Information: pt/spouse Alli Banuelos cell [phone] Introduced self/reviewed role; services accepted. Reason for Hospitalization: Lars Banuelos is a 47 y.o. female with past medical history significant for hypertension, hyperlipidemia and GERD who presented to [facility] for evaluation regarding right-sided weakness and aphasia. Per telephone note from Dr. Shepherd from earlier today: Patient's last known well was 9 PM last evening prior to going to sleep. ??She woke up around 4 AMthis morning to alert her that something had changed. ??Patient was unable to communicate and had some right upper extremity weakness. ??Upon presentation to the emergency department at [facility], patient was noted to have loss of sensation in the right face, arm, and leg. ??She was also noted to have expressive aphasia. ??She however was able to follow commands. ??CT head and CT angiogram of head and neck was completed at that time. ??CT angiography showed patient the had a LEFT occlusion M2 by the sylvian fissure?? At that time [facility] was contacted for possible transfer but due to not having a neuro interventionalist we were contacted for possible transfer and evaluation for thrombectomy. Hospitalizations Within the Past 30 Days: none Anticipated Length Of Stay (If known): Current Decision-Making Capacity: phasic, but is a,ox4-communicates with gestures, writing. Advance Care Planning: None written. to alli Banuelos cell [phone] Current Coping/Education/Information Needs: CM explained VNA/OUTPT Therapy/Rehabs [...] Insurance: N/A Prescription Coverage: yes [facility] Primary Care Provider: Jimena Jones MD [phone] Patient/Caregiver Goals of Treatment: home with Outpt Therapy Potential Needs for Transition of Care: Rehab/SNF: declined Home Health: declined DME: na Dialysis: na Community Resources: na Transportation: family Wants outpt Therapy for PHYSICAL MEDICINE PHYSICIAN Anticipated Barriers to Discharge/Special Considerations: Limited insurance benefits Assessment: 47yowf w/ CVA resulting in Aphasia,aox4, MAEEW. Supportive family at bedside. Wants outpt Therapy. Plan: A member of the Care Management team will continue to monitor progress, follow for continuityof care and assist with transition of care planning. Marva Kirby RN Pager: [phone] * Emre Arreguin MD - 01/09/2018 8:44 [...] ABG: Recent Labs 01/08/18 1339 PHART 7.40 PMH4JJD 36 PO2ART 66* MMZ6KMT 22.0 Physical Exam: General: Laying in bed, no acute distress. Neurological: Awake, alert, aphasic. CV: RRR per telemetry. Pulm: Normal effort. No wheezes or rales. Some ronchi bilaterally. Abd: soft, BS present. Musculoskeletal: No LEedema. Skin: warm and dry. 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 Recent Labs 01/08/18 1339 PHART 7.40 [id number] 36 PO2ART 66* [id number] 21 BEART -2.7 Imaging: EXAMINATION: MRI BRAIN [...] Sol Dennis - 01/08/2018 8:59 AM EST [facility] NAME: LARS BANUELOS : 1970 AGE: [...] via phone with the assistance of Alli Topeteilya, spouse. Answered yes to having a metal plate in her right wrist which was performed at [facility] in 2008. Remainder no. Please refer [...] hypertension, hyperlipidemia and GERD who presented to [facility] for evaluation regarding right-sided weakness and aphasia. [...] Upon presentation to the emergency department at [facility], patient was noted to have loss of sensation in the right face, arm, and leg. She was also noted to have expressive aphasia. She however was able to follow commands. CT head and CT angiogram of head and neck was completed at that time. CT angiography showed patient the had a LEFT occlusion M2 by the sylvian fissure. ?? At that time [facility] was contacted for possible transfer but [...] well on room air. ?? call center operator was [facility] neurology provider Dr. Sauceda who agreed to the transfer and ED evaluation for possible thrombectomy. ?? Neuro IR was subsequently contacted and patient will have MRI thrombectomy protocol attaining upon arrival. On arrival to [facility] patient was mute and unable to communicate. [...] hypertension, hyperlipidemia and GERD who presented to [facility] for evaluation regarding right-sided weakness and aphasia. CTA angiography showed left occlusion of the M2 by the sylvian fissure[facility]. [facility] her NIH [...] lead EKG -Telemetry -MRI brain wo contrast -PT/OT/PHYSICAL MEDICINE PHYSICIAN #Hypertension Hold home lisinopril and propanolol #Anxiety/depression Continue home fluoxetine # Prophylaxis -Lovenox 40mg SC daily -RBOs -SCDs # Supportive care -N.p.o. until speech evaluation -Tylenol PRN -Up with assistance # FULL code Sherwin Hargrove MD Neurology Resident PGY2 Vascular Neurology Pager [phone] Standard [facility] Swallow Screen: This screen is to be [...] diet as medical provider deems appropriate. Consider PHYSICAL MEDICINE PHYSICIAN consult for full evaluation and diet recommendations. [...] of two midnights or is on the [facility] inpatient only procedure list (status C) due [...] Outcome (s) achieved Date Met: 01/11/18 01/11/18 1528 Coping/Psychosocial Plan Of Care Reviewed With patient;family [...] Outcome (s) achieved Date Met: 01/11/18 01/11/18 1528 Individualization Patient Specific Goals discharge to home Patient Specific Interventions neuro checks, mobilize, facilitate communication, discharge teaching Goal: Fall Prevention-Safe Patient Handling Outcome: Outcome (s) achieved Date Met: 01/11/18 01/10/18 2045 01/11/18 0807 01/11/18 0900 Howe Fall Risk History of Falling -- [...] Outcome (s) achieved Date Met: 01/11/18 01/10/18199901/10/18204401/11/18 0807 Safety Interventions Isolation Precautions -- -- standard precautions maintained Infection Prevention -- environmental surveillance performed;rest/sleep promoted -- Coping Strategies Supportive Measures active listening utilized;positive reinforcement provided;self-reflection promoted;self-responsibility promoted -- -- Goal: Discharge Needs Assessment Outcome: Outcome (s) achieved Date Met: 01/11/18 01/11/18 152 Discharge Needs Assessment Equipment Needed After Discharge none Discharge Disposition home or self-care Activity/Self Care Review of Systems Equipment Currently Used at Home none Current Health Anticipated Changes Related to Illness inability to work Living Environment Transportation Available family or friend will provide Goal: Interdisciplinary Rounds/Family Conf Outcome: Outcome (s) achieved Date Met: 01/11/18 01/11/181527 Interdisciplinary Rounds/Family Conf Participants family;nursing;patient;physician Problem: Stroke [...] Anticipated Discharge Disposition: inpatient rehabilitation facility(acute) Pager: [phone] NAGI TRIANA OT 01/10/2018 Occupational Therapy Rehabilitation [...] and measurable assessment of functional outcome. 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 independent with all [...] Pain Level 0 Bed Mobility Assessment/Treatment Scoot/Bridge Benld (Bed Mobility) supervision required Chfpbk-sb-Igd Benld (Bed Mobility) supervision required Transfer Assessment/Treatment Benld (Sit-Stand Transfers) supervision required Benld (Stand-Sit Transfers) supervision required Gait Assessment/Treatment Assistive Device (Gait) (no device) Benld (Gait) supervision required Distance in Feet (Gait) 300 Comment (Gait) occasional cue for topographical orientation and attention to task ADL Assessment/Intervention Additional Documentation Bathing Assessment/Training (Group);Lower Body Dressing Assessment/Training (Group);Upper Body Dressing Assessment/Training (Group) Bathing Assessment/Training Comment (Bathing) showered with supervision from nursing this AM (per RN did not require physical assist) Upper Body Dressing Assessment/Training Benld Level (UB Dressing) independent Lower Body Dressing Assessment/Training Position (LB Dressing) sitting;standing Benld Level (LB Dressing) supervision required Plan of [...] inpatient rehabilitation facility JAYCEE ARANA, PT Pager: [phone] Inpatient Physical Therapy 2017 PT Evaluation Code Rationale: ?? Diagnosis [...] performance as outlined in this evaluation. 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 independent with all [...] (Group);Transfer Assessment/Treatment (Group) Bed Mobility Assessment/Treatment Scoot/Bridge Benld (Bed Mobility) supervision required Mozujc-wk-Qhh Benld (Bed Mobility) supervision required Transfer Assessment/Treatment Benld (Sit-Stand Transfers) supervision required Benld (Stand-Sit Transfers) supervision required Comment (Transfers) assist for environmental management/setup Gait Assessment/Treatment Benld (Gait) supervision required Assistive Device (Gait) (none) Distance in Feet (Gait) 300 Comment (Gait) variable step length, variable KELLIE. rare vc for attention to task Motor Skills/Interventions Additional Documentation Balance Skills Training (Group) Balance Skills Training Sitting Balance: Static good balance Sitting Balance: Dynamic good balance Fhr-oe-Oyeum Balance fair balance Standing Balance: Static fair [...] all bed mobility activities Bed Mobility Goal, Benld Level independent Gait Training Goal Gait Training Goal, Date Established 01/10/18 Gait Training Goal, Time to Achieve 2 wks Gait Training Goal, Benld Level independent Gait Training Goal, Distance to Achieve 1000 Gait Training Goal, Additional Goal Up/Down 2 steps with rail, with/without AD, independently Transfer Training Goal Transfer Training Goal, Date Established 01/10/18 Transfer Training Goal, Time to Achieve 2 wks Transfer Training Goal, Activity Type wzo-re-tjhsx/gbjln-fk-jue;pbn-yg-tqfnu/olgad-rz-mot Transfer Train Goal, Benld Level independent Physical Therapy Goal PT Goal, Date Established 01/10/18 PT Goal, Time to Achieve 2 wks PT Goal, Activity Type Pt will demonstrate score of >=20/24 on DGI PT Goal, Benld Level independent Clinical Impression Impairments Found (describe specific impairments) aerobic capacity/endurance;gait, locomotion, and balance;anthropometric characteristics;muscle performance;ergonomics and body mechanics;cranial and p eripheral nerve integrity Therapy Frequency 3-5 times/wk Anticipated Discharge Disposition inpatient rehabilitation facility General Interventions Additional Documentation Planned Therapy Interventions (Group) Planned Therapy Interventions balance training;bed mobility training;gait training;home exercise program;motor coordination training;neuromuscular re- education;patient/family education;stair training;strengthening * Plan of Care - Michelle-Vielka Millan, PHYSICAL MEDICINE PHYSICIAN - 01/10/2018 2:13 PM EST Speech-Language Pathology Document Type: therapy note (daily note) Pertinent History of Current Problem: Lars Barbara Banuelos ( ) is a 47 y.o. [...] websites w/ info about both products. Recommendations PHYSICAL MEDICINE PHYSICIAN Diet Recommendation: no diet restrictions Recommended Feeding/Eating Techniques: maintain upright posture during/after eating for 30 mins, small sips/bites Therapy Frequency: 3-5 times/wk(for communication) VIELKA RUBY, PHYSICAL MEDICINE PHYSICIAN Inpatient Speech Pathologist Pager: [phone] 01/10/18 8799 Rehab Evaluation Document Type therapy note (daily note) Total Evaluation Minutes, Speech Language Pathology 14 Patient Effort excellent Symptoms Noted During/After Treatment none General Information Patient/Family/Caregiver Comments/Observations SPRAYER HAND reports no swallow issues w/ pureed /thin [...] Dysphagia Goal, Outcome goal met Clinical Impression PHYSICAL MEDICINE PHYSICIAN Swallowing Diagnosis (WFL) Therapy Frequency 3-5 times/wk (for communication) PHYSICAL MEDICINE PHYSICIAN Diet Recommendation no diet restrictions Recommended Feeding/Eating [...] GLENDA Salcedo and care continues by this senior medical writer. Pascual unable to speak but nod/gestures very well. This senior medical writer is able to assess that Lars [...] Handling Outcome: Ongoing (Interventions Implemented as Appropriate) 01/09/1879901/09/181999 Howe Fall Risk History of Falling 0 -- [...] Control Outcome: Ongoing (Interventions Implemented as Appropriate) 01/09/1879901/09/181999 Safety Interventions Isolation Precautions -- standard precautions [...] * Plan of Care - Vielka Ruby, PHYSICAL MEDICINE PHYSICIAN - 01/09/2018 9:32 AM EST Speech-Language Pathology [...] for specific details, POC and goals. Recommendations PHYSICAL MEDICINE PHYSICIAN Diet Recommendation: puree, thin liquids Recommended Feeding/Eating Techniques: hard swallow with each bite or sip, maintain upright postureduring/after eating for 30 mins, small sips/bites(pills one at a time w/ water) Therapy Frequency: 3-5 times/wk VIELKA RUBY, PHYSICAL MEDICINE PHYSICIAN Inpatient Speech Pathologist Pager: [phone] 01/09/18 0912 Rehab Evaluation Document Type evaluation (BSE) Total [...] OK when takes small single sips NIS [place] Liquid Trial [place] Thick Liquid, Mode of Presentation (Nis) fed by clinician;cup;spoon [place] Thick Liquid, Volume Presented (mL) (Nis) 5 mL;10 mL [place] Thick Liquid, Oral Phase Results (Nis) intact oral phase without signs of dysfunction [place] Thick Liquid, Pharyngeal Phase Results (Nis) safe swallow, no signs/symptoms of aspiration or penetration [place] Thick Liquid, Pharyngeal Phase, Cervical Auscultation (Nis) [...] Dysphagia Goal, Outcome goal ongoing Clinical Impression PHYSICAL MEDICINE PHYSICIAN Swallowing Diagnosis mild dysphagia;oral dysfunction;pharyngeal dysfunction Rehab Potential/Prognosis, Swallowing good, to achieve stated therapy goals Therapy Frequency 3-5 times/wk PHYSICAL MEDICINE PHYSICIAN Diet Recommendation puree;thin liquids Recommended Feeding/Eating Techniques [...] detected. ____ Interpreted by Anup Jain MD, [facility] Emre Arreguin MD CARDIAC SERVICES O RDERABLES * (ABNORMAL) Differential, Automated (01/11/2018 5:43 AM EST) Neutrophils % 73.0 % [facility] Neutr Abs (ANC) 6.40(H) 1.70 - 6.10 x10(3)/[facility] LAB[facility]AT[facility] Lymphocytes % 17.8 % [facility] Lymphocytes Abs 1.6 0.9 - 3.2 x10(3)/[facility] LABORATORY Monocytes % 6.6 % [facility] Monocyte Abs 0.6 0.3 - 0.9 x10(3)/[facility] LABORATORY Eosinophils % 1.4 % [facility] Eosinophils Abs 0.1 0.0 - 0.4 x10(3)/[facility] LABORATORY Basophils % 0.5 % [facility] Basophils Abs 0.0 0.0 - 0.1 x10(3)/[facility] LABORATORY Immature Gran % 0.70 % [facility] Comment: Immature granulocytes(IG's)percentage and absolute count will include metamyelocytes, myelocytes, and promyelocytes. Blood smears from CBCs yielding IG's will be scanned manually for concordance. If this scan disagrees with the automated IG or if promyelocytes are noted, a manual differential will be performed. Tia Gran Abs 0.06(H) 0.00 - 0.04 x10(3)/ L [facility] Blood specimen (specimen) 01/11/2018 5:43 AM EST 01/11/2018 6:01 AM EST Narrative Resulting Agency Comment Spec In Lab Mine Simon MD HEMATOLOGY ORDERABLE S [facility] [place] [address] * (ABNORMAL) Hemogram (01/11/2018 5:43 AM EST) [facility] WBC 8.8 4.0 - 9.5 x10(3)/[facility] RBC 4.04 4.00 - 5.21 x10(6)/[facility] Hemoglobin 10.9(L) 11.7 - 15.5 gm/dL [facility] Hematocrit 34.4(L) 35.7 - 45.8 % [facility] MCV 85.1 82.6 - 94.4 [facility] MCH 27.0(L) 27.1 - 32.0 pg [facility] MCHC 31.7 31.7 - 35.0 gm/dL [facility] Platelets 253 145 - 357 x10(3)/[facility] RDWSD 42.9 37.0 - 46.0 [facility] RDWCV 13.7 11.5 - 14.1 % [facility] MPV 9.7 7.6 - 12.9 [facility] nRBC % Auto 0.0 % [facility] nRBC Abs Auto 0.000 0.000 - 0.000 x10(3)/[facility] Blood specimen (specimen) 01/11/2018 5:43 AM EST 01/11/2018 6:01 AM EST Narrative Resulting Agency Comment Spec In Lab Mine Simon MD HEMATOLOGY ORDERABLE S [facility] [place] [address] * (ABNORMAL) Basic Metabolic Panel (non-fasting) (01/11/2018 5:43 AM EST) Glucose Lvl 102 65 - 199 mg/dL [facility] Comment:Diabetes: >=200 mg/d L plus symptoms BUN 13 8 - 18 mg/dL [facility] Comment:result rechecked-sb Creatinine 0.51(L) 0.70 - 1.20 mg/dL [facility] Sodium 142 135 - 145 mmol/L [facility] Potassium 3.9 3.5 - 5.0 mmol/L [facility] Comment: Please note: ??Patients with WBC >100,000 may have falsely elevated Potassium levels. ??For accurate Potassium quantification in these patients send serum separator tube (gold top) for subsequent determinations. ??Contact the Clinical Chemistry Laboratory if there are any questions. Chloride 106 98 - 107 mmol/L [facility] CO2 23 22 - 31 mmol/L [facility] Anion Gap 13 5 - 15 mmol/L [facility] Calcium 8.5 8.5 - 10.5 mg/dL [facility] Estimated GFR 115 >=60 mL/min/1. 73 m?? [facility] Comment: The eGFR was calculated using the CKD-EPI equation. As with all creatinine based estimates of kidney function, eGFR values calculated with the CKD-EPI equation are not accurate in patients with acute kidney failure, extremes of body mass or the acutely ill. [email or web address] eGFR 133 >=60 mL/min/1. 73 m?? [facility] Comment: The eGFR was calculated using the CKD-EPI equation. As with all creatinine based estimates of kidney function, eGFR values calculated with the CKD-EPI equation are not accurate in patients with acute kidney failure, extremes of body mass or the acutely ill. [email or web address] Blood specimen (specimen) 01/11/2018 5:43 AM EST 01/11/2018 6:01 AM EST Narrative Resulting Agency Comment Spec In Lab Emre Arreguin MD CHEMISTRY ORDERABL ES [facility] [place] [address] * (ABNORMAL) Urinalysis Microscopic Exam (01/10/2018 10:35 AM EST) RBC UA 11(H) 0 - 4 /HPF [facility] WBC UA 4 0 - 5 /HPF [facility] Bacteria UA Moderate(A ) None /HPF [facility] Squam Epith UA 8(H) <=4 /HPF [facility] Trans Epith UA <1 <=1 /HPF [facility] Urine specimen (specimen) 01/10/2018 10:35 AM EST 01/10/2018 10:47 AM EST Narrative Resulting Agency Comment Spec In Lab Mayank Shepherd MD URINE ORDERABLE S Performing Organization Address [facility] Co de Phone Number [facility] [place] [address] * Urine Hold (01/10/2018 10:35 AM EST) Urine Hold Sample in lab. [facility] Urine specimen (specimen) Urine / Unknown 01/10/2018 10:35 AM EST 01/10/2018 10:47 AM EST Mayank Shepherd MD URINE ORDERABLE S Performing Organization Address [facility] Co de Phone Number [facility] [place] [address] * (ABNORMAL) Urinalysis with reflex Culture (01/10/2018 10:35 AM EST) Glucose UA Negative Negative mg/dL [facility] Protein UA Negative Negative mg/dL [facility] Bilirubin UA Negative Negative mg/dL [facility] Comment: Clinical correlation required for positive Urine Bilirubin results as false positive may occur with some drugs and drug related products. If a false positive is suspected a serum total bilirubin should be considered if clinically indicated. Urobilinogen UA Normal Normal mg/dL M [facility] pH UA 6.0 5.0 - 8.0 [facility] Blood UA Small(A) Negative mg/dL [facility] Ketones UA Negative Negative mg/dL [facility] Nitrite UA Negative Negative [facility] Leukocytes UA Negative Negative [facility] Appearance UA Clear Clear [facility] Spec [place] UA 1.016 1.002 - 1.030 [facility] Color UA Yellow Yellow [facility] Culture Reflexed No MAR Y [facility] Urine specimen (specimen) 01/10/2018 10:35 AM EST 01/10/2018 10:47 AM EST Narrative Resulting Agency Comment Spec In Lab Emre Arreguin MD URINE ORDERABLES Performing Organization Address [facility]/ZIP Co de Phone Number [facility] [place] [address] * POCT Glucose (01/10/2018 7:51 AM EST) [facility] POC Glucose 108 65 - 199 mg/dL [facility] Comment: Supplemental ranges: <140 mg/dL before meals <180 mg/dL all other times of the day Blood specimen (specimen) 01/10/2018 7:51 AM EST 01/10/2018 7:51 AM EST Emre Arreguin MD POINT OF CARE TEST ORDERABLES Performing Organization Address City/[facility]/ZIP Co de Phone Number [facility] [place] [address] * Differential, Automated (01/10/2018 5:34 AM EST) Pathologist [facility] Neutrophils % 65.3 % [facility] Neutr Abs (ANC) 4.54 1.70 - 6.10 x10(3)/[facility] Lymphocytes % 24.3 % [facility] Lymphocytes Abs 1.7 0.9 - 3.2 x10(3)/[facility] Monocytes % 7.8 % [facility] Monocyte Abs 0.5 0.3 - 0.9 x10(3)/[facility] Eosinophils % 1.6 % [facility] Eosinophils Abs 0.1 0.0 - 0.4 x10(3)/[facility] Basophils % 0.4 % [facility] Basophils Abs 0.0 0.0 - 0.1 x10(3)/[facility] Immature Gran % 0.60 % [facility] Comment: Immature granulocytes(IG's)percentage and absolute count will include metamyelocytes, myelocytes, and promyelocytes. Blood smears from CBCs yielding IG's will be scanned manually for concordance. If this scan disagrees with the automated IG or if promyelocytes are noted, a manual differential will be performed. Tia Gran Abs 0.04 0.00 - 0.04 x10(3)/[facility] Blood specimen (specimen) 01/10/2018 5:34 AM EST 01/10/2018 5:56 AM EST Narrative Resulting Agency Comment Spec In Lab Mine Simon MD HEMATOLOGY ORDERABLE S [facility] [place] [address] * Hemogram (01/10/2018 5:34 AM EST) WBC 7.0 4.0 - 9.5 x10(3)/[facility] RBC 4.29 4.00 - 5.21 x10(6)/[facility] Hemoglobin 11.7 11.7 - 15.5 gm/dL [facility] Hematocrit 36.6 35.7 - 45.8 % [facility] MCV 85.3 82.6 - 94.4 fL [facility] MCH 27.3 27.1 - 32.0 pg [facility] MCHC 32.0 31.7 - 35.0 gm/dL [facility] Platelets 287 145 - 357 x10(3)/[facility] RDWSD 43.6 37.0 - 46.0 fL [facility] RDWCV 14.0 11.5 - 14.1 % [facility] MPV 9.6 7.6 - 12.9 fL [facility] nRBC % Auto 0.0 % [facility] nRBC Abs Auto 0.000 0.000 - 0.000 x10(3)/[facility] Blood specimen (specimen) 01/10/2018 5:34 AM EST 01/10/2018 5:56 AM EST Narrative Resulting Agency Comment Spec In Lab Mine Simon MD HEMATOLOGY ORDERABLE S Performing Organization Address City/State/[facility] Co de Phone Number [facility] [place] [address] * (ABNORMAL) Basic Metabolic Panel (non-fasting) (01/10/2018 5:34 AM EST) Glucose Lvl 101 65 - 199 mg/dL [facility] Comment:Diabetes: >=200 mg/d L plus symptoms BUN 6(L) 8 - 18 mg/dL [facility] Creatinine 0.50(L) 0.70 - 1.20 mg/dL [facility] Sodium 139 135 - 145 mmol/L [facility] Potassium 3.6 3.5 - 5.0 mmol/L [facility] Comment: Please note: ??Patients with WBC >100,000 may have falsely elevated Potassium levels. ??For accurate Potassium quantification in these patients send serum separator tube (gold top) for subsequent determinations. ??Contact the Clinical Chemistry Laboratory if there are any questions. Chloride 104 98 - 107 mmol/L [facility] CO2 23 22 - 31 mmol/L [facility] Anion Gap 12 5 - 15 mmol/L [facility] Calcium 8.4(L) 8.5 - 10.5 mg/dL [facility] Estimated GFR 115 >=60 mL/min/1. 73 m?? [facility] Comment: The eGFR was calculated using the CKD-EPI equation. As with all creatinine based estimates of kidney function, eGFR values calculated with the CKD-EPI equation are not accurate in patients with acute kidney failure, extremes of body mass or the acutely ill. [email or web address] eGFR 134 >=60 mL/min/1. 73 m?? [facility] Comment: The eGFR was calculated using the CKD-EPI equation. As with all creatinine based estimates of kidney function, eGFR values calculated with the CKD-EPI equation are not accurate in patients with acute kidney failure, extremes of body mass or the acutely ill. [email or web address] Blood specimen (specimen) 01/10/2018 5:34 AM EST 01/10/2018 5:56 AM EST Narrative Resulting Agency Comment Spec In Lab Emre Arreguin MD CHEMISTRY ORDERABL ES Performing Organization Address City/State/[facility] Co de Phone Number [facility] [place] [address] * Hepatic Function Panel (01/10/2018 5:34 AM EST) Total Protein 6.4 6.1 - 8.0 gm/dL [facility] Albumin 3.5 3.2 - 5.2 gm/dL [facility] AST 9 0 - 30 unit/L [facility] ALT 9 0 - 30 unit/L [facility] Alk Phos 76 40 - 104 unit/L [facility] Total Bilirubin 0.2 0.2 - 1.3 mg/dL [facility] Bili, Direct 0.1 0.0 - 0.3 mg/dL [facility] Blood specimen (specimen) 01/10/2018 5:34 AM EST 01/10/2018 5:56 AM EST Narrative Resulting Agency Comment Spec In Lab Emre Arreguin MD CHEMISTRY ORDERABL ES Performing Organization Address [facility] de Phone Number [facility] [place] [address] * Phosphorus (01/10/2018 5:34 AM EST) Phosphorus 3.3 2.5 - 4.5 mg/dL [facility] Blood specimen (specimen) 01/10/2018 5:34 AM EST 01/10/2018 5:56 AM EST Narrative Resulting Agency Comment Spec In Lab Emre Arreguin MD CHEMISTRY ORDERABL ES Performing Organization Address [facility] Phone Number [facility] [place] [address] * Magnesium (01/10/2018 5:34 AM EST) Magnesium 0.91 0.69 - 1.07 mmol/L [facility] Blood specimen (specimen) 01/10/2018 5:34 AM EST 01/10/2018 5:56 AM EST Narrative Resulting Agency Comment Spec In Lab Emre Arreguin MD CHEMISTRY ORDERABL ES Performing Organization Address [facility] Phone Number [facility] [place] [address] * POCT Glucose (01/10/2018 4:27 AM EST) POC Glucose 111 65 - 199 mg/dL [facility] Comment: Supplemental ranges: <140 mg/dL before meals <180 mg/dL all other times of the day Blood specimen (specimen) 01/10/2018 4:27 AM EST 01/10/2018 4:27 AM EST Emre Arreguin MD POINT OF CARE TEST ORDERABLES Performing Organization Address [facility] Co mo Phone Number [facility] [place] [address] * POCT Glucose (01/10/2018 12:05 AM EST) POC Glucose 100 65 - 199 mg/dL [facility] Comment: Supplemental ranges: <140 mg/dL before meals <180 mg/dL all other times of the day Blood specimen (specimen) 01/10/2018 12:05 AM EST 01/10/2018 12:05 AM EST Emre Arreguin MD POINT OF CARE TEST ORDERABLES Performing Organization Address [facility] Co de Phone Number [facility] [place] [address] * POCT Glucose (01/09/2018 7:40 PM EST) POC Glucose 106 65 - 199 mg/dL [facility] Comment: Supplemental ranges: <140 mg/dL before meals <180 mg/dL all other times of the day Blood specimen (specimen) 01/09/2018 7:40 PM EST 01/09/2018 7:40 PM EST Emre Arreguin MD POINT OF CARE TEST ORDERABLES Performing Organization Address [facility]/ZIP Co de Phone Number [facility] [place] [address] * POCT Glucose (01/09/2018 3:44 PM EST) POC Glucose 101 65 - 199 mg/dL [facility] Comment: Supplemental ranges: <140 mg/dL before meals <180 mg/dL all other times of the day Blood specimen (specimen) 01/09/2018 3:44 PM EST 01/09/2018 3:44 PM EST Emre Arreguin MD POINT OF CARE TEST ORDERABLES Performing Organization Address City/[facility]/ZIP Co de Phone Number [facility] [place] [address] * ECHO COMPLETE (01/09/2018 2:00 PM EST) EF 62 HEARTTuneCore SYSTEM Anatomical Region Laterality Modality Other 01/09/2018 Narrative 01/09/2018 2:12 PM EST Procedure: ?Transthoracic Echocardiogram Patient: ?VIN Jimenez ?(Age): 1970(47y) Med Rec#: ? [id number] ?Sex: ?F ? Site Loc: ? [facility] ?Ht / Wt: ??154.94(cm)/109. Pt. Loc: ?ICU ? BSA: ?2.05 Study Date: ?? 01/09/2018 ?Pt. Type: Inpatient Tape: ? Referring: Nirmal Sommer III Reading: Dereje Santos ([id number]) Shipping Support: Stacy Ghosh [facility] Diagnosis: *Cerebral infarction, unspecified (I63.9) BP: [...] E-wave Vmax ?0.6 ?m/sec ? MV deceleration sqhb792.5 ?msec ? MV A-wave Vmax ?0.7 ?m/sec [...] ? Mid-Inferior ?Normal ? Mid-Inferoseptal ?Normal ? [place]-Septal ? Normal ? [place]-Anterior ? Normal ? [place]-Lateral ?Normal ? [place]-Inferior ? Normal ? [place]-Tip ?Normal ? This report has been electronically signed by: Dereje Santos M.D. ? 01/09/2018 14:11:53 Images reviewed and interpretation verified [facility] Procedure Note Dereje Santos MD - 01/09/2018 Procedure: Transthoracic Echocardiogram Patient: VIN Jimenez (Age): 1970(47y) Med Rec#: [id number] Sex: F Site Loc: [facility] Ht / Wt: 154.94(cm)/109. Pt. Loc: ICU BSA: 2.05 Study Date: 01/09/2018 Pt. Type: Inpatient Tape: Referring: Nirmal Sommer III Reading: Dereje Santos ([id number]) Shipping Support: Stacy Ghosh [facility] Diagnosis: *Cerebral infarction, unspecified (I63.9) BP: [...] MV E-wave Vmax 0.6 m/sec MV deceleration adib196.5 msec MV A-wave Vmax 0.7 m/sec MV [...] Normal Mid-Posterolateral Normal Mid-Inferior Normal Mid-Inferoseptal Normal [place]-Septal Normal [place]-Anterior Normal [place]-Lateral Normal [place]-Inferior Normal [place]-Tip Normal This report has been electronically signed by: Dereje Santos M.D. 01/09/2018 14:11:53 Images reviewed and interpretation verified [facility] Nirmal Sommer III, MD ECHO ORDERABLES * POCT Glucose (01/09/2018 12:34 PM EST) POC Glucose 139 65 - 199 mg/dL [facility] Comment: Supplemental ranges: <140 mg/dL before meals <180 mg/dL all other times of the day Blood specimen (specimen) 01/09/2018 12:34 PM EST 01/09/2018 12:34 PM EST Emre Arreguin MD POINT OF CARE TEST ORDERABLES [facility] [place] [id number] * MRI Brain wo Contrast (01/09/2018 11:20 [...] POC Glucose 99 65 - 199 mg/dL [facility] Comment: Supplemental ranges: <140 mg/dL before meals <180 mg/dL all other times of the day Blood specimen (specimen) 01/09/2018 8:45 AM EST 01/09/2018 8:45 AM EST Emre Arreguin MD POINT OF CARE TEST ORDERABLES [facility] [place] [address] * POCT Glucose (01/09/2018 3:22 AM EST) POC Glucose 113 65 - 199 mg/dL [facility] Comment: Supplemental ranges: <140 mg/dL before meals <180 mg/dL all other times of the day Blood specimen (specimen) 01/09/2018 3:22 AM EST 01/09/2018 3:22 AM EST Nirmal Sommer III, MD POINT OF CARE TATA T ORDERABLES [facility] [place] [address] * (ABNORMAL) BMP w/fasting Glucose (01/09/2018 3:15 AM EST) Glucose Fasting 104(H) 65 - 99 mg/dL [facility] Comment: ?Fasting* Glucose Interpretive Criteria Normal [...] of Diabetes Mellitus, Position Statement from the [place] [employer]. ??Diabetes Care, Volume 33, Supplement 1, Feb 2009 BUN 4(L) 8 - 18 mg/dL [facility] Creatinine 0.47(L) 0.70 - 1.20 mg/dL [facility] Sodium 143 135 - 145 mmol/L [facility] Potassium 3.6 3.5 - 5.0 mmol/L [facility] Comment: Please note: ??Patients with WBC >100,000 may have falsely elevated Potassium levels. ??For accurate Potassium quantification in these patients send serum separator tube (gold top) for subsequent determinations. ??Contact the Clinical Chemistry Laboratory if there are any questions. Chloride 106 98 - 107 mmol/L [facility] CO2 24 22 - 31 mmol/L [facility] Anion Gap 13 5 - 15 mmol/L [facility] Calcium 8.0(L) 8.5 - 10.5 mg/dL [facility] Estimated GFR 118 >=60 mL/min/1. 73 m?? [facility] Comment: The eGFR was calculated using the CKD-EPI equation. As with all creatinine based estimates of kidney function, eGFR values calculated with the CKD-EPI equation are not accurate in patients with acute kidney failure, extremes of body mass or the acutely ill. [email or web address] eGFR 136 >=60 mL/min/1. 73 m?? [facility] Comment: The eGFR was calculated using the CKD-EPI equation. As with all creatinine based estimates of kidney function, eGFR values calculated with the CKD-EPI equation are not accurate in patients with acute kidney failure, extremes of body mass or the acutely ill. [email or web address] Blood specimen (specimen) 01/09/2018 3:15 AM EST 01/09/2018 3:41 AM EST Narrative Resulting Agency Comment Spec In Lab Mayank Shepherd MD CHEMISTRY ORDER CAROLYNN [facility] [place] [address] * (ABNORMAL) Differential, Automated (01/09/2018 3:15 AM EST) Neutrophils % 76.3 % [facility] Neutr Abs (ANC) 7.09(H) 1.70 - 6.10 x10(3)/mc L [facility] Lymphocytes % 16.9 % [facility] Lymphocytes Abs 1.6 0.9 - 3.2 x10(3)/mc L [facility] Monocytes % 5.3 % [facility] Monocyte Abs 0.5 0.3 - 0.9 x10(3)/mc L [facility] Eosinophils % 0.8 % [facility] Eosinophils Abs 0.1 0.0 - 0.4 x10(3)/[facility] Basophils % 0.4 % [facility] Basophils Abs 0.0 0.0 - 0.1 x10(3)/[facility] Immature Gran % 0.30 % [facility] Comment: Immature granulocytes(IG's)percentage and absolute count will include metamyelocytes, myelocytes, and promyelocytes. Blood smears from CBCs yielding IG's will be scanned manually for concordance. If this scan disagrees with the automated IG or if promyelocytes are noted, a manual differential will be performed. Tia Gran Abs 0.03 0.00 - 0.04 x10(3)/[facility] Blood specimen (specimen) 01/09/2018 3:15 AM EST 01/09/2018 3:41 AM EST Narrative Resulting Agency Comment Spec In Lab Mayank Shepherd MD HEMATOLOGY CHAPIS ARZOLA [facility] [place] [address] * (ABNORMAL) Hemogram (01/09/2018 3:15 AM EST) WBC 9.3 4.0 - 9.5 x10(3)/[facility] RBC 4.32 4.00 - 5.21 x10(6)/[facility] Hemoglobin 11.6(L) 11.7 - 15.5 gm/dL [facility] Hematocrit 36.5 35.7 - 45.8 % [facility] MCV 84.5 82.6 - 94.4 fL [facility] MCH 26.9(L) 27.1 - 32.0 pg [facility] MCHC 31.8 31.7 - 35.0 gm/dL [facility] Platelets 289 145 - 357 x10(3)/[facility] RDWSD 43.8 37.0 - 46.0 fL [facility] RDWCV 14.2(H) 11.5 - 14.1 % [facility] MPV 9.6 7.6 - 12.9 fL [facility] nRBC % Auto 0.0 % [facility] nRBC Abs Auto 0.000 0.000 - 0.000 x10(3)/mcL [facility] Blood specimen (specimen) 01/09/2018 3:15 AM EST 01/09/2018 3:41 AM EST Narrative Resulting Agency Comment Spec In Lab Mayank Shepherd MD HEMATOLOGY CHAPIS ARZOLA Performing Organization Address [facility] Co de Phone Number [facility] [place] [address] * Triglyceride (01/09/2018 3:15 AM EST) Triglycerides 110 mg/dL [facility] Comment: Average Risk/Lower Risk: <150 mg/dL Borderline High Risk: 150-199 mg/dL High Risk: 200-499 mg/dL Very High Risk: >bt=966 mg/dL Blood specimen (specimen) 01/09/2018 3:15 AM EST 01/09/2018 3:41 AM EST Narrative Resulting Agency Comment Spec In Lab Nirmal Sommer III, MD CHEMISTRY ORDERAB LES Performing Organization Address [facility] Co de Phone Number [facility] [place] [address] * HDL/Cholesterol Profile (01/09/2018 3:15 AM EST) Chol, Total 185 mg/dL [facility] Comment: Lower Risk: <200 mg/dL Average Risk: 200-239 mg/dL Higher Risk: >js=885 mg/dL HDL 45 mg/dL [facility] Comment: Males: ?? Higher Risk: <40 mg/dL Females: ?? HIgher Risk: <50 mg/dL Chol/HDL Ratio 4.1 ratio [facility] Chol/HDL Interpretation See Note [facility] Comment: Lipid management should be guided by a patient? s ASCVD risk, goals and preferences. ACC/AHA Guidelines recommend high intensity statin if clinical ASCVD or LDL greater than or equal to 190 mg/dL. http://VitalsGuard.com/OYG-MYQ-Qnbtagcmp Measure LDL if Total Cholesterol minus HDL Cholesterol is greater than 220 mg/dL. Adults aged 40-75 with LDL 70-189 mg/dL should have their 10 year ASCVD risk estimated with the ACC/AHA ASCVD risk box estimator http://tools.acc.org/DMAZN-Ywbm-Ykxyvncxz/ Statin should be discussed if risk greater [...] MD CHEMISTRY ORDERAB LES Performing Organization Address [facility] Co de Phone Number [facility] [place] [address] * LDL Cholesterol, Direct (01/09/2018 3:15 AM EST) LDL Chol Direct 123 mg/dL [facility] Comment: Lowest Risk: <100 mg/dL Lower Risk: 100-129 mg/dL Borderline High Risk: 130-159 mg/dL High Risk: 160-189 mg/dL Very High Risk: >mw=584 mg/dL Blood specimen (specimen) 01/09/2018 3:15 AM EST 01/09/2018 3:41 AM EST Narrative Resulting Agency Comment Spec In Lab Nirmal Sommer III, MD CHEMISTRY ORDERAB LES Performing Organization Address City/[facility] Co de Phone Number [facility] [place] [address] * Hemoglobin A1c (01/09/2018 3:15 AM EST) Hemoglobin A1C 5.6 4.3 - 5.6 % [facility] Comment: Reference Range: 4.3 - 5.6% [...] Mellitus, Diabetes Care 2013; 36: Suppl. 1, S67-74 Est Avg Gluc 114 mg/dL [facility] Comment: eAG equivalents for HbA1c [...] into estimated average glucose values. ??Diabetes Care 2008:31(8):6810-8493. Blood specimen (specimen) 01/09/2018 3:15 AM EST 01/09/2018 3:41 AM EST Narrative Resulting Agency Comment Spec In Lab Nirmal Sommer III, MD CHEMISTRY ORDERAB LES Performing Organization Address [facility] Co de Phone Number [facility] [place] [address] * Hepatic Function Panel (01/09/2018 3:15 AM EST) Total Protein 6.1 6.1 - 8.0 gm/dL [facility] Albumin 3.4 3.2 - 5.2 gm/dL [facility] AST 11 0 - 30 unit/L [facility] ALT 9 0 - 30 unit/L [facility] Alk Phos 73 40 - 104 unit/L [facility] Total Bilirubin 0.3 0.2 - 1.3 mg/dL [facility] Bili, Direct <0.1 0.0 - 0.3 mg/dL [facility] Blood specimen (specimen) 01/09/2018 3:15 AM EST 01/09/2018 3:41 AM EST Narrative Resulting Agency Comment Spec In Lab Emre Arreguin MD CHEMISTRY ORDERABL ES Performing Organization Address [facility] de Phone Number [facility] [place] [address] * Phosphorus (01/09/2018 3:15 AM EST) Phosphorus 2.5 2.5 - 4.5 mg/dL [facility] Blood specimen (specimen) 01/09/2018 3:15 AM EST 01/09/2018 3:41 AM EST Narrative Resulting Agency Comment Spec In Lab Emre Arreguin MD CHEMISTRY ORDERABL ES Performing Organization Address [facility] Co de Phone Number [facility] [place] [address] * Magnesium (01/09/2018 3:15 AM EST) Magnesium 0.86 0.69 - 1.07 mmol/L [facility] Blood specimen (specimen) 01/09/2018 3:15 AM EST 01/09/2018 3:41 AM EST Narrative Resulting Agency Comment Spec In Lab Emre Arreguin MD CHEMISTRY ORDERABL ES Performing Organization Address [facility] Co de Phone Number [facility] [place] [address] * POCT Glucose (01/09/2018 12:08 AM EST) POC Glucose 120 65 - 199 mg/dL [facility] Comment: Supplemental ranges: <140 mg/dL before meals <180 mg/dL all other times of the day Blood specimen (specimen) 01/09/2018 12:08 AM EST 01/09/2018 12:08 AM EST Nirmal Sommer III, MD POINT OF CARE TATA T ORDERABLES Performing Organization Address [facility] Co de Phone Number [facility] [place] [address] * POCT Glucose (01/08/2018 8:58 PM EST) POC Glucose 111 65 - 199 mg/dL [facility] Comment: Supplemental ranges: <140 mg/dL before meals <180 mg/dL all other times of the day Blood specimen (specimen) 01/08/2018 8:58 PM EST 01/08/2018 8:58 PM EST Nirmal Sommer III, MD POINT OF CARE TATA T ORDERABLES Performing Organization Address [facility] Co de Phone Number [facility] [place] [address] * POCT Glucose (01/08/2018 4:22 PM EST) POC Glucose 114 65 - 199 mg/dL [facility] Comment: Supplemental ranges: <140 mg/dL before meals <180 mg/dL all other times of the day Blood specimen (specimen) 01/08/2018 4:22 PM EST 01/08/2018 4:22 PM EST Nirmal Sommer III, MD POINT OF CARE TATA T ORDERABLES [facility] [place] [address] * (ABNORMAL) BLOOD GAS 2 ARTERIAL (01/08/2018 1:39 PM EST) pH Art 7.40 7.35 - 7.45 [facility] pCO2 Art 36 35 - 45 mmHg [facility] pO2 Art 66(L) 85 - 104 mmHg [facility] HCO3 Art 22.0 20.0 - 26.0 mmol/L [facility] BE Art -2.7 -3.0 - 3.0 mmol/L [facility] Hgb Blood Gas 13.1 11.7 - 15.5 gm/dL [facility] O2HB Art 91.3(L) 94.0 - 97.0 % [facility] COHB Art 0.3 % [facility] Comment: Nonsmokers: 0.5-1.5% COHB Smokers: Variable, but usually less than 10% Toxic: 20-30% COHB Lethal: Greater than 60% COHB METHB Art 0.6 <=1.5 % [facility] Na Whole Blood 139 135 - 145 mmol/L [facility] K Whole Blood 3.5 3.5 - 5.0 mmol/L [facility] Comment: Please note: Patients with WBC >100,000 may have falsely elevated Potassium levels. Contact the Clinical Chemistry Laboratory if there are any questions. ICa Whole Blood 1.12(L) 1.15 - 1.33 mmol/L [facility] Comment: Note: ??Total bilirubin higher than 20 mg/dL may lead to falsely low ionized calcium. CL Whole Blood 108(H) 98 - 107 mmol/L [facility] Gluc Whole Bld 126 65 - 199 mg/dL [facility] Comment:Diabetes: >=200 mg/d L plus symptoms. Lactate WB 0.7 0.5 - 2.2 mmol/L [facility] FIO2 Art 21 % [facility] PF Ratio Art 314 [facility] Blood specimen (specimen) 01/08/2018 1:39 PM EST 01/08/2018 1:39 PM EST Nirmal Sommer III, MD CHEMISTRY ORDERAB LES [facility] [place] [address] * (ABNORMAL) Differential, Automated (01/08/2018 1:35 PM EST) Neutrophils % 78.8 % [facility] Neutr Abs (ANC) 7.04(H) 1.70 - 6.10 x10(3)/[facility] Lymphocytes % 15.1 % [facility] Lymphocytes Abs 1.4 0.9 - 3.2 x10(3)/[facility] Monocytes % 5.0 % [facility] Monocyte Abs 0.4 0.3 - 0.9 x10(3)/[facility] Eosinophils % 0.4 % [facility] Eosinophils Abs 0.0 0.0 - 0.4 x10(3)/[facility] Basophils % 0.3 % [facility] Basophils Abs 0.0 0.0 - 0.1 x10(3)/[facility] Immature Gran % 0.40 % [facility] Comment: Immature granulocytes(IG's)percentage and absolute count will include metamyelocytes, myelocytes, and promyelocytes. Blood smears from CBCs yielding IG's will be scanned manually for concordance. If this scan disagrees with the automated IG or if promyelocytes are noted, a manual differential will be performed. Tia Gran Abs 0.04 0.00 - 0.04 x10(3)/[facility] Blood specimen (specimen) 01/08/2018 1:35 PM EST 01/08/2018 1:51 PM EST Narrative Resulting Agency Comment Spec In Lab Shalom Mandujano MD HEMATOLOGY ORDER CAROLYNN [facility] [place] [address] * (ABNORMAL) Hemogram (01/08/2018 1:35 PM EST) WBC 9.0 4.0 - 9.5 x10(3)/[facility] RBC 4.41 4.00 - 5.21 x10(6)/[facility] Hemoglobin 11.8 11.7 - 15.5 gm/dL [facility] Hematocrit 36.9 35.7 - 45.8 % [facility] MCV 83.7 82.6 - 94.4 [facility] MCH 26.8(L) 27.1 - 32.0 pg [facility] MCHC 32.0 31.7 - 35.0 gm/dL [facility] Platelets 281 145 - 357 x10(3)/[facility] RDWSD 43.1 37.0 - 46.0 [facility] RDWCV 14.1 11.5 - 14.1 % [facility] MPV 9.6 7.6 - 12.9 [facility] nRBC % Auto 0.0 % [facility] nRBC Abs Auto 0.000 0.000 - 0.000 x10(3)/[facility] Blood specimen (specimen) 01/08/2018 1:35 PM EST 01/08/2018 1:51 PM EST Narrative Resulting Agency Comment Spec In Lab Shalom Mandujano MD HEMATOLOGY ORDER CAROLYNN [facility] [place] [address] * (ABNORMAL) Basic Metabolic Panel (non-fasting) (01/08/2018 1:35 PM EST) Glucose Lvl 123 65 - 199 mg/dL [facility] Comment:Diabetes: >=200 mg/d L plus symptoms BUN 7(L) 8 - 18 mg/dL [facility] Creatinine 0.50(L) 0.70 - 1.20 mg/dL [facility] Sodium 141 135 - 145 mmol/L [facility] Potassium 3.7 3.5 - 5.0 mmol/L [facility] Comment: Please note: ??Patients with WBC >100,000 may have falsely elevated Potassium levels. ??For accurate Potassium quantification in these patients send serum separator tube (gold top) for subsequent determinations. ??Contact the Clinical Chemistry Laboratory if there are any questions. Chloride 105 98 - 107 mmol/L [facility] CO2 22 22 - 31 mmol/L [facility] Anion Gap 14 5 - 15 mmol/L [facility] Calcium 8.0(L) 8.5 - 10.5 mg/dL [facility] Estimated GFR 115 >=60 mL/min/1. 73 m?? [facility] Comment: The eGFR was calculated using the CKD-EPI equation. As with all creatinine based estimates of kidney function, eGFR values calculated with the CKD-EPI equation are not accurate in patients with acute kidney failure, extremes of body mass or the acutely ill. [email or web address] eGFR 134 >=60 mL/min/1. 73 m?? [facility] Comment: The eGFR was calculated using the CKD-EPI equation. As with all creatinine based estimates of kidney function, eGFR values calculated with the CKD-EPI equation are not accurate in patients with acute kidney failure, extremes of body mass or the acutely ill. [email or web address] Blood specimen (specimen) 01/08/2018 1:35 PM EST 01/08/2018 1:51 PM EST Narrative Resulting Agency Comment Spec In Lab Emre Arreguin MD CHEMISTRY ORDERABL ES Performing Organization Address [facility] Co de Phone Number [facility] [place] [address] * Phosphorus (01/08/2018 1:35 PM EST) Phosphorus 3.1 2.5 - 4.5 mg/dL [facility] Blood specimen (specimen) 01/08/2018 1:35 PM EST 01/08/2018 1:51 PM EST Narrative Resulting Agency Comment Spec In Lab Nirmal Sommer III, MD CHEMISTRY ORDERAB LES Performing Organization Address [facility] Co de Phone Number [facility] [place] [address] * Magnesium (01/08/2018 1:35 PM EST) Magnesium 0.81 0.69 - 1.07 mmol/L [facility] Blood specimen (specimen) 01/08/2018 1:35 PM EST 01/08/2018 1:51 PM EST Narrative Resulting Agency Comment Spec In Lab Nirmal Sommer III, MD CHEMISTRY ORDERAB LES Performing Organization Address [facility] Co de Phone Number [facility] [place] [address] * (ABNORMAL) Prothrombin Time (01/08/2018 1:35 PM EST) PT 13.1(H) 9.4 - 12.5 sec [facility] INR 1.2 [facility] Comment: An INR <2.0 indicates adequate [...] MD HEMATOLOGY ORDERA BLES Performing Organization Address [facility]/ZIP Co de Phone Number [facility] [place] [address] * APTT (01/08/2018 1:35 PM EST) PTT 32 25 - 37 sec [facility] Comment: The PTT is [...] MD HEMATOLOGY ORDERA BLES Performing Organization Address [facility] Co de Phone Number [facility] [place] [address] * POCT Glucose (01/08/2018 12:50 PM EST) Pathologist [facility] POC Glucose 124 65 - 199 mg/dL [facility] Comment: Supplemental ranges: <140 mg/dL before meals <180 mg/dL all other times of the day Blood specimen (specimen) 01/08/2018 12:50 PM EST 01/08/2018 12:50 PM EST Nirmal Sommer III, MD POINT OF CARE TATA T ORDERABLES Performing Organization Address [facility] Co de Phone Number [facility] [place] [address] * IR Neuro Mechanical Thrombectomy (01/08/2018 12:49 [...] entire procedure. PROCEDURE: 1. Cerebral angiogram. 2. [employer] thrombolysis with retrieval of thromboembolic material from [...] the material within the ICA apex and lutheran of flow within a majority of the [...] entire procedure. PROCEDURE: 1. Cerebral angiogram. 2. [employer] thrombolysis with retrieval of thromboembolic material fromthe left M2 segment, MCA. ANESTHESIA: General endotracheal anesthesia EBL: <50 ml CONTRAST: 170 mL Visipaque-320. RADIATION EXPOSURE: A-plane 860 mGy, B-plane 355 mGy. MATERIALS: Micropuncture set, 8Fr Arrow sheath, 0.035 3J wire, 0.329955 cm Glidewire, Flowgate2 balloon guide catheter, Catalyst [...] was delivered. The Prowler plus microcatheter and Moabfip08 wire were preloaded into the Catalyst six [...] prevertebral microcatheter and again at the occluded [id number] was accessed in similar fashion. The Trevo [...] bolus. These angiograms showed occlusion of the [id number]. The procedure with the aspiration catheter and [...] the material within the ICA apex and lutheran of flow within a majority ofthe left [...] with TICI 2B flow. 12:34 PM Ritchie Strauss MD IMG IR ORDERABLES * MRI Brain Mechanical Thrombectomy [...] posterior frontal, superior temporal, insular infarction Ritchie Strauss MD IMG MRI ORDERABLES documented in this encounter Visit Diagnoses Diagnosis Cerebrovascular accident (CVA), unspecified mechanism Acute CVA (cerebrovascular accident) Acute CVA (cerebrovascular accident) documented in this encounter Admitting Diagnoses Diagnosis Acute [...] Given 01/09/2018 9:08 AM EST 40 mg iodixanol (VISIPAQUE) 320 mg iodine/mL injection 300 mL 300 mL, Intra-arterial, ONCE, 1 dose, On Dorcas 01/08/18 at 1227, Routine Given 01/08/2018 11:10 AM EST 170 mLs niCARdipine (CARDENE) 40 mg/200 mL infusion 1 dose, Starting on Dorcas 01/08/18 at 1253, Until Dorcas 01/08/18 at 1310, FERNANDO LEUNG: cabinet override niCARdipine 0.2 mg/mL (standard Adult and Pedi greater than 20 kg) infusion 0-15 mg/hr (0-75 mL/hr), Intravenous, CONTINUOUS, Starting on Dorcas 01/08/18 at 1330, Until 01/09/18 at 1809, Titrate to SBP greater than 120and less than 160 mmHg. Start at 5 mg/hour, titrate to maintain target SBP, adjust infusion rate by 2.5 mg/hour every 5 minutes to a maximum of 15 mg/hour. Rotate IV site every 12 hours, Routine New Bag 01/08/2018 1:10 PM EST 5 mg/hr 25 mL/hr nicotine (NICODERM CQ) 14 mg/24 hr patch [...] 9:50 AM EST 4 mg pantoprazole (PROTONIX) injection 40 mg 40 mg, Intravenous, DAILY, First dose on Dorcas 01/08/18 at 1330, Until Discontinued Given 01/09/2018 8:43 AM EST 40 mg Given 01/08/2018 2:19 PM EST 40 mg pantoprazole (PROTONIX) tablet 40 mg 40 [...] Intravenous, 2 TIMES DAILY, First dose on Fri01/08/18 at 2100, Until Discontinued, Routine Given 01/10/2018 9:18 PM EST 5 mLs Given 01/10/2018 8:51 AM EST 5 mLs Given 01/09/2018 9:00 PM EST 5 mLs sodium chloride 0.9% infusion 100 mL/hr, Intravenous, CONTINUOUS, Starting on Fri01/08/18 at 1415, Until 01/10/18 at 1335 New Bag 01/10/2018 7:03 AM EST 100 mL/hr 100 mL/hr Rate/Dose Verify 01/09/2018 8:00 PM EST 100 mL/hr 100 mL/ hr New Bag 01/09/2018 8:52 AM EST 100 mL/hr 100 mL/hr documented in this encounter Active and Recently Administered Medications Times are shown in EST. Scheduled Medication Order 01/09/2018 01/10/2018 01/11/2018 aspirin chewable tablet 81 mg 81 mg, Oral, DAILY, First dose on Fri01/09/18 at 0915, Until Discontinued, Routine 0908 (Given - Provider: Denisse Meza RN) 0851 (Given - Provider: Deb Michelle, GLENDA) 0826 (Given - Provider: Kiki Delcid, GLENDA) atorvastatin (LIPITOR) tablet 40 mg 40 mg, [...] 40 mg, Intravenous, DAILY, First dose on Dorcas 01/08/18 at 1330, Until Discontinued 0843 (Given - [...] Reason: NPO) 0616 (Given - Provider: Alice Tobin, GLENDA) 0633 (Given - Provider: Alice Tobin, GLENDA) polyethylene glycol (MIRALAX) packet 17 g 17 g, Oral, DAILY, First dose on Dorcas 01/08/18 at 1530, Until Discontinued, Routine 0900 (Not Given - Provider: Denisse Meza RN - Reason: NPO) 0851 (Given - Provider: Deb Michelle RN) 0828 (Given - Provider: Kiki Delcid, GLENDA) propranolol (INDERAL) tablet 20 mg 20 mg, Oral, 2 TIMES DAILY, First dose on Dorcas 01/08/18 at 2100, Until Discontinued, Routine 0900 (Given - Provider: Denisse Meza RN)1999 (Given - Provider: Isa Dotson RN) 0854 (Given - Provider: Deb Michelle RN)2117 (Given - Provider: Alice Tobin RN) 08 (Given - Provider: Kiki Delcid RN) senna-docusate (PERICOLACE) 8.6-50 mg per tablet 2 tablet 2 tablet, Oral, 2 TIMES DAILY, First dose on Dorcas 01/08/18 at 2100, Until Discontinued, Administer to achieve 1 soft bowel movement daily without straining, Routine 0900 (Given - Provider: Denisse Meza RN)2100 (Not Given - Provider: Alice Tobin RN - Reason: Patient/family refused) 0850 (Given - Provider: Deb Michelle RN)2117 (Given - Provider: Alice Tobin, GLENDA) 08 (Given - Provider: Kiki Delcid, GLENDA) sodium chloride 0.9 % flush 5 mL 5 mL, Intravenous, 2 TIMES DAILY, First dose on Dorcas 01/08/18 at 2100, Until Discontinued, Routine 0843 (Given - Provider: Denisse Meza RN)2099 (Given - Provider: Alice Tobin, GLENDA) 0851 (Given - Provider: Deb Michelle RN)2117 (Given - Provider: Alice Tobin RN) 0900 (Not Given - Provider: Kiki Delcid RN - Reason: Loss of access) Continuous Medication Order 01/09/2018 01/10/2018 01/11/2018 sodium chloride 0.9% infusion (CANCELED) 100 mL/hr, Intravenous, CONTINUOUS, Starting on Dorcas 01/08/18 at 1415, Until 01/10/18 at 1335 0852 (New Bag - Provider: Denisse Meza, GLENDA)2000 (Rate/Dose Verify - Provider: Isa Dotson, RN) 0703 (New Bag - Provider: Alice Tobin, RN)1413 (Stopped - Provider: Deb Michelle, GLENDA) PRN Medication Order 01/09/2018 01/10/2018 01/11/2018 acetaminophen [...] Heartburn, Routine 1933 (Given - Provider: Alice Tobin, GLENDA) bisacodyl (DULCOLAX) suppository 10 mg 10 mg, [...] Heartburn, Routine 1543 (Given - Provider: Deb Michelle, GLENDA) 1404 (Given - Provider: Kiki Delcid, GLENDA) enalaprilat (VASOTEC) injection 1.25 mg, Intravenous, Administer [...] Group 2) Transdermal, NIGHTLY PRN, Starting on 01/10/18 at [...] Nausea documented in this encounter Care Teams Medical Lab Assistant Relationship Specialty Start Date End Date Jimena Jones MD PCP - General Family Medicine 01/08/18 documented as of this encounter
--- OUTSIDE RECORDS SUMMARY | 2023-09-18 18:27 | XMS_ITS | Encounter Summary ---
[place] [address] Care Team Providers Care Skatesman Name Role Phone Jimena Jones MD Primary Care Provider [phone] Encounter Details Date Type Department Care Team (Late st Contact Info) Description 01/08/2018 [place] [id number] Mayank Shepherd MD [facility] [place] [address] Social History Tobacco Use Types Packs/Day Years Used Date Smoking Tobacco: Never Assessed Sex and Gender Information Value Date Recorded Sex Assigned at Not on file Gender Identity Not on file Sexual Orientation Not on file documented as of this encounter Miscellaneous Notes * Telephone Encounter - Mayank Shepherd MD - 01/08/2018 7:17 AM EST Caller: Dr. [facility] Hospital: [facility] Reason for call: Transfer request for thrombectomy Lars Jimenez is a 47 y.o. female who presented to [facility] for evaluation after a right upper extremity weakness and expressive aphasia. Patient's last known well was 9 PM last evening prior to going to sleep. She woke up around 4 AM this morning to alert her that something had changed. Patient was unable to communicate and had some right upper extremity weakness. Upon presentation to the emergency department at [facility], patient was noted to have loss of sensation in the right face, arm, and leg. She was also notedto have expressive aphasia. She however was able to follow commands. CT head and CT angiogram of head and neck was completed at that time. CT angiography showed patient the had a LEFT occlusion M2 bythe sylvian fissure. At that time [facility] was contacted for possible transfer but due to not having a neuro interventionalist we were contacted for possible transfer and evaluation for thrombectomy. Patient is not on any antithrombotics at home. The outside provider gave the patient 300 mg per rectum of aspirin. Patient is on estradiol, omeprazole, propranolol at home. Blood pressure was noted to be 147/88. Heart rate noted to be 110 and in sinus tachycardia. Saturating well on room air. freight caller was [facility] neurology provider Dr. Sauceda who agreed to the transfer and ED evaluation for possible thrombectomy. Neuro IR was subsequently contacted and patient will have MRI thrombectomy protocol attaining upon arrival. documented in this encounter Plan of Treatment Not on file documented as of this encounter Visit Diagnoses Not on filedocumented in this encounter Care Teams Skatesman Relationship Specialty Start Date End Date Jimena Jones MD PCP - General Family Medicine 01/08/18 documented as of this encounter
[2023-09-18 21:32] LABS: COMMENT (LAB VIEW ONLY) 37.28 mg/dL
[2023-09-18 21:33] LABS: Microalb ug/mg Crea 263.7 ug/mg Cr
== END 2023-09-18 18:18 | disposition home or self-care (01) ==
LOC: NCHCN 18:17
PROVIDERS: PCP Family Medicine; Visit Provider Family Medicine
DX: E11.9 Type 2 diabetes mellitus without complications (principal)
CPT/HCPCS: 82043; 82570

== ENCOUNTER 2024-05-06 13:18 | Outpatient (REF) | payer BC, SELFPAY ==
[2024-05-06 21:10] LABS: Abs Immature Grans 0.01 10^3/uL (0.0-0.06); Absolute Basophil Count 0.03 10^3/uL (0.0-0.2); Absolute Eosinophil Count 0.09 10^3/uL (0.0-0.7); Absolute Monocyte Count 0.42 10^3/uL (0.1-0.8); Absolute Neutrophil Count 3.79 10^3/uL (1.2-6.7); Basophils % 0.5 %; Eosinophils % 1.6 %; HCT 41.2 % (36.0-46.0); HGB 13.7 g/dL (11.2-15.7); Immature Grans % 0.2 %; MCH 28.5 pg (27.0-33.0); MCHC 33.3 % (32.0-36.0); MCV 86 fL (80-95); MPV 9.8 fL (8.0-11.0); Monocytes % 7.4 %; Neutrophils % 67.3 %; Platelet Count 326 10^3/uL (130-400); RBC 4.81 10^6/uL (3.93-5.22); RDW 12.5 % (11.7-14.6); WBC 5.64 10^3/uL (4.4-10.8)
[2024-05-06 21:11] LABS: ALT 21 U/L (14-59); AST 13 U/L (15-37); Albumin 3.6 g/dL (3.4-5.0); Alkaline Phosphatase 125 U/L (46-116); Anion Gap 6.4 mmol/L (3-11); BUN 17 mg/dL (7-18); Bilirubin, Total 0.3 mg/dL (0.2-1.0); CO2 29.6 mmol/L (21.0-32.0); CREATININE 0.7 mg/dL (0.55-1.02); Calcium 9.4 mg/dL (8.5-10.1); Chloride 105 mmol/L (98-107); Estimated GFR 103.35 (mL/min/1.73m2); Glucose 87 mg/dL (74-106); Lipase 22 U/L (<78); Potassium 3.6 mmol/L (3.5-5.1); Sodium 141 mmol/L (136-145); Total Protein 7.5 g/dL (6.4-8.2)
== END 2024-05-06 13:19 | disposition home or self-care (01) ==
LOC: NCHCN 13:18
PROVIDERS: PCP Family Medicine; Visit Provider Family Medicine
DX: R10.9 Unspecified abdominal pain (principal)
CPT/HCPCS: 80053; 83690; 85025; 87086

== ENCOUNTER 2024-10-27 14:31 | Outpatient (REF) | payer BC, SELFPAY ==
[2024-10-27 16:22] LABS: COMMENT (LAB VIEW ONLY) 146.30 mg/dL; Microalb ug/mg Crea 4.7 ug/mg Cr
== END 2024-10-27 14:32 | disposition home or self-care (01) ==
LOC: NCHCN 14:31
PROVIDERS: PCP Family Medicine; Visit Provider Family Medicine
DX: E11.9 Type 2 diabetes mellitus without complications (principal)
CPT/HCPCS: 82043; 82570